=== PATIENT | female | born 1955 | race African-American/Black ===

== ENCOUNTER 2019-05-18 14:41 | Outpatient (CLI) | payer OTHER, SELFPAY ==
--- NOTE | 2019-05-18 15:03 | ECHO_ITS ---
Patient Info Name: Yumiko Mendez Age: 63 years : 1955 Gender: Female Ht: 64 in Wt: 238 lbs BSA: 2.26 m2 HR: 75 bpm BP: 180 / 90 mmHg Technical Quality: Good Exam Date: 05/18/2019 3:07 PM Exam Location: [facility] Patient Status: Outpatient Admit Date: 05/18/2019 Staff Ordering Physician: Rosendo Carpenter DO Attending Provider: Rosendo Carpenter DO Referring Physician: Jayden KNAPP; Exam Type: CA echo doppler color flow Study Info Indications R06.09 - Other forms of dyspnea Complete two-dimensional, color flow and Doppler transthoracic echocardiogram is performed. Summary 1. Left ventricular chamber dimension is normal. 2. Left ventricular systolic function is normal, estimated at 60-65%. 3. The left ventricular diastolic function is grade I diastolic dysfunction. 4. E/e' 13 is mildly elevated. 5. Left atrial chamber dimension is moderately enlarged. 6. The aortic valve is not well visualized. 7. Cannot determine number of aortic valve leaflets. 8. There is mild to moderate aortic valve stenosis based on peak velocity of 245 cm/s, mean gradient of 12 mmHg, and aortic valve area of 1.8 cm2. However, aortic stenosis could be underestimated, consider JEYSON. 9. There is severe aortic valve sclerosis. 10. The mitral valve has mildly calcified annulus. 11. There is trace mitral valve regurgitation. Left Ventricle E/e' 13 is mildly elevated. Left ventricular chamber dimension is normal. Left ventricular systolic function is normal, estimated at 60-65%. The left ventricular diastolic function is grade I diastolic dysfunction. Right Ventricle Right ventricular chamber dimension is normal. Right ventricular systolic function is normal. Left Atria Left atrial chamber dimension is moderately enlarged. Right Atria Right atrial chamber dimension is normal. Aortic Valve Cannot determine number of aortic valve leaflets. There is mild to moderate aortic valve stenosis based on peak velocity of 245 cm/s, mean gradient of 12 mmHg, and aortic valve area of 1.8 cm2. However, aortic stenosis could be underestimated, consider JEYSON. The aortic valve is not well visualized. There is severe aortic valve sclerosis. There is no aortic valve regurgitation. Pulmonic Valve There is no pulmonic regurgitation. Mitral Valve The mitral valve has mildly calcified annulus. There is no mitral valve stenosis. There is trace mitral valve regurgitation. Tricuspid Valve There is no tricuspid valve regurgitation. Pericardium/Pleural There is no pericardial effusion. Inferior Vena Cava Normal inferior vena cava with >50% collapse upon inspiration consistent with normal right atrial pressure, 5 mmHg. Aorta The aortic root size at the sinus of Valsalva is normal. Left Ventricular Outflow Tract Name Value Normal LVOT 2D LVOT Diameter 2.0 cm LVOT Doppler LVOT Peak Gradient 7 mmHg LVOT Mean Gradient 4 mmHg LVOT VTI 29 cm LVOT VTI/AV VTI Ratio 0.6 LVOT Stroke Volume 92 ml
== END 2019-05-18 14:42 | disposition home or self-care (01) ==
PROVIDERS: PCP Internal Medicine Infectious Disease; Visit Provider Internal Medicine Cardiovascular Disease
DX: R06.09 Other forms of dyspnea (principal); I34.0 Nonrheumatic mitral (valve) insufficiency; I35.1 Nonrheumatic aortic (valve) insufficiency
CPT/HCPCS: 93306

== ENCOUNTER 2019-10-14 10:44 | Outpatient (CLI) | payer OTHER, SELFPAY ==
--- NOTE | ~2019-10-14 | US_ITS ---
EXAMINATION: US soft tissue groin LT DATE: 10/14/2019 10:59 INDICATION: Left groin pain. TECHNIQUE: Multiple grayscale and Doppler ultrasound images of the left inguinal region were obtained . COMPARISON: Pelvis MRI 05/14/2018 FINDINGS: There is no abnormal mass or lymphadenopathy in the patient's area of concern in left ingui nal region. IMPRESSION: 1. No abnormal mass or lymphadenopathy in the patient's area of concern in left inguinal region. Reviewed, dictated and finalized at location A.
== END 2019-10-14 10:45 ==
PROVIDERS: Visit Provider Internal Medicine Infectious Disease
DX: R10.2 Pelvic and perineal pain (principal)
CPT/HCPCS: 76882

== ENCOUNTER 2020-06-22 09:39 | Outpatient (CLI) | payer OTHER, SELFPAY ==
--- NOTE | 2020-06-22 11:00 | NEURO_ITS ---
Impression: # Complains of numbness of hands, left more than right. # Severe left Carpal Tunnel Syndrome. # Mild to moderate right Carpal Tunnel Syndrome. # No ulnar neuropathy. # Needle/EMG exam abnormal. Nerve Conduction Studies Anti Sensory Summary Table Stim Site NR Peak (ms) P-T Amp (?V) Site1 Site2 Delta-P (ms) Dist (cm) Willie (m/s) Left Median Anti Sensory (2-3nd Digit) Wrist 5.3 13.5 Wrist 2-3nd Digit 5.3 14.0 26 Wrist 5.6 15.6 Wrist 2-3nd Digit 5.3 14.0 26 Right Median Anti Sensory (2-3nd Digit) Wrist 4.2 57.9 Wrist 2-3nd Digit 4.2 14.0 33 Wrist 7.7 32.8 Wrist 2-3nd Digit 4.2 14.0 33 Left Radial Anti Sensory (Base 1st Digit) Wrist 2.2 34.1 Wrist Base 1st Digit 2.2 0.0 Right Radial Anti Sensory (Base 1st Digit) Wrist 2.6 14.7 Wrist Base 1st Digit 2.6 0.0 Left Ulnar Anti Sensory (5th Digit) Wrist 3.3 58.3 Wrist 5th Digit 3.3 14.0 42 Right Ulnar Anti Sensory (5th Digit) Wrist 3.5 72.2 Wrist 5th Digit 3.5 14.0 40 Motor Summary Table Stim Site NR Onset (ms) O-P Amp (mV) Site1 Site2 Delta-0 (ms) Dist (cm) Willie (m/s) Left Median Motor (Abd Poll Brev) Wrist 9.5 1.3 Elbow Wrist 5.7 30.0 53 Elbow 15.2 1.1 Right Median Motor (Abd Poll Brev) Wrist 4.8 0.7 Elbow Wrist 6.6 31.0 47 Elbow 11.4 0.2 Left Ulnar Motor (Abd Dig Minimi) Wrist 3.4 5.1 A Elbow Wrist 5.7 29.0 51 A Elbow 9.1 1.8 Right Ulnar Motor (Abd Dig Minimi) Wrist 3.2 5.5 A Elbow Wrist 5.8 31.0 53 A Elbow 9.0 3.6 F Wave Studies NR F-Lat (ms) L-R F-Lat (ms) Left Median (Mrkrs) (Abd Poll Brev) 30.98 1.05 Right Median (Mrkrs) (Abd Poll Brev) 29.93 1.05 Left Ulnar (Mrkrs) (Abd Dig Min) 30.24 0.00 Right Ulnar (Mrkrs) (Abd Dig Min) 30.24 0.00 EMG Side Muscle Nerve Root Ins Act Fibs Amp Dur Recrt Comment Right 1stDorInt Ulnar C8-T1 Nml Nml Nml Nml Nml Right Ext Indicis Radial (Post Int) C7-8 Nml Nml Nml Nml Nml Right Ext Digitorum Radial (Post Int) C7-8 Nml Nml Nml Nml Nml Right BrachioRad Radial C5-6 Nml Nml Nml Nml Nml Right PronatorTeres Median C6-7 Nml Nml Nml Nml Nml Right Abd Poll Brev Median C8-T1 Nml Nml Nml Nml Nml Left 1stDorInt Ulnar C8-T1 Nml Nml Nml Nml Nml Left Ext Indicis Radial (Post Int) C7-8 Nml Nml Nml Nml Nml Left Ext Digitorum Radial (Post Int) C7-8 Nml Nml Nml Nml Nml Left BrachioRad Radial C5-6 Nml Nml Nml Nml Nml Left PronatorTeres Median C6-7 Nml Nml Nml Nml Nml Left Abd Poll Brev Median C8-T1 Nml Nml Decr >12ms Reduced MTDD
== END 2020-06-22 09:40 | disposition home or self-care (01) ==
PROVIDERS: PCP Internal Medicine Infectious Disease; Visit Provider Internal Medicine Infectious Disease
DX: G56.03 Carpal tunnel syndrome, bilateral upper limbs (principal); G62.9 Polyneuropathy, unspecified
CPT/HCPCS: 95886; 95911

== ENCOUNTER → 2020-12-02 04:12 | Outpatient (CLI) | payer OTHER, SELFPAY ==
[2020-12-02 18:23] LABS: SARS-CoV-2 RNA PCR Negative
== END ==
PROVIDERS: PCP Internal Medicine Infectious Disease; Visit Provider Obstetrics & Gynecology Gynecology
DX: Z01.812 Encounter for preprocedural laboratory examination (principal); Z20.822 Contact with and (suspected) exposure to COVID-19
CPT/HCPCS: C9803; U0003; U0005

== ENCOUNTER 2020-12-05 00:45 | Day surgery (SDC) | payer OTHER, SELFPAY ==
[2020-12-01 15:45] VITALS: BMI 43.4
--- NOTE | 2020-12-05 07:49 | WPDHPUPDATE1 ---
History and Physical Update Update Date/Time: 12/05/20 07:49 History and Physical has been reviewed, including an updated exam of the patient. There are NO changes in the patient's condition. Risks, benefits, and alternatives have been discussed and questions answered. Patient agrees to proceed with procedure.
--- NOTE | 2020-12-05 07:49 | PM.HPGS ---
History of Present Illness History of Present Illness Consent: Risks, benefits, and alternatives have been discussed and questions answered. Patient agrees to proceed with procedure. Chief complaint: thickened endometrial lining Narrative: Yumiko Mendez is a 64 year old female who went to the emergency room for fever and elevated blood pressure. She was diagnosed with sepsis positive E coli blood cultures. Pelvic CT at the time revealed thickened endometrium at 6mm. The patient denies vaginal bleeding. It was recommended to further evaluate with hysteroscopy D&C. Risks of infection, bleeding, and perforation were reviewed. Possible pathology was discussed. Review of Systems Constitutional: Constitutional: Reports night sweats (Anti flashes) Gastrointestinal: Gastrointestinal: Reports constipation and Reports other (Hemorrhoids) Genitourinary: Genitourinary: Reports urinary incontinence (Mixed) Musculoskeletal: Musculoskeletal: Reports arthralgias [facility] Past Medical History Medical History (Updated 12/05/20 @ 07:52 by Jazmine Armstrong MD) Chest pain Disorder of lipid metabolism Hypertension Osteoarthritis Surgical History Surgical History (Updated 04/30/19 @ 10:49 by Guadalupe Goldstein CMA) History of Family History Family History (Updated 04/30/19 @ 10:50 by Guadalupe Goldstein CMA) Father Heart disease Hypertension Mother Hypertension Breast cancer Social History Social History (Updated 04/30/19 @ 10:51 by Guadalupe Goldstein CMA) Smoking status: Never smoker Alcohol intake: never Living arrangements: with family Meds Home Medications and Allergies Home Medications Medication Instructions Recorded Confirmed Type acetaminophen 650 mg 1,300 mg PO Q8H PRN tablet 04/30/19 12/01/20 History tablet,extended release diclofenac sodium 75 mg 75 mg PO BID 04/30/19 12/01/20 History tablet,delayed release ergocalciferol (vitamin D2) 1,250 1,250 mcg PO 3XW 04/30/19 12/01/20 History mcg (50,000 unit) capsule losartan 100 mg tablet 100 mg PO DAILY 04/30/19 12/01/20 History amlodipine 10 mg tablet 10 mg PO DAILY #30 tablet 05/01/19 12/01/20 Rx cephalexin 500 mg PO BID 12/01/20 12/01/20 History elderberry fruit [Elderberry] 200 mg PO DAILY 12/01/20 12/01/20 History ephedrine HCl 25 mg PO DAILY 12/01/20 12/01/20 History multivit with min-folic acid 1 tablet PO DAILY 12/01/20 12/01/20 History [Adult Multivitamin Gummies] tramadol 200 mg PO Q8H PRN 12/01/20 12/01/20 History Allergies Allergy/AdvReac Type Severity Reaction Status Date / Time Sulfa (Sulfonamide Allergy Mild RASH Verified 12/01/20 15:31 Antibiotics) Exam Const: General: comfortable and no acute distress : External Female Exam: normal external appearance Speculum Exam - Vagina: normal appearance of the vagina Speculum Exam - Cervix: Other cervical findings present (Cervix scarred) Bimanual exam- vagina & uterus: normal bimanual exam Bimanual Exam- Adnexa, other: normal adnexae Assessment and Plan Assessment and plan (1) Thickened endometrium: Code(s): R93.89 - Abnormal findings on diagnostic imaging of other specified body structures Status: Acute Assessment and Plan: Plan to proceed with D&C hysteroscopy
--- NOTE | 2020-12-05 09:11 | WPDANESEPPF ---
Anes - Initial Pre Proc Eval Procedure: Operation Date: 12/05/20 11:15 Proposed Procedures p Hysteroscopy Dilation and Curettage - Jazmine Armstrong MD Date/Time: 12/05/20 09:11 Surgeon: Jazmine Armstrong MD Pre Op Diagnosis: thickened endometrial lining Patient Data Age: 64 Gender: F Height: 1.63 m Weight: 115 kg Allergies Allergy/AdvReac Type Severity Reaction Status Date / Time Sulfa (Sulfonamide Allergy Mild RASH Verified 12/01/20 15:31 Antibiotics) Home Medications Medication Instructions Recorded Confirmed Type acetaminophen 650 mg 1,300 mg PO Q8H PRN tablet 04/30/19 12/01/20 History tablet,extended release diclofenac sodium 75 mg 75 mg PO BID 04/30/19 12/01/20 History tablet,delayed release ergocalciferol (vitamin D2) 1,250 1,250 mcg PO 3XW 04/30/19 12/01/20 History mcg (50,000 unit) capsule losartan 100 mg tablet 100 mg PO DAILY 04/30/19 12/01/20 History amlodipine 10 mg tablet 10 mg PO DAILY #30 tablet 05/01/19 12/01/20 Rx cephalexin 500 mg PO BID 12/01/20 12/01/20 History elderberry fruit [Elderberry] 200 mg PO DAILY 12/01/20 12/01/20 History ephedrine HCl 25 mg PO DAILY 12/01/20 12/01/20 History multivit with min-folic acid 1 tablet PO DAILY 12/01/20 12/01/20 History [Adult Multivitamin Gummies] tramadol 200 mg PO Q8H PRN 12/01/20 12/01/20 History Patient hx anesthesia problems: none Family hx anesthesia problems: none PMFSH Past Medical History Medical History Chest pain Disorder of lipid metabolism Hypertension Osteoarthritis Surgical History Surgical History History of Family History Family History Father Heart disease Hypertension Mother Hypertension Breast cancer Social History Social History Smoking status: Never smoker Alcohol intake: never Living arrangements: with family Anita Steiner Final PreProcedure Day of Procedure 12/05/20 09:11 Patient weight: morbidly obese Heart: regular rate and rhythm Lungs: clear to auscultation Airway: Mallampati scale class II Neurological: alert and oriented Last oral intake: >/= 8 hours ASA classification: III Emergent: no Anesthetic plan: proceed Anesthesia type and monitoring: general GIVS and standard monitoring Informed Consent: The patient's anesthetic plan and its attendant risks and benefits were discussed with the patient/family/POA. Questions were solicited and answers provided to the satisfaction of the patient/family/POA.
[2020-12-05] MEDS: ACETAMINOPHEN 500 MG TABLET 1000 MG PO (09:19)
[2020-12-05] MEDS: LACTATED RINGERS 1,000 ML 30 ML IV CONT (09:20)
[2020-12-05 10:26] VITALS: BP 188/82; PULSE 84; RESP 14; O2SAT 95
--- NOTE | 2020-12-05 10:27 | W.PM.PROC2 ---
Procedure Note - Detailed Date of Procedure 12/05/20 Pre-op Diagnosis thickened endometrial lining Post-op Diagnosis same Procedure Performed D&C hysteroscopy with MyoSure resection Surgeon Jazmine Armstrong MD Anesthesia MAC and local Findings External os is completely stenotic; uterus sounds to 8cm; there is a large polyp and a small fibroid on the posterior wall; the remainder of the endometrium appears atrophic Description of Procedure The patient is taken to the operating room and placed under anesthesia in the dorsal lithotomy position. She is prepped and draped in the usual sterile fashion. [place] speculum was placed in the vagina and the cervix was grasped on the anterior lip with a tenaculum. The external os is without visible opening. The cervix is injected with 1% lidocaine in each quadrant. An 11 blade scalp was used to linda-cross what appears to be the possible external os. The os Finders were then used and the cervix able to be opened. The cervix was then serially dilated with Hegar. The uterus is sounded to 8cm. The diagnostic hysteroscope was placed with the stated findings. The MyoSure device is opened and placed. Under direct visualization the large polyp and small fibroid are excised using the MyoSure device. A medium curette is used to curette the endometrium until a good uterine cry was noted in all areas. Minimal materials obtained consistent with the atrophic appearance. All instruments are removed. Sponge, needle, and instrument counts are correct per the OR staff. Patient is awakened from anesthesia and taken to recovery in stable condition. Estimated Blood Loss 5 Drains No Packing No Pathology yes (Endometrial shavings and curettings) Complications No immediate complications Condition stable Disposition PACU
[2020-12-05 10:50] VITALS: BP 182/84; PULSE 82; RESP 20
[2020-12-05 11:20] VITALS: BP 189/86; PULSE 82; RESP 20
[2020-12-05 11:50] VITALS: BP 189/88; PULSE 80; RESP 20
[2020-12-05 12:10] VITALS: BP 187/85; PULSE 82; RESP 20
== END 2020-12-05 12:24 | disposition home or self-care (01) ==
PROVIDERS: PCP Internal Medicine Infectious Disease; Visit Provider Obstetrics & Gynecology Gynecology
PROC: 0U5B8ZZ Destruction of Endometrium, Via Natural or Artificial Opening Endoscopic (ICD-10-PCS; CPT 58563; principal; 2020-12-05 11:15)
DX: R93.89 Abnormal findings on diagnostic imaging of other specified body structures (principal); N88.2 Stricture and stenosis of cervix uteri; N84.0 Polyp of corpus uteri; D25.0 Submucous leiomyoma of uterus; I11.0 Hypertensive heart disease with heart failure; M19.90 Unspecified osteoarthritis, unspecified site; E66.01 Morbid (severe) obesity due to excess calories; Z68.41 Body mass index [BMI] 40.0-44.9, adult; I25.10 Atherosclerotic heart disease of native coronary artery without angina pectoris; R60.0 Localized edema
CPT/HCPCS: 58558; 88305; A9270; C9803; J2704; J3010; J7030; J7120; U0003; U0005

== ENCOUNTER → 2023-02-20 11:28 | Outpatient (CLI) | payer MEDICARE, SELFPAY ==
--- NOTE | ~2023-02-20 | DEXA_ITS ---
Bone Density Report Name: NASIM RITCHIE Age: 67 Sex: Female Ethnicity: Black Date of : 1955 Indication: postmenopausal; screening for osteoporosis; parental hip fracture; height loss; Referring Provider: THERESA LAUREANO Study: Bone densitometry was performed. Exam Date: February 20, 2023 Accession number: [id number] Bone Density: Region BMD T-score Z-score Classification AP Spine (L1-L4) 1.460 3.8 4.9 Normal Femoral Neck (Left) 1.113 2.4 2.5 Normal Total Hip (Left) 1.069 1.0 1.3 Normal Femoral Neck (Right) 0.942 0.8 1.3 Normal Total Hip (Right) 1.044 0.8 1.1 Normal Total Hip Mean 1.057 0.9 1.2 Normal World Health Organization criteria for BMD impression classify patients as: Normal (T-score at or above -1.0), Osteopenia (T-score between -1.0 and -2.5), or Osteoporosis (T-score at or below -2.5). 10-year Fracture Risk: FRAX not reported because: All T-scores for Spine Total, Hip Total, Femoral Neck at or above -1.0 Clinical Information Provided by Patient: Parent has had a hip fracture Has used the following medications: Vitamin D Patient maximum height was 65 Menopause Age: 50 No regular weight bearing exercise Drinks caffeinated beverages Onset of menses at age 13 Number of children 4 Impression: The patient has normal bone mass. The patient has risk factors, including: parental hip fracture. Discussion: BONE DENSITY IS ABOVE THE MINIMUM DESIRABLE LEVEL AT ALL SKELETAL SITES TESTED. This patient?s bone mineral density is above the minimum desirable level (T-score -1.0 or better) at all sites measured. The patient should follow a healthful lifestyle (good nutrition with adequate calcium and vitamin D, and appropriate weight-bearing exercise). Follow-Up: Consider repeating this study in 5 years or sooner if there is some new clinical indication. Reported by: [facility] on 02/20/2023 11:53:00 AM. Reviewed, dictated and finalized at location Kimberlee JETER
== END ==
PROVIDERS: PCP Obstetrics & Gynecology Gynecology; Visit Provider Obstetrics & Gynecology Gynecology
DX: Z78.0 Asymptomatic menopausal state (principal)
CPT/HCPCS: 77080

== ENCOUNTER 2023-05-29 09:55 | Outpatient (CLI) | payer MEDICARE, SELFPAY ==
--- NOTE | 2023-05-29 11:30 | NEURO_ITS ---
Impression: # Complains of decreasing strength in hands. # Severe left Carpal Tunnel Syndrome. # Moderate right Carpal Tunnel Syndrome. # Mildly abnormal needle/EMG exam in bilateral APB. Nerve Conduction Studies Anti Sensory Summary Table Stim Site NR Peak (ms) P-T Amp (?V) Site1 Site2 Delta-P (ms) Dist (cm) Willie (m/s) Left Median Anti Sensory (2-3nd Digit) Wrist 4.5 20.5 Wrist 2-3nd Digit 4.5 14.0 31 Wrist NR Wrist 2-3nd Digit 4.5 14.0 31 Right Median Anti Sensory (2-3nd Digit) Wrist 6.5 31.6 Wrist 2-3nd Digit 6.5 14.0 22 Wrist 6.6 27.7 Wrist 2-3nd Digit 6.5 14.0 22 Left Radial Anti Sensory (Base 1st Digit) Wrist 1.9 37.9 Wrist Base 1st Digit 1.9 0.0 Right Radial Anti Sensory (Base 1st Digit) Wrist 2.2 28.0 Wrist Base 1st Digit 2.2 0.0 Left Ulnar Anti Sensory (5th Digit) Wrist 3.6 38.0 Wrist 5th Digit 3.6 14.0 39 Right Ulnar Anti Sensory (5th Digit) Wrist 3.4 34.4 Wrist 5th Digit 3.4 14.0 41 Motor Summary Table Stim Site NR Onset (ms) O-P Amp (mV) Site1 Site2 Delta-0 (ms) Dist (cm) Willie (m/s) Left Median Motor (Abd Poll Brev) NO RESPONSE Wrist NR Elbow Wrist 26.0 Elbow NR Right Median Motor (Abd Poll Brev) Wrist 4.5 4.2 Elbow Wrist 5.5 30.0 55 Elbow 10.0 3.8 Left Ulnar Motor (Abd Dig Minimi) Wrist 3.2 4.1 A Elbow Wrist 6.0 33.0 55 A Elbow 9.2 3.4 Right Ulnar Motor (Abd Dig Minimi) Wrist 2.8 6.2 A Elbow Wrist 5.4 29.0 54 A Elbow 8.2 4.6 F Wave Studies NR F-Lat (ms) L-R F-Lat (ms) Left Median (Mrkrs) (Abd Poll Brev) 29.83 0.35 Right Median (Mrkrs) (Abd Poll Brev) 30.18 0.35 Left Ulnar (Mrkrs) (Abd Dig Min) 29.88 0.18 Right Ulnar (Mrkrs) (Abd Dig Min) 29.71 0.18 EMG Side Muscle Nerve Root Ins Act Fibs Amp Dur Recrt Comment Right 1stDorInt Ulnar C8-T1 Nml Nml Nml Nml Nml Right Ext Indicis Radial (Post Int) C7-8 Nml Nml Nml Nml Nml Right Ext Digitorum Radial (Post Int) C7-8 Nml Nml Nml Nml Nml Right BrachioRad Radial C5-6 Nml Nml Nml Nml Nml Right PronatorTeres Median C6-7 Nml Nml Nml Nml Nml Right Abd Poll Brev Median C8-T1 Nml Nml Nml >12ms Reduced Left 1stDorInt Ulnar C8-T1 Nml Nml Nml Nml Nml Left Ext Indicis Radial (Post Int) C7-8 Nml Nml Nml Nml Nml Left Ext Digitorum Radial (Post Int) C7-8 Nml Nml Nml Nml Nml Left BrachioRad Radial C5-6 Nml Nml Nml Nml Nml Left PronatorTeres Median C6-7 Nml Nml Nml Nml Nml Left Abd Poll Brev Median C8-T1 Nml Nml Nml >12ms Reduced Right ABD Dig Min Ulnar C8-T1 Nml Nml Nml Nml Nml Left ABD Dig Min Ulnar C8-T1 Nml Nml Nml Nml Nml Right FlexCarpiUln Ulnar C8,T1 Nml Nml Nml Nml Nml Right Abd Poll Long Radial (Post Int) C7-8 Nml Nml Nml Nml Nml Left FlexCarpiUln Ulnar C8,T1 Nml Nml Nml Nml Nml Left Abd Poll Long Radial (Post Int) C7-8 Nml Nml Nml Nml Nml MTDD
== END 2023-05-29 09:56 | disposition home or self-care (01) ==
LOC: ANHNEURO 09:59
PROVIDERS: PCP Internal Medicine Infectious Disease; Visit Provider Internal Medicine Infectious Disease
DX: G56.03 Carpal tunnel syndrome, bilateral upper limbs (principal)
CPT/HCPCS: 95886; 95911

== ENCOUNTER 2024-08-05 15:36 | Inpatient (IN) | payer MEDICARE, SELFPAY ==
--- NOTE | ~2024-08-05 | CT_ITS ---
CT brain wo con Ordering provider: Carlitos Kingsley MD History: 68 years Female with . rpt HCT . Comparison: August 05, 2024 Technique: CT of the head without contrast. FINDINGS: BRAIN PARENCHYMA AND CSF SPACES: Encephalomalacia in the right temporal occipital area. Noted with hy perdense areas which are unchanged from previous examination. These are most likely calcifications bu t hemorrhage is not excluded. Follow-up advised. the Hounsfield units in the hyperdense areas are ab out 59 HU. No midline shift, or mass effect.. The brain parenchyma and CSF spaces are otherwise norm al. Persistent cavum septum pellucidum is noted. VISUALIZED PARANASAL SINUSES: Left sphenoid sinus disease. Well aerated. MASTOIDS: Well aerated. BONES: The bones appear intact. SOFT TISSUES: Visualized nasopharynx is normal. Superficial soft tissues are normal. IMPRESSION: No significant change from previous examination. Encephalomalacia in the right temporal occipital are a is noted with hyperdense areas most likely calcifications in the cortex Follow-up advised. Jacinta in the ER was notified with the result of the patient at 9:55 PM on August 05, 2024.. Reviewed, dictated and finalized at location A. IMPRESSION: No significant change from previous examination. Encephalomalacia in the right temporal occipital area is noted with hyperdense areas most likely calcificatio ns in the cortex Follow-up advised. Jacinta in the ER was notified with the result of the patient at 9:55 PM on 2024..
--- NOTE | ~2024-08-05 | CT_ITS ---
History: Remote history of CVA (October 2023) now presents with weakness. PROCEDURE: CT head without contrast. COMPARISON: 05/20/2017 TECHNIQUE: Axial imaging of the head performed from the skull base to the vertex without IV contrast. Sagittal a nd coronal reformations obtained. DLP: 605 mGy-cm FINDINGS: Incidental notation is made of cavum septum pellucidum. Encephalomalacia and gliosis is identified within the right temporoparietal lobe, primarily within th e distribution of the posterior cerebral artery, consistent with patient's history. Calcifications and circuitous foci of increased attenuation are identified within the gliosis cavity. The remainder of the ventricles are otherwise normal in size, shape and position. There is no mass, mass effect or midline shift. There is no abnormal extra-axial fluid collection. Opacification of the left sphenoid sinus is identified. Remaining paranasal sinuses are otherwise sangita ar. The mastoid air cells are well aerated. No acute displaced fractures within the overlying cranium. Impression: Encephalomalacia and gliosis with hyper attenuating foci identified centrally within the gliosis cavi ty. Short-term follow-up is recommended (repeat study in 2 hours) if the patient is clinically able, and if clinical suspicion persists to exclude acute/subacute hemorrhage. Opacification of the left sphenoid sinus. These findings and recommendations were discussed with Dr. Kingsley at 7:30 PM on 08/05/2024. Reviewed, dictated and finalized at location A. Impression: Encephalomalacia and gliosis with hyper attenuating foci identified centrally w ithin the gliosis cavity. Short-term follow-up is recommended (repeat study in 2 hours) if the patient is clinically able, and if clinical suspicion persists to exclude acute/subacute hemorrhage. Opacification of the left sphenoid sinus. These findings and recommendations were discussed with Dr. Kingsley at 7:30 PM on 08/05/2024.
--- NOTE | ~2024-08-05 | CT_ITS ---
EXAMINATION: CT abdomen pelvis w con DATE: 08/10/2024 13:19 INDICATION: Failure to thrive. Intractable nausea, vomiting and diarrhea. TECHNIQUE: Computed tomography (CT) of the abdomen and pelvis was performed with 100 mL Omnipaque-350 intravenous contrast. Automated exposure control and iterative reconstruction technique were employe d. The dose-length product was 743.47 mGy-cm. COMPARISON: None FINDINGS: Small bilateral posterior layering pleural effusions with associated dependent atelectasis in bilater al lower lobes, left greater than right. No pulmonary edema. Heart size is normal. Arthroscopic coron maurizio artery calcific lesions. Median sternotomy wires and surgical clips likely related to prior coron maurizio artery bypass grafting. There is also been prior aortic valve repair. No pericardial effusion. Th ere is diffuse mild to moderate body wall edema and small amount of ascites scattered throughout the abdomen and pelvis. 1 cm cyst in the right hepatic lobe. Gallbladder, spleen, pancreas, bilateral adr enal glands and right kidney are normal. 1 cm left renal cyst. Normal appendix. There is edematous-ap pearing wall thickening of loops of distal ileum and of the cecum and ascending colon consistent with an enterocolitis which could be infectious or inflammatory in etiology. Normal mucosal enhancement i s seen at the affected bowel. There is calcified atherosclerosis of the aorta and many of the other a rteries without evident hemodynamically significant stenosis in the celiac axis, superior mesenteric artery or inferior mesenteric artery. The latter is normal. Couple dystrophic calcifications in the o therwise unremarkable uterus. Bilateral adnexa are unremarkable. No abscess or free intraperitoneal g as. No pathologically enlarged abdominal or pelvic lymphadenopathy. Mild lumbar levoscoliosis with mo derate to severe spondylosis greatest at the thoracolumbar junction. There are bridging osteophytes a t multiple levels consistent with diffuse idiopathic skeletal hyperostosis (DISH). Mild to moderate right and severe left hip osteoarthritis. IMPRESSION: 1. Bowel wall thickening involving portions of the ileum in the proximal colon consistent with entero colitis which could be infectious or inflammatory in etiology. 2. Small bilateral pleural effusions, mild to moderate diffuse body wall edema and small amount of as cites in the abdomen and pelvis. Reviewed, dictated and finalized at location A. IMPRESSION: 1. Bowel wall thickening involving portions of the ileum in the proximal colon consistent with enterocolitis which could be infectious or inflammatory in etio logy. 2. Small bilateral pleural effusions, mild to moderate diffuse body wall edema and small amount of ascites in the abdomen and pelvis.
--- NOTE | ~2024-08-05 | XR_ITS ---
XR chest 2V Ordering provider: Nicole Trinidad APRN History: 68 years Female with . weakness . Comparison: April 09, 2019 FINDINGS: MEDIASTINUM: The cardiac silhouette is not enlarged. Postoperative changes in the mediastinum. LUNGS: No infiltrates, effusions or pneumothorax. More lucent left hemithorax is seen compared to the right. Clinical correlation for left lobectomy advised. OTHER: No free air under the diaphragm. Degenerative the spine. IMPRESSION: No acute cardiopulmonary pathology. Reviewed, dictated and finalized at location A.
[2024-08-05 15:40] VITALS: BP 116/78; PULSE 108; RESP 16; TEMP 36.5; O2SAT 100
--- OUTSIDE RECORDS SUMMARY | 2024-08-05 16:22 | XMS_ITS | Data Portability ---
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 She had cortisone shots in her knees 3 months ago. Weight loss has was discussed with her at that time she still has not lost the weight. Her last height and weight 5 ft 3-135 lb BMI of 41.6. She had a venous duplex ultrasound of the right leg on 03/26/2022 which showed a Wiley cyst but no DVT cord the patient. She had a nonhealing wound in the posterior left calf related to venous stasis. Now that has healed fully there is a 1 cm pale pink scar centrally back of the distal calf junction of proximal 2/3 distal 1/3 looks well healed. She did have a recent bout of venous stasis cellulitis in the right that has subsided. She also has severe osteoarthritis in her left hip addition to having severe arthritis in the right knee moderately severe left. She states that her weight has been going up and down. She is eating junk food and candy at times drinks 1 soda a day and has not been able to find the will power to avoid these things and sufficiently regulate her daily caloric intake in order to lose weight. She has been advised to see a dietitian by Dr. Skinner but has not done so because of the cost. She is still working she uses a cane. She has no cellulitis in either lower leg today. She has venous stasis darkening of the skin lower 1/4 of both calves. She has firm [place] edema in the lower halves of both legs. The skin around both knees looks normal. The skin in the groin of her left hip shows quite a bit of moisture but no rash. She has a pronounced abdominal pannus. As I did not feel she was the best candidate for a direct anterior approach because the condition of her skin left hip I did refer her to Dr. Zuniga in in the past who does posterior approach but she was too obese at the time to safely do her surgery and he recommended weight loss. I suspect that he would use the same guidelines of BMI of less than 40. I have discussed her that a weight of 220 lb at 5 ft 3 in in height would put her BMI of 39 we can schedule her surgery if she reaches that weight. She weighs approximately 235 lb now so this is await that should be achievable for her. I have discussed strategies in counting calories and avoiding unnecessary calories to not provide nutritional benefit such as sodas candies neck foods junk foods. She states she knows how to lose weight she has done it before but has not tried in earnest this time. she points out that she has friends that have told her that they know people that have been heavier than her that if had joint replacements and I discussed with her that it would be possible to do her joint replacement now with the problem is that with her extreme obesity this results in being prone to infection. I pointed out that she has recently had a nonhealing ulcer finally he will back her left calf and she recently developed spontaneous cellulitis in her right lower leg and if this happened around her knee it could result in multiple surgeries be necessary and need for explantation of her components and put her at high risk for medical complications finding a staph infection for example in her knee and this could even result in . I explained her that just because some patients will come through this surgery that have extreme obesity and seem to have recovery without complication does not change the fact that her risk is in particular is markedly elevated compared with the patient that does not have extreme obesity and her risk factors are evident to her as she has had the spontaneous infections and nonhealing ulcers in her legs already in a this is a direct result of venous stasis insufficiency and the chronic lower extremity edema that is in large part related to her extreme obesity and with this explanation she seemed to understand. She would like cortisone shots in both knees today. Risk of side effects including risk of infection discussed. After ChloraPrep prep, 20 mg of Kenalog and 4 cc of 0.5% ropivacaine were injected into each knee without difficulty and she tolerated this well. I will see her back in 3 months to assess her progress. 30 minutes were spent in total care this patient with the majority of this time spent in [id number] counseling. Not available 07/26/2022 15:49:58 10/18/2022 10/18/2022 HPI: Patient returns. She came in today because of her left hip pain. Last time we saw her for this was about 2 years ago. She was referred to Dr. Zuniga for total hip arthroplasty posterior approach. She has a large pannus and was not felt to be safe to do the anterior approach on her. She did see him and he recommended she lose more weight because her BMI was over 40 that time. She is getting ready to retire and at this point she feels that she wants to proceed with total hip arthroplasty. She has been taking Voltaren as well as tramadol. She uses a cane on a full-time basis. I did weigh her today and she was 231 lb and with a height of 5 ft 4in her BMI is 39.7. She is walking with a cane and a mild limp. I discussed with the patient again that an anterior approach would not be recommended for her because of the pannus that she has from her abdomen. Recommended that she see Dr. Zuniga again to discuss total arthroplasty. Her BMI is under 40 so I think it is reasonable for surgery. She also asked about Dr. Devine, she had a friend have surgery done by him for total hip and certainly that is an option. He does do posterior approaches. At this point there is not much to offer her with regard to hip. She is going to make some phone call and set up appointments with these other doctors to discuss surgery. 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 Her left hip is the biggest problem for her. She cannot walk without a cane in the right hand. She has been told that she needs to lose weight in order to have hip replacement surgery but has not complied with this advice. I had a long discussion with her about how to lose weight by dieting specifically avoiding sodas and foods with high glycemic index such as pasta and rice and foods that are essentially a necessary but are very high calorie such as Serbian fries. She suggested that she might start by giving up drinking sodas which she does frequently and enjoys. That would be a good place to start. I have recommended that she discuss this with Dr. Skinner. There are medications that can reduce the appetite that her options. Would also recommend she consider seeing a dietitian if she can learn how to make healthy choices with respect to her choice of foods and portion control. The simplest placed for her to start would be to give up so it is and sugary snacks. She would like to have cortisone shots in both knees today. They do give her some relief. I have discussed risk of complications including risk of infection with her. After ChloraPrep prep, 20 mg of Kenalog and 4 cc of 0.5% ropivacaine were injected into each knee without difficulty and she tolerated this well. I will be happy to see her back in 3 months to assess her progress with cortisone shots again if she would like. 30 minutes were spent in care this patient more than half the time spent in [id number] care. Not available 01/27/2023 17:31:07 05/09/2023 05/09/2023 Patient returns. She has advanced osteoarthritis of her left hip and rather severe arthritis in both knees. Her left hip bothers her the most. She has been advised that she needs to lose weight before hip replacement surgery. She states she has lost 5 lb over the last 3 months. I would expect her BMI is getting close to being under 40. She has a severe abdominal pannus and I have discussed with her that she would need to see an orthopedic surgeon that does a posterior approach which I do not do. She has seen Dr. Zuniga in in the past was advised her that she needs to lose weight before hip replacement and that would be an excellent choice for her. She had cortisone shots in each knee 3 months ago and they did help her. I have discussed with her that she should be striving to lose 1-1/2 lb each and every week. After 3 months this would lead to an 18 lb weight loss. She is planning to start 1 of the weight loss injections soon. She has been having problems with increased blood pressure. She has been having edema in her legs and has venous stasis skin changes about both ankles and is being sent for ultrasounds of her legs to rule out DVT. She has been advised that diclofenac may be exacerbating her blood pressure problems and edema problems and Dr. Skinner has talked her about perhaps minimize use of diclofenac moving forward. She does take tramadol for pain. 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 Her prior x-rays demonstrate advanced medial compartment osteoarthritis the right knee and moderate medial joint space narrowing on the left moderately severe patellofemoral arthritis left. I have given her the handout explaining the correlation between caloric intake and weight loss or weight gain and she is going to need to reduce her calories that she consumes every day a little bit more. She would like cortisone shots in both knees today. She has no cellulitis in her legs skin over the knees looks normal she had a mild effusion both knees no warmth or redness. I discussed risk of side effects with her including risk of infection. after Betadine and alcohol prep, 20 mg of Kenalog and 4 cc 0.5% ropivacaine were injected into each knee without difficulty. She can have a cortisone shot as often as every 3 months if they are helpful and necessary. 20 minutes were spent total care this patient more than half the time spent in [id number] care. Not available 05/09/2023 14:04:07 Plan of Treatment Reminders Order Date Submit Date Provider Last Modified By Organization Details Last Modified Time Details Appointments None recorded. Lab None recorded. Referral None recorded. Procedures injection/a spiration joint/bursa (PROC) - in office procedure, administere d by provider 2023 024 [email or web address] In-Office Order, Internal Use Only DO Not Attach Compendium DO Not Attach Compendium, Do Not Delete/merge, [id number] 4 12:59:59 injection/a spiration joint/bursa (PROC) - in office procedure, administere d by provider 2022 023 [email or web address] In-Office Order, Internal Use Only DO Not Attach Compendium DO Not Attach Compendium, Do Not Delete/merge, [id number] 3 12:00:08 injection/a spiration joint/bursa (PROC) - in office procedure, administere d by provider 2022 023 [email or web address] In-Office Order, Internal Use Only DO Not Attach Compendium DO Not Attach Compendium, Do Not Delete/merge, [id number] 3 15:13:14 Surgeries None recorded. Imaging XR, knee 2022 023 [email or web address] [facility], [address] [place] [address], [address], 3 10:59:25 XR, hip + pelvis, unilateral 2022 023 [email or web address] [facility], [address] [place] [address], [place], [address], 3 12:28:33 Medication Orders Kenalog 10 mg/mL suspension for injection [address] [facility], [address] [place] [address], [address], 4 14:29:44 ropivacaine (PF) 5 mg/mL (0.5 %) injection solution [address] [facility], [address] [place], [address], 4 14:29:44 Kenalog 10 mg/mL suspension for injection 2022 023 [email or web address] [facility], [address] [place], [address], 4 12:04:34 ropivacaine (PF) 5 mg/mL (0.5 %) injection solution [address] [facility], [address] [place] [address], [address], 3 14:50:11 Kenalog 10 mg/mL suspension for injection 2022 023 [facility], [address] [facility], [place], [address], 4 12:04:34 ropivacaine (PF) 5 mg/mL (0.5 %) injection solution 2022 023 [facility], [address] [facility], [place], [address], 3 21:15:56 Patient TargetsNo targets recorded. Patient InstructionsNo instructions recorded. Reason for Referral None Reported. Results Created Date Observation Date Name Description Value Unit Range Abnormal Flag Note LastModifiedBy Organization Detail LastModifiedTime 10/19/19 23 XR, hip + pelvi s, unila teral No observ ation record ed. [email or web address] [facility] [address], [place], [address], 10/18/2022 12:18:37 01/18/20 23 XR, knee No observ ation record ed. [email or web address] [facility] [address] [place], [address], 01/17/2023 11:58:51 Result Notes None recorded. Problems Name Problem SNOMED Code Status Onset Date Resolution Date Notes Provider Name and Address Organization Details Recorded Time Pain in lower limb 07272655 Completed Not Available [facility] 3 10:45:40 Open wound of left lower leg 32250421630 327595 Active 2022 Not Available [facility] 3 10:45:40 Constipat ion 68111710 Active Not Available [facility] 3 10:45:40 Pain of left ankle joint 09500206398 580585 Active 2021 Not Available [facility] 3 10:45:40 Backache 193534327 Completed Not Available [facility] 3 10:45:40 Urinary incontine nce 159189022 Completed Not Available [facility] 3 10:45:40 Asthma 241465997 Active Not Available [facility] 3 10:45:40 Localized , primary osteoarth ritis of the pelvic region and thigh 296960223 Active Not Available [facility] 3 10:45:40 Gastroeso phageal reflux disease 731541135 Active Not Available [facility] 3 10:45:40 Osteoarth ritis of knee 808253838 Active Not Available [facility] 3 10:45:40 Dyspnea 170446239 Completed Not Available [facility] 3 10:45:40 Pain in left lower limb 793865232 Completed Not Available [facility] 3 10:45:40 Chest pain 55616216 Completed Not Available [facility] 3 10:45:40 Infected thumb 730439287 Completed Not Available [facility] 3 10:45:40 Blood in urine 65350562 Completed Not Available [facility] 3 10:45:40 Arthritis 4684124 Active Not Available [facility] 3 10:45:41 Osteoarth ritis 218502757 Active Not Available [facility] 3 10:45:41 Obesity 202364179 Active Not Available [facility] 3 10:45:41 Painless rectal bleeding 681448281 Active Not Available [facility] 3 10:45:41 Hyperlipi demia 35275005 Active Not Available [facility] 3 10:45:41 Essential hypertens ion 32396715 Active Not Available [facility] 3 10:45:41 Dyspnea on exertion 07061312 Active Not Available [facility] 3 10:45:41 Urinary tract infectiou s disease 62433331 Completed Not Available [facility] 3 10:45:41 Spinal stenosis 01077290 Active Not Available [facility] 3 10:45:41 Vitamin deficienc y 94046372 Active Not Available [facility] 3 10:45:41 Paresthes ia 70012484 Active Not Available [facility] 3 10:45:41 Periphera l venous insuffici ency 22224920 Active 2022 Jluis Templeton DPM [address], [place], [address] , [facility] 3 13:10:36 Bilateral osteoarth ritis of knees 91418119858 9107 Active 2022 Candace Green RMA null, [facility] 3 15:12:03 Pain of left hip joint 85807219811 9100 Active 2022 Candace Green, RMA null, [facility] 3 11:20:06 Pain of bilateral knee joints 71640666030 4104 Active 2022 Candace Green RMA null, [facility] 3 11:58:58 Osteoarth ritis of left hip joint 83685082478 9108 Active 2023 Candace Green, RMA null, [place] [facility] 4 12:07:12 Problem Notes None recorded. Procedures Surgical History Date Name Laterality Status Provider Name and Address Organization Details Recorded Time 06/07/19 Blank Procedure Note completed Jluis Templeton DPM [address], [address], [place], [address], [facility] 06/07/2022 13:09:50 04/08/19 11 Colonoscopy completed Not Available [facility] 06/07/19 10:42:14 rubber band ligation of hemorrhoid(s) completed Not Available [facility] 06/06/2022 10:42:14 section completed Not Available [facility] 06/06/2022 10:42:14 Anoscopy control bleeding completed Not Available [facility] 06/06/2022 10:42:14 Imaging Results Imaging Date Name Status LastModified by Organiz ation Details LastModified Time 10/18/2022 XR, hip + pelvis, unilateral completed [email or web address] [facility], [place], [address], 10/18/2022 12:18:37 01/17/2023 XR, knee completed [email or web address] [facility] [address], [place], [address], 01/17/2023 11:58:51 Procedure Notes None recorded. Medical Equipment None Reported. Allergies Allergen ID Allergen Name Allergen Category Reaction Reaction Severity Criticality Documentation Date Start Date Code Code System Note Provider Name and Address Organization Details Recorded Time 98175 Substance with sulfonami de structure and antibacte rial mechanism of action (substanc e) medicatio n Not available Not available Not available 06/06/2022 91563 8003 SNOMED Not Available [facility] 10:51:26 Medications Name Sig Start Date Stop Date Status Note LastModified by Organization Details LastModified Time nifedipin e ER 30 mg tablet,ex tended release 24 hr TAKE 1 TABLET BY MOUTH ONCE DAILY 04/27 completed Not Available Not Available Not Available celecoxib 200 mg capsule Take 1 capsule twice a day by oral route as needed. 07/05 completed Not Available Not Available Not Available cyclobenz aprine 10 mg tablet Take 1 tablet every 8 hours by oral route as needed for 10 days. active GENERIC FOR FLEXERIL Not Available Not Available Not Available amoxicill in 500 mg capsule Take 1 capsule 3 times a day by oral route. active Not Available Not Available No t Available furosemid e 40 mg tablet TAKE 1 TABLET BY MOUTH ONCE DAILY IN THE MORNING active Not Available Not Available No t Available clonidine HCl 0.1 mg tablet active Not Available Not Available No t Available atorvasta tin 10 mg tablet Take 1 tablet every day by oral route. active Not Available Not Available No t Available oxybutyni n chloride ER 10 mg tablet,ex tended release 24 hr Take 1 tablet every day by oral route. 05/10 completed Not Available Not Available Not Available ibuprofen 800 mg tablet TAKE 1 TABLET BY MOUTH EVERY 6 TO 8 HOURS NEEDED FOR 10 DAYS 05/09 completed Not Available Not Available Not Available ofloxacin 0.3 % eye drops 10/21 completed Not Available Not Available Not Available metoprolo l succinate ER 50 mg tablet,ex tended release 24 hr TAKE 1 TABLET BY MOUTH ONCE DAILY 08/10 completed Not Available Not Available Not Available tolterodi ne ER 4 mg capsule,e xtended release 24 hr TAKE 1 CAPSULE BY MOUTH ONCE DAILY 05/09 completed Not Available Not Available Not Available hydrocodo ne 5 mg-acetam inophen 325 mg tablet Take 1 tablet 3 times a day by oral route. active Not Available Not Available No t Available fluticaso ne propionat e 0.05 % topical cream 10/21 completed Not Available Not Available Not Available meloxicam 15 mg tablet TAKE 1 TABLET BY MOUTH ONCE DAILY 09/08 completed Not Available Not Available Not Available phenazopy ridine 200 mg tablet 08/10 completed Not Available Not Available Not Available metronida zole 0.75 % (37.5 mg/5 gram) vaginal gel active Not Available Not Available Not Available Medrol (Morteza) 4 mg tablets in a dose pack take as directed 01/01 completed Not Available Not Available Not Available bupivacai ne HCl 0.5 % (5 mg/mL) injection solution In office injectio n administ ered by the provider 11/09 completed Not Available Not Available Not Available metoprolo l succinate ER 100 mg tablet,ex tended release 24 hr Take 1 tablet every day by oral route. active Not Available Not Available No t Available Zithromax Z-Morteza 250 mg tablet take as directed on pack 01/01 completed Not Available Not Available Not Available meclizine 12.5 mg tablet Take 2 tablets 3 times a day by oral route as needed. 04/14 completed as needed Not Available Not Available Not Available metronida zole 500 mg tablet 05/10 completed Not Available Not Available Not Available nifedipin e ER 30 mg tablet,ex tended release TAKE 1 TABLET BY MOUTH ONCE DAILY DIRECTED FOR 90 DAYS 04/26 completed Not Available Not Available Not Available ciproflox acin 250 mg tablet TAKE 1 TABLET BY MOUTH TWICE DAILY DIRECTED FOR 3 DAYS 11/09 completed Not Available Not Available Not Available amlodipin e 5 mg tablet 10/21 completed Not Available Not Available Not Available ciproflox acin 500 mg tablet TAKE 1 TABLET BY MOUTH TWICE DAILY 09/08 completed Not Available Not Available Not Available peg-elect rolyte solution 420 gram oral solution USE DIRECTED 01/09 completed Not Available Not Available Not Available tramadol 50 mg tablet TAKE 2 TABLETS BY MOUTH EVERY 8 HOURS NEEDED active Not Available Not Available No t Available simvastat in 40 mg tablet Take 1 tablet every day by oral route. active Not Available Not Available No t Available nifedipin e ER 60 mg tablet,ex tended release 24 hr Take 1 tablet every day by oral route. 09/23 completed Not Available Not Available Not Available tamsulosi n 0.4 mg capsule TAKE 1 CAPSULE BY MOUTH ONCE DAILY 05/09 completed Not Available Not Available Not Available Kenalog 10 mg/mL suspensio n for injection in office procedur e, administ ered by provider 2023 active [facility]: [id number] 07-26 Not Available Not Available Not Available amlodipin e 10 mg tablet TAKE 1 TABLET BY MOUTH ONCE DAILY DIRECTED FOR 90 DAYS 10/21 completed Not Available Not Available Not Available benzonata te 100 mg capsule TAKE 1 CAPSULE BY MOUTH THREE TIMES DAILY NEEDED FOR 7 DAYS 05/09 completed Not Available Not Available Not Available Lasix 20 mg tablet Take 1 tablet every day by oral route. 04/14 completed Not Available Not Available Not Available cephalexi n 500 mg capsule TAKE 1 CAPSULE BY MOUTH EVERY 12 HOURS FOR 10 DAYS 04/26 completed Not Available Not Available Not Available nitrofura ntoin macrocrys camilo 100 mg capsule TAKE 1 CAPSULE BY MOUTH EVERY 6 HOURS DIRECTED FOR 5 DAYS 11/09 completed Not Available Not Available Not Available promethaz ine 25 mg tablet Take 1 tablet every 4-6 hours by oral route as needed. active Not Available Not Available No t Available metoprolo l tartrate 50 mg tablet TAKE 1 TABLET BY MOUTH ONCE DAILY IN THE MORNING active Not Available Not Available No t Available docusate sodium 100 mg capsule TAKE 1 CAPSULE BY MOUTH TWICE DAILY 04/26 completed Not Available Not Available Not Available gabapenti n 300 mg capsule TAKE 1 CAPSULE BY MOUTH ONCE DAILY AT BEDTIME FOR 30 DAYS 11/09 completed Not Available Not Available Not Available diclofena c sodium 75 mg tablet,de layed release TAKE 1 TABLET BY MOUTH TWICE DAILY NEEDED WITH FOOD FOR PAIN active Not Available Not Available No t Available hydralazi ne 50 mg tablet active Not Available Not Available Not Available hydrochlo rothiazid e 25 mg tablet TAKE 1 TABLET BY MOUTH ONCE DAILY 04/26 completed Not Available Not Available Not Available mupirocin 2 % topical ointment APPLY TOPICALL Y TWICE DAILY 04/26 completed Not Available Not Available Not Available ergocalci ferol (vitamin D2) 1,250 mcg (50,000 unit) capsule TAKE 1 CAPSULE BY MOUTH THREE TIMES A WEEK 04/26 completed Not Available Not Available Not Available oxybutyni n chloride 5 mg tablet TAKE 1 TABLET BY MOUTH ONCE DAILY 01/09 completed Not Available Not Available Not Available nifedipin e ER 60 mg tablet,ex tended release 04/27 completed Not Available Not Available Not Available ondansetr on 4 mg disintegr ating tablet DISSOLVE 1 TABLET IN MOUTH EVERY 6 HOURS NEEDED FOR NAUSEA 11/09 completed Not Available Not Available Not Available losartan 100 mg tablet TAKE 1 TABLET BY MOUTH ONCE DAILY AT BEDTIME active Not Available Not Available No t Available naproxen 500 mg tablet TAKE 1 TABLET BY MOUTH TWICE DAILY WITH MEALS 04/27 completed Not Available Not Available Not Available amoxicill in 875 mg-potass ium clavulana te 125 mg tablet TAKE 1 TABLET BY MOUTH EVERY 12 HOURS DIRECTED FOR 5 DAYS 04/26 completed Not Available Not Available Not Available ezetimibe 10 mg tablet TAKE 1 TABLET BY MOUTH ONCE DAILY active Not Available Not Available No t Available cyclobenz aprine 5 mg tablet 11/09 completed Not Available Not Available Not Available rosuvasta tin 5 mg tablet TAKE 1 TABLET BY MOUTH ONCE DAILY 05/09 completed Not Available Not Available Not Available rosuvasta tin 10 mg tablet 04/27 completed Not Available Not Available Not Available rosuvasta tin 20 mg tablet Take 1 tablet every day by oral route. 05/10 completed Not Available Not Available Not Available nitrofura ntoin monohydra te/macroc rystals 100 mg capsule TAKE 1 CAPSULE BY MOUTH TWICE DAILY 05/09 completed Not Available Not Available Not Available trospium 20 mg tablet TAKE 1 TABLET BY MOUTH TWICE DAILY 05/09 completed Not Available Not Available Not Available solifenac in 5 mg tablet TAKE 1 TABLET BY MOUTH ONCE DAILY 04/27 completed Not Available Not Available Not Available 8 Hour Pain Reliever 650 mg tablet,ex tended release TAKE 2 TABLETS BY MOUTH EVERY 8 HOURS DIRECTED FOR 10 DAYS active Not Available Not Available No t Available lidocaine (PF) 10 mg/mL (1 %) injection solution In office injectio n administ ered by the provider 08/10 completed [facility]: [id number] 6-17 Not Available Not Available Not Available lidocaine (PF) 5 mg/mL (0.5 %) injection solution In office injectio n administ ered by the provider 04/26 completed Not Available Not Available Not Available Golytely 236 gram-22.7 4 gram-6.74 gram-5.86 gram oral solution DIRECTED 01/09 completed Not Available Not Available Not Available ropivacai ne (PF) 5 mg/mL (0.5 %) injection solution in office procedur e, administ ered by provider 2023 active FORMER[facility] NAMED [facility] [id number] 4-01 Not Available Not Available Not Available Repatha SureClick 140 mg/mL subcutane ous pen injector INJECT 1 ML SUBCUTAN EOUSLY EVERY TWO WEEKS DIRECTED FOR 28 DAYS 05/09 completed Not Available Not Available Not Available Vitals Date Recorded Body height Body temperature Oxygen saturation Oxygen saturation in Arterial blood by Pulse oximetry Respiratory rate Heart rate Systolic blood pressure Diastolic blood pressure Provider Name and Address Organization Details Last Updated DateTime 3 160.02 cm 97.7 [degF] 99 % 99 % 18 /min 92 /min 178 mm[Hg] 84 mm[Hg] Belinda Up RN [facility] Smarty Ring [facility] 3 15:58:38 Date Recorded Body height Provider Name an d Address Organization Details Last Updated DateTime 07/26/2022 160.02 cm Candace Pritchard Manjeet [facility] [employer] [facility] 07/26/2022 15:11:38 Date Recorded Body height Provider Name an d Address Organization Details Last Updated DateTime 10/18/2022 160.02 cm Candace Pritchard Manjeet [facility] [employer] [facility] 10/18/2022 11:19:24 Date Recorded Body height Provider Name an d Address Organization Details Last Updated DateTime 01/17/2023 160.02 cm Candace Pritchard Manjeet [facility] [employer] [facility] 01/17/2023 11:58:03 Date Recorded Body mass index (BMI) Body weight Provider Name and Address Organization Details Last Updated DateTime 01/17/2023 40.6 kg/m2 592091.65 g Farrah TheresaAKIRA [facility] [employer] [facility] 01/17/2023 13:01:51 Date Recorded Body height Provider Name an d Address Organization Details Last Updated DateTime 05/09/2023 160.02 cm Candace Macho Manjeet [facility] [employer] [facility] 05/09/2023 12:04:14 Social History Question Answer Notes LastModified by Organizat ion Details LastModified Time Tobacco Smoking Status Never Smoker Not Available [facility] 06/06/2022 10:42:02 Do You Have An Advance Directive? No [id number] Information not available 06/06/2022 What Is Your Level Of Alcohol Consumption? None MIGRATION.[id number] Information not available 06/06/2022 What Is Your Level Of Caffeine Consumption? Heavy MIGRATION.[id number] Information not available 06/06/2022 In The 14 Days Before Symptom Onset, Have You Had Close Contact With A Laboratory-confirm ed COVID-19 While That Case Was Ill? No MIGRATION.[id number] Information not available 06/06/2022 In The 14 Days Before Symptom Onset, Have You Had Close Contact With A Person Who Is Under Investigation For COVID-19 While That Person Was Ill? No MIGRATION.[id number] Information not available 06/06/2022 What Type Of Diet Are You Following? 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 No MIGRATION.771911 5373 Information not available 06/06/2022 What Was The Date Of Your Most Recent Tobacco Screening? 09/08/2020 MIGRATION.[id number] Information not available 06/06/2022 What Is Your Relationship Status? MIGRATION.[id number] [id number] Information not available 06/06/2022 Do You Use Your Seat Belt Or Car Seat Routinely? Yes MIGRATION.156356 7337 Information not available 06/06/2022 Do You Have Smoke And Carbon Monoxide Detectors In Your Home? Yes MIGRATION.173259 0296 Information not available 06/06/2022 Do You Use Any Illicit Or Recreational Drugs? No MIGRATION.836893 9355 Information not available 06/06/2022 Do You Use Sunscreen Routinely? Yes MIGRATION.351431 5919 Information not available 06/06/2022 Has Tobacco Cessation Counseling Been Provided? No MIGRATION.731153 5120 Information not available 06/06/2022 Have You Recently Traveled Abroad? No MIGRATION.271545 4533 Information not available 06/06/2022 Do You Or Have You Ever Used Any Other Forms Of Tobacco Or Nicotine? No MIGRATION.105201 9310 Information not available 06/06/2022 Sex: Unknown Functional Status Question Answer Note LastModified by Organizat ion Details LastModified Time What is your exercise level? None [id number].[id number] Information not available 06/06/2022 Mental Status None recorded. Family History Relationship Description Onset Age of this Age Resolved Age Notes LastModified by Organization Details LastModified Time Mother Hypertensive disorder [id number] Not available 06/06/2022 10:42:18 Mother Malignant tumor of breast MIGRATION.[id number] Not available 06/06/2022 10:42:18 Father Hypertensive disorder MIGRATION.[id number] Not available 06/06/2022 10:42:18 Father Heart disease MIGRATION.[id number] Not available 06/06/2022 10:42:18 Medical History Condition Response BLINDNESS N KIDNEY STONES N CARPAL TUNNEL SYNDROME N MRSA N LUNG DISEASE/DISORDER N HISTORY OF DRUG ABUSE N RADIATION / CHEMOTHERAPY N COPD N SPORTS INJURY N ANKLE PAIN N BLOOD DISEASES N SCHIZOPHRENIA N SHINGLES N BOWEL PROBLEMS N SHOULDER PAIN N DEPRESSION (INCLUDING POST ) N STROKE/TIA N KNEE PAIN N ULCERS N BENIGN PROSTATIC HYPERPLASIA N OBESITY Y GERD/NAUSEA N ANEURYSM N URINARY/BLADDER/KIDNEY PROBLEMS N CORONARY ARTERY DISEASE (CAD) N ADDICTION CONCERNS N USE OF BLOOD THINNERS N SKIN PROBLEMS Y EMPHYSEMA N MUSCLE,JOINT OR BONE PROBLEMS N DVT N STOMACH ULCERS N BLOOD CLOTS N CONCUSSION OR SPINAL TRAUMA N NEUROPATHY N AIDS/HIV N FRACTURES N ELBOW PAIN N HYPERTENSION Y TOURETTE'S N ANXIETY DISORDER N Metal allergy N BLOOD TRANSFUSION N ANEMIA/BLOOD DISORDER N BIPOLAR DISORDER N BRONCHITIS N OSTEOARTHRITIS N TUBERCULOSIS N FOOT PROBLEM N HEART VALVE DISORDERS N ALLERGIES/HAYFEVER N SOFT TISSUE INJURY N INFECTIOUS DISEASE N HEART ARRHYTHMIA N INSOMNIA N RHEUMATOID ARTHRITIS N HIGH CHOLESTEROL / HYPERLIPIDEMIA Y EDEMA N CHRONIC PAIN SYNDROME N CAROTID BLOCKAGE N BACK / NECK PROBLEMS N HAVE YOU BEEN HOSPITALIZED OR SEEN IN [facility] ER IN THE PAST YEAR ? N BURSITIS N HERNIATED DISC N DIALYSIS N FIBROMYALGIA N OSTEOPOROSIS N ARTHRITIS Y NO SIGNIFICANT PAST MEDICAL HISTORY N PERIPHERAL NEUROPATHY N DIABETES, TYPE N HEARTBURN / REFLUX N HEPATITIS / LIVER DISEASE N GOUT N SLEEP DISORDER N ALZHEIMER'S DISEASE N HERPES N HEADACHES/MIGRAINES N SEIZURES/EPILEPSY N VASCULAR DISEASE N HIP PAIN N Blood Disorder N DIZZINESS N HEAD TRAUMA OR INJURY N HEART DISEASE/HEART PROBLEMS N MULTIPLE SCLEROSIS N CANCER: SPECIFY N CARDIAC ARRHYTHMIA N ANESTHESIA COMPLICATIONS N ATRIAL FIBRILLATION N AUTOIMMUNE DISEASE N Gynecological HistoryNo gynecological history recorded. Obstetrics History GPAL:G 0 P 0 0 0 0 Past Encounters Encounter ID Performer Location Encounter Start Date Encounter Closed Date Diagnosis/Indication Diagnosis SNOMED-CT Code Diagnosis ICD10 Code Diagnosis Note [id number] Ervin Parks MD [facility] [address] [address] 09/08/2020 00:00:00 09/08/2020 13:37:44 [id number] _ATHN_MIGR ATION_1 _ATHENA_M IGRATION_ DEFAULT_1 _1 , 11/09/2020 00:00:00 11/09/2020 18:06:16 [id number] Ervin Parks MD [facility]_[address] [place] [address] 01/09/2021 00:00:00 01/22/2021 17:03:05 [id number] MD GABBY [facility] [address] [address] 01/19/2021 00:00:00 01/19/2021 16:23:33 [id number] Ervin Parks MD [facility] [address] [address] 04/27/2021 00:00:00 04/27/2021 12:06:23 [id number] MD GABBY [facility] [address] [address] 08/10/2021 00:00:00 08/10/2021 15:37:45 [id number] MD GABBY [facility] [address] [address] 11/09/2021 00:00:00 11/09/2021 10:43:12 [id number] MD GABBY [facility] [address] [address] 04/26/2022 00:00:00 04/26/2022 15:45:54 [id number] Jluis Templeton DPM [facility] [address] [place] [address] 05/16/2022 00:00:00 05/17/2022 08:14:28 [id number] Jluis Templeton DPM [facility] [address] [place] [address] 05/23/2022 00:00:00 05/24/2022 13:35:49 [id number] Jluis Templeton DPM [facility] [address] [place] [address] 05/30/2022 00:00:00 05/30/2022 15:57:31 [id number] Jluis Templeton DPM [facility] [address] [place] [address] 06/06/2022 15:38:41 06/06/2022 16:27:05 Open wound of left lower leg [id number] S81.802D wound is healedReco mmend continuing chronic compressio n to prevent recurrence of woundFollo w-up as needed for this issue Peripheral venous insufficiency 26648201 I87.2 continue chronic compressio n therapy to prevent recurrence [id number] MD GABBY [facility] [address] [address] 07/26/2022 15:02:51 07/26/2022 16:07:12 Bilateral osteoarthritis of knees 9930441772 05173 M17.0 [id number] MD GABBY [facility] [address] [address] 10/18/2022 11:02:00 10/18/2022 12:28:33 Pain of left hip joint 3192631599 95083 M25.433 [id number] Evrin Parks MD [facility] [address] [address] 01/17/2023 11:19:33 01/28/2023 10:59:24 Pain of bilateral knee joints 6176235990 21517 M25.561 M25.595 [id number] Ervin Parks MD [facility] [address] [address] 05/09/2023 11:54:27 05/09/2023 14:23:00 Bilateral osteoarthritis of knees 2991776794 10995 M17.0 Osteoarthr itis of left hip joint 7287854944 24812 M16.12 Health Concerns Section Related Observation LastModified by Organization Detai ls LastModified Time None Recorded Concern Status LastModified by Organization Details LastModified Time None Recorded Advance Directives Directive N: Payers Encounter Date Sequence Insurance Name Policy Number Policy Andre Covered Member ID Andre Member ID Guarantor Name 06/06/2022 1 [facility] ([facility] Yumiko Mendez [id number] Yumiko Mendez 06/06/2022 2 [facility]) Yumiko Mendez [id number] Yumiko Mendez 07/26/2022 1 [facility] ([facility]) Yumiko Mendez [id number] Yumiko Mendez 07/26/2022 2 [facility] ([facility]) Yumiko Mendez [id number] Yumiko Mendez 10/18/2022 1 [facility] ([facility]) Yumiko Mendez [id number] Yumiko Mendez 01/17/2023 1 [facility] (MEDICARE REPLACEMENT/A DVANTAGE - POS) [id number] Yumiko Mendez [id number] Yumiko Mendez 05/09/2023 1 [facility] (MEDICARE REPLACEMENT/A DVANTAGE - POS) [id number] Yumiko Mendez [id number] Yumiko Mendez Notes Date Note Type Note Provider Name and Address Organization Details Recorded Time 06/06/2022 text/html . Patient is 66-year-old female who returns the office for venous wound of the left lower leg. Patient has continued wound care and compression and has completely healed her wound today. Patient denies any other pedal complaints. Jluis Templeton DPM [address], [place], [address], [employer] 06/07/2022 13:10:58 01/17/2023 text/html patient returns. She would like cortisone shots in her knees today. Her last cortisone shots in her knees for July 26 and she tolerated this well and she feels they were helpful. Patient takes tramadol on a regular basis and Tylenol Arthritis for her knee pain and she also has advanced osteoarthritis of her left hip. she also takes diclofenac 75 mg twice daily. X-rays the right knee obtained today demonstrate advanced medial compartment osteoarthritis in the right knee and moderately severe medial compartment osteoarthritis left knee as well as moderately severe patellofemoral degenerative changes bilaterally.There is very little change in her knee x-rays compared with x-rays of both knees from September 08, 2020. X-rays of left hip and AP pelvis from 10/18/2022 demonstrated [id number]-yu-dwtv type 1 osteoarthritis of the left hip with significant subchondral cystic changes in the acetabular roof. at her last visit she spoke with ammy Landry to advised her that because of her large abdominal pannus who would not be able to do a direct anterior approach. Risk of skin breakdown infection is too great. she was advised that she would need to see an orthopedic surgeon that specializes in the posterior approach. She saw both Dr. Zuniga and Dr. Antonio kinney and they both told her that she would have to lose weight before they would consider doing her surgery. Ervin Parks MD [address], [place], [address], [employer] 01/27/2023 17:31:20 OBGyn Episode No OBEpisode recorded.
--- OUTSIDE RECORDS SUMMARY | 2024-08-05 16:22 | XMS_ITS | Data Portability ---
[facility] Organization [facility] Address [address] [place] [address] Care Team Providers Care Power Ballast Machine Operator Name Role Phone SRIDEVI THERESA Ic Designer Custom [phone] HUBER ORJAS Orthopedic Surgeon SRI RICK Bridge Attacher Assessment Encounter Date Assessment Date Assessment LastModified by Organization Details LastModified Time 03/31/2024 03/31/2024 Clinically, she looks very healthy and although she appears to have lost weight, she is quite robust. Unfortunately, since she cannot stand, I cannot quantify her weight loss. In as much as it is in her best interest to eat a healthy diet, weight gain may not be in her best interest. She needs to get her labs done and continue a healthy diet with the consultation by the clinical asst, the answer is not just starting her on Megace. oajao Not available 03/31/2024 18:14:54 06/15/2024 06/15/2024 She will benefit from a meal replacement, it is impossible to get an accurate weight but clinically, she appears to have lost weight. oajao Not available 06/15/2024 18:31:33 Plan of Treatment Reminders Order Date Submit Date Provider Last Modified By Organization Details Last Modified Time Details Appointments ANY 15 2024 11:30A M Sophy Skinner MD Not available Not available Not available Lab CBC 2024 025 ERINN [facility], [address], [address], [address], 06/16/2024 07:15:07 CMP, serum or plasma 2024 025 ERINN [facility], [address], [address], [place], [address], 06/16/2024 07:15:06 lipid panel, serum 2024 025 ERINN Lara, [address], [address], [place], [address], 06/16/2024 07:15:04 AST/SGOT (asparta te aminotra nsferase ), serum or plasma 2023 024 ERINN Lara, [address], [address], [place], [address], 04/01/2024 07:12:31 ALT (alanine aminotra nsferase ), serum or plasma 2023 024 ERINN Lara, [address], [address], [place], [address], 04/01/2024 07:12:33 HbA1c (hemoglo bin A1c), blood 2023 024 ERINN Lara, [address], [address], [place], [address], 04/01/2024 07:12:32 TSH, ultra-se nsitive, serum 2023 024 ERINN Lara, [address], [address], [place], [address], 04/01/2024 07:12:34 hemoglob in + hematocr it, blood 2023 024 ERINN Lara, [address], [address], [place], [address], 07/13/2023 08:21:25 TSH, ultra-se nsitive, serum 2023 024 ERINN Lara, [address], [address], [place], [address], 07/13/2023 08:21:25 Referral neurolog ist referral - Please call the client to schedule 2023 [facility] Care Physician Referral Management, [address], [place], [address], 07/01/2024 12:33:57 nutritio nist/ titian referral - Please call the client to schedule 2023 [facility] Hot Stamp Operator Nutrition Dietitian, [address], [place], [address], 07/15/2024 04:18:38 pain manageme nt referral - Please call the client to schedule 2023 024 [facility], [address] [place] [address], [address], 07/01/2024 12:33:58 pain manageme nt referral - OA of the left hip [facility]23 [facility], [address], [place], [address], 07/08/2024 17:08:04 nutritio nist/ titian referral - Weight loss for hip replacem ent 2023 024 [facility] Hot Stamp Operator Nutrition Dietitian, [address], [place], [address], 05/25/2024 17:02:19 Procedures None recorded . Surgeries None recorded . Imaging MAMMO, screenin g, digital, bilatera l [address] [facility] (Mammography) , [address], [place], [address], 07/16/2024 17:52:27 US, duplex, arterial , lower extremit y 2023 [facility] (One Call Scheduling), [address] [place], [address], 06/21/2023 10:49:26 Medication Orders docusate sodium 100 mg capsule 2024 025 [facility], [address] [place] [address], [id number], 06/15/2024 16:22:21 magnesiu m citrate oral solution 2024 025 [facility] 1761, [address] [place] [address], [address], 06/15/2024 16:23:19 ondanset tara 4 mg disinteg rating tablet 2024 025 [facility]61, [address] [place] [address], [address], 06/15/2024 18:27:49 Boost Plus 0.06 gram-1.5 kcal/mL oral liquid 2023 024 [facility] [address] [place] [address], [address], 04/07/2024 18:59:41 Victoza 2-Morteza 0.6 mg/0.1 mL (18 mg/3 mL) subcutan eous pen injector 2023 024 [facility], [address] [place], [id number], 01/29/2024 15:35:55 ezetimib e 10 mg tablet 2023 024 [id number] 6 [facility], [address] [place] [address], [id number], 07/21/2023 11:19:25 Macrobid 100 mg capsule 2023 024 [facility], [address] [facility], [place], [address], 07/01/2023 15:10:06 Patient TargetsNo targets recorded. Patient Instructions Encounter Date Encounter Id Patient Instructions Last Modified By Organization Details Last Modified Time 06/03/2023 [id number] Arterial studies of the LE Macrobid MMG as previously ordered Follow up in 4 weeks with all your medications Splints oajao Not available 06/03/2023 12:07:36 07/01/2023 [id number] anemia: care instructions oajao Not available 07/01/2023 15:03:15 aortic valve stenosis: care instructions oajao Not available 07/01/2023 14:56:21 body mass index: care instructions oajao Not available 07/01/2023 15:15:48 learning about healthy weight oajao Not available 07/01/2023 15:15:48 MMG Training Administrator Pain management Cardiology follow up Follow up in 7-8 weeks Addendum Labs oajao Not available 07/01/2023 19:07:04 08/26/2023 [id number] chest pain: care instructions oajao Not available 08/26/2023 15:33:49 aortic valve stenosis: care instructions oajao Not available 08/26/2023 15:55:21 ER/911 with ches t pain Cardiology follow up Start Victoza (340-B) Restart Crestor Follow up in 6 weeks oajao Not available 08/26/2023 15:55:37 03/31/2024 [id number] prediabetes: car e instructions oajao Not available 03/31/2024 15:59:04 chronic pain: care instructions oajao Not available 03/31/2024 15:59:04 anorexia: care instructions oajao Not available 03/31/2024 15:59:04 learning about mood disorders oajao Not available 03/31/2024 15:59:04 abnormal weight loss: care instructions oajao Not available 03/31/2024 15:59:04 Labs (old and ne w orders) Boost Plus Neurology Hospital bed Wheelchair Training Administrator Pain management Follow up in 4 weeks with all your medications oajao Not available 03/31/2024 16:05:04 06/15/2024 [id number] Labs (Old and ne w orders) Neurology as previously referred Boost as previously ordered DSS Mg Citrate PRN Follow up in 4 months and PRN Addendum Sally livingston Not available 06/15/2024 18:28:09 Detailed visit [email or web address] Not available 0 06/15/2024 18:29:33 Reason for Referral Training Administrator/dietitian Refer ral for Body mass index 30+ - obesity Weight loss for hip replacement Referring Physician: Sophy Skinner Internal Medicine, Encounter Date: 07/01/2023 Pain Management Referral for Osteoarthritis of left hip joint OA of the left hip OA of the left hip Referring Physician: Sophy Skinner Internal Medicine, Encounter Date: 07/01/2023 Neurologist Referral for His tory of cerebrovascular accident 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 Please call the client to schedule Referring Physician: Adam Combs Medicine, Encounter Date: 03/31/2024 Training Administrator/dietitian Refer ral for History of cerebrovascular accident Please call the client to schedule Referring Physician: Adam Combs Medicine, Encounter Date: 03/31/2024 Pain Management Referral for Chronic pain Chronic pain (Hip and back) Please call the client to schedule Referring Physician: Adam Combs Medicine, Encounter Date: 03/31/2024 Results Created Date Observation Date Name Description Value Unit Range Abnormal Flag Note LastModifiedBy Organization Detail LastModifiedTime 06/03/19 24 06/11/2023 COMPL IANCE DRUG DAMARIS SIS, UR summary report (summary) FINAL ===== ===== ===== ===== ===== ===== ===== ===== ===== ===== ===== ===== ===== === TOXAS SURE COMP DRUG DAMARIS SIS,U R ===== ===== ===== ===== ===== ===== ===== ===== ===== ===== ===== ===== ===== === Speci men Alert Note: Urina ry creat inine is low; abili ty to detec t some drugs may be compr omise d. Inter pret resul ts with cauti on. ===== ===== ===== ===== ===== ===== ===== ===== ===== ===== ===== ===== ===== === Test Resul t Flag Units Drug Prese nt Trama dol 12942 ng/mg creat O-Francis methy ltram adol 26890 ng/mg creat N-Francis methy ltram adol 3086 ng/mg creat Sourc e of trama dol is a presc ripti on medic ation . O-francis methy ltram adol and N-francis methy ltram adol are expec hira metab olite s of trama dol. Aceta minop hen PRESE NT Metop rolol PRESE NT ===== ===== ===== ===== ===== ===== ===== ===== ===== ===== ===== ===== ===== === Test Resul t Flag Units Ref Range Creat inine 14 L mg/dL >=20 ===== ===== ===== ===== ===== ===== ===== ===== ===== ===== ===== ===== ===== === Decla red Medic ation s: Medic ation list was not provi ded. ===== ===== ===== ===== ===== ===== ===== ===== ===== ===== ===== ===== ===== === For clini kelsy consu ltati on, pleas e call [phone]. ===== ===== ===== ===== ===== ===== ===== ===== ===== ===== ===== ===== ===== === Not Available [facility] ([facility]) [address] [place], [address], 06/11/2023 15:10:54 06/03/19 24 06/11/2023 COMPL IANCE DRUG DAMARIS SIS, UR pdf . Not Available [facility] ([facility]) [address] [place], [address], 06/11/2023 15:10:54 07/12/19 24 07/13/2023 THYRO ID CASCA DE PROFI LE TSH 1.750 uIU/m L 0.450- 4.500 No appar ent thyro id disor arin. Addit ional testi ng not indic ated. In rare insta nces, Secon ayanna Hypot hyroi dism as well as Subcl inica l Hypot hyroi dism have been repor hira in some patie nts with david l TSH value s. Not Available [facility] ([facility]) [address] [place], [address], 07/13/2023 08:21:25 07/12/1907/13/2023 HGB+H CT hemoglobin 12.0 g/dL 11.1-1 5.9 Not Available [facility] ([facility]) [address] [place], [address], 07/13/2023 08:21:25 07/12/19 24 07/13/2023 HGB+H CT hematocrit 34.8 % 34.0-4 6.6 Not Available [facility] ([facility]) [address] [place], [address], 07/13/2023 08:21:25 03/31/20 24 04/01/2024 BASIC METAB OLIC PANEL (7) glucose 84 mg/dL 70-99 Not Available [facility] ([facility]) [address] [place], [address], 04/01/2024 06:13:45 03/31/20 24 04/01/2024 BASIC METAB OLIC PANEL (7) BUN 13 mg/dL 8-27 Not Available [facility] ([facility]) [address] [place], [address], 04/01/2024 06:13:45 03/31/20 24 04/01/2024 BASIC METAB OLIC PANEL (7) creatinine 0.66 mg/dL 0.57-1 .00 Not Available [facility] ([facility]) [address] [place], [address], 04/01/2024 06:13:45 03/31/20 24 04/01/2024 BASIC METAB OLIC PANEL (7) eGFR 95 mL/mi n/1.7 3 >59 Not Available [facility] ([facility]) [address] [place], [address], 04/01/2024 06:13:45 03/31/20 24 04/01/2024 BASIC METAB OLIC PANEL (7) BUN/creatini ne ratio 20 12- Not Available [facility] ([facility]) [address] [place], [address], 04/01/2024 06:13:45 03/31/20 24 04/01/2024 BASIC METAB OLIC PANEL (7) sodium 143 mmol/ L 134-14 4 Not Available [facility] ([facility]) [address] [place], [address], 04/01/2024 06:13:45 03/31/20 24 04/01/2024 BASIC METAB OLIC PANEL (7) potassium 3.4 mmol/ L 3.5-5. 2 below low normal Not Available [facility] ([facility]) [address] [facility] [place], [address], 04/01/2024 06:13:45 03/31/20 24 04/01/2024 BASIC METAB OLIC PANEL (7) chloride 103 mmol/ L 96-106 Not Available [facility] ([facility]) [address] [facility] [place], [address], 04/01/2024 06:13:45 03/31/20 24 04/01/2024 BASIC METAB OLIC PANEL (7) carbon dioxide, total 24 mmol/ L 20-29 Not Available [facility] ([facility]) [address] [facility], [place], [address], 04/01/2024 06:13:45 03/31/20 24 04/01/2024 CBC WITH DIFFE RENTI AL/PL ATELE T WBC 6.0 x10e3 /uL 3.4-10 .8 Not Available [facility] ([facility]) [address] [place], [address], 04/01/2024 06:13:47 03/31/20 24 04/01/2024 CBC WITH DIFFE RENTI AL/PL ATELE T RBC 4.21 x10e6 /uL 3.77-5 .28 Not Available [facility] ([facility]) [address] [place], [address], 04/01/2024 06:13:47 03/31/20 24 04/01/2024 CBC WITH DIFFE RENTI AL/PL ATELE T hemoglobin 12.0 g/dL 11.1-1 5.9 Not Available [facility] ([facility]) [address] [place], [address], 04/01/2024 06:13:47 03/31/20 24 04/01/2024 CBC WITH DIFFE RENTI AL/PL ATELE T hematocrit 36.6 % 34.0-4 6.6 Not Available [facility] ([facility]) [address] [facility], [place], [address], 04/01/2024 06:13:47 03/31/20 24 04/01/2024 CBC WITH DIFFE RENTI AL/PL ATELE T MCV 87 fL 79-97 Not Available [facility] ([facility]) [address] [facility], [place], [address], 04/01/2024 06:13:47 03/31/20 24 04/01/2024 CBC WITH DIFFE RENTI AL/PL ATELE T MCH 28.5 pg 26.6-3 3.0 Not Available [facility] ([facility]) [address] [facility], [place], [address], 04/01/2024 06:13:47 03/31/20 24 04/01/2024 CBC WITH DIFFE RENTI AL/PL ATELE T MCHC 32.8 g/dL 31.5-3 5.7 Not Available [facility] ([facility]) [address] [place], [address], 04/01/2024 06:13:47 03/31/20 24 04/01/2024 CBC WITH DIFFE RENTI AL/PL ATELE T RDW 16.0 % 11.7-1 5.4 above high normal Not Available [facility] ([facility]) [address] [place], [address], 04/01/2024 06:13:47 03/31/20 24 04/01/2024 CBC WITH DIFFE RENTI AL/PL ATELE T platelets 257 x10e3 /uL 150-45 0 Not Available [facility] ([facility]) [address] [place], [address], 04/01/2024 06:13:47 03/31/20 24 04/01/2024 CBC WITH DIFFE RENTI AL/PL ATELE T neutrophils 57 % notest ab. Not Available [facility] ([facility]) [address] [facility], [place], [address], 04/01/2024 06:13:47 03/31/20 24 04/01/2024 CBC WITH DIFFE RENTI AL/PL ATELE T lymphs 33 % notest ab. Not Available [facility] ([facility]) [address] [facility], [place], [address], 04/01/2024 06:13:47 03/31/20 24 04/01/2024 CBC WITH DIFFE RENTI AL/PL ATELE T monocytes 8 % notest ab. Not Available [facility] ([facility]) [address] [facility], [place], [address], 04/01/2024 06:13:47 03/31/20 24 04/01/2024 CBC WITH DIFFE RENTI AL/PL ATELE T eos 1 % notest ab. Not Available [facility] ([facility]) [address] [facility], [place], [address], 04/01/2024 06:13:47 03/31/20 24 04/01/2024 CBC WITH DIFFE RENTI AL/PL ATELE T basos 1 % notest ab. Not Available [facility] ([facility]) [address] [facility], [place], [address], 04/01/2024 06:13:47 03/31/20 24 04/01/2024 CBC WITH DIFFE RENTI AL/PL ATELE T neutrophils (absolute) 3.4 x10e3 /uL 1.4-7. 0 Not Available [facility] ([facility]) [address] [facility], [place], [address], 04/01/2024 06:13:47 03/31/20 24 04/01/2024 CBC WITH DIFFE RENTI AL/PL ATELE T lymphs (absolute) 2.0 x10e3 /uL 0.7-3. 1 Not Available [facility] ([facility]) [address] [facility], [place], [address], 04/01/2024 06:13:47 03/31/20 24 04/01/2024 CBC WITH DIFFE RENTI AL/PL ATELE T monocytes(ab solute) 0.5 x10e3 /uL 0.1-0. 9 Not Available [facility] ([facility]) [address] [facility], [place], [address], 04/01/2024 06:13:47 03/31/20 24 04/01/2024 CBC WITH DIFFE RENTI AL/PL ATELE T eos (absolute) 0.1 x10e3 /uL 0.0-0. 4 Not Available [facility] ([facility]) [address] [facility], [place], [address], 04/01/2024 06:13:47 03/31/20 24 04/01/2024 CBC WITH DIFFE RENTI AL/PL ATELE T baso (absolute) 0.0 x10e3 /uL 0.0-0. 2 Not Available [facility] ([facility]) [address] [place], [address], 04/01/2024 06:13:47 03/31/20 24 04/01/2024 CBC WITH DIFFE RENTI AL/PL ATELE T immature granulocytes 0 % notest ab. Not Available [facility] ([facility]) [address] [facility], [place], [address], 04/01/2024 06:13:47 03/31/20 24 04/01/2024 CBC WITH DIFFE RENTI AL/PL ATELE T immature grans (abs) 0.0 x10e3 /uL 0.0-0. 1 Not Available [facility] ([facility]) [address] [facility], [place], [address], 04/01/2024 06:13:47 03/31/20 24 04/01/2024 AST (SGOT ) AST (SGOT) 15 IU/L 0-40 Not Available [facility] ([facility]) [address] [place], [address], 04/01/2024 07:12:31 03/31/2004/01/2024 HEMOG LOBIN A1C hemoglobin A1C 5.2 % 4.8-5. 6 Predi abete s: 5.7 - 6.4 Diabe kris: >6.4 Glyce lyssa contr ol for adult s with diabe kris: <7.0 Not Available [facility] ([facility]) [address] [place], [address], 04/01/2024 07:12:32 03/31/2004/01/2024 ALT (SGPT ) ALT (SGPT) 7 IU/L 0-32 Not Available [facility] ([facility]) [address] [place], [address], 04/01/2024 07:12:33 03/31/2004/01/2024 TSH TSH 2.200 uIU/m L 0.450- 4.500 Not Available [facility] ([facility]) [address] [place], [address], 04/01/2024 07:12:34 06/16/1906/16/2024 LIPID PANEL cholesterol, total 114 mg/dL 100-19 9 Not Available [facility] ([facility]) [address] [place], [address], 06/16/2024 07:15:04 06/16/1906/16/2024 LIPID PANEL triglyceride s 100 mg/dL 0-149 Not Available [facility] ([facility]) [address] [place], [address], 06/16/2024 07:15:04 06/16/1906/16/2024 LIPID PANEL HDL cholesterol 40 mg/dL >39 Not Available [facility] ([facility]) [address] [place], [address], 06/16/2024 07:15:04 06/16/19 25 06/16/2024 LIPID PANEL VLDL cholesterol kelsy 19 mg/dL 5-40 Not Available [facility] ([facility]) [address] [place], [address], 06/16/2024 07:15:04 06/16/19 25 06/16/2024 LIPID PANEL LDL chol calc ([facility]) 55 mg/dL 0-99 Not Available [facility] ([facility]) [address] [place], [address], 06/16/2024 07:15:04 06/16/19 25 06/16/2024 COMP. METAB OLIC PANEL (14) glucose 95 mg/dL 70-99 Not Available [facility] ([facility]) [address] [place], [address], 06/16/2024 07:15:06 06/16/19 25 06/16/2024 COMP. METAB OLIC PANEL (14) BUN 15 mg/dL 8-27 Not Available [facility] ([facility]) [address] [place], [address], 06/16/2024 07:15:06 06/16/19 25 06/16/2024 COMP. METAB OLIC PANEL (14) creatinine 0.81 mg/dL 0.57-1 .00 Not Available [facility] ([facility]) [address] [place], [address], 06/16/2024 07:15:06 06/16/19 25 06/16/2024 COMP. METAB OLIC PANEL (14) eGFR 79 mL/mi n/1.7 3 >59 Not Available [facility] ([facility]) [address] [place], [address], 06/16/2024 07:15:06 06/16/19 25 06/16/2024 COMP. METAB OLIC PANEL (14) BUN/creatini ne ratio 19 12-28 Not Available [facility] ([facility]) [address] [facility] [place], [address], 06/16/2024 07:15:06 06/16/19 25 06/16/2024 COMP. METAB OLIC PANEL (14) sodium 142 mmol/ L 134-14 4 Not Available [facility] ([facility]) [address] [facility] [place], [address], 06/16/2024 07:15:06 06/16/19 25 06/16/2024 COMP. METAB OLIC PANEL (14) potassium 3.0 mmol/ L 3.5-5. 2 below low normal Not Available [facility] ([facility]) [address] [facility] [place], [address], 06/16/2024 07:15:06 06/16/19 25 06/16/2024 COMP. METAB OLIC PANEL (14) chloride 100 mmol/ L 96-106 Not Available [facility] ([facility]) [address] [facility] [place], [address], 06/16/2024 07:15:06 06/16/19 25 06/16/2024 COMP. METAB OLIC PANEL (14) carbon dioxide, total 28 mmol/ L 20-29 Not Available [facility] ([facility]) [address] [facility] [place], [address], 06/16/2024 07:15:06 06/16/19 25 06/16/2024 COMP. METAB OLIC PANEL (14) calcium 8.4 mg/dL 8.7-10 .3 below low normal Not Available [facility] ([facility]) [address] [facility] [place], [address], 06/16/2024 07:15:06 06/16/19 25 06/16/2024 COMP. METAB OLIC PANEL (14) protein, total 6.2 g/dL 6.0-8. 5 Not Available [facility] ([facility]) [address] [facility], [place], [address], 06/16/2024 07:15:06 06/16/19 25 06/16/2024 COMP. METAB OLIC PANEL (14) albumin 2.7 g/dL 3.9-4. 9 below low normal Not Available [facility] ([facility]) [address] [facility], [place], [address], 06/16/2024 07:15:06 06/16/19 25 06/16/2024 COMP. METAB OLIC PANEL (14) globulin, total 3.5 g/dL 1.5-4. 5 Not Available [facility] ([facility]) [address] [facility] [place], [address], 06/16/2024 07:15:06 06/16/19 25 06/16/2024 COMP. METAB OLIC PANEL (14) bilirubin, total 0.6 mg/dL 0.0-1. 2 Not Available [facility] ([facility]) [address] [facility], [place], [address], 06/16/2024 07:15:06 06/16/19 25 06/16/2024 COMP. METAB OLIC PANEL (14) alkaline phosphatase 106 IU/L 44-121 Not Available [facility] ([facility]) [address] [facility], [place], [address], 06/16/2024 07:15:06 06/16/19 25 06/16/2024 COMP. METAB OLIC PANEL (14) AST (SGOT) 16 IU/L 0-40 Not Available [facility] ([facility]) [address] [facility] [place], [address], 06/16/2024 07:15:06 06/16/19 25 06/16/2024 COMP. METAB OLIC PANEL (14) ALT (SGPT) 10 IU/L 0-32 Not Available [facility] ([facility]) [address] [facility], [place], [address], 06/16/2024 07:15:06 06/16/1906/16/2024 CBC, PLATE LET, NO DIFFE RENTI AL WBC 8.9 x10e3 /uL 3.4-10 .8 Not Available [facility] ([facility]) [address] [facility], [place], [address], 06/16/2024 07:15:07 06/16/1906/16/2024 CBC, PLATE LET, NO DIFFE RENTI AL RBC 3.86 x10e6 /uL 3.77-5 .28 Not Available [facility] ([facility]) [address] [facility], [place], [address], 06/16/2024 07:15:07 06/16/1906/16/2024 CBC, PLATE LET, NO DIFFE RENTI AL hemoglobin 11.6 g/dL 11.1-1 5.9 Not Available [facility] ([facility]) [address] [facility], [place], [address], 06/16/2024 07:15:07 06/16/1906/16/2024 CBC, PLATE LET, NO DIFFE RENTI AL hematocrit 34.3 % 34.0-4 6.6 Not Available [facility] ([facility]) [address] [facility], [place], [address], 06/16/2024 07:15:07 06/16/1906/16/2024 CBC, PLATE LET, NO DIFFE RENTI AL MCV 89 fL 79-97 Not Available [facility] ([facility]) [address] [place], [address], 06/16/2024 07:15:07 06/16/1906/16/2024 CBC, PLATE LET, NO DIFFE RENTI AL MCH 30.1 pg 26.6-3 3.0 Not Available [facility] ([facility]) [address] [place], [address], 06/16/2024 07:15:07 06/16/19 25 06/16/2024 CBC, PLATE LET, NO DIFFE RENTI AL MCHC 33.8 g/dL 31.5-3 5.7 Not Available [facility] ([facility]) [address] [facility], [place], [address], 06/16/2024 07:15:07 06/16/19 25 06/16/2024 CBC, PLATE LET, NO DIFFE RENTI AL RDW 15.5 % 11.7-1 5.4 above high normal Not Available [facility] ([facility]) [address] [facility], [place], [address], 06/16/2024 07:15:07 06/16/19 25 06/16/2024 CBC, PLATE LET, NO DIFFE RENTI AL platelets 328 x10e3 /uL 150-45 0 Not Available [facility] ([facility]) [address] [facility], [place], [address], 06/16/2024 07:15:07 06/16/19 25 06/25/2024 OPIAT ES,MS ,WB/S P RFX opiate confirmation Negati ve Not Available [facility] ([facility]) [address] [facility], [place], [address], 06/25/2024 19:09:34 06/16/19 25 06/25/2024 OPIAT ES,MS ,WB/S P RFX codeine Negati ve NG/mL Not Available [facility] ([facility]) [address] [facility] [address], [place], [address], 06/25/2024 19:09:34 06/16/19 25 06/25/2024 OPIAT ES,MS ,WB/S P RFX morphine Negati ve NG/mL Not Available [facility] ([facility]) [address] [place], [address], 06/25/2024 19:09:34 06/16/19 25 06/25/2024 OPIAT ES,MS ,WB/S P RFX 6-acetylmorp loyd Negati ve Not Available [facility] ([facility]) [address] [place], [address], 06/25/2024 19:09:34 06/16/19 25 06/25/2024 OPIAT ES,MS ,WB/S P RFX hydrocodone Negati ve NG/mL Not Available [facility] ([facility]) [address] [place], [address], 06/25/2024 19:09:34 06/16/19 25 06/25/2024 OPIAT ES,MS ,WB/S P RFX hydromorphon e Negati ve NG/mL Not Available [facility] ([facility]) [address] [place], [address], 06/25/2024 19:09:34 06/16/19 25 06/25/2024 OPIAT ES,MS ,WB/S P RFX dihydrocodei ne Negati ve NG/mL Confi rmati on thres hold: 1.0 ng/mL Not Available [facility] ([facility]) [address] [place], [address], 06/25/2024 19:09:34 06/16/19 25 06/25/2024 DRUG SCREE N 10 W/CON F, SERUM amphetamines , ia NEGATI VE NG/mL cutoff :50 Not Available [facility] ([facility]) [address] [place], [address], 06/25/2024 19:09:35 06/16/19 25 06/25/2024 DRUG SCREE N 10 W/CON F, SERUM barbiturates , ia NEGATI VE ug/mL cutoff :0.1 Not Available [facility] ([facility]) [address] [place], [address], 06/25/2024 19:09:35 06/16/19 25 06/25/2024 DRUG SCREE N 10 W/CON F, SERUM benzodiazepi griselda, ia NEGATI VE NG/mL cutoff :20 Not Available [facility] ([facility]) [address] [place], [address], 06/25/2024 19:09:35 06/16/19 25 06/25/2024 DRUG SCREE N 10 W/CON F, SERUM cocaine / metabolite, ia NEGATI VE NG/mL cutoff :25 Not Available [facility] ([facility]) [address] [place], [address], 06/25/2024 19:09:35 06/16/19 25 06/25/2024 DRUG SCREE N 10 W/CON F, SERUM phencyclidin e, ia NEGATI VE NG/mL cutoff :8 Not Available [facility] ([facility]) [address] [place], [address], 06/25/2024 19:09:35 06/16/19 25 06/25/2024 DRUG SCREE N 10 W/CON F, SERUM THC(marijuan a) metabolite, ia NEGATI VE NG/mL cutoff :5 Not Available [facility] ([facility]) [address] [place] [address], [address], 06/25/2024 19:09:35 06/16/19 25 06/25/2024 DRUG SCREE N 10 W/CON F, SERUM opiates, ia NEGATI VE NG/mL cutoff :5 Presu mptiv e immun oassa y resul t indic ated need for furth er testi ng; defin itive confi rmati on was negat shelly. Not Available [facility] ([facility]) [address] [place], [address], 06/25/2024 19:09:35 06/16/19 25 06/25/2024 DRUG SCREE N 10 W/CON F, SERUM oxycodones, ia NEGATI VE NG/mL cutoff :5 Not Available [facility] ([facility]) [address] [place], [address], 06/25/2024 19:09:35 06/16/19 25 06/25/2024 DRUG SCREE N 10 W/CON F, SERUM methadone, ia NEGATI VE NG/mL cutoff :25 Not Available [facility] ([facility]) [address] [place], [address], 06/25/2024 19:09:35 06/16/19 25 06/25/2024 DRUG SCREE N 10 W/CON F, SERUM propoxyphene , ia NEGATI VE NG/mL cutoff :50 This test was su perez and its perfo rmanc e christiana cteri stics deter mined by [facility]. It has not been clear ed or appro carol by the Food and Drug Admin istra tion. Not Available [facility] ([facility]) [address] [facility] [address], [place], [address], 06/25/2024 19:09:35 07/04/19 25 07/04/2024 POTAS SIUM potassium 4.5 mmol/ L 3.5-5. 2 Not Available [facility] ([facility]) [address] [facility] [address], [place], [address], 07/04/2024 08:23:21 07/04/19 25 07/04/2024 MAGNE SIUM magnesium 1.8 mg/dL 1.6-2. 3 Not Available [facility] ([facility]) [address] [place], [address], 07/04/2024 08:23:22 05/10/19 24 05/10/2023 US, bryon john s, lower extre mity No observ ation record ed. [facility] [address] [place], [address], 06/03/2023 11:42:48 05/29/19 24 05/29/2023 nerve condu ction study /EMG, upper extre mity (PROC ) No observ ation record ed. [facility] [address], [place], [address], 06/05/2023 10:54:30 06/21/19 24 06/20/2023 US, duple x, arter ial, lower extre mity No observ ation record ed. [facility] [address], [place], [address], 07/08/2023 14:33:33 06/25/19 24 06/25/2023 trans -thor acic echoc ardio gram (TTE) (PROC ) No observ ation record ed. [facility] [address], [place], [address], 07/01/2023 14:55:45 07/22/19 24 07/22/2023 myoca rdial perfu jimi study w/ eject ion fract ion (PROC ) No observ ation record ed. [facility] [address], [place], [address], 08/26/2023 15:44:03 07/22/19 24 07/22/2023 myoca rdial perfu jimi study w/ eject ion fract ion (PROC ) No observ ation record ed. [facility] [address], [place], [address], 08/26/2023 15:44:03 Result Notes None recorded. Problems Name Problem SNOMED Code Status Onset Date Resolution Date Notes Provider Name and Address Organization Details Recorded Time Benign essential hypertensi on 7272574 Active 2017 Not Available [facility] 4 14:04:50 Disorder of lipid metabolism 712502088 Active 2017 Not Available [facility] 4 14:04:50 Osteoarthr itis of left hip joint 5575602441751 08 Active 2017 Not Available [facility] 4 14:04:50 Osteoarthr itis of knee 448785275 Active 2017 Not Available [facility] 4 14:04:50 Colon cancer screening declined 6456919773139 9 Active 2018 Not Available [facility] 4 14:04:50 Lower gastrointe stinal hemorrhage 89180197 Active 2019 Not Available [facility] 4 14:04:51 Aortic valve stenosis 09439981 Active 2019 Not Available [facility] 4 14:04:51 Neuropathy 198130567 Active 2019 Not Available [facility] 4 14:04:50 Disorder of vitamin B12 251471172 Active 2020 Not Available [facility] 4 14:04:50 Influenza vaccinatio n declined 983176805 Active 2020 Not Available [facility] 4 14:04:50 Vaccine declined by patient 201643938990 Active 2020 Not Available [facility] 4 14:04:50 Pneumococc al vaccinatio n declined 326200862 Active 2020 Not Available [facility] 4 14:04:50 Heart murmur 37112029 Active 2021 Not Available [facility] 4 14:04:51 Acute cystitis 07687148 Active Not Available [facility] 4 14:04:51 Localized infection of skin AND/OR subcutaneo us tissue 179742619 Active Not Available [facility] 4 14:04:50 Bilateral carpal tunnel syndrome 7484883364234 9101 Active 2021 Not Available [facility] 4 14:04:50 Synovial cyst of right knee 2718405332275 04 Active 2022 Not Available [facility] 4 14:04:50 Essential hypertensi on 98492670 Active Not Available [facility] 4 14:04:51 Vitamin D deficiency 65056903 Active 2022 Not Available [facility] 4 14:04:50 At increased risk for cardiovasc ular event 445768015 Active 2022 Not Available [facility] 4 14:04:50 Hemiplegia and/or hemiparesi s following stroke 2773126357445 7 Active 2023 Sophy Skinner MD Attn: Accounting ,[address] [facility], [place], [address] , [facility] 4 13:54:16 History of cerebrovas cular accident 161864774 Active 2023 Sophy Skinner MD Attn: Accounting ,[address] [facility], [place], [address] , [place] - [facility] 4 15:50:33 History of coronary artery bypass grafting 152333537 Active 2023 Sophy Skinner MD Attn: Accounting ,[address] [facility], [place], [address] , [facility] 4 16:00:32 History of aortic valve replacemen t 2277178688852 Active 2023 Sophy Skinner MD Attn: Accounting ,[address] [facility], [place], [address] , [facility] 4 16:00:34 Notes:Some problems listed i n Document: #[id number] could not be added to this patient's chart. Please review this document and add these problems to the patient's chart manually as needed. Problem Notes None recorded. Procedures Surgical History Date Name Laterality Status Provider Name and Address Organization Details Recorded Time 2023 esophagogastroduodenoscopy completed Micheal Schwartz MD Attn: Lindsey vasquez,[address] [facility], [place], [address], [place] - [facility] 4 08:46:14 2023 colonoscopy completed Sophy Skinner MD Attn: Lindsey vasquez,[address] [facility], [place], [address], [place] - [facility] 4 08:46:23 2023 CABG completed Sophy Skinner MD Attn: Lindsey vasquez,[address] [place], [address], [place] [facility] 4 08:45:21 2023 replacement of aortic valve completed Cristi Skinner MD Attn: Lindsey vasquez,[address] [facility], [place], [address], [place] [facility] 4 08:45:42 2023 aortoplasty completed Sophy Skinner MD Attn: Lindsey christina,[address] [place], [address], [place] [facility] 4 08:45:59 2023 cardiac catheterization completed Sophy Skinner MD Attn: Lindsey christina,[address] [place], [address], [place] [facility] 4 14:18:49 2020 Colonoscopy completed Sophy Skinner MD Attn: Lindsey christina,[address] [place], [address], [place] [facility] 1 01:06:52 2020 Anoscopy control bleeding completed Guy Skinner MD Attn: Lindsey christina,[address] [place], [address], [place] [facility] 1 11:47:58 2020 rubber band ligation of hemorrhoid(s) completed Sophy Skinner MD Attn: Lindsey christina,[address] [place], [address], [place] [facility] 1 11:48:16 2008 colonoscopy completed Sophy Skinner MD Attn: Lindsey christina,[address] [place], [address], [place] [facility] 0 15:30:46 Caesarean Section completed Tyesha Cardenas [place] [facility] 8 14:46:42 Imaging Results Imaging Date Name Status LastModified by Organization Details LastModified Time 05/10/2023 US, duplex, venous, lower extremity completed [facility] [address] [place], [address], 06/03/2023 11:42:48 05/29/2023 nerve conduction study/EMG, upper extremity (PROC) completed [facility] [address], [place], [address], 06/05/2023 10:54:30 06/20/2023 US, duplex, arterial, lower extremity completed [facility] [address] [facility] [place], [address], 07/08/2023 14:33:33 06/25/2023 trans-thoracic echocardiogram (TTE) (PROC) completed [facility] [address], [place], [address], 07/01/2023 14:55:45 07/22/2023 myocardial perfusion study w/ ejection fraction (PROC) completed [facility] [address], [place], [address], 08/26/2023 15:44:03 07/22/2023 myocardial perfusion study w/ ejection fraction (PROC) completed [facility] [address], [place], [address], 08/26/2023 15:44:03 Procedure Notes None recorded. Medical Equipment None Reported. Allergies Allergen ID Allergen Name Allergen Category Reaction Reaction Severity Criticality Documentation Date Start Date Code Code System Note Provider Name and Address Organization Details Recorded Time 345546 Substance with sulfonami de structure and antibacte rial mechanism of action (substanc e) medicatio n Not available Not available Not available 11/06/20172023 89851 8003 SNOMED Not Available [facility]! 15:11:08 Medications Name Sig Start Date Stop Date Status Note LastModified by Organization Details LastModified Time losartan 50 mg tablet TWO TABLETS PO AT THE SAME TIME ONCE A DAY 05/19 completed Please dispense two of the 50 mg tablets Not Available Not Available Not Available furosemid e 40 mg tablet Take 1 tablet every day by oral route in the morning for 90 days. 01/28 completed BID Not Available Not Available Not Available Augmentin 875 mg-125 mg tablet Take 1 tablet every 12 hours by oral route as directed for 5 days. 03/22 completed Not Available Not Available Not Available promethaz ine-DM 6.25 mg-15 mg/5 mL oral syrup TAKE 5 ML BY MOUTH EVERY 4 HOURS DIRECTED FOR COLD SYMPTOMS FOR 4 DAYS active Not Available Not Available No t Available clonidine HCl 0.1 mg tablet TAKE 1 TABLET BY MOUTH TWICE DAILY 06/15 completed Not Available Not Available Not Available carvedilo l 6.25 mg tablet TAKE 1 TABLET BY MOUTH TWICE DAILY active Not Available Not Available No t Available albuterol sulfate 2.5 mg/3 mL (0.083 %) solution for nebulizat ion Inhale 3 mL 4 times a day by nebuliza tion route as needed for 30 days, for Shortnes s of breath/w heezing. 06/15 completed Not Available Not Available Not Available atorvasta tin 10 mg tablet TAKE 1 TABLET BY MOUTH ONCE DAILY AT BEDTIME active Not Available Not Available No t Available ibuprofen 800 mg tablet TAKE 1 TABLET BY MOUTH EVERY 6 TO 8 HOURS NEEDED FOR 10 DAYS 06/15 completed Not Available Not Available Not Available ofloxacin 0.3 % eye drops 10 drops in the left ear BID for 10 days 05/29 completed Not Available Not Available Not Available meloxicam 15 mg tablet Take 1 tablet every day by oral route. 09/30 completed Not Available Not Available Not Available isosorbid e mononitra te ER 30 mg tablet,ex tended release 24 hr TAKE 1 TABLET BY MOUTH ONCE DAILY 06/15 completed Not Available Not Available Not Available Tylenol Arthritis Pain 650 mg tablet,ex tended release Take 2 tablets every 8 hours by oral route as directed for 10 days. 01/28 completed Not Available Not Available Not Available hydralazi ne 25 mg tablet TAKE 1 TABLET BY MOUTH TWICE DAILY active Not Available Not Available No t Available nifedipin e ER 30 mg tablet,ex tended release Take 1 tablet every day by oral route as directed for 90 days. 05/22 completed Not Available Not Available Not Available amlodipin e 5 mg tablet Take 1 tablet every day by oral route for 30 days. 10/03 completed PM Not Available Not Available Not Available aspirin 81 mg tablet,de layed release Take 1 tablet every day by oral route as directed for 30 days, for Blood thinner. 06/15 completed Not Available Not Available Not Available tramadol 50 mg tablet TAKE 2 TABLETS BY MOUTH EVERY 8 HOURS NEEDED FOR SEVERE PAIN active Not Available Not Available No t Available acetamino phen 500 mg tablet Take 1 tablet every 6 hours by oral route as directed for 30 days, for Pain. 2023 active Not Available Not Available Not Avai lable Macrobid 100 mg capsule Take 1 capsule every 12 hours by oral route as directed for 5 days. 06/30 completed Not Available Not Available Not Available Tessalon Perles 100 mg capsule Take 1 capsule 3 times a day by oral route as needed for 7 days. 05/01 completed Not Available Not Available Not Available ofloxacin 0.3 % ear drops INSTILL 10 DROPS (1.5 MG) INTO the left EAR(S) BY OTIC ROUTE 2 TIMES PER DAY for 10 days. Okay to dispense eye drops) 03/17 completed Not Available Not Available Not Available Diflucan 100 mg tablet Take 0 mg by oral route. 02/23 completed Not Available Not Available Not Available amlodipin e 10 mg tablet Take 1 tablet every day by oral route as directed for 90 days. 03/17 completed Not Available Not Available Not Available doxycycli ne monohydra te 100 mg capsule Take 1 capsule twice a day by oral route around the clock for 7 days. 06/07 completed Not Available Not Available Not Available pantopraz ole 40 mg tablet,de layed release TAKE 1 TABLET BY MOUTH ONCE DAILY active Not Available Not Available No t Available mirtazapi ne 30 mg tablet Take 1 tablet every day by oral route as directed for 30 days, for Depressi on. 2024 active Not Available Not Available Not Avai lable nitrofura ntoin macrocrys camilo 100 mg capsule Take 1 capsule every 6 hours by oral route as directed for 5 days. 09/30 completed Not Available Not Available Not Available metoprolo l tartrate 50 mg tablet Take 1 tablet every day by oral route in the morning for 90 days. 01/28 completed Not Available Not Available Not Available docusate sodium 100 mg capsule Take 1 capsule every day by oral route as directed for 90 days. 2024 active Not Available Not Available Not Avai lable gabapenti n 300 mg capsule Take 1 capsule every day by oral route at bedtime for 30 days. 01/07 completed Not Available Not Available Not Available magnesium citrate oral solution Take 150 mL every day by oral route as directed for 2 days. 2024 active Not Available Not Available Not Avai lable diclofena c sodium 75 mg tablet,de layed release TAKE 1 TABLET BY MOUTH TWICE DAILY NEEDED WITH FOOD FOR PAIN 05/01 completed It seems like when I am taking that it makes my chest real tight Not Available Not Available Not Available hydroxyzi ne HCl 25 mg tablet TAKE 1 TABLET BY MOUTH THREE TIMES DAILY DIRECTED FOR ITCHING FOR 15 DAYS active Not Available Not Available No t Available hydralazi ne 50 mg tablet Take 1 tablet twice a day by oral route as directed for 90 days. 01/28 completed TID Not Available Not Available Not Available hydrochlo rothiazid e 25 mg tablet Take 1 tablet every day by oral route around the clock for 90 days. 05/22 completed Not Available Not Available Not Available furosemid e 20 mg tablet Take 0.5 tablets every day by oral route. 02/18 completed Not Available Not Available Not Available mirtazapi ne 15 mg tablet TAKE 1 TABLET BY MOUTH ONCE DAILY DIRECTED FOR DEPRESSI ON 07/29 completed Increase d to 30 mg on Not Available Not Available Not Available Vitamin D2 1,250 mcg (50,000 unit) capsule Take 1 capsule 3 times a week by oral route. 06/[address] Armstrong Not Available Not Available Not Available Cipro 250 mg tablet Take 1 tablet twice a day by oral route as directed for 3 days. 05/19 completed Not Available Not Available Not Available oxybutyni n chloride 5 mg tablet Take 1 tablet twice a day by oral route as directed for 90 days. 03/17 completed Headache , My blood pressure was running up Not Available Not Available Not Available nifedipin e ER 60 mg tablet,ex tended release Take 1 tablet every day by oral route around the clock for 90 days. 07/11 completed Not Available Not Available Not Available ondansetr on 4 mg disintegr ating tablet PLACE 2 TABLETS TWICE DAILY UNDER THE TOUNGUE NEEDED FOR 5 DAYS FOR NAUSEA active Not Available Not Available No t Available losartan 100 mg tablet Take 1 tablet every day by oral route at bedtime for 90 days. 01/28 completed Please dispense two of the 50 mg tablets 2 Not Available Not Available Not Available oxycodone 5 mg tablet 04/20 completed Not Available Not Available Not Available ezetimibe 10 mg tablet Take 1 tablet every day by oral route as directed for 90 days, for Choleste rol. 2024 active Not complian t 2 Not Available Not Available Not Available cyclobenz aprine 5 mg tablet Take 1 tablet 3 times a day by oral route as needed for 14 days. 02/23 completed Not Available Not Available Not Available rosuvasta tin 5 mg tablet TAKE 1 TABLET BY MOUTH ONCE DAILY 06/15 completed Not Available Not Available Not Available rosuvasta tin 10 mg tablet Take 1 tablet every other day by oral route as directed for 90 days. 03/17 completed Not Available Not Available Not Available mirtazapi ne 7.5 mg tablet Take 1 tablet every day by oral route. 07/02 completed Increase d to 15 mg Not Available Not Available Not Available magnesium 09/30 completed Not Available Not Available Not Available clonidine 0.1 mg TID 01/28 completed Not Available Not Available Not Available Tylenol 09/30 completed Not Available Not Available Not Available fiber 01/07 completed Not Available Not Available Not Available Banophen 50 mg capsule Take 1 capsule every 6 hours by oral route as needed for 7 days. 09/20 completed Not Available Not Available Not Available Victoza 2-Morteza 0.6 mg/0.1 mL (18 mg/3 mL) subcutane ous pen injector Inject 0.6 mg every day by subcutan eous route as directed for 30 days, for Weight loss. 01/28 completed Victoza is no longer on her drug formular y, it will be replaced with Ozempic. Not Available Not Available Not Available Eliquis 5 mg tablet TAKE 1 TABLET BY MOUTH TWICE DAILY active Not Available Not Available No t Available potassium chloride ER 20 mEq tablet,ex tended release TAKE 1 TABLET BY MOUTH ONCE DAILY DIRECTED FOR 30 DAYS active Not Available Not Available No t Available cyanocoba jennifer (vit B-12) 2,000 mcg tablet Take 1 tablet every day by oral route as directed for 90 days. 01/11 completed Not Available Not Available Not Available Repatha SureClick 140 mg/mL subcutane ous pen injector 05/01 completed Not Available Not Available Not Available Boost Plus 0.06 gram-1.5 kcal/mL oral liquid Take 237 mL 3 times a day by oral route as needed. active Not Available Not Available No t Available Ozempic 0.25 mg or 0.5 mg (2 mg/1.5 mL) subcutane ous pen injector Inject 0.25 mg every week by subcutan eous route as directed for 56 days, for Obesity. 08/25 completed Not Available Not Available Not Available tramadol 100 mg tablet 07/11 completed Not Available Not Available Not Available Wegovy 0.25 mg/0.5 mL subcutane ous pen injector Inject 0.25 mg every week by subcutan eous route as directed for 30 days. 05/01 completed Not Available Not Available Not Available Ozempic 0.25 mg or 0.5 mg (2 mg/3 mL) subcutane ous pen injector Inject by subcutan eous route for 56 days. 08/25 completed Not Available Not Available Not Available Vitals Date Recorded Body height Body mass index (BMI) Body weight Oxygen saturation Oxygen saturation in Arterial blood by Pulse oximetry Heart rate Body temperature Respiratory rate Systolic blood pressure Diastolic blood pressure Provider Name and Address Organization Details Last Updated DateTime 4 165.1 cm 37.5 kg/m2 837435. 72 g 98 % 98 % 78 /min 98 [degF] 16 /min 160 mm[Hg] 84 mm[Hg] Tyesha Cardenas MA [facility] 4 11:38:49 Date Recorded Body height Body mass index (BMI) Body weight Heart rate Oxygen saturation Oxygen saturation in Arterial blood by Pulse oximetry Systolic blood pressure Diastolic blood pressure Provider Name and Address Organization Details Last Updated DateTime 4 165.1 cm 38.5 kg/m2 030035. 27 g 76 /min 97 % 97 % 146 mm[Hg] 68 mm[Hg] Mely Borrego MA [facility] 4 14:49:01 Date Recorded Body height Oxygen saturation Oxygen saturation in Arterial blood by Pulse oximetry Heart rate Systolic blood pressure Diastolic blood pressure Provider Name and Address Organization Details Last Updated DateTime 4 165.1 cm 99 % 99 % 84 /min 140 mm[Hg] 70 mm[Hg] Tyesha Cardenas MA [facility] 4 15:30:56 Date Recorded Body height Respiratory rate Heart rate Oxygen saturation Oxygen saturation in Arterial blood by Pulse oximetry Systolic blood pressure Diastolic blood pressure Provider Name and Address Organization Details Last Updated DateTime 4 165.1 cm 18 /min 84 /min 98 % 98 % 140 mm[Hg] 76 mm[Hg] Tyesha Cardenas MA [facility] 4 14:30:22 Date Recorded Body height Heart rate Oxygen saturation Oxygen saturation in Arterial blood by Pulse oximetry Respiratory rate Systolic blood pressure Diastolic blood pressure Provider Name and Address Organization Details Last Updated DateTime 5 165.1 cm 86 /min 99 % 99 % 16 /min 116 mm[Hg] 64 mm[Hg] Tyesha Cardenas MA [facility] 5 15:43:14 Social History Question Answer Notes LastModified by Organizat ion Details LastModified Time Tobacco Smoking Status Never Smoker Tyesha Cardenas MA [facility], [place] - [facility] 11/06/2017 14:45:57 Do You Have An Advance Directive? No Information not available 11/06/2017 What Is Your Level Of Alcohol Consumption? None Information not available 03/31/2024 What Is Your Level Of Caffeine Consumption? Heavy Information not available 11/06/2017 How Much Tobacco Do You Chew? None Information not available 11/06/2017 Have You Been To An Area Known To Be High Risk For COVID-19? No Information not available 08/25/2019 What Type Of Diet Are You Following? REGULAR Information not available 11/06/2017 Do You Or Have You Ever Used E-cigarettes Or Vape? Never Used Electronic Cigarettes Information not available 08/25/2019 Are There Any Guns Present In Your Home? No Information not available 11/06/2017 Hard Of Hearing Or Deaf In One Or Both Ears? 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 06/15/2024 Information not available 06/15/2024 Performs Monthly Self-breast Exam? No Information no t available 11/06/2017 Do You Use Your Seat Belt Or Car Seat Routinely? No Information not available 07/21/2020 Seat Belts Used Routinely Yes Information not available 11/06/2017 Smoke Alarm In Home Yes Information not available 11/06/2017 Do You Have Smoke And Carbon Monoxide Detectors In Your Home? Yes Information not available 07/21/2020 Do You Or Have You Ever Used Smokeless Tobacco? Never Used Smokeless Tobacco Information not available 08/25/2019 How Much Tobacco Do You Smoke? No Information not available 11/06/2017 Do You Use Any Illicit Or Recreational Drugs? No Information not available 07/21/2020 Do You Use Sunscreen Routinely? No Information not available 11/06/2017 Has Tobacco Cessation Counseling Been Provided? No Information not available 07/21/2020 On What Date Was Tobacco Cessation Counseling Provided? 06/07/2022 [email or web address] Information not available 06/07/2022 How Many Years Have You Smoked Tobacco? 0 Information not available 11/06/2017 Sex: Unknown Functional Status None recorded. Mental Status None recorded. Family History Relationship Description Onset Age of this Age Resolved Age Notes LastModified by Organization Details LastModified Time Father Hypertensive disorder [email or web address] Not available 2017 14:48:34 Father Heart disease [email or web address] Not available 2017 14:48:44 Mother Hypertensive disorder [email or web address] Not available 2017 14:48:39 Mother Malignant tumor of breast hdoverma Not available 2017 14:48:50 Medical History Condition Response Coronary Artery Disease N Depression N COPD N Blood Clots N Anxiety Disorder N Acid Reflux (GERD) N Stroke N Skin Problems N Asthma N Liver Disease N Thyroid Problems N GI Problems N Anemia N Heart Attack ([place]) N Diabetes N Heart Failure N Other N Atrial Fibrillation N High Blood Pressure Y Muscle, Joint, or Bone Problems N Cancer N Headaches N Kidney or Bladder Problems N Allergies N Hepatitis N High Cholesterol Y Seizures/Epilepsy N Osteoporosis N Gynecological HistoryNo gynecological history recorded. Obstetrics History GPAL:G 0 P 0 0 0 0 Past Encounters Encounter ID Performer Location Encounter Start Date Encounter Closed Date Diagnosis/Indication Diagnosis SNOMED-CT Code Diagnosis ICD10 Code Diagnosis Note [id number] MD Sabra Combs (Adult Med) [address] [place] [address] 03371-754 0 11/06/2017 14:24:23 11/06/2017 15:48:21 General examination of patient 716384771 Z00.01 Administra tion of diphtheria, pertussis, and tetanus vaccine 331620395 Z23 Inguinal pain 988280389 R10.2 Swelling of lower leg 44 0092870 R22.41 R22.42 Edema of l ower extremity 000956677 R60.0 Meds? Body mass index 30+ - obesity 801234170 Z68.39 Benign ess ential hypertension 5277007 I10 Myalgia/my ositis - lower leg 228828117 M79.1 Disorder o f lipid metabolism 514708768 E78.9 Osteoarthr itis of knee 824522155 M17.0 [id number] MD Sabra Combs (Adult Med) [address] [place] [address] 23448-393 0 12/25/2017 15:35:43 12/26/2017 09:58:39 Screening for malignant neoplasm of breast 693551801 Z12.31 Inguinal pain 868431599 R10.2 [place] 08/21/2017 Benign ess ential hypertension 3987546 I10 Impaired f asting glycemia 031505345 R73.01 Disorder o f lipid metabolism 946805391 E78.9 [id number] MD Sabra Combs (Adult Med) [address] [place] [address] 44666-212 0 02/18/2018 15:23:25 02/21/2018 09:07:49 Osteoarthritis of knee 462721401 M17.0 [place] 12/26/2017R epeat UDS as the last was inconsiste nt with her Rx, she is emphatic that she takes it and tries to make it last a whole month. Benign ess ential hypertension 3285011 I10 Influenza vaccination declined 270226091 Z28.21 Urinary tr act infectious disease 88602965 N39.0 Inguinal pain 131437173 R10.2 [id number] MD Sabra Combs (Adult Med) [address] [place] [address] [phone] 0 04/24/2018 16:49:38 04/25/2018 08:37:59 Inguinal pain 698050380 R10.2 Previously referred to PT, she has no transporta tion.Her pain started in August of last year.She needs imaging and I have ordered an MRI Cervical lymphadenopathy 120349084 R59.0 Essential hypertension 59456207 I10 She was taking Losartan in the morning and Amlodipine in the evening, she should take both medication s at the same time Otalgia of left ear 1089 455581 960242 H92.02 Prediabetes 808819460 R7 3.03 [id number] MD Sabra Combs (Adult Med) [address] [place] [address] 02721-362 0 05/29/2018 15:45:44 05/30/2018 08:50:05 Osteoarthritis of left hip joint 6062439147 69495 M16.12 The MRI was discussed in detail Benign ess ential hypertension 3249078 I10 Spasm 34969382 R25.2 Pruritic rash 31312735 L 28.2 Impaired f asting glycemia 033809540 R73.01 Trochanter ic bursitis of left hip 0088138858 16165 M70.62 Noted on the MRI Osteoarthr itis of right hip joint 0404457371 61894 M16.11 [id number] MD Sabra Alarcon (Adult Med) [address] [place] [address] 86801-729 0 09/19/2018 14:12:58 09/19/2018 14:40:37 Essential hypertension 25572871 I10 158/90 BP on 09/19/2018 contuine taking medication as prescribed . Increased frequency of urination 211446352 R35.0 discussed UA results with patient. will send urine culture. antibiotic s. discussed good vaginal hygiene with mom and patient. discussed proper wiping technique. encourage to not hold urine and take time to empty bladder completely . decrease intake of juice and sugary beverages. [id number] MD Sabra Combs (Adult Med) [address] [place] [address] 24959-050 0 10/03/2018 14:29:12 10/03/2018 15:26:27 Benign essential hypertension 0684917 I10 Restart Amlodipine Continue Losartan Impaired f asting glycemia 960378104 R73.01 Skin lesion 64416463 L98 .9 Medial/dis camilo aspect of the RLL. Venous stasis?I will have her seen by the dermatolog ist Screening for malignant neoplasm of breast 362047587 Z12.31 Arthritis 3099043 M19.90 Tylenol Bladder mu scle dysfunction - overactive 900767784 N32.81 [id number] [facility] [address] [place] [address] 93410-465 0 03/17/2019 15:53:39 03/18/2019 09:14:33 Depression screening 132834872 Z13.31 Benign ess ential hypertension 2204495 I10 Restart Amlodipine Continue Losartan Long-term drug therapy 237820253 Z79.899 Disorder o f lipid metabolism 760618933 E78.9 Osteoarthr itis of left hip joint 6843466623 55270 M16.12 [place] 11/11/2018 UDS 01/17/2018 CDA 09/19/2018U DS needed, third request Osteoarthr itis of knee 136225368 M17.0 . Chest pain on exertion 65725907 R07.89 She apparently had a cardiac cath a few years ago, possibly by Dr Travis. Spasm 33130828 R25.2 Dizziness 565584112 R42 Heart murmur 06540168 R0 1.1 Colon canc er screening declined 2996180761 9109 Z53.20 Colonoscop y 2008 followed by a Aureliae has refused another colonoscop y and apparently had a Cologuard done by her gynecologi st recently Skin lesion 19116006 L98 .9 Medial/dis camilo aspect of the RLL. Venous stasis?She was seen by the dermatolog ist, I will get a copy of the consultati on. [id number] Sophy Skinner MD [facility] (Adult Med) [address] [place] [address] 72470-370 0 08/25/2019 09:37:55 08/26/2019 14:38:35 Screening for malignant neoplasm of breast 858322274 Z12.31 MMG report Lower gastrointestinal hemorrhage 08205255 K92.2 Colonoscop y 11/11/2008, she has been referred to GI and she apparently had a normal Cologuard through her gynecologi st Disorder o f lipid metabolism 641013873 E78.9 Start Rosuvastat in, side effects were discussed Osteoarthr itis of left hip joint 3962311724 40041 M16.12 [facility] UDS 04/07/2019 CDA 09/19/2018U DS acceptable I have explained to her that despite the out of pocket cost ~$200+ for the UDS, the UDS is required as part of her treatment with a controlled drug and monitoring for compliance , etc Cramp in lower limb 4499 81735 R25.2 Recent weight loss 45598 7000 R63.4 She feels that it is from her Keto diet, however the recent GI bleed is a cause for concern. Musculoskeletal pain 279 516532 M79.10 Discussed Long-term drug therapy 961702068 Z79.899 Vitamin D deficiency 347 99052 E55.9 [id number] MD Sabra Combs (Adult Med) [address] [place] [address] 15316-187 0 10/01/2019 12:39:59 10/01/2019 13:42:08 Cramp 15004545 R25.2 Hold Crestor Screening for malignant neoplasm of colon 254477216 Z12.11 Colonoscop y 2009Cologu anya 12/03/2017 Pain of le ft hip joint 2758738866 02348 M25.552 Inguinal pain 166138276 R10.2 She has been seen by the orthopedic surgeonHer MRI confirms OA L>RVenous studies were previously normalI will repeat an US Myalgia/my ositis - lower leg 810220257 M79.18 Pain of left thigh 14085 06985 29926 M79.740 [id number] MD Sabra Combs (Adult Med) [address] [place] [address] 66328-352 0 10/29/2019 12:23:43 10/30/2019 11:27:01 Urinary tract infectious disease 75125411 N39.0 Osteoarthr itis of left hip joint 7508222656 04253 M16.12 [place] 08/25/2019 UDS 04/07/2019 CDA 09/19/2018S he needs a new CDA [id number] MD Sabra Combs (Adult Med) [address] [place] [address] 94839-903 0 02/12/2020 08:52:57 02/15/2020 07:45:24 Painless rectal bleeding 877337384 K62.5 Osteoarthr itis of left hip joint 7326848813 86191 M16.12 [place] 08/25/2019 UDS 04/07/2019 CDA 10/30/2019 Otalgia of right ear 011 7620760 856330 H92.01 Aortic valve stenosis 60 762093 I35.0 [id number] MD Sabra Combs (Adult Med) [address] [place] [address] 62994-791 0 03/17/2020 15:38:13 03/18/2020 09:18:14 Neuropathy 987604426 G62.9 Screening for malignant neoplasm of breast 040054380 Z12.31 MMG report Influenza vaccination declined 939324811 Z28.21 Disorder o f lipid metabolism 586231276 E78.9 Start Rosuvastat in, side effects were discussed Long-term drug therapy 735905120 Z79.800 [id number] MD Sabra Combs (Adult Med) [address] [place] [address] 10353-886 0 07/21/2020 08:12:12 07/22/2020 09:38:49 Carpal tunnel syndrome 10853477 G56.03 L>R CTS Disorder o f lipid metabolism 052748152 E78.9 On Zetia, I do not believe that she was able to tolerate the statin. Edema of l ower extremity 202864561 R60.0 Meds? Immunization advised 310 770825 Z71.9 Disorder o f vitamin B12 190509229 E53.8 [id number] MD Sabra Combs (Adult Med) [address] [place] [address] 40056-584 0 09/30/2020 11:22:23 10/03/2020 06:18:02 Painless rectal bleeding 324868481 K62.5 Immunization advised 310 119641 Z71.9 Disorder o f lipid metabolism 694738395 E78.9 On Zetia, I do not believe that she was able to tolerate the statin. Medication monitoring 39 3793132 Z51.81 Vitamin D deficiency 347 47503 E55.9 [id number] MD Sabra Combs (Adult Med) [address] [place] [address] 81720-212 0 01/11/2021 15:39:38 01/17/2021 08:28:44 Vitamin D deficiency 91932051 E55.9 Osteoarthr itis of left hip joint 6238979238 90606 M16.12 [place] U[place] 06/24/2020 CDA 10/30/2019 Disorder o f lipid metabolism 745431662 E78.9 She should retry the statin. Benign ess ential hypertension 8438175 I10 Increase Nifedipine to 60 MGContinue Losartan Influenza vaccination declined 527544970 Z28.21 Vaccine de clined by patient 4898646356 02 Z28. Pneumococc al vaccination declined 026324267 Z28.21 Malodorous urine 5837625 01 R82.998 Apparently treated possibly with Pyridium at the urgent care clinic ~ 2 months ago, chrystal ring she remains symptomati c. [id number] MD Sabra Combs (Adult Med) [address] [place] [address] 90144-102 0 05/19/2021 15:30:54 05/22/2021 11:17:23 Osteoarthritis of left hip joint 2424047193 98348 M16.12 [place] reviewed UDS 06/24/2020 CDA 05/02/2021 ontinue Tramadol as prescribed , she will continue to alternate this with Tylenol Osteoarthr itis of knee 485903273 M17.0 . Benign ess ential hypertension 6943476 I10 Restart Nifedipine 30 MGContinue Losartan and Metoprolol Unwilling to continue HCTZ Vitamin D deficiency 347 32822 E55.9 Disorder o f lipid metabolism 508104334 E78.9 Medication monitoring 39 6185752 Z51.81 [id number] MD Sabra Combs (Adult Med) [address] [place] [address] 01920-001 0 07/11/2021 14:57:39 07/12/2021 07:54:31 Pruritic rash 50763171 L28.2 Allergy, doubt Scabies.Be nadrylStop topical bleach Abnormal urine 240625489 R82.90 Heart murmur 13040801 R0 1.1 TTE report Benign ess ential hypertension 8180774 I10 On Nifedipine 30 MG, Losartan and Metoprolol Unwilling to continue HCTZShe feels that her pain is the cause of her uncontroll ed HTN [id number] MD Sabra Combs (Adult Med) [address] [place] [address] 50858-467 0 09/20/2021 16:09:18 09/21/2021 09:47:30 Body mass index 40+ - severely obese 578451050 Z68.41 Benign ess ential hypertension 6224945 I10 On Nifedipine 30 MG, Losartan 100 mg and Metoprolol 25 mgUnwillin g to continue HCTZShe feels that her pain is the cause of her uncontroll ed HTN Vitamin D deficiency 347 40499 E55.9 Restart Vit D Disorder o f lipid metabolism 039783506 E78.9 Carpal tez yuniel syndrome of right wrist 4281274831 49781 G56.01 [id number] MD Sabra Combs (Adult Med) [address] [place] [address] 14405-983 0 02/23/2022 15:32:40 02/27/2022 09:43:47 Benign essential hypertension 0052490 I10 She should be on Nifedipine 30 MG, Losartan 100 mg, HCTZ and Metoprolol 25 mgHer blood pressure is uncontroll ed, I have prescribed all her meds. Bilateral carpal tunnel syndrome 5450314730 6568536 G56.03 Disorder o f lipid metabolism 734400807 E78.9 Skin lesion 57370269 L98 .9 Infected insect bite? Vitamin D deficiency 347 37746 E55.9 On Vit D Neuropathy 139219013 G62 .9 [id number] MD Sabra Combs (Adult Med) [address] [place] [address] 79746-799 0 03/22/2022 15:52:23 03/23/2022 10:11:00 Overweight 564704593 E66.3 Noncomplia nce with medication regimen 064663420 Z91.A4 Open wound of left lower leg 8173229753 7135037 S81.802D Pain in le ft lower limb 439475005 M79.605 Benign ess ential hypertension 0687519 I10 Uncontroll ed in the office, she should continue her Nifedipine 30 MG, Losartan 100 mg, HCTZ and Metoprolol 25 mg BIDHer blood pressure is uncontroll ed, she reports normal readings and I have explained to her that although HCTZ causes diuresis, nifedipine does not. Osteoarthr itis of left hip joint 5063044399 30321 M16.12 [place]P reviewed UDS 06/07/2021 CDA 05/02/2021 [id number] MD Sabra Combs (Adult Med) [address] [place] [address] 66028-921 0 06/07/2022 15:37:10 06/08/2022 14:25:01 Synovial cyst of right knee 5899093087 11577 M71.21 Discussed Benign ess ential hypertension 3532813 I10 Uncontroll ed, she is now on Furosemide 40 mg po daily, Hydralazin e BID, Losartan 100 mg po daily and Metoprolol XL once a day.Her HCTZ and Nifedipine were discontinu ed by her cardiologi st. Medication monitoring 39 5004394 Z51.81 Musculoskeletal pain 279 157985 M79.10 Discussed, Tramadol, Tylenol and Diclofenac PRN with food. Side effects of Diclofenac including but not limited to UGIB and CV events were discussed. [id number] MD Sabra Combs (Adult Med) [address] [place] [address] 66902-241 0 01/07/2023 15:47:33 01/08/2023 15:07:58 Benign essential hypertension 8662633 I10 Uncontroll ed due to non compliance , the note from her visit with her cardiologi st was discussed in detail.Res tart Furosemide OD (AM), Hydralazin e BID, Metoprolol OD (AM) and continue Losartan (PM)Detail ed discussion OV 06/07/2022Un controlled , she is now on Furosemide 40 mg po daily, Hydralazin e BID, Losartan 100 mg po daily and Metoprolol XL once a day.Her HCTZ and Nifedipine were discontinu ed by her cardiologi st. Disorder o f lipid metabolism 150994096 E78.9 Weight loss 22103383 R63 .4 Edema of l ower extremity 440884602 R60.0 Influenza vaccination declined 928144417 Z28.21 Impaired f asting glycemia 784577087 R73.01 Medication monitoring 39 4593843 Z51.81 Screening for malignant neoplasm of breast 039713971 Z12.31 Z12.39 Noncomplia nce with medication regimen 706180003 Z91.141 Vitamin D deficiency 347 21058 E55.9 [id number] MD Sabra Combs (Adult Med) [address] [place] [address] 93330-660 0 02/06/2023 15:32:29 02/12/2023 09:47:54 Benign essential hypertension 7765043 I10 Slight improvemen t from her last visit, however it remains uncontroll ed and her pain and thelack of the Furosemide may be playing a role.I have strongly encouraged her to take her Furosemide early in the day before her afternoon appointmen t as we need confirmati on of adequate blood pressure control. She can also record her ambulatory blood pressure readings. OV 01/07/2023 Uncontroll ed due to non compliance , the note from her visit with her cardiologi st was discussed in detail.Res tart Furosemide OD (AM), Hydralazin e BID, Metoprolol OD (AM) and continue Losartan (PM)Detail ed discussion OV 06/07/2022Un controlled , she is now on Furosemide 40 mg po daily, Hydralazin e BID, Losartan 100 mg po daily and Metoprolol XL once a day.Her HCTZ and Nifedipine were discontinu ed by her cardiologi st. Disorder o f lipid metabolism 015514058 E78.9 She cannot tolerate statins and her lipid panel is not at goal on Zetia, her 10year ASCVD risk is 20.6%. She is to continue Zetia and I will add Repatha Impaired f asting glycemia 336193758 R73.01 Discussed Body mass index 30+ - obesity 624437139 Z68.39 She has a BMI of 38, HTN, pre-DM, Osteoarthr itis and would benefit immensely from weight loss. She has no history of Thyroid cancer and the side effects of Semaglutid e including but not limited to nausea, constipati on and diarrhea were discussed. At [facility] ed risk for cardiovascular event 643786518 Z91.89 20.6% [id number] Sophy Skinner MD [facility] (Adult Med) [address] [place] [address] 05/01/2023 15:33:09 05/02/2023 14:14:39 Benign essential hypertension 1846316 I10 Not compliant with her complete regimen.Melita odom really needs to take all her medication s before her visit, so that we can assess her blood pressure control. OV 3Slight improvemen t from her last visit, however it remains uncontroll ed and her pain and thelack of the Furosemide may be playing a role.I have strongly encouraged her to take her Furosemide early in the day before her afternoon appointmen t as we need confirmati on of adequate blood pressure control. She can also record her ambulatory blood pressure readings. OV 01/07/2023 Uncontroll ed due to non compliance , the note from her visit with her cardiologi st was discussed in detail.Res tart Furosemide OD (AM), Hydralazin e BID, Metoprolol OD (AM) and continue Losartan (PM)Detail ed discussion OV 06/07/2022Un controlled , she is now on Furosemide 40 mg po daily, Hydralazin e BID, Losartan 100 mg po daily and Metoprolol XL once a day.Her HCTZ and Nifedipine were discontinu ed by her cardiologi st. Disorder o f lipid metabolism 523909214 E78.9 Repatha or an equivalent OV 3She cannot tolerate statins and her lipid panel is not at goal on Zetia, her 10year ASCVD risk is 20.6%. She is to continue Zetia and I will add Repatha Body mass index 30+ - obesity 960549537 Z68.39 Wegovy was too expensiveS tart Victoza, GI side effects were discussed. She has no personal history of Thyroid cancer. OV 3She has a BMI of 38, HTN, pre-DM, Osteoarthr itis and would benefit immensely from weight loss. She has no history of Thyroid cancer and the side effects of Semaglutid e including but not limited to nausea, constipati on and diarrhea were discussed. Carpal tez yuniel syndrome 34998413 G56.03 Her previous EMG/BCS confirmed L>R CTS Edema of l ower extremity 836561139 R60.0 Noncomplia nce with medication regimen 960638497 Z91.470 [id number] Sophy kSinner MD [facility] (Adult Med) [facility] [place] [address] 06/03/2023 11:25:55 06/04/2023 08:25:13 Benign essential hypertension 0541339 I10 Uncontroll ed, her cardiologi st added Clonidine, and the dose of her Hydralazin e was increased. She reports improvemen t in her blood pressure readings, but she does not have her medication s with her, and cannot accurately name them.She is to follow up with her cardiologi st on 06/04/2023 and she was encouraged to take take all her medication s to that visit. OV 05/01/2023N ot compliant with her complete regimen.Melita odom really needs to take all her medication s before her visit, so that we can assess her blood pressure control. OV 3Slight improvemen t from her last visit, however it remains uncontroll ed and her pain and thelack of the Furosemide may be playing a role.I have strongly encouraged her to take her Furosemide early in the day before her afternoon appointmen t as we need confirmati on of adequate blood pressure control. She can also record her ambulatory blood pressure readings. OV 01/07/2023 Uncontroll ed due to non compliance , the note from her visit with her cardiologi st was discussed in detail.Res tart Furosemide OD (AM), Hydralazin e BID, Metoprolol OD (AM) and continue Losartan (PM)Detail ed discussion OV 06/07/2022Un controlled , she is now on Furosemide 40 mg po daily, Hydralazin e BID, Losartan 100 mg po daily and Metoprolol XL once a day.Her HCTZ and Nifedipine were discontinu ed by her cardiologi st. Body mass index 30+ - obesity 311301172 Z68.39 She has refused to start Victoza OV 05/01/2023W egovy was too expensiveS tart Victoza, GI side effects were discussed. She has no personal history of Thyroid cancer. OV 3She has a BMI of 38, HTN, pre-DM, Osteoarthr itis and would benefit immensely from weight loss. She has no history of Thyroid cancer and the side effects of Semaglutid e including but not limited to nausea, constipati on and diarrhea were discussed. Carpal tez yuniel syndrome 17083967 G56.03 OV 05/01/2023H er previous EMG/BCS confirmed L>R CTS Noncomplia nce with medication regimen 151422745 Z91.141 Stasis arin matitis of lower limb due to chronic peripheral venous hypertension 359140534 I87.399 Discoloration of skin 32 70317 R23.8 Acute urin maurizio tract infection 643905148 N39.0 [id number] MD Sabra Combs (Adult Med) [address] [place] [address] 31021-290 0 07/01/2023 14:33:24 07/03/2023 18:49:35 Aortic valve stenosis 31338085 I35.0 Moderate on the TTE done on 06/25/2023 Disorder o f lipid metabolism 423922453 E78.9 Unable to afford RepathaCon tinue Zetia OV 4R epatha or an equivalent OV 3She cannot tolerate statins and her lipid panel is not at goal on Zetia, her 10year ASCVD risk is 20.6%. She is to continue Zetia and I will add Repatha Anemia 306767715 D64.9 Recheck Normal grief reaction 27 2463587 F43.20 Body mass index 30+ - obesity 118722891 Z68.39 She needs to be seen by a nutritioni st and a GLP-1 agonist would have been helpful, she will let me know.Her insurance denied Wegovy.Santana toza is available on the 340-B plan OV 06/03/2023S he has refused to start Victoza OV 05/01/2023W egovy was too expensiveS tart Victoza, GI side effects were discussed. She has no personal history of Thyroid cancer. OV 3She has a BMI of 38, HTN, pre-DM, Osteoarthr itis and would benefit immensely from weight loss. She has no history of Thyroid cancer and the side effects of Semaglutid e including but not limited to nausea, constipati on and diarrhea were discussed. Osteoarthr itis of left hip joint 5901788329 09096 M16.12 She will be referred to pain management Tramadol/T ylenolILPM P reviewed, last refill was on 05/07/2023 UDS 06/03/2023 CDA signed 06/14/2023 Thyroid fu nction tests abnormal 996361925 R94.6 B-type kenney riuretic peptide above reference range 3169820512 22952 R89.1 [id number] Sophy Skinner MD [facility] (Adult Med) [address] [place] [address] 08/26/2023 15:13:41 08/28/2023 13:00:05 Chest pain 12369236 R07.9 Cardiovasc ular stress test abnormal 906869171 R94.39 Body mass index 30+ - obesity 344535334 Z68.39 She needs to lose weight for her surgery.He r insurance denied Ozempic, Wegovy and Victoza.St art Victoza when it is available on the 340-B plan OV 06/03/2023S he has refused to start Victoza OV 05/01/2023W egovy was too expensiveS tart Victoza, GI side effects were discussed. She has no personal history of Thyroid cancer. OV 3She has a BMI of 38, HTN, pre-DM, Osteoarthr itis and would benefit immensely from weight loss. She has no history of Thyroid cancer and the side effects of Semaglutid e including but not limited to nausea, constipati on and diarrhea were discussed. Aortic valve stenosis 60 735996 I35.0 Moderate on the TTE done on 06/25/2023 [id number] MD Sabra Combs (Adult Med) [address] [place] [phone] 03/31/2024 14:11:14 04/03/2024 08:36:34 History of cerebrovascular accident [id number] Z86.73 Loss of appetite 2045910 6 R63.0 Medication monitoring 39 3941284 Z51.81 Weight loss 97981052 R63 .4 Impaired f asting glycemia 922020494 R73.01 Discussed Chronic pain 82308432 G8 9.29 Depressive disorder 3548 9007 F32.A Follow-up visit [id number] 9 Z09 Screening mammography 24 867310 Z12.31 History of coronary artery bypass grafting 691959198 Z95.1 History of aortic valve replacement 3086848697 100 Z95.4 [id number] MD Sabra Combs (Adult Med) [address] [place] [phone] 06/15/2024 14:59:26 06/16/2024 10:25:37 History of cerebrovascular accident 154376330 Z86.73 Loss of appetite 3298133 6 R63.0 Chronic pain 66974740 G8 9.29 Depressive disorder 3548 9007 F32.A On Mirtazapin eDeclined a referral to Follow-up visit 40317033 9 Z09 Nausea 158075298 R11.0 Medication monitoring 39 0706326 Z51.81 Chronic constipation 236 810966 K59.09 Colonoscop y 02/20/2021 NL TSH 03/31/2024 Medication review done by doctor [id number] Z76.89 Health Concerns Section Related Observation LastModified by Organization Detai ls LastModified Time None Recorded Concern Status LastModified by Organization Details LastModified Time None Recorded Advance Directives Directive N: Payers Encounter Date Sequence Insurance Name Policy Number Policy Andre Covered Member ID Andre Member ID Guarantor Name 06/03/2023 1 [facility] (MEDICARE REPLACEMENT/A DVANTAGE - HMO) [id number] Yumiko Mendez [id number] Yumiko Mendez 07/01/2023 1 [facility] (MEDICARE REPLACEMENT/A DVANTAGE - HMO) [id number] Yumiko Mendez [id number] Yumiko Mendez 08/26/2023 1 [facility] (MEDICARE REPLACEMENT/A DVANTAGE - HMO) [id number] Yumiko Mendez [id number] Yumiko Mendez 03/31/2024 1 [facility] (MEDICARE REPLACEMENT/A DVANTAGE - HMO) [id number] Yumiko Mendez [id number] Yumiko Mendez 06/15/2024 1 [facility] (MEDICARE REPLACEMENT/A DVANTAGE - HMO) [id number] Yumiko Mendez [id number] Yumiko Mendez Notes Date Note Type Note Provider Name and Address Organization Details Recorded Time 06/03/2023 text/html Hypertension F/UReported bypatient.Associated Symptoms:no dizziness; no lightheadedness; no chest pain; no shortness of breath; no palpitations; no edema; no calf pain with exertion Medications:checks blood pressure at home, range: (140/58) Ms Mendez returns, she is very concerned about the pigmentation on the medial and inferior part of her R. LE as well as the swelling. In the interim, she was seen by her employee welfare manager, Clonidine 0.1 mg po TID was added to her regimen and the Hydralazine was changed to 50 mg TID. Sophy Skinner MD Attn: [address] [place], [address], [facility] 06/03/2023 13:48:02 07/01/2023 text/html Anxiety/Depressi onRep orted bypatient.Quality:sym ptoms worse in the evening;symptoms worse during the day Duration:frequent; symptoms lasting over 2 weeks Onset/Timing:still present Associated Symptoms:denies homicidal ideations; no significant weight gain; no significant weight loss; no visual/auditory hallucinations; no delusions; no shortness of breath; mood good; no anxiety; no crying spells; no panic; no isolation; sleeping well; appetite good; energy good; no apathy; maintaining functionality I am miserable, I hurt. I am half eating and not losing weight like I should Do you think pain management would help me? My Goddaughter, just Ms. Mendez returns, she needs to lose weight before she will be considered an ideal candidate for L. THR. Unfortunately, despite cutting her food intake in half, she has gained and not lost any weight. She admits that her pain and grief are worsening her underlying depression, she however does not want therapy or medications. Sophy Skinner MD Attn: [address] [place], [address], [facility] 07/02/2023 08:29:17 08/26/2023 text/html She told me to stop it and I still hurt She told me the insurance had denied both of them : He said it was on back order When it happens it feels like... In the interim, she was seen by the employee welfare manager and her Crestor was held because of her musculoskeletal pain Victoza is usually available on the [employer]-B program, unfortunately they are out of stock. Victoza is not covered by her insurance as she does not have DM, the same applies to Ozempic and Wegovy. She reports chest pain on exertion relieved by belching, taking an antacid or hitting her chest. 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 MCA infarct. She had CABG x 4, AV replacement, Dacron patch aortoplasty, Pericardiotomy as well as a EGD/Colonoscopy. Since her discharge she has seen her CT surgeon and she plans to follow up with her employee welfare manager. She admits to feeling depressed about not being unable to do a lot of things on her own. She still has a lot of LUE and LLE weakness and an element of neglect and involuntary movements and spasms and would like to be referred to a neurologist. She also has a poor appetite and currently drinks a shake for a meal replacement and she was told by her CT surgeon to ask for a prescription for Megace. She is unable to ambulate on her own due to her left sided weakness from her stroke, she needs a wheelchair to accomplish her ADLs in her home. She also needs and a hospital bed with railings and height adjustment. With this, she can hold on to the railings as she is helped in and out of bed and the bed could also be lowered to help get to the commode. The bed would also prevent decubitus ulcers, facilitate position changes provide railings for safety. She is currently on Tramadol and Percocet for her hip and back pain from her employee welfare manager or CT surgeon and would like a referral to pain management. Sophy Skinner MD Attn: [address] [place], [address], [facility] 03/31/2024 18:15:24 06/15/2024 text/html Here with her daughter The heart doctor stopped that, she gave her some Eliquis I have been having crying spells Sometimes it's a long time ER on 04/19/2024 with, Weakness, Nausea, Dizziness, Blurred vision and a UTI. She was also seen by clinical asst, cardiology and pain management although she would need to stand for the injections. She is yet to be contacted by the neurologist and she never received the supplement prescribed.Her appetite is still very poor and her intake is minimal, she says that the food has no taste and she feels nauseous when she eats. She has also been dealing with constipation and admits to feeling depressed. She denies SI or HI and her employee welfare manager just started her on Mirtazapine. Sophy Skinner MD Attn: [address] [place], [address], [place] [facility] 06/15/2024 18:32:21 OBGyn Episode No OBEpisode recorded.
--- OUTSIDE RECORDS SUMMARY | 2024-08-05 16:23 | XMS_ITS | Continuity of Care Document ---
Author Organization [facility] Address [address] [place] [address] Phone Care Team Providers Care Hosiery Looper Name Role Phone Ady Brothers Unavailable Unavailable Procedures Procedure Date Office/outpatient Visit, Est Eye Exam & Treatment Eye Exam & Treatment Refraction Advance Directives Directive Yes / No Effective Date File Name No Information Encounters Encounter Description Practice Location Reason(s) For Visit Diagnoses Date Provider Providers Copied on Encounter Office/outpat ient Visit, Est [facility], [address] [place] [address] [address], [place], [place], [address], [place] tel:[phone] [facility] No Information 2-201 0 Krishnasamy Ady. [address] [facility] [address], [place], [place], [facility], [place]. tel:[phone] [facility], [address] [place] [address] [address], [place], [place], [address], [place] tel:[phone] [facility] No Information [address] Krishnasamy Ady. [address] [facility] [address], [place], [address], [place]. tel:[phone] [facility], [address] [place] [address] [address], [place], [place], [address], [place] tel:[phone] [facility] No Information [address] Umesh Willis. [address] [facility], [address], [place], [place], [address], [place]. tel:[phone] Family History Family Member Type Diagnosis Age At Onset No Information Payers Payer name Insurance type Covered green party ID Katerine oewns(s) [facility] [id number] Social History Type Description Quantity Date Captured Comments Sex Female Smoking Status No Information Chief Complaint And Reason For Visit No Information Reason For Referral Reason For Referral No Information History Of Present Illness Encounter Date Complaint History Of Prese nt Illness No Information Functional Status Date Functional Assessmen t No Information Instructions Date Instruction Additional Infor mation No Information Assessments Type Assessment Date No Information Patient Care Teams Name Effective Dates (start - stop) Status Members No Information
--- OUTSIDE RECORDS SUMMARY | 2024-08-05 16:23 | XMS_ITS | Clinical Summary ---
Author Organization [facility] Address [address] [place] [address] Phone Care Team Providers Care Drip Molder Name Role Phone Michele Burger MD Primary Care Provider [phone] Allergies Active Allergy Reactions Criticality Noted Date Comments Dlqvuym-Kxl-Ktk Reductase Inhibitors Muscle Pain Low 10/29/2008 Sulfa (Sulfonamide Antibiotics) Hives High 10/07 Medications irbesartan-hydro chlorothiazide (AVALIDE) 300-25 mg Oral Tab Take 1 Tab by mouth daily. Active Fesoterodine (TOVIAZ) 4 mg Oral Tb24 Take by mouth. Active amlodipine (NORVASC) 10 mg Oral Tab Take 1 Tab by mouth daily. 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 Gender Identity Not on file Sexual Orientation Not on file Last Filed Vital Signs Vital Sign Reading Time Taken Comments Blood Pressure 150/86 10/29/2008 10:14 AM CDT Pulse 80 10/29/2008 10:14 AM CDT Temperature - - Respiratory Rate - - Oxygen Saturation - - Inhaled Oxygen Concentration - - Weight 125.2 kg (276 lb) 10/29/2008 10:14 AM CDT Height 167.6 cm (5' 6 ) 10/29/2008 10:14 AM CDT Body Mass Index 44.55 10/29/2008 10:14 AM CDT Plan of Treatment Health Maintenance Due Date Last Done Comments DTAP/TDAP/TD VACCINES (1 - Tdap) 12/23/1974 BREAST CANCER SCREENING 1995 COLORECTAL SCREENING 12/23/2000 Colorectal Cancer Screening 12/23/2000 FIT-DNA Q 3 years 12/23/2000 FIT/FOBT Q 1 year 12/23/2000 Flex Sig/CT Colonography Q 5 years 12/23/2000 PNEUMOCOCCAL VACCINE 50+ YEARS (1 of 1 - PCV) 12/24/19 06 ZOSTER VACCINE (1 of 2) 12/23/2005 OSTEOPOROSIS SCREENING 12/23/2020 INFLUENZA VACCINE (#1) 2023 RSV VACCINE (60+ or ) (1 - 1-dose 75+ series) 12/23/2030 Insurance Care Teams Drip Molder Relationship Specialty Start Date End Date Michele Burger MD PCP - General 10/29/08
--- OUTSIDE RECORDS SUMMARY | 2024-08-05 16:23 | XMS_ITS | Encounter Summary ---
Author Organization [facility] Address [address] [place] [address] Care Team Providers Care Brickmason Name Role Phone Michele Burger MD Primary Care Provider [phone] Encounter Details Date Type Department Care Team (Late st Contact Info) Description 11/08/2006 Outpatient Historical [facility] [place] 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
--- OUTSIDE RECORDS SUMMARY | 2024-08-05 16:23 | XMS_ITS | Clinical Summary ---
Author Organization [facility] Address [address] [place] [address] Care Team Providers Care Vacuum Applicator Operator Name Role Phone Sophy Skinner MD Unavailable [phone] Richard Salazar MD Unavailable [phone] Veda TREJO MD, Carlos M. Unavailable [phone] Tyshawn Chino MD Unavailable [phone] Veena Cloud MD Unavailable [phone] John Mares MD Unavailable Vero Lao MD Unavailable [phone] Sophy Skinner MD Primary Care Provider Allergies Active Allergy Reactions Criticality Noted Date Comments Xxrvinn-Lwe-Oet Reductase Inhibitors Muscle pain Medium 10/29/2008 Sulfa Unknown 12/18/2023 Sulfa (Sulfonamide Antibiotics) Rash Medium Sulfadiazine Unknown 03/14/2016 Sulfanilamide Other (See comments) Reaction: Unknown, Medications ezetimibe (ZETIA) 10 mg tablet Take 1 tablet (10 mg total) by mouth daily 0 Active cyanocobalamin (Vitamin B-12) 500 mcg tabletIndicatio ns:Prevention of Vitamin B12 Deficiency Take 1 tablet (500 mcg total) by mouth daily Active albuterol 2.5 mg /3 mL (0.083 %) nebulizer solution Take 3 mL (2.5 mg total) by nebulization every 4 (four) hours as needed for wheezing or shortness of breath 75 mL 4 Active lidocaine (LIDODERM) 5 % Place 2 patches on the skin daily Remove & discard patch within 12 hours or as directed by . 60 patch 4 Active hydrOXYzine (ATARAX) 25 mg tablet Take 1 tablet (25 mg total) by mouth every 6 (six) hours as needed for anxiety 10 tablet 4 Active sodium chloride 0.9% injection Administer 5-20 mL into catheter as needed for line care (with each use) 4 Active sodium chloride 0.9% injection Administer 5-10 mL into catheter every 12 (twelve) hours 4 Active sodium chloride 0.9% injection Administer 0.5-20 mL into catheter as needed for line care 4 Active sodium chloride 0.9% injection Administer 0.5-20 mL into catheter every 8 (eight) hours 4 Active simethicone (MYLICON) 80 mg chewable tablet Take 1 tablet (80 mg total) by mouth 3 (three) times a day as needed for flatulence 10 tablet 4 Active senna-docusate (PERICOLACE) 8.6-50 mg Take 1 tablet by mouth 2 (two) times a day as needed for constipation 20 tablet 4 Active ramelteon (ROZEREM) 8 mg tabletIndicatio ns:Sleep-Onset Insomnia Take 1 tablet (8 mg total) by mouth nightly as needed for sleep 10 tablet 4 Active polyethylene glycol (MIRALAX) 17 gram/dose bulk powderIndicatio ns:constipation Take 17 g by mouth daily as needed (constipation) 238 [address] (PROTONIX) 40 mg EC tablet Take 1 tablet (40 mg total) by mouth daily 14 tablet 4 Active methocarbamoL (ROBAXIN) 500 mg tablet Take 0.5 tablets (250 mg total) by mouth every 12 (twelve) hours as needed for muscle spasms 10 tablet 4 Active traMADoL (ULTRAM) 50 mg tablet Take 0.5 tablets (25 mg total) by mouth 4 (four) times a day 60 tablet 3 4 Active liraglutide (Victoza 2-Morteza) 0.6 mg/0.1 mL (18 mg/3 mL) injection Inject 0.6 mg every day by subcutaneous route as directed for 30 days, for Weight loss. 4 Active lidocaine (LIDODERM) 5 %Indications:ap ply to left hip for pain for 12 hours, off for [address] 1 patch on the skin daily Remove & discard patch within 12 hours or as directed by MD. 15 patch 4 Active Active Problems Problem Noted Date Diagnosed Date Weakness 04/20/2024 History of UTI 01/07/2024 Assessment & Plan (01/15/2024 8:50 AM CDT): UA showed no UTI. Continue IV Ceftriaxone for sternal wound/incision/infection/. Assessment & Plan (01/07/2024 3:29 PM CDT): UA was obtained but no results found from the lab. Will do repeat UA with reflex culture. Pt reported had report of blood in urine or bleeding. None noted on exam. She is afebrile, denies flank pain, nausea or vomiting. Currently on IV Ceftriaxone, Flagyl, and Vancomycin. Discussed with patient daughter about the UA today and notified nurse real estate operations manager Johnny who has called and updated daughter. Patient notified as well that a new UA will be done. Precordial pain 01/07/2024 Assessment & Plan (02/24/2024 9:57 PM ZIGZAG STITCHER): Patient started on tramadol 4 times a day scheduled With Tylenol. Patient discontinue the ibuprofen and Patient has Percocet p.r.n. for pain as well Assessment & Plan (01/07/2024 4:44 PM CDT): Patient started on tramadol 4 times a day scheduled With Tylenol. Patient discontinue the ibuprofen and Patient has Percocet p.r.n. for pain as well Muscle weakness (generalized) 01/07/2024 Assessment & Plan (02/24/2024 9:58 PM ZIGZAG STITCHER): Patient to continue physical and occupational therapy for strengthening Assessment & Plan (01/07/2024 4:56 PM CDT): Patient to continue physical and occupational therapy for strengthening Osteoarthritis of left hip 12/20/2023 Assessment & Plan (01/15/2024 8:54 AM CDT): Stable. Continue Oxycodone. Left hip and knee x-rays showed no acute fractures. Assessment & Plan (12/26/2023 4:17 PM CDT): Moderate left leg pain. Continue Oxycodone. Assessment & Plan (12/20/2023 1:47 PM CDT): Moderate/severe pain. Continue Oxycodone. Sternal pain 12/18/2023 Assessment & Plan (12/18/2023 10:49 PM CDT): Status post aortic valve replacement with dehiscence patient received oxycodone 5 mg q.8 hours p.r.n. pain ACP (advance care planning) 12/18/2023 Assessment & Plan (12/18/2023 10:50 PM CDT): Patient is a full code Insomnia 12/03/2023 Pulmonary embolism 12/03/2023 Pressure injury of skin of sacral region 024 Wound dehiscence 12/02/2023 Assessment & Plan (02/24/2024 10:00 PM ZIGZAG STITCHER): S/p CABG with infection of sternal wound H/o dehiscence and wound infection. S/p I&D Continue continue IV vancomycin, IV ceftriaxone, and Flagyl Assessment & Plan (01/07/2024 4:38 PM CDT): S/p CABG with infection of sternal wound H/o dehiscence and wound infection. S/p I&D Continue continue IV vancomycin, IV ceftriaxone, and Flagyl Assessment & Plan (12/18/2023 10:44 PM CDT): S/p CABG with infection of sternal wound H/o dehiscence and wound infection. S/p I&D Continue continue IV vancomycin, IV ceftriaxone, and Flagyl Surgical wound infection 12/02/2023 Assessment & Plan (01/20/2024 10:05 AM CDT): Finished Vancomycin. PICC line to be removed. Monitor off antibiotics. She is afebrile. Continue Tramadol Assessment & Plan (01/15/2024 8:52 AM CDT): Stable. Continue Vancomycin. Vancomycin level today. Stop date 01/16/24. Assessment & Plan (01/07/2024 3:23 PM CDT): Sutures were removed. Continue incision care instructions. Continue Vancomycin, Flagyl, and Ceftriaxone. Assessment & Plan (01/02/2024 12:21 PM CDT): Vanc level done today. Results pending. Continue Vancomycin IV and IV Ceftriaxone. Assessment & Plan (12/26/2023 4:14 PM CDT): Vanc level low, reported to ID. Continue Vancomycin IV. Assessment & Plan (12/20/2023 1:52 PM CDT): S/p CABG with infection of sternal wound H/o dehiscence and wound infection. S/p I&D Continue continue IV vancomycin, IV ceftriaxone, and Flagyl Surgical dressing was removed at post op follow up. Continue recommendations. She had post op follow up for her CABG and sternal incision was evaluated, Pravena incisional vac removed and recommended for suture removal in 2 weeks (appt 12/30/23) Assessment & Plan (12/13/2023 1:46 PM CDT): S/p CABG with infection of sternal wound H/o dehiscence and wound infection. S/p I&D Continue continue IV vancomycin, IV ceftriaxone, and Flagyl Acute CVA (cerebrovascular accident) 11/22/2023 Atrial fibrillation 10/28/2023 Assessment & Plan (02/24/2024 9:57 PM ZIGZAG STITCHER): Patient to continue Eliquis and aspirin and Coreg Assessment & Plan (01/07/2024 4:45 PM CDT): Patient to continue Eliquis and aspirin and Coreg Assessment & Plan (01/07/2024 3:24 PM CDT): Denies palpitations. Continue Apixaban and Carvedilol. Assessment & Plan (01/02/2024 12:19 PM CDT): Stable. Continue Apixaban and Carvedilol Assessment & Plan (12/18/2023 10:46 PM CDT): Patient to continue Eliquis and aspirin and Coreg Assessment & Plan (12/13/2023 2:20 PM CDT): Stable. Continue Apixaban and Carvedilol Cerebrovascular accident (CV A) due to occlusion of right posterior cerebral artery 10/24/2023 Sternal wound dehiscence 10/22/2023 Aortic stenosis 10/21/2023 3-vessel CAD 10/18/2023 Assessment & Plan (12/13/2023 2:22 PM CDT): S/p CABG Continue Aspirin and Atorvastatin Primary osteoarthritis involving multiple joints 10/18/2023 Assessment & Plan (01/20/2024 10:06 AM CDT): Left knee pain. Continue Oxycodone. Primary hypertension 10/18/2023 Assessment & Plan (01/07/2024 4:43 PM CDT): Patient pressure was 130/70 patient is to continue hydralazine and Coreg basic metabolic panel and aspirin and CBC with diff Assessment & Plan (12/18/2023 10:48 PM CDT): Patient pressure was 140/80 patient is to continue hydralazine and Coreg basic metabolic panel and CBC with diff Dyslipidemia 10/18/2023 Peripheral neuropathy 10/18/2023 Coronary artery disease 10/18/2023 Assessment & Plan (01/20/2024 10:07 AM CDT): S/p CABG x 3 Denies chest pain. Continue Aspirin and Atorvastatin. Assessment & Plan (12/26/2023 4:25 PM CDT): S/p CABG x 3. Continue Aspirin and Atorvastatin Gastroesophageal reflux disease 10/18/2023 LLOYD (acute kidney injury) 10/18/2023 Acute HFrEF (heart failure with reduced ejection fraction) 10/18/2023 Anemia, blood loss 10/17/2023 Rectal bleeding 10/17/2023 Pharyngoesophageal dysphagia 10/17/2023 Peripheral venous insufficiency 06/06/2022 Surgical History Surgery Date Site/Laterality Comments SECTION 1989 section NG TUBE PLACEMENT 10/28/2023 N/A COLONOSCOPY 11/14/2023 UPPER GASTROINTESTINAL ENDOSCOPY 11/14/2023 Medical History Medical History Date Comments Adiposity Obesity Hypertension Hypertension Blood in stool Hypertension Arthritis Neuropathy Hyperlipidemia CHF (congestive heart failure) (HCC) CAD (coronary artery disease) LLOYD (acute kidney injury) Aortic stenosis Stroke (HCC) Atrial fibrillation (HCC) Anemia Rectal bleeding GERD (gastroesophageal reflux disease) Peripheral venous insufficiency Family History Medical History Relation Name Comments No Known Problems Father Cancer Mother Cancer -unknown ; Relation Name Status Comments Father Mother Social History Tobacco Use Types Packs/Day Years Used Date Smoking Tobacco: Never Tobacco Cessation:Counseling Given: Not Answered Alcohol Use Standard Drinks/Week Comments Not Currently 0 (1 standard drink = 0.6 oz pur e alcohol) [facility] Utilities Answer Date Recorded In the past 12 months has [employer], gas, oil, or water LIQUITY threatened to shut off services in your home? No 12/04/2023 Social Connection and Isolat ion Panel [NHANES] Answer Date Recorded In a typical week, how many times do you talk on the phone with family, friends, or neighbors? More than three times a week 12/04/2023 How often do you get togethe r with friends or relatives? More than three times a week 12/04/2023 How often do you attend chur ch or restoration services? Never 12/04/2023 Do you belong to any clubs o r organizations such as catholic groups, unions, fraternal or athletic groups, or school groups? No 12/04/2023 How often do you attend meet ings of the clubs or organizations you belong to? Never 12/04/2023 Are you , , di vorced, , never , or living with a partner? Living with partner 12/04/2023 AUDIT-C Answer Date Recorded Q1: How often do you have a drink containing alcohol? Never 11/22/2023 Q2: How many drinks containi ng alcohol do you have on a typical day when you are drinking? Patient does not drink Q3: How often do you have si x or more drinks on one occasion? Never 11/22/2023 Overall Financial Resource Strain (CARDIA) Answe r Date Recorded How hard is it for you to pa y for the very basics like food, housing, medical care, and heating? Not hard at all 12/04/2023 PHQ-2 Answer Date Recorded Patient Health Questionnaire-2 Score 3 12/02/2023 [facility] - Occupational Stress Questionnaire Answer Date Recorded Do you feel stress - tense, restless, nervous, or anxious, or unable to sleep at night because your mind is troubled all the time - these days? Only a little 11/22/2023 Hunger Vital Sign Answer Date Recorded Within the past 12 months, y ou worried that your food would run out before you got the money to buy more. Never true 12/04/19 24 Within the past 12 months, t he food you bought just didn't last and you didn't have money to get more. Never true 12/04/2023 PRAPARE - Transportation Answer Date Re corded In the past 12 months, has l ack of transportation kept you from medical appointments or from getting medications? No 11/07 In the past 12 months, has l ack of transportation kept you from meetings, work, or from getting things needed for daily living? No 12/04/2023 PHQ-9 Answer Date Recorded Patient Health Questionnaire-9 Score 8 12/02/2023 Housing Stability Vital Sign Answer Rm e Recorded In the last 12 months, was t here a time when you were not able to pay the mortgage or rent on time? No 12/04/2023 In the past 12 months, how m any times have you moved where you were living? 1 12/04/2023 At any time in the past 12 m [facility], were you homeless or living in a long term (including now)? No 12/04/2023 Personal Safety Answer Date Recorded Have you ever been in or are you currently in a harmful physical or emotional relationship or is someone making you feel afraid or unsafe? Denies 04/19/2024 Comments No Sex and Gender Information Value Date Recorded Sex Assigned at Not on file Legal Sex Female 11:27 PM ZIGZAG STITCHER Gender Identity Not on file Sexual Orientation Not on file Obstetrics History Last Filed Vital Signs Vital Sign Reading Time Taken Comments Blood Pressure 175/96 04/20/2024 2:30 AM ZIGZAG STITCHER Pulse 89 04/20/2024 2:30 AM ZIGZAG STITCHER Temperature 36.7 C (98 F) 04/19/2024 6:45 PM ZIGZAG STITCHER Respiratory Rate 18 04/20/2024 2:30 AM ZIGZAG STITCHER Oxygen Saturation 99% 04/20/2024 2:30 AM ZIGZAG STITCHER Inhaled Oxygen Concentration - - Weight 86.2 kg (190 lb) 04/19/2024 6:25 PM ZIGZAG STITCHER Height 162.6 cm (5' 4 ) 04/19/2024 6:25 PM ZIGZAG STITCHER Body Mass Index 32.61 04/19/2024 6:25 PM ZIGZAG STITCHER Plan of Treatment Health Maintenance Due Date Last Done Comments Breast Cancer Screening-Mammogram 1955 Osteoporosis Screening-Bone Density Scan 1955 DTaP/Tdap/Td Vaccine (1 - Tdap) 12/23/1966 Pneumococcal vaccine 65+ (1 of 2 - PCV) 12/23/1974 Zoster Vaccine (1 of 2) 12/23/2005 Well Visit 65+ 12/23/2020 Depression Screening 11/21/2024 11/22/2023, 11/22/19 24 Influenza Vaccine (Season Ended) 2024 Fall Risk Assessment 12/11/2024 12/12/2023 Colon Cancer Screening-Colonoscopy 11/13/20332023 Hepatitis B Screening Completed 11/03/2023 Hepatitis C Screening Completed 11/03/2023 Medical Devices Implanted Type Area Service Line Layer Device Identifier Shelf Expiration Date Model / Serial / Lot [employer] Plate Bone Low Profile 6 Hole H Shape Sternum Ti 115.102.06 - [id number] Implanted:Qty: 1 on 10/22/2023 by Vero Lao MD at [facility] Plate N/A: Sternum [employer] 115.102. 06 / / [employer] Plate Bone Low Profile 4 Hole Box Sternum Ti 115.103.04 - [id number] Implanted:Qty: 1 on 10/22/2023 by Vero Lao MD at [facility] Plate N/A: Sternum [employer] 115.103. 04 / / [employer] Plate Bone Low Profile 6 Hole O Concave Sternum Ti 115.604.06 - [id number] Implanted:Qty: 1 on 10/22/2023 by Vero Lao MD at [facility] Plate N/A: Sternum [employer] 115.604. 06 / / [employer] Inspiris Resilia Aortic Valve 21mm [id number] - [id number] - [id number] Implanted:Qty: 1 on 10/21/2023 by Vero Lao MD at [facility] Prosthetic Valve N/A: Aortic Valve [employer] 09/16/2026 [id number] / [id number] / Description:Non-clinical kris ting has demonstrated that this device is MR Conditional. A patient with this valve can be scanned safely, immediately after placement of this implant under the following conditions: - Static magnetic field of 3 amanda or less. - Spatial gradient field of less than 3000 gauss/cm. - Maximum MR system-reported bpame-fniw-egdweupz specific absorption rate (NOEMI) of 2.0 W/kg for 15 minutes of continuous scanning per sequence in the normal operating mode. [employer] Screw Bone Slf Drl Full Thread Locking 3.5x14mm Ti 100.035.14 - [id number] Implanted:Qty: 6 on 10/22/2023 by Vero Lao MD at [facility] Screw N/A: Sternum [employer] 100.035. 14 / / [employer] Screw Bone Slf Drl Full Thread Locking 3.5x16mm Ti 100.035.16 - [id number] Implanted:Qty: 10 on 10/22/2023 by Vero Lao MD at [facility] Screw N/A: Sternum [employer] 100.035. 16 / / [employer] Patch Straight Collagen Coated Double Velour Tapered Hemashield 2.5x7.5cm Knitted Polyester [id number] - [id number] - [id number] Implanted:Qty: 1 on 10/21/2023 by Vero Lao MD at [facility] N/A: Heart [employer] 02/05/2027 [id number] / [id number] / Procedures Procedure Name Priority Date/Time Associated Diagnosis Comments COLONOSCOPY 11/14/2023 1:40 PM CDT HEPATITIS PANEL, ACUTE Routine 11/03/2023 6:43 AM CDT from Last 3 Months or Most Recently Relevant to Health Maintenance Results * Colonoscopy (11/14/2023 1:40 PM CDT) Anatomical Region Laterality Modality Other Narrative Procedure Note Clif Hernandez MD - 11/14/2023 1:40 PM CDT [facility] Endoscopy [facility] Patient Name: Yumiko Mendez Procedure Date: 11/14/2023 1:40 PM Date of : 1955 Admit Type: Inpatient Age: 67 Gender: Female Note Status: Finalized Attending MD: Clif Hernandez M.D. Procedure Date: 11/14/2023 Procedure: Colonoscopy Indications: Hematochezia Providers: Clif Hernandez M.D., MAGALIE Mercer (Anesthesia Staff), Selena Karimi, RN, Yvon Garber, Labeler Referring MD: Kev Bennett M.D. Medicines: Monitored Anesthesia Care Complications: No immediate complications. Estimated Blood Loss: Estimated blood loss was minimal. Procedure: Pre-Anesthesia Assessment: - Prior to the procedure, a History and Physicalwas performed, and patient medications and allergieswere reviewed. The patient is competent. The risks and benefits of the procedure and the sedation optionsand risks were discussed with the patient. Allquestions were answered and informed consent was obtained. Patient identification and proposed procedure were verified by the physician, the nurse and the rocket assembly operator in the procedure room. Mental Status Examination: alert but confused. AirwayExamination: normal oropharyngeal airway and neck mobility. Respiratory Examination: clear to auscultation. CV Examination: normal. Prophylactic Antibiotics: The patient does not require prophylactic antibiotics. Prior Anticoagulants: The patient has taken no anticoagulant or antiplatelet agents. ASA Grade Assessment: III - A patient with severe systemic disease. After reviewing the risks and benefits,the patient was deemed in satisfactory condition to undergo the procedure. The anesthesia plan was touse monitored anesthesia care (MAC). Immediately priorto administration of medications, the patient was re-assessed for adequacy to receive sedatives. The heart rate, respiratory rate, oxygen saturations, blood pressure, adequacy of pulmonary ventilation,and response to care were monitored throughout the procedure. The physical status of the patient was re-assessed after the procedure. - The risks and benefits of the procedure and the sedation options and risks were discussed with the patient. All questions were answered and informed consent was obtained. After I obtained informed consent, the scope was passed under direct vision. Throughout theprocedure, the patient's blood pressure, pulse, and oxygen saturations were monitored continuously. The scopewas passed under direct vision. The Colonoscope was introduced through the anus and advanced to the the ascending colon. The colonoscopy was performedwithout difficulty. The patient tolerated the procedurewell. The quality of the bowel preparation was poor. The bowel preparation used was Plenvu via split dose instruction. Findings: Extensive amounts of semi-liquid stool was found in the entire colon, making visualization difficult. Discontinuous areas of nonbleeding ulcerated mucosa with no stigmataof recent bleeding were present at the hepatic flexure. Biopsies weretaken with a cold forceps for histology. The exam was otherwise without abnormality. Impression: - Preparation of the colon was poor. - Stool in the entire examined colon. - Mucosal ulceration. Biopsied. - The examination was otherwise normal. - The examination was suspicious for Hepaticflexure ischemic colitis. Biopsied. Recommendation: - Await pathology results. - Maintain adequate Bp at all times. - Repeat colonoscopy in 6 months to checkhealing. Procedure Code(s): --- Professional --- 86257, 52, Colonoscopy, flexible; with biopsy,single or multiple Diagnosis Code(s): --- Professional --- K63.3, Ulcer of intestine K92.1, Melena (includes Hematochezia) CPT copyright 2020 [employer]. All rights reserved. The codes documented in this report are preliminary and upon certified procedural coder reviewmay be revised to meet current compliance requirements. Electronically signed by Clif Hernandez M.D. Clif Hernandez M.D. 11/14/2023 2:48:12 PM Number of Addenda: 0 Note Initiated On: 11/14/2023 1:40 PM us Clif Hernandez MD ENDOSCOPY PROCEDURES Fi nal Result * Hepatitis panel, acute Blood (11/03/2023 6:43 AM CDT) Hep A IgM Nonreactive Nonreactive Comment: Interpretive Data: If Hep A IgM Ab is reported as Equivocal, a new sample should be drawn in two weeks for testing. Current interpretive data was last revised on 19. Hep B core IgM Nonreactive Nonreactive [facility] Comment: Interpretive Data If HepB Core IgM Ab is reported as Equivocal, a new sample should be drawn in two weeks for testing. Current interpretive data was last revised on 19. Hep C Ab Nonreactive Nonreactive [facility] Comment: Interpretive Data Nonreactive: Antibodies to HCV not detected. Does NOT exclude the possibility of recent exposure to HCV. Equivocal: Equivocal for HCV antibodies. Supplemental molecular testing will be automatically performed to determine infection status in accordance with current CDC screening recommendations. Reactive: Positive for HCV antibodies. This may represent current or past HCV infection. Supplemental molecular testing will be automatically performed to determine current infection status in accordance with current CDC screening recommendations. Interpretive data was last revised on 2019. HepBsAg Nonreactive Nonreactive [facility] Blood 11/03/2023 6:43 AM CDT 11/03/2023 7:02 AM CDT Veena Cloud MD LAB MICROBIOLOGY - GENERAL ORDERABLES Final Result [facility] [id number] [employer] [facility] [employer] [facility] Department [place] [address] from Last 3 Months or Most Recently Relevant to Health Maintenance Insurance [facility] MEDICARE ADVANTAGE Advance Directives For more information, please contact: [phone] Documents on File Type Date Recorded Patient Zigzag Stitcher Expl anation ADVANCE DIRECTIVE 12/06/2023 6:40 PM POWER OF AMPOULE INSPECTOR-MEDICAL ADVANCE DIRECTIVE 11/25/2023 POWER OF AMPOULE INSPECTOR-MEDICAL Advance Directives and Living Will 11/22/2023 4:52 PM Candida Mendez Power of Endo Tech 11/22/2023 2:03 PM * Full Code (Latest Code Status on File) Date Activated Date Inactivated Comments 12/02/2023 4:49 PM 12/12/2023 8:16 PM * Full Code Date Activated Date Inactivated Comments 11/22/2023 2:22 PM 12/02/2023 4:45 PM * Full Code Date Activated Date Inactivated Comments 10/18/2023 2:20 PM 11/22/2023 2:04 PM Healthcare Agents on File Name Relationship Healthcare Agent Relationship Communication Candida Mendez Daughter Health Care Agent Nata Mendez Daughter First Alternate Health Care Agent Care Teams Vacuum Applicator Operator Relationship Specialty [place] [address] [place], [place] [id number] PCP - General Internal Medicine 12/20/23 [place] [address] [place] [id number] Internal Medicine 12/18/23 [place] [address] [place] [address] Consulting Physician Internal Medicine 12/12/23 [place] [address] [facility] [address] [place] [address] Consulting Physician Neurology 12/12/23 [place] [address] [facility] [address] [place] [address] Consulting Physician Nephrology 12/12/23 [place] [address] [facility] [address] [place] [address] Gastroenterology 12/12/23 [place] [address] [address] Consulting Physician Cardiology 12/12/23 Vero Lao MD [address] [facility] [id number] [place] [address] Surgeon Cardiothoracic Surgery 12/12/23
--- OUTSIDE RECORDS SUMMARY | 2024-08-05 16:23 | XMS_ITS | CONTINUITY OF CARE DOCUMENT ---
Author Name david hernandez Address Unknown Organization [facility] Address [address] [facility] [address] [place] [address] Phone [phone] Care Team Providers Care Machine Maintenance Technician Name Role Phone Vishnu OCHOA, John Unavailable [phone] REMINGTON SIDDIQI MD Unavailable REMINGTON SIDDIQI MD Unavailable PROBLEMS Condition Status Date Provider Notes Anemia active John Mares MD Hyperlipidemia active Adia Gandhi RN Family History of Hypertension: completed - John Mares MD Family History of Hypertension: completed - John Mares MD Chest pain completed - John Mares MD Hypertension completed - John Mares MD HTN essential--echo ef nl, m od , 06/2023 active John Mares MD Chest pain atypical completed - John Mares MD Shortness of breath active Bibiana Travis MD Snoring completed - John Mares MD Leg pain active Bibiana Travis MD Abnormal cardiovascular stre ss test completed - John Mares MD Diastolic dysfunction active John Hamilton CAD cath 04/10/16 showed 80% small distal RCA, 70% Apical LAD, 30% D1 , stres 07/30 - inferoapical ischemia , Nl lv function active John Mares MD Obesity active John Mares MD ARTHRITIS active John Mares MD Leg edema, bilateral completed - John Mares MD ZACH--severe, 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 John Mares MD Chest pain completed - John Mares MD Elevated blood glucose completed 2 - John Mares MD Aortic stenosis, moderate av a 1.0 cm 2on echo 06/29 completed - John Mares MD CVA active Dane Escobar 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 active Dane Escobar ENCOUNTERS Date Type Provider Location Encounter Diag nosis - In-person encounter Office Visit John Mares MD [facility] Leg edema, bilateralChest painElevated blood glucoseAortic stenosis, moderate nicole 1.0 cm 2on echo 06/29CVA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 - In-person encounter Office Visit John Mares MD [facility] - In-person encounter Office Visit John Mares MD [facility] HTN essential--echo ef nl, mod , AD cath 04/10/16 showed 80% small distal RCA, 70% Apical LAD, 30% D1 , stres 07/30 - inferoapical ischemia , Nl lv function - In-person encounter Office Visit John Mares MD [facility] ZACH--severe, no cpap - In-person encounter Office Visit John Mares MD [facility] HTN essential--echo ef nl, mod , 06/2023SnoringOSA--severe, no cpap - In-person encounter Office Visit John Mares MD [facility] ZACH--severe, no cpap - In-person encounter Office Visit John Mares MD [facility] - In-person encounter Office Visit John Mares MD [facility] - In-person encounter Office Visit John Mares MD [facility] HTN essential--echo ef nl, mod , 06/2023 - In-person encounter Office Visit John Mares MD [facility] - In-person encounter Office Visit John Mares MD [facility] - In-person encounter Office Visit John Mares MD [facility] Family History of Hypertension:Family History of Hypertension:Hypertension - In-person encounter Office Visit John Mares MD [facility] Chest painChest pain atypicalAbnormal cardiovascular stress testDiastolic dysfunctionCAD cath 04/10/16 showed 80% small distal RCA, 70% Apical LAD, 30% D1 , stres 07/30 - inferoapical ischemia , Nl lv functionObesityARTHRITIS - In-person encounter Office Visit John Mares MD [facility] - In-person encounter Office Visit Bibiana Travis MD [facility] - In-person encounter Office Visit Bibiana Travis MD [facility] HTN essential--echo ef nl, mod , 06/2023Shortness of breathLeg pain VITAL SIGNS Date Observation Value Provider Body Mass Index (Ratio) 29.62 kg/m2 Lev Mares MD blood pressure, diastolic 78 mm[Hg] Ti zenia Rodríguez blood pressure, systolic 127 mm[Hg] Natalia Rodríguez pulse rate 74 /min Candida amezquita oxygen saturation, oximetry 93 % Candida Rodríguez blood pressure, cuff size regular Ti zenia Rodríguez weight E&M 178 [lb_av] Candida Sheth s height E&M 65 [in_i] Candida Mckennaer s pulse rate 97 /min Nydia Albaro blood pressure, diastolic 88 mm[Hg] Joseph george blood pressure, systolic 190 mm[Hg] Any a oxygen saturation, oximetry 98 % Nydia blood pressure, cuff size large An ariel height E&M 65 [in_i] Nydia blood pressure, cuff size regular Ja et blood pressure, diastolic 89 mm[Hg] Ja rret blood pressure, systolic 179 mm[Hg] Jar [facility] pulse rate 78 /min Jatin y oxygen saturation, oximetry 98 % Jatin respiratory rate E&M 16 /min Jatin height E&M 65 [in_i] Jatin da y Body Mass Index (Ratio) 39.43 kg/m2 Lev Mares MD weight E&M 237 [lb_av] Marily Mondragon blood pressure, cuff size regular [facility] blood pressure, diastolic 94 mm[Hg] [facility] blood pressure, systolic 178 mm[Hg] [facility] pulse rate 80 /min [facility] oxygen saturation, oximetry 99 % [facility] respiratory rate E&M 18 /min Marily boyce height E&M 65 [in_i] Marily Mondragon Body Mass Index (Ratio) 39.43 kg/m2 Lev Mares MD blood pressure, diastolic 95 mm[Hg] Ri jessica Escobar blood pressure, systolic 194 mm[Hg] Vaelrie tatyana Escobar weight E&M 237 [lb_av] Marily Redlake oxygen saturation, oximetry 98 % Marily [place] pulse rate 63 /min Marily [place] respiratory rate E&M 16 /min Marily Williamson austen height E&M 65 [in_i] Marily Redlake Body Mass Index (Ratio) 39.43 kg/m2 Lev Mares MD blood pressure, diastolic 96 mm[Hg] Joseph Irvin blood pressure, systolic 190 mm[Hg] Kimberli Irvin oxygen saturation, oximetry 98 % Nydia Irvin pulse rate 112 /min Nydia Irvin weight E&M 237 [lb_av] Nydia Irvin blood pressure, cuff size large Joseph ariel Irvin height E&M 65 [in_i] Nydia Irvin Body Mass Index (Ratio) 39.43 kg/m2 Lev Mares MD blood pressure, diastolic 84 mm[Hg] [facility] Guy blood pressure, systolic 176 mm[Hg] Lorena Guy oxygen saturation, oximetry 97 % Pavithra Guy pulse rate 99 /min Pavithra Guy respiratory rate E&M 16 /min Pavithra verduzco weight E&M 237 [lb_av] Pavithradeyanira Guy height E&M 65 [in_i] Pavithradeyanira Guy Body Mass Index (Ratio) 39.23 kg/m2 Lev Mares MD blood pressure, diastolic 87 mm[Hg] [facility] Guy blood pressure, systolic 180 mm[Hg] Lorena Guy respiratory rate E&M 16 /min Pavithradeyanira verduzco oxygen saturation, oximetry 100 % Pavithra Guy pulse rate 98 /min Pavithra Guy weight E&M 235.8 [lb_av] Pavithra Guy height E&M 65 [in_i] Pavithra Brooks Body Mass Index (Ratio) 38.94 kg/m2 Lev Mares MD blood pressure, cuff size large Jackie oden Alfred blood pressure, diastolic 86 mm[Hg] Jackie oden Alfred blood pressure, systolic 150 mm[Hg] Carlos mickey Alfred oxygen saturation, oximetry 98 % Samantha Alfred pulse rate 82 /min [facility] rate E&M 16 /min Amber odom Alfred weight E&M 234 [lb_av] Samantha Bhandari d height E&M 65 [in_i] Samantha Diannejoseph martha Body Mass Index (Ratio) 40.77 kg/m2 Lev Mares MD blood pressure, resting Yes [facility] becca Juarezford blood pressure, diastolic 84 mm[Hg] sarah Juarezford blood pressure, systolic 160 mm[Hg] [facility] JuarezCampbell oxygen saturation, oximetry 98 % Broderick Campbell respiratory rate E&M 18 /min Isela Juarezford pulse rate 87 /min Broderick peñad weight E&M 245 [lb_av] Brdoerick Juarez hanson height E&M 65 [in_i] Broderick Juarez hanson Body Mass Index (Ratio) 41.76 kg/m2 Lev Mares MD blood pressure, cuff size large Ke rri Carmen blood pressure, diastolic 90 mm[Hg] Ke rri Mjnemckay blood pressure, systolic 210 mm[Hg] Justine Morales oxygen saturation, oximetry 97 % Sandrita Carmen respiratory rate E&M 16 /min Sandrita ramírezelder pulse rate 91 /min Sandrita Mjnejuvenal lder weight E&M 251 [lb_av] Sandrita Grhelennenfe lder height E&M 65 [in_i] Sandrita Grhelennenfe lder Body Mass Index (Ratio) 41.60 kg/m2 Lev Mares MD pulse rate 98 /min Edwige Block blood pressure, diastolic 80 mm[Hg] Br ittany Block blood pressure, systolic 152 mm[Hg] Monica ttany Block oxygen saturation, oximetry 98 % Edwige Block weight E&M 250 [lb_av] Edwige Block respiratory rate E&M 16 /min Brittan Block height E&M 65 [in_i] Edwige Block Body Mass Index (Ratio) 40.77 kg/m2 Lev Mares MD blood pressure, diastolic 78 mm[Hg] Cy jacob Fernandez blood pressure, systolic 179 mm[Hg] Tia thilindsay Fernandez blood pressure, cuff size regular Cy nthia Fernandez pulse rate 76 /min Celia Campbel l respiratory rate E&M 16 /min Celia Fernandez oxygen saturation, oximetry 99 % Celia Fernandez weight E&M 245 [lb_av] Celia Campbel l height E&M 65 [in_i] Celia Campbel l Body Mass Index (Ratio) 40.43 kg/m2 Lev Mares MD blood pressure, cuff size large Ke rri Gruenenfdave blood pressure, diastolic 100 mm[Hg] Ke rri Milanuenenfeldamanda blood pressure, systolic 190 mm[Hg] Ker ri Carmen oxygen saturation, oximetry 98 % Sandrita Yatesrosalind respiratory rate E&M 16 /min Sandrita G chuckenenfelder pulse rate 90 /min Sandrita Pieternfe lder weight E&M 243 [lb_av] Sandrita Pieternfe lder height E&M 65 [in_i] Sandrita Rittere lder Body Mass Index (Ratio) 44.43 kg/m2 Chris Travis MD blood pressure, cuff size regular Ke rri Carmen blood pressure, diastolic 83 mm[Hg] Ke rri Carmen blood pressure, systolic 180 mm[Hg] Justine pascual Carmen oxygen saturation, oximetry 98 % Sandrita Yatesrosalind respiratory rate E&M 16 /min Sandrita Hong bharati pulse rate 89 /min Sandrita Junior lder weight E&M 267 [lb_av] Sandrita Junior er height E&M 65 [in_i] Sandrita Junior er Body Mass Index (Ratio) 44.93 kg/m2 Chris Travis MD blood pressure, resting Yes Jenni Aguero blood pressure, diastolic 115 mm[Hg] Isaías Aguero blood pressure, systolic 202 mm[Hg] Carlotta Aguero oxygen saturation, oximetry 98 % Tayler Aguero respiratory rate E&M 18 /min Zhen Aguero pulse rate 92 /min Tayler pimentel weight E&M 270 [lb_av] Tayler pimentel height E&M 65 [in_i] Tayler pimentel ALLERGIES Allergy Name Onset Date Reaction Criticality Status SULFA Low Criticality active RESULTS Date Observation Value Provider Reference Range Interpretation Location LDL cholesterol, serum 188 mg/dL Ramiro Dorsey prothrombin time (patient) 10.4 s [facility] 9.0-11.5 Normal international normalized ratio (INR) 1.0 [facility] Normal basophils as percent of blood leukocytes 0.6 % [facility] Normal eosinophils as percent of blood leukocytes 1.0 % [facility] Normal monocyte count, blood 4.5 % [facility] Normal lymphocyte count, blood 36.5 % [facility] Normal neutrophils as percent of blood leukocytes 57.4 % [facility] Normal basophils, absolute, manual 52 cells/mcL [facility] 0-200 Normal eosinophils, absolute, manual 87 cells/mcL [facility] 15-500 Normal monocytes, absolute, manual 392 cells/mcL [facility] 200-950 Normal lymphocytes, absolute 3176 CELLS/UL [facility] 850-3900 Normal Absolute Neutrophil count 4994 cells/mcL [facility] 4353-6010 Normal mean platelet volume 8.1 fL [facility] 7.5-11.5 Normal platelet count 275 THOUSAND/UL [facility] 140-400 Normal red blood cell distribution width 15.8 % [facility] 11.0-15.0 High mean corpuscular hemoglobin concentration, RBC 32.5 G/DL [facility] 32.0-36.0 Normal mean corpuscular hemoglobin, RBC 26.9 pg [facility] 27.0-33.0 Low mean corpuscular volume, RBC 83.0 fL [facility] 80.0-100.0 Normal hematocrit, blood 39.9 % [facility] 35.0-45.0 Normal hemoglobin electrophoresis, blood 13.0 [facility] 11.7-15.5 Normal erythrocyte (RBC) count 4.81 MILLION/UL [facility] 3.80-5.10 Normal leukocyte (white blood cells) count, blood 8.7 THOUSAND/UL [facility] 3.8-10.8 Normal calcium, serum 9.4 mg/dL [facility] 8.6-10.4 Normal carbon dioxide, venous blood 29 mmol/L [facility] 20-31 Normal chloride, serum 104 mmol/L [facility] 98-110 Normal potassium, serum 4.1 mmol/L [facility] 3.5-5.3 Normal sodium, serum 143 mmol/L [facility] 135-146 Normal urea nitrogen/creatin ine ratio, serum NOT APPLICABLE (calc) [facility] 6- Estimated Glomerular Filtration Rate (calc) 84 mL/min/{1.73_ m2} [facility] > OR = 60 Normal creatinine, serum 0.87 mg/dL [facility] 0.50-0.99 Normal urea nitrogen, blood 18 mg/dL [facility] 7-25 Normal blood glucose, random 113 mg/dL [facility] 65-99 High cholesterol, non-HDL, total 206 MG/DL (CALC) [facility] High cholesterol/HDL ratio, serum, percent 5.1 (calc) [facility] < OR = 5.0 High triglyceride, serum, fasting 91 mg/dL [facility] <150 Normal HDL cholesterol, serum 50 mg/dL [facility] > OR = 46 Normal cholesterol, serum 256 mg/dL [facility] 125-200 High HISTORY OF MEDICATION USE Medication Status Instructions Dates Provider Indications Com ments potassium chloride 10 mEq tablet extended release active Take 2 tablet by mouth once a day 06/17 Dane Escobar mirtazapine 7.5 mg tablet active Take 1 tablet by mouth every night 06/09 Dane Terryzasebastián aspirin 81 mg tablet,chewable completed - 06/09 Dane Escobar atorvastatin 10 mg tablet active Candida Rodríguez carvedilol 6.25 mg tablet active Candida Rodríguez ezetimibe 10 mg tablet active Candida Rodríguez pantoprazole 40 mg tablet,delayed release (DR/EC) active Candida Rodríguez potassium chloride 10 mEq capsule, extended release completed - 06/17 Dane Escobar isosorbide mononitrate 30 mg tablet extended release 24 hr completed Take 1 tablet by mouth once a day 07/28 - 06/09 Dane Escobar Victoza 2-Morteza 0.6 mg/0.1 mL (18 mg/3 mL) pen injector completed INJECT 0.6MG UNDER THE SKIN EVERY DAY DIRECTED - 06/09 Dane Escobar clonidine HCl 0.1 mg tablet completed Take 1 tablet by mouth three times a day 05/08 - 06/09 Dane Escobar Vitamin D3 125 mcg (5,000 unit) tablet active Edwige Mcdowell furosemide 40 mg tablet completed Take 1 tablet by mouth twice a day 04/11 - 06/09 Dane Escobar hydralazine 25 mg tablet active Take 1 tablet by mouth three times a day 04/11 Candida Rodríguez cyclobenzaprine 10 mg tablet completed Take 1 tablet by mouth every night as needed 04/11 - 06/09 Dane Escobar tramadol 50 mg tablet completed - 10/17 Dane Escobar metoprolol tartrate 50 mg tablet completed - 10/17 Dane Escobar metoprolol succinate 100 mg tablet extended release 24 hr completed Take 1 tablet by mouth once a day 10/17 - 06/09 Dane Escobar rosuvastatin 5 mg tablet completed Take 1 tablet by mouth once a day TAKE 1 TABLET BY MOUTH EVERY DAY - 06/09 Dane Escobar hydrochlorothiazide 25 mg tablet completed TAKE 1 TABLET DAILY 08/30 - 04/11 Dane Escobar gabapentin 300 mg capsule completed 1 capsule by mouth every night 08/30 - 06/09 Dane Escobar OXYBUTYNIN CHLORIDE 5 MG ORAL TABLET completed one tab daily 05/10 - 06/13 Ramiro Dorsey Zetia 10 mg tablet completed TAKE 1 TABLET BY MOUTH EVERY DAY 05/10 - 06/09 Dane Terryzai nifedipine 30 mg tablet extended release completed 1 tablet by mouth once a day 05/10 - 04/11 Dane Terryzasebastián Toprol XL 100 mg tablet extended release 24 hr completed 1 tablet by mouth once a day 05/01 - 10/17 Dane Haynesi Mobic 15 mg tablet completed 1 tablet once a day 05/01 - 10/17 Dane Terryzai Tylenol Arthritis Pain 650 mg tablet extended release active tablet by mouth as needed 05/01 Sandrita Morales ergocalciferol (vitamin D2) 1,250 mcg (50,000 unit) capsule completed Take 1 capsule by mouth three times a week - 05/22 Edwige Mcdowell #12, 28 days supply, Prescribed by THERESA LAUREANO, Filled 02/17/2020 HYDROCHLOROTHIAZIDE 25 MG ORAL TABLET completed ONE TAB DAILY 05/23 - 11/09 Sandrita Morales PROCARDIA XL 30 MG ORAL TABLET EXTENDED RELEASE 24 HOUR completed one per day 05/15 - 11/09 Sandrita Morales IBUPROFEN PM TABLET completed as needed - 11/09 Snadrita Morales tramadol 50 mg tablet active tablet by mouth as needed Tayler Aguero losartan 100 mg tablet completed Take 1 tablet by mouth once a day - 06/09 Dane Escobar SOCIAL HISTORY Date Observation Value Provider smoking status Never smoker Dane Escobar smoking status Never smoker Homar Omer smoking status Never smoker Dane Escobar smoking status Never smoker Marily Mondragon smoking status Never smoker Dane Escobar social history E&M S moking History: P naveed has never smoked. Edwige Mcdowell social history reviewed E&M revi ewed - no changes required Edwige Mcdowell smoking status Never smoker Nydia Albaro social history E&M S moking History: Guerrero lucio has never smoked. Dane Escobar smoking status Never smoker Pavithra Guy social history reviewed E&M revi ewed - no changes required John Mares MD social history E&M S moking History: Guerrero lucio has never smoked. Dane Escobar smoking status Never smoker Pavithra Guy social history reviewed E&M revi ewed - no changes required Dane Escobar smoking status Never smoker Samantha Dianne and social history reviewed E&M revi ewed - no changes required Dane Escobar social history E&M S moking History: Guerrero lucio has never smoked. John Mares MD social history reviewed E&M revi ewed - no changes required John Mares MD smoking status Never smoker Broderick amezcua number of grandchildren John Henderson social history E&M S moking History: Guerrero lucio has never smoked. Jluis Henderson social history reviewed E&M revi ewed - no changes required Jluis Henderson smoking status Never smoker Sandrita marlow social history E&M Smoking Histo ry: Guerrero lucio has never smoked. Ramiro Dorsey social history reviewed E&M revi ewed - no changes required Ramiro Dorsey smoking status Never smoker Edwige jennings social history reviewed E&M revi ewed - no changes required John Mares MD social history E&M S moking History: Guerrero lucio has never smoked. John Mares MD smoking status Never smoker Celia arellano social history E&M S moking History: Guerrero lucio has never smoked. John Mares MD social history reviewed E&M revi ewed - no changes required John Mares MD smoking status Never smoker Sandrita Ortiz kashmir social history reviewed E&M revi ewed - no changes required Bibiana Travis MD smoking status Never smoker Sandrita Yateshelenlauraeugene marlow social history reviewed E&M revi ewed - no changes required Bibiana Travis MD smoking status Never smoker Tayler Prabhakar FUNCTIONAL STATUS Date Observation Value Provider HRA, CV Assess/Plan, Angina (inactive) Management Plan continue current therapy Dane Ahmedzai HRA, CV Assess/Plan, Angina (inactive) Management Plan continue current therapy Dane Ahmedzai HRA, CV Assess/Plan, Angina (inactive) Management Plan continue current therapy Dane Ahmedzai HRA, CV Assess/Plan, Angina (inactive) Management Plan continue current therapy Edwige Mcdowell HRA, CV Assess/Plan, Angina (inactive) Management Plan continue current therapy Dane Ahmedzai HRA, CV Assess/Plan, Angina (inactive) Management Plan continue current therapy Dane Ahmedzai HRA, CV Assess/Plan, Angina (inactive) Management Plan continue current therapy John Mares MD HRA, CV Assess/Plan, Angina (inactive) Management Plan continue current therapy Jluis Henderson HRA, CV Assess/Plan, Angina (inactive) Management Plan continue current therapy Ramiro Dorsey FAMILY HISTORY Family Member Condition Father Family History of Co ronary Artery Disease: Father Family History of Hy pertension: Mother Family History of Hy pertension: INSURANCE PROVIDERS Payer name Policy type / Coverage type [place] red democrat ID [employer] MEDICARE ADVANTAGE [address] (HMO POS) Medicare [id number] ADVANCE DIRECTIVES Name Date DISCUSSED - NO DECISION MADE TREATMENT PLAN Date Name Performer [id number],S, Edwige villarreal [id number],W, Edwige Keith obsmeyer [id number],S, Edwige Keith obsmeyer [id number],S, Edwige Keith obsmeyer [id number],S, Dane Ahmedza i [id number],S, Dane Ahmedza i [id number],S, Dane Ahmedza i [id number],S, Dane Ahmedza i [id number],S, Dane Ahmedza i [id number],S, Dane Ahmedza i [id number],S, Dane Ahmedza i [id number],S, Dane Ahmedza i [id number],S, Dane Ahmedza i [id number],S, Dane Ahmedza i [id number],S, Dane Ahmedza i [id number],S, Dane Ahmedza i [id number],S, Dane Ahmedza i [id number],S, Dane Ahmedza i [id number],S, Dane Ahmedza i [id number],S, Dane Ahmedza i [id number],S, Dane Ahmedza i [id number],S, Dane Ahmedza i [id number],S, Dane Ahmedza i [id number],S, Dane Ahmedza i [id number],S, Dane Marajose g lowery [id number],S, Dane Haynes i [id number],SJohn MD [id number],SJohn MD [id number],S, John Mares MD [id number],S, John Mares MD Cardiology John Mares MD Cardiology: T he following medications were removed from the medication list: Isosorbide Mononitrate 30 Mg Tablet Extended Release 24 Hr (Isosorbide mononitrate) ..... Take 1 tablet by mouth once a day Metoprolol Succinate 100 Mg Tablet Extended Release 24 Hr (Metoprolol succinate) ..... Take 1 tablet by mouth once a day Aspirin 81 Mg Tablet,chewable (Aspirin) Her updated medication list for this problem includes: Carvedilol 6.25 Mg Tablet (Carvedilol) John Mares MD Cardiology:This visi t has been a part of the consistent, comprehensive, and ongoing management of the chronic medical condition(s) listed above for the patient. BP today: 127/78 P rior BP: 190/88 (09/10/2023) Labs Reviewed: C reat: 0.87 (03/31/2016) C hol: 256 (03/31/2016) HDL: 50 (03/31/2016) LDL: 188 (03/31/2016) T (03/31/2016) The following medications were removed from the medication list: Clonidine Hcl 0.1 Mg Tablet (Clonidine hcl) ..... Take 1 tablet by mouth three times a day Furosemide 40 Mg Tablet (Furosemide) ..... Take 1 tablet by mouth twice a day Losartan 100 Mg Tablet (Losartan) ..... Take 1 tablet by mouth once a day Metoprolol Succinate 100 Mg Tablet Extended Release 24 Hr (Metoprolol succinate) ..... Take 1 tablet by mouth once a day Aspirin 81 Mg Tablet,chewable (Aspirin) Her updated medication list for this problem includes: Hydralazine 25 Mg Tablet (Hydralazine) ..... Take 1 tablet by mouth three times a day Carvedilol 6.25 Mg Tablet (Carvedilol) John Mares MD Cardiology John Mares MD Cardiology:This visi t has been a part of the consistent, comprehensive, and ongoing management of the chronic medical condition(s) listed above for the patient. John Mares MD Cardiology John Mares MD Cardiology John Mares MD Cardiology: H er updated medication list for this problem includes: Furosemide 40 Mg Tablet (Furosemide) ..... Take 1 tablet by mouth twice a day Clonidine Hcl 0.1 Mg Tablet (Clonidine hcl) ..... Take 1 tablet by mouth three times a day Hydralazine 50 Mg Tablet (Hydralazine) ..... Take 1 tablet by mouth three times a day Losartan 100 Mg Tablet (Losartan) ..... Take 1 tablet by mouth once a day Metoprolol Succinate 100 Mg Tablet Extended Release 24 Hr (Metoprolol succinate) ..... Take 1 tablet by mouth once a day John Mares MD Cardiology John Mares MD Cardiology John Mares MD Cardiology:Galdino anderson T livia Mares MD Cardiology:LDL 100 P t unable to tolerate rosuvastatin W ill hold asnd see if msl pain better will consider PCSK9 s John Mares MD Cardiology:no plan f or cath presently I mdur 30 mg daily was added to her meds John Mares MD Cardiology Dane Escobar Cardiology Dane Escobar Cardiology Dane Escobar Cardiology: H er updated medication list for this problem includes: Metoprolol Succinate 100 Mg Tablet Extended Release 24 Hr (Metoprolol succinate) ..... Take 1 tablet by mouth once a day Dane Escobar Cardiology: B P today: 179/89 P rior BP: 178/94 (06/12/2023) Labs Reviewed: C reat: 0.87 (03/31/2016) C hol: 256 (03/31/2016) HDL: 50 (03/31/2016) LDL: 188 (03/31/2016) T (03/31/2016) Her updated medication list for this problem includes: Clonidine Hcl 0.1 Mg Tablet (Clonidine hcl) ..... Take 1 tablet by mouth three times a day Hydralazine 50 Mg Tablet (Hydralazine) ..... Take 1 tablet by mouth three times a day Furosemide 40 Mg Tablet (Furosemide) ..... Take 1 tablet by mouth twice a day Losartan 100 Mg Tablet (Losartan) ..... Take 1 tablet by mouth once a day Metoprolol Succinate 100 Mg Tablet Extended Release 24 Hr (Metoprolol succinate) ..... Take 1 tablet by mouth once a day Dane Escobar Cardiology: O rders: C BC (INCLUDES DIFF/PLT) (6399) F ERRITIN (457) I SYD AND TOTAL IRON BINDING CAPACITY (7573) C OMPREHENSIVE METABOLIC PANEL, W/EGFR (56654) P ROBNP, N TERMINAL (11608) H EMOGLOBIN A1c (496) L IPID PANEL (7600) T SH, free T4, total T3 (7444) V itamin D, 25-Hydroxy (128636) [facility]ane Escobar Cardiology: O rders: C BC (INCLUDES DIFF/PLT) (6399) F ERRITIN (457) I SYD AND TOTAL IRON BINDING CAPACITY (7573) C OMPREHENSIVE METABOLIC PANEL, W/EGFR (54440) P ROBNP, N TERMINAL (60860) H EMOGLOBIN A1c (496) L IPID PANEL (7600) T SH, free T4, total T3 (7444) V itamin D, 25-Hydroxy (541025) C omplete Echo (90045) S tress Regadenoson (CPT-46513) Dane Escobar Cardiology:will follow up on Aut opap Dane Escoabr Cardiology: O rders: C BC (INCLUDES DIFF/PLT) (6399) F ERRITIN (457) I YSD AND TOTAL IRON BINDING CAPACITY (7573) C OMPREHENSIVE METABOLIC PANEL, W/EGFR (20072) P ROBNP, N TERMINAL (15007) H EMOGLOBIN A1c (496) L IPID PANEL (7600) T SH, free T4, total T3 (7444) V itamin D, 25-Hydroxy (520233) C omplete Echo (33926) S tress Regadenoson (CPT-81329) [facility]: B P today: 178/94 P rior BP: 194/95 (05/08/2023) Labs Reviewed: C reat: 0.87 (03/31/2016) C hol: 256 (03/31/2016) HDL: 50 (03/31/2016) LDL: 188 (03/31/2016) T (03/31/2016) Her updated medication list for this problem includes: Clonidine Hcl 0.1 Mg Tablet (Clonidine hcl) ..... Take 1 tablet by mouth three times a day Hydralazine 50 Mg Tablet (Hydralazine) ..... Take 1 tablet by mouth three times a day Furosemide 40 Mg Tablet (Furosemide) ..... Take 1 tablet by mouth twice a day Losartan 100 Mg Tablet (Losartan) ..... Take 1 tablet by mouth once a day Metoprolol Succinate 100 Mg Tablet Extended Release 24 Hr (Metoprolol succinate) ..... Take 1 tablet by mouth once a day Orders: C BC (INCLUDES DIFF/PLT) (6399) F ERRITIN (457) I SYD AND TOTAL IRON BINDING CAPACITY (7573) C OMPREHENSIVE METABOLIC PANEL, W/EGFR (17371) P ROBNP, N TERMINAL (36598) H EMOGLOBIN A1c (496) L IPID PANEL (7600) T SH, free T4, total T3 (7444) V itamin D, 25-Hydroxy (982702) [facility] Dane [facility]zai Telehealth D[facility]ai Telehealth Dane Ahmedzai Cardiology Dane Ahmedzai Cardiology Dane Ahmedzai Cardiology Dane Ahmedzai Cardiology Dane Ahmedzai Cardiology: B P today: 194/95 P rior BP: 190/96 (05/22/2022) Labs Reviewed: C reat: 0.87 (03/31/2016) C hol: 256 (03/31/2016) HDL: 50 (03/31/2016) LDL: 188 (03/31/2016) T (03/31/2016) Dane Ahmedzai Cardiology Dane Ahmedzai Cardiology Edwige Persaudm eyer Cardiology Edwige Jacobsm eyer Cardiology Edwige Jacobsm eyer Cardiology Edwige Jacobsm [facility] Telehealth Dane Ahmedzai Telehealth Dane Ahmedzai Telehealth Dane Ahmedzai Telehealth Dane Ahmedzai Telehealth Dane Ahmedzai Cardiology Dane Ahmedzai Cardiology Dane Ahmedzai Cardiology Dane Ahmedzai Cardiology Dane Ahmedzai Cardiology Dane Ahmedzai Cardiology Dane Ahmedzai Cardiology Dane Ahmedzai Cardiology Dane Ahmedzai Cardiology Dane Ahmedzai Cardiology Dane Ahmedzai Cardiology Dane Ahmedzai Cardiology Dane Ahmedzai Cardiology Dane Ahmedzai Cardiology Dane Ahmedzai Cardiology Dane Escobar Cardiology Dane Escobar Cardiology Dane Escobar Cardiology John Mares MD Cardiology John Mares MD Cardiology John Mares MD Cardiology John Mares MD Cardiology Follow up Jluis Henderson Cardiology Follow up Jluis Henderson Cardiology Follow up Jluis Henderson Cardiology Follow up Jluis Beatriz Cardiology Follow up Jluis Beatriz Cardiology:Still hig h. Pt encouraged to monitor her BP at home. Advised low-salt diet John Mares MD Cardiology:Encourage d weight loss. Encouraged low-sugar diet. John Mares MD Cardiology:Atypical chest pain, may be due to elevated BP. Mild disease on cath in 2017. John Mares MD Cardiology follow up John cleaning MD Cardiology follow up John cleaning MD Cardiology follow up John cleaning MD Cardiology New Patient John guerra MD Cardiology New Patient John guerra MD Cardiology New Patient John guerra MD Cardiology New Patient John guerra MD Cardiology Hospital Follow up : H er updated medication list for this problem includes: Hydrochlorothiazide 25 Mg Tabs (Hydrochlorothiazide) ..... One tab daily Procardia Xl 30 Mg Tb24 (Nifedipine) ..... One per day Losartan Potassium 100 Mg Oral Tabs (Losartan potassium) ..... Take one tablet daily Orders: E CP Commercial (CPT-24135) L IPID PANEL (5445) C OMPREHENSIVE METABOLIC PANEL W/EGFR (68675) 9 7115 HIGH Complex (CPT-49129) Bibiana Travis MD Cardiology Hospital Follow up : H er updated medication list for this problem includes: Hydrochlorothiazide 25 Mg Tabs (Hydrochlorothiazide) ..... One tab daily Procardia Xl 30 Mg Tb24 (Nifedipine) ..... One per day Losartan Potassium 100 Mg Oral Tabs (Losartan potassium) ..... Take one tablet daily Bibiana Travis MD Cardiology Hospital Follow up rafael Travis MD Cardiology Hospital Follow up rafael Travis MD Cardiology Hospital Follow up :This patient?s angina is disabling and in my opinion is not readily amenable to surgical intervention by PTCA or cardiac bypass because the patient's coronary anatomy is not readily amenable to such procedures. Her updated medication list for this problem includes: Procardia Xl 30 Mg Tb24 (Nifedipine) ..... One per day Orders: E CP Commercial (CPT-68367) L IPID PANEL (7600) C OMPREHENSIVE METABOLIC PANEL W/EGFR (47400) 9 9215 HIGH Complex (CPT-05209) Bibiana Travis MD Cardiology: O rders: S NOMED-CT: [id number] Current Medications Documented (SCT-[id number]) E KG (CPT-05945) 9 9245 HIGH Complex (CPT-55497) C omplete Echo (CPT-05742) C arotid Duplex Bilateral (CPT-08844) C ardiac Cath - L/R - GC (*) Bibiana Travis MD Cardiology: O rders: 9 9245 HIGH Complex (CPT-01739) C omplete Echo (CPT-50130) C arotid Duplex Bilateral (CPT-56129) C ardiac Cath - L/R - GC (*) Bibiana Travis MD Cardiology:needs zach w/u Bibiana Travis MD Cardiology:The risks and benefits of the procedure, including but not limited the risk of heart attack, , stroke, bleeding, kidney failure, and loss of limb as well as the alternative of continued medical therapy, stress testing or bypass surgery were discussed with the patient and any present family members and the patient wishes to proceed with cardiac cath and stenting. The patient and family had opportunity to discuss this with us. Written material including informed consent was given out. Bibiana Travis MD Date Name PROTHROMBIN TIME WIT H INR HEMOGLOBIN A1c IRON AND TOTAL IRON BINDING CAPACITY FERRITIN CBC (INCLUDES DIFF/P LT) LIPID PANEL PROBNP, N TERMINAL COMPREHENSIVE METABO LIC PANEL, W/EGFR Stress Regadenoson Complete Echo Vitamin D, 25-Hydrox y TSH, free T4, total T3 LIPID PANEL HEMOGLOBIN A1c PROBNP, N TERMINAL COMPREHENSIVE METABO LIC PANEL, W/EGFR IRON AND TOTAL IRON BINDING CAPACITY FERRITIN CBC (INCLUDES DIFF/P LT) Sleep Study Titratio n Sleep Study Titratio n Complete Echo Sleep Study Home Stress Regadenoson Complete Echo Venous Doppler Bilat eral LE - Reflux COMPREHENSIVE METABO LIC PANEL W/EGFR LIPID PANEL ECP Commercial PROTHROMBIN TIME WIT H INR CBC (INCLUDES DIFF/P LT) LIPID PANEL BASIC METABOLIC PANE L W/EGFR Sleep Study - split night Cardiac Cath - L/R - GC Carotid Duplex Bilat eral Complete Echo HISTORY OF PROCEDURES Procedure Date Procedure Name Provider Procedure Notes S tatus Complex e/m visit add on John Mares MD completed EKG John Mares MD completed EKG John Mares MD completed EKG John Mares MD completed EKG Bibiana Travis MD completed SNOMED-CT: [id number] Current Medications Documented Bibiana Travis MD completed EKG Bibiana Travis MD completed SNOMED-CT: [id number] Current Medications Documented Bibiana Travis MD completed
--- OUTSIDE RECORDS SUMMARY | 2024-08-05 16:23 | XMS_ITS | Encounter Summary ---
Author Organization [facility] Address [address] [place] [address] Care Team Providers Care Synthetic Soil Blocks Pulper Name Role Phone Michele Burger MD Primary Care Provider [phone] Encounter Details Date Type Department Care Team (Late st Contact Info) Description 09/03/2006 Outpatient Historical [facility] [place] 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
--- OUTSIDE RECORDS SUMMARY | 2024-08-05 16:23 | XMS_ITS | Clinical Summary ---
Author Organization [facility] Address [address] [place] [address] Care Team Providers Care Hybrid Corn Breeder Name Role Phone Michele Burger MD Primary Care Provider [phone] Source Comments [facility],non-owned Affiliates and Associated Physician Practices is amultiple site organization consisting of ambulatory clinics and hospital sitesin [place], [place], [place] and [place]. This disclosure is being madepursuant to the Care Everywhere program and may not contain all information available regarding this patient. Last updated 17.[facility] Allergies Active Allergy Reactions Criticality Noted Date Comments Sulfa Drugs Rash Medium 05/14/2020 Encounters Date Type Department Care Team Description 07/07/2024 Travel from Last 3 Months Social History Tobacco Use Types Packs/Day Years Used Date Smoking Tobacco: Never Smokeless Tobacco: Never Alcohol Use Standard Drinks/Week Comments Never 0 (1 standard drink = 0.6 oz pur e alcohol) AUDIT-C Answer Date Recorded Q1: How often do you have a drink containing alc ohol? Never 05/14/2020 Average Number of Drinks Not on file 021 Frequency of Binge Drinking Not on file 09/2020 Comments Unknown Sex and Gender Information Value Date Recorded Sex Assigned at Not on file Legal Sex Female 7:44 PM PHYSICIAN COMPENSATION ANALYST Gender Identity Not on file Sexual Orientation Not on file Last Filed Vital Signs Vital Sign Reading Time Taken Comments Blood Pressure 131/73 05/04/2024 11:34 AM PHYSICIAN COMPENSATION ANALYST Pulse 78 05/04/2024 11:34 AM PHYSICIAN COMPENSATION ANALYST Temperature 37.2 C (98.9 F) 05/14/2020 8:59 PM PHYSICIAN COMPENSATION ANALYST Respiratory Rate 20 05/14/2020 8:59 PM PHYSICIAN COMPENSATION ANALYST Oxygen Saturation 98% 05/14/2020 8:59 PM PHYSICIAN COMPENSATION ANALYST Inhaled Oxygen Concentration - - Weight 111.1 kg (245 lb) 05/14/2020 2:21 PM PHYSICIAN COMPENSATION ANALYST Height 165.1 cm (5' 5 ) 05/04/2024 11:34 AM PHYSICIAN COMPENSATION ANALYST Body Mass Index 40.77 05/14/2020 2:21 PM PHYSICIAN COMPENSATION ANALYST Plan of Treatment Upcoming Encounters Date Type Department Care Team (Late st Contact Info) Description 08/10/2024 11:00 AM CDT Office Visit [facility] - Neurology [address] [place] [address] Shira Barnes PA-C [facility] [facility] [address] [place] [address] Health Maintenance Due Date Last Done Comments BONE DENSITY TESTING 1955 COLOGUARD (AGES 45-75) - COL ON CA SCREENING [address] COLONOGRAPHY - COLON CA SCREENING 1955 FIT - COLON CA SCREENING 1955 FLEX SIG - COLON CA SCREENING 1955 LIPID TESTING 1955 MAMMOGRAM 1955 HEPATITIS C SCREENING 12/19/1973 DTAP/TDAP/TD VACCINES (1 - Tdap) 12/23/1974 PNEUMOCOCCAL VACCINE 50+ (1 of 1 - PCV) 12/23/2005 ZOSTER VACCINE (1 of 2) 12/23/2005 Respiratory Syncytial Virus (RSV) Vaccine Pt: or over 60 yrs (1 - Risk 60-74 years 1-dose series) 2015 COVID-19 VACCINE (1 - 2023-2 5 season) 2023 DEPRESSION SCREENING 04/08/2024 MEDICARE AWV CALENDAR YEAR 2024 INFLUENZA VACCINE (Season Ended) 2024 COLONOSCOPY - COLON CA SCREENING 11/13/2033 11/14/19 24 Colorectal Cancer Screening 11/13/2033 HEPATITIS B VACCINE Aged Out No longe r eligible based on patient's age to complete this topic HIB VACCINE Aged Out No longer eligi ble based on patient's age to complete this topic HPV VACCINE Aged Out No longer eligi ble based on patient's age to complete this topic MENINGOCOCCAL (Group B) VACC INE SHARED DECISION-MAKING Aged Out No longer eligibl e based on patient's age to complete this topic MENINGOCOCCAL GROUPS A/C/Y/W VACCINE Aged Out No longer eligible b ased on patient's age to complete this topic Insurance [facility] UHC MANAGED MEDICARE ADV Care Teams Hybrid Corn Breeder Relationship Specialty Start Date End Date Michele Burger MD [address] [place] [address] PCP - General 01/28/08
--- OUTSIDE RECORDS SUMMARY | 2024-08-05 16:23 | XMS_ITS | Encounter Summary ---
Author Organization [facility] Address [address] [place] [address] Care Team Providers Care Heat Treater Helper Name Role Phone Michele Burger MD Primary Care Provider [phone] Encounter Details Date Type Department Care Team (Late st Contact Info) Description 09/06/2006 Outpatient Historical [facility] [place] 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
--- OUTSIDE RECORDS SUMMARY | 2024-08-05 16:23 | XMS_ITS | Encounter Summary ---
Author Organization [facility] Address [address] [place] [address] Care Team Providers Care Industrial Management Teacher Name Role Phone Michele Burger MD Primary Care Provider [phone] Encounter Details Date Type Department Care Team (Latest Contact Info) Description 09/06/2006 Outpatient Historical HIS CARD POLYSOMNOGRAPHY TECHNICIAN Jorge A Alba MD [address] [place] [address] Other Chest Pain (Primary Dx) Social History Tobacco Use Types Packs/Day Years Used Date Smoking Tobacco: Never Assessed Comments Unknown Sex and Gender Information Value Date Recorded Sex Assigned at Not on file Legal Sex Female 3:54 AM CARDIOLOGY FELLOW Gender Identity Not on file Sexual Orientation Not on file documented as of this encounter Plan of Treatment Not on file documented as of this encounter Procedures Procedure Name Priority Date/Time Associated Diagnosis Comments PT AND APTT Routine 09/06/2006 5:58 AM CDT CBC WITH DIFFERENTIAL Routine 09/06/2006 5:58 AM CDT CBC WITH DIFFERENTIAL Routine 09/06/2006 5:58 AM CDT HCG QUALITATIVE, URINE Routine 09/06/2006 5:58 AM CDT LIPID PANEL Routine 09/06/2006 5:58 AM CDT BASIC METABOLIC PANEL Routine 09/06/2006 5:58 AM CDT documented in this encounter Results * BETA HCG QUALITATIVE, URINE (09/06/2006 5:58 AM CDT) HCG QUAL URINE Negative Negative INTER FACE SYSTEM SPECIFIC GRAVITY UA 1.014 1.001 - 1.035 INTERFACE SYSTEM 09/06/2006 5:58 AM CDT Jorge A Alba MD URINE ORDERABLES Edited Performing Organization Address City/[facility]/ZIP Co de Phone Number INTERFACE SYSTEM Refer to clinic/hospital department * CBC WITH DIFFERENTIAL (09/06/2006 5:58 AM CDT) NEUTROPHILS 52 45 - 70 % INTERFAC E SYSTEM LYMPHOCYTES 40 16 - 45 % INTERFAC E SYSTEM MONOCYTES 7 3 - 13 % INTERFACE SYSTEM EOSINOPHILS 1 0 - 7 % INTERFAC E SYSTEM BASOPHILS 0 0 - 2 % INTERFACE SYSTEM NEUTROPHIL ABSOLUTE 4.53 1.90 - 7.00 K/uL INTERFACE SYSTEM LYMPHOCYTE ABSOLUTE 3.46 0.70 - 4.50 K/uL INTERFACE SYSTEM MONOCYTE ABSOLUTE 0.60 0.10 - 1.30 K/uL INTERFACE SYSTEM EOSINOPHIL ABSOLUTE 0.09 0.00 - 0.70 K/uL INTERFACE SYSTEM BASOPHILS ABSOLUTE 0.03 0.00 - 0.20 K/uL INTERFACE SYSTEM 09/06/2006 5:58 AM CDT Jorge A Alba MD HEMATOLOGY ORDERABLES Edited Performing Organization Address City/[facility] de Phone Number INTERFACE SYSTEM Refer to clinic/hospital department * (ABNORMAL) CBC WITH DIFFERENTIAL (09/06/2006 5:58 AM CDT) WBC 8.7 4.0 - 9.8 K/uL INTERFACE SYSTEM RBC 4.73 3.90 - 4.90 M/uL INTERFACE SYSTEM HEMOGLOBIN 12.7 11.8 - 14.8 g/dL INTERFACE SYSTEM HEMATOCRIT 38.4 35.5 - 44.0 % INTERFACE SYSTEM MCV 81.2(L) 82.0 - 99.0 fL INTERFACE SYSTEM MCH 26.8(L) 27.2 - 32.6 pg INTERFACE SYSTEM MCHC 33.1 31.5 - 35.5 % INTERFACE SYSTEM RDW 15.5(H) 11.5 - 14.5 % INTERFACE SYSTEM RDW-STDEV 45.6 37.1 - 48.7 fL INTERFACE SYSTEM PLATELETS 274 140 - 350 K/uL INTERFACE SYSTEM MPV 9.8 9.3 - 12.4 fL INTERFACE SYSTEM 09/06/2006 5:58 AM CDT Result [facility] Jorge A Alba MD HEMATOLOGY ORDERABLES Edited Performing Organization Address City/[facility] de Phone Number INTERFACE SYSTEM Refer to clinic/hospital department * (ABNORMAL) LIPID PANEL (09/06/2006 5:58 AM CDT) CHOLESTEROL 261(H) 100 - 199 mg/dL INTERFACE SYSTEM TRIGLYCERIDE 143 10 - 149 mg/dL INTERFACE SYSTEM HDL 56 40 - 59 mg/dL INTERFACE SYSTEM CHOL/HDL RATIO 4.7 2.0 - 5.0 INTER FACE SYSTEM LDL CALCULATED 176(H) <=99 mg/dL INTERFACE SYSTEM LIPID PANEL COMMENT See Below INTERFACE SYSTEM Comment: The adult ATP and pediatric NCEP classifications for lipids are available on the [facility] [place] Intranet at: [email or web address] Select: Lab Policies and Procedures Select: Reference Ranges - Lipids 09/06/2006 5:58 AM CDT Result [facility] Jorge A Alba MD CHEMISTRY ORDERABLES Edited Performing Organization Address [facility] de Phone Number INTERFACE SYSTEM Refer to clinic/hospital department * PT AND APTT (09/06/2006 5:58 AM CDT) PROTIME 13.4 12.7 - 15.1 Seconds INTERFACE SYSTEM INR 1.0 0.9 - 1.1 INTERFACE SYSTEM Comment: INR Therapeutic Range: Adult: 2.0 - 3.0 for pulmonary embolism or prophylaxis against venous thrombosis or systemic embolization. 2.0 - 3.0 for patients with tissue heart valves. 2.5 - 3.5 for patients with mechanical heart valves or post GA. Pediatric (12 years and under): 1.5 - 3.0 Although the target range in children is not well established , INR values of 1.5 - 3.0 are recommended for most patients. Higher values have been used in children with prosthetic cardiac valves and hereditary clotting disorders. (<3 days) therapeutic ranges have not been established. PTT 28.3 24.4 - 36.4 Seconds INTERFACE SYSTEM Comment: PTT Therapeutic Range: Heparin Level PTT (seconds) <0.10 units/mL <53 0.10 - 0.30 units/mL 53 - 67 0.30 - 0.70 units/mL* 67 - 95* 0.70 - 1.00 units/mL 95 - 116 *corresponds to therapeutic range for unfractionated heparin 09/06/2006 5:58 AM CDT Result [facility] Jorge A Alba MD HEMATOLOGY ORDERABLES Edited Performing Organization Address City/[facility] de Phone Number INTERFACE SYSTEM Refer to clinic/hospital department * (ABNORMAL) BASIC METABOLIC PANEL (09/06/2006 5:58 AM CDT) GLUCOSE 116(H) 65 - 99 mg/dL INTERFACE SYSTEM CREATININE 0.88 0.51 - 0.95 mg/dL INTERFACE SYSTEM CALCIUM 9.3 8.4 - 10.2 mg/dL INTERFACE SYSTEM BUN 14 6 - 20 mg/dL INTERFACE SYSTEM SODIUM 140 135 - 145 mmol/L INTERFACE SYSTEM POTASSIUM 3.4(L) 3.5 - 4.9 mmol/L INTERFACE SYSTEM CHLORIDE 99 96 - 108 mmol/L INTERFACE SYSTEM CO2 33(H) 22 - 30 mmol/L INTERFACE SYSTEM GFR, >60 >=60 mL/min/1. 7 sq meter INTERFACE SYSTEM GFR >60 >=60 mL/min/1. 7 sq meter INTERFACE SYSTEM Comment: Estimated GFR rate interpretative information for both Americans and non- Americans is available on the [facility] Intranet at: [email or web address] Select: Lab Policies and Procedures Select: Reference Ranges - GFR 09/06/2006 5:58 AM CDT Result [facility] Jorge A Alba MD CHEMISTRY ORDERABLES Edited Performing Organization Address [facility] Co de Phone Number INTERFACE SYSTEM Refer to clinic/hospital department documented in this encounter Visit Diagnoses Diagnosis Other chest pain- Primary documented in this encounter Care Teams Industrial Management Teacher Relationship Specialty Start Date End Date Michele Burger MD PCP - General 10/29/08 documented as of this encounter
--- OUTSIDE RECORDS SUMMARY | 2024-08-05 16:23 | XMS_ITS | Referral Summary ---
Author Organization [facility] Address [address] [place] [address] Care Team Providers Care Fast Food Shift Supervisor Name Role Phone Sophy Skinner MD Unavailable [phone] Richard Salazar MD Unavailable [phone] Veda TREJO MD, Carlos M. Unavailable [phone] Tyshawn Chino MD Unavailable [phone] Veena Cloud MD Unavailable John Mares MD Unavailable Vero Lao MD Unavailable [phone] Sophy Skinner MD Primary Care Provider Allergies Active Allergy Reactions Criticality Noted Date Comments Osnajyz-Rom-Vhq Reductase Inhibitors Muscle pain Medium 10/29/2008 Sulfa [...] about the UA today and notified nurse delicatessen department manager Johnny who has called and updated daughter. Patient notified as well that a new UA will be done. Precordial pain 01/07/2024 Assessment & Plan (02/24/2024 9:57 PM FOUNDER / CEO): Patient started on tramadol 4 times a [...] 01/07/2024 Assessment & Plan (02/24/2024 9:58 PM FOUNDER / CEO): Patient to continue physical and occupational therapy [...] 12/02/2023 Assessment & Plan (02/24/2024 10:00 PM FOUNDER / CEO): S/p CABG with infection of sternal wound [...] 10/28/2023 Assessment & Plan (02/24/2024 9:57 PM FOUNDER / CEO): Patient to continue Eliquis and aspirin and [...] Pharyngoesophageal dysphagia 10/17/2023 Peripheral venous insufficiency 06/06/2022 Social History Tobacco Use Types Packs/Day Years Used Date Smoking Tobacco: Never Tobacco Cessation:Counseling Given: Not Answered Alcohol Use Standard Drinks/Week Comments Not Currently 0 (1 standard drink = 0.6 oz pur e alcohol) [facility] Utilities Answer Date Recorded In the past 12 months has [place], gas, oil, or water [employer] threatened to shut off services in your [...] often do you attend chur ch or druze services? Never 12/04/2023 Do you belong to any clubs o r organizations such as adventist groups, unions, fraternal or athletic groups, or [...] Recorded Patient Health Questionnaire-2 Score 3 12/02/2023 [facility] - Occupational Stress Questionnaire Answer Date [...] any time in the past 12 m [facility], were you homeless or living in a half-way (including now)? No 12/04/2023 Personal Safety Answer Date Recorded Have you ever been in or are you currently in a harmful physical or emotional relationship or is someone making you feel afraid or unsafe? Denies 04/19/2024 Comments No Sex and Gender Information Value Date Recorded Sex Assigned at Not on file Legal Sex Female 11:27 PM FOUNDER / CEO Gender Identity Not on file Sexual Orientation Not on file Last Filed Vital Signs Vital Sign Reading Time Taken Comments Blood Pressure 175/96 04/20/2024 2:30 AM FOUNDER / CEO Pulse 89 04/20/2024 2:30 AM FOUNDER / CEO Temperature 36.7 C (98 F) 04/19/2024 6:45 PM FOUNDER / CEO Respiratory Rate 18 04/20/2024 2:30 AM FOUNDER / CEO Oxygen Saturation 99% 04/20/2024 2:30 AM FOUNDER / CEO Inhaled Oxygen Concentration - - Weight 86.2 kg (190 lb) 04/19/2024 6:25 PM FOUNDER / CEO Height 162.6 cm (5' 4 ) 04/19/2024 6:25 PM FOUNDER / CEO Body Mass Index 32.61 04/19/2024 6:25 PM FOUNDER / CEO Plan of Treatment Not on file Medical Devices Implanted Type Area Valuation Consultant Device Identifier Shelf Expiration Date Model / Serial / Lot [employer] Plate Bone Low Profile 6 Hole H Shape Sternum Ti 115.102.06 - [id number] Implanted:Qty: 1 on 10/22/2023 by Vero Lao MD at [facility] Plate N/A: Sternum [employer] 115.102. 06 / / [employer] Plate Bone Low Profile 4 Hole Box Sternum Ti 115.103.04 - [id number] Implanted:Qty: 1 on 10/22/2023 by Vero Lao MD at [facility] Plate N/A: Sternum [employer] 115.103. 04 / / [employer] Plate Bone Low Profile 6 Hole O Concave Sternum Ti 115.604.06 - [id number] Implanted:Qty: 1 on 10/22/2023 by Vero Lao MD at [facility] Plate N/A: Sternum [employer] 115.604. 06 / / [employer] Inspiris Resilia Aortic Valve 21mm [id number] - [id number] - [id number] Implanted:Qty: 1 on 10/21/2023 by Vero Lao MD at [facility] Prosthetic Valve N/A: Aortic Valve [employer] 09/16/2026 [id number] / [id number] / Description:Non-clinical kris ting has demonstrated that this device is MR Conditional. A patient with this valve can be scanned safely, immediately after placement of this implant under the following conditions: - Static magnetic field of 3 amanda or less. - Spatial gradient field of less than 3000 gauss/cm. - Maximum MR system-reported lrhua-rtht-udgookco specific absorption rate (NOEMI) of 2.0 W/kg for 15 minutes of continuous scanning per sequence in the normal operating mode. [employer] Screw Bone Slf Drl Full Thread Locking 3.5x14mm Ti 100.035.14 - [id number] Implanted:Qty: 6 on 10/22/2023 by Vero Lao MD at [facility] Screw N/A: Sternum [employer] 100.035. 14 / / [employer] Screw Bone Slf Drl Full Thread Locking 3.5x16mm Ti 100.035.16 - [id number] Implanted:Qty: 10 on 10/22/2023 by Vero Lao MD at [facility] Screw N/A: Sternum [employer] 100.035. 16 / / [employer] Patch Straight Collagen Coated Double Velour Tapered Hemashield 2.5x7.5cm Knitted Polyester [id number] - [id number] - [id number] Implanted:Qty: 1 on 10/21/2023 by Vero Lao MD at [facility] N/A: Heart [employer] 02/05/2027 [id number] / [id number] / Procedures Procedure Name Priority Date/Time Associated Diagnosis Comments COLONOSCOPY 11/14/2023 1:40 PM CDT HEPATITIS PANEL, ACUTE Routine 11/03/2023 6:43 AM CDT from Last 3 Months or Most Recently Relevant to Health Maintenance Results * Colonoscopy (11/14/2023 1:40 PM CDT) Anatomical Region Laterality Modality Other Narrative Procedure Note Olagbegi, Olayiwola C., MD - 11/14/2023 1:[address] [facility] Endoscopy Lab Patient Name: Yumiko Mendez Procedure Date: 11/14/2023 1:40 PM Date of : 1955 Admit Type: Inpatient Age: 67 Gender: Female Note Status: Finalized Attending MD: Clif Hernandez M.D. Procedure Date: 11/14/2023 Procedure: Colonoscopy Indications: Hematochezia Providers: Clif Hernandez M.D., MAGALIE Mercer (Anesthesia Staff), Selena Karimi RN, Yvon Garber, Document Management Technician Referring MD: Kev Bennett M.D. Medicines: Monitored [...] by the physician, the nurse and the tire bladder maker in the procedure room. Mental Status Examination: [...] to checkhealing. Procedure Code(s): --- Professional --- 89068, 52, Colonoscopy, flexible; with biopsy,single or multiple Diagnosis Code(s): --- Professional --- K63.3, Ulcer of intestine K92.1, Melena (includes Hematochezia) CPT copyright 2020 [employer]. All rights reserved. The codes documented in this report are preliminary and upon outpatient coder reviewmay be revised to meet current compliance requirements. Electronically signed by Clif Hernandez M.D. Clif Hernandez M.D. 11/14/2023 2:48:12 PM Number of Addenda: 0 Note Initiated On: 11/14/2023 1:40 PM Clif Hernandez MD ENDOSCOPY PROCEDURES Fi nal Result * Hepatitis panel, acute Blood (11/03/2023 6:43 AM CDT) Hep A IgM Nonreactive Nonreactive Comment: Interpretive Data: If Hep A IgM Ab is reported as Equivocal, a new sample should be drawn in two weeks for testing. Current interpretive data was last revised on 19. Hep B core IgM Nonreactive Nonreactive [facility] Comment: Interpretive Data If HepB Core IgM [...] LAB MICROBIOLOGY - GENERAL ORDERABLES Final Result [facility] [address] [facility] Department [place] [address] from Last 3 Months or Most Recently Relevant to Health Maintenance Insurance [facility] MEDIC[facility] ADVANTAGE [facility] Address: [address] [address] [place] [address] [facility] H[facility]/PPO Address: [address] [address] [place] [address] [facility] MEDICARE ADVANTAGE [facility] Address: [facility] [address] [place] [address] [facility] Address: [place] [address] [facility] Address: [address] [place] [address] [facility] H[facility]/PPO Address: [facility] [address] [place] [address] Advance Directives For more information, please contact: [phone] Documents on File Type Date Recorded Patient Storage Management Consultant Expl anation ADVANCE DIRECTIVE 12/06/2023 6:40 PM POWER OF SLIDE ATTENDANT-MEDICAL ADVANCE DIRECTIVE 11/25/2023 POWER OF SLIDE ATTENDANT-MEDICAL Advance Directives and Living Will 11/22/2023 4:52 PM Candida Mendez Power of Analytics Manager 11/22/2023 2:03 PM * Full Code (Latest [...] First Alternate Health Care Agent Care Teams Fast Food Shift Supervisor Relationship Specialty Start Date End Date Sophy Skinner MD [address] [address] PCP - General Internal Medicine 12/20/23 Sophy Skinner MD [address] [address] Internal Medicine 12/18/23 [place] [address] [place] [address] Consulting Physician Internal Medicine 12/12/23 [place] [address] [facility] [address] [place] [address] Consulting Physician Neurology 12/12/23 [place] [address] [facility] [address] [place] [address] Consulting Physician Nephrology 12/12/23 [place] [address] [facility] [address] [place] [address] Gastroenterology 12/12/23 [place] [address] [facility] [address] [place] [address] Consulting Physician Cardiology 12/12/23 Vero Lao MD [id number] [place] [address] Surgeon Cardiothoracic Surgery 12/12/23
--- NOTE | 2024-08-05 17:43 | ECG_ITS ---
Test Date: 2024-08-05 20:15:13 Measurements Intervals [place] Rate: 97 P: 109 NE: 191 QRS: 96 QRSD: 119 T: 76 QT: 410 QTc: 522 Interpretive Statements SINUS RHYTHM RIGHT BUNDLE BRANCH BLOCK INFERIOR INFARCT, AGE INDETERMINATE BASELINE ARTIFACT- I, III, AVR, AVL, V2 ABNORMAL ECG No previous ECG available for comparison Electronically Signed On 08-05-2024 21:50:17 CDT by Rosendo Carpenter D.O.
--- NOTE | 2024-08-05 17:44 | ED.GENADULT ---
HPI - General Adult General Chief complaint: Unspecified <Nicole Trinidad APRN - Last Filed: 08/05/24 17:50> Stated complaint: weakness, decreased appetite, nausea x months <Nicole Trinidad APRN - Last Filed: 08/05/24 17:50> Time Seen by Provider: 08/05/24 17:30 <Nicole Trinidad APRN - Last Filed: 08/05/24 17:50> Focused HPI: Patient is a 68-year-old female presents to the ER with decreased PO intake for the past 2 weeks ( or it's probably longer ). Her daughter reports she quadruple bypass in October 2023. Patient was living in a rehab/halfway facility until January and now lives with her daughter. Patient's daughter reports she has lost weight and cannot get her mother to eat. She reports some days her mom is so weak she cannot keep her head up. Patient denies any recent fevers, body aches, back pain, shortness of breath, or chest pain. GENERAL: Ill-appearing, in no acute distress. HEAD: Normocephalic, atraumatic. CHEST: Clear to auscultation. ?No respiratory distress. HEART: Regular rate and rhythm.? NEURO: ?Alert and oriented x3. Patient screened in triage and initial orders placed.? ?Additional care and disposition to be based upon?diagnostic testing and treatment. <Nicole Trinidad APRN - Last Filed: 08/05/24 17:50> History of Present Illness HPI narrative: Agree with the HPI above. Patient's family provides collateral formation and tell me that they have not been able to refill her Eliquis for the last week but she has been having nausea vomiting for several weeks and now having diarrhea for 3 days. Decreased appetite, not eating any for protein shakes, does not want to eat or drink anything. No new injuries or falls. Patient is bedbound. She has a history of a stroke after her coronary bypass in October of last year. <Carlitos Kingsley MD - Last Filed: 08/06/24 00:49> Related Data Home medications: Home Medications ?Medication ?Instructions ?Recorded ?Confirmed ?Last Taken ?Type acetaminophen 650 mg 1,300 mg PO Q8H PRN Pain 04/30/19 12/01/20 Unknown History tablet,extended release (Tylenol Arthritis Pain) diclofenac sodium 75 mg 75 mg PO BID 04/30/19 12/01/20 Unknown History tablet,delayed release ergocalciferol (vitamin D2) 1,250 1,250 mcg PO 3XW 04/30/19 12/01/20 Unknown History mcg (50,000 unit) capsule losartan 100 mg tablet 100 mg PO DAILY 04/30/19 12/01/20 Unknown History cephalexin 500 mg capsule 500 mg PO BID 12/01/20 12/01/20 Unknown History elderberry fruit 200 mg capsule 200 mg PO DAILY 12/01/20 12/01/20 Unknown History ephedrine HCl 25 mg tablet 25 mg PO DAILY 12/01/20 12/01/20 Unknown History multivitamin with minerals-folic 1 tablet PO DAILY 12/01/20 12/01/20 Unknown History acid 200 mcg chewable tablet (Adult Multivitamin Gummies) tramadol 100 mg tablet 200 mg PO Q8H PRN Pain 12/01/20 12/01/20 Unknown History <Nicole Trinidad APRN - Last Filed: 08/05/24 17:50> Allergies/adverse reactions: Allergies Allergy/AdvReac Type Severity Reaction Status Date / Time Sulfa (Sulfonamide Allergy Mild RASH Verified 08/05/24 15:38 Antibiotics) <Nicole Trinidad APRN - Last Filed: 08/05/24 17:50> Review of Systems Review of Systems: As reviewed above in HPI <Carlitos Kingsley MD - Last Filed: 08/06/24 00:49> [facility] Past Medical History Medical History: Medical History Osteoarthritis Disorder of lipid metabolism Hypertension Chest pain <Nicole Trinidad APRN - Last Filed: 08/05/24 17:50> Surgical History Surgical History: Surgical History History of <Nicole Trinidad APRN - Last Filed: 08/05/24 17:50> Family History Family History: Family History Father Heart disease Hypertension Mother Hypertension Breast cancer <Nicole Trinidad APRN - Last Filed: 08/05/24 17:50> Social History Social History: Social History Smoking status: Never smoker Alcohol intake: never Living arrangements: with family <Nicole Trinidad APRN - Last Filed: 08/05/24 17:50> Exam Narrative: GENERAL: Chronically ill-appearing, appears older than stated age. Answering all questions appropriately not any distress. HEAD: [Normocephalic, atraumatic.] EYES: [PERRLA and EOMI.] ENT: Nares clear, no rhinorrhea or epistaxis. Mucous membranes moist. NECK: Supple. CHEST: [Clear to auscultation. No respiratory distress.] HEART: [Regular rate and rhythm]. No murmur heard. [Normal peripheral pulses.] ABDOMEN: [Soft, nondistended], [nontender], [No rigidity or guarding] EXTREMITIES: Normal range of motion. [No edema.] SKIN: Warm, dry, no rash. NEURO: No new focal deficits appreciated. She has chronic left-sided upper and lower extremity weakness 4/5, right-sided 5/5 upper and lower strength. No sensory deficits or any facial asymmetry. Moving all extremities. Awake alert oriented answers all questions appropriately. PSYCH: [Normal mood and affect.] <Carlitos Kingsley MD - Last Filed: 08/06/24 00:49> Course Vital Signs Vital signs: Vital Signs Temperature 36.5 C 08/05/24 15:40 Pulse Rate 108 H 08/05/24 15:40 Respiratory Rate 16 08/05/24 15:40 Blood Pressure 116/78 08/05/24 15:40 Pulse Oximetry 100 08/05/24 15:40 Temperature 36.5 C 08/05/24 15:40 Pulse Rate 108 H 08/05/24 15:40 Respiratory Rate 16 08/05/24 15:40 Blood Pressure 116/78 08/05/24 15:40 Pulse Oximetry 100 08/05/24 15:40 <Nicole Trinidad APRN - Last Filed: 08/05/24 17:50> Vital Signs Temperature 36.5 C 08/05/24 15:40 Pulse Rate 108 H 08/05/24 15:40 Respiratory Rate 16 08/05/24 15:40 Blood Pressure 116/78 08/05/24 15:40 Pulse Oximetry 100 08/05/24 15:40 Temperature 36.5 C 08/05/24 15:40 Pulse Rate 108 H 08/05/24 15:40 Respiratory Rate 16 08/05/24 15:40 Blood Pressure 116/78 08/05/24 15:40 Pulse Oximetry 100 08/05/24 15:40 <Carlitos Kingsley MD - Last Filed: 08/06/24 00:49> Medical Decision Making MDM Narrative Medical decision making narrative: 68-year-old female with a past medical history including hypertension, hyperlipidemia, coronary disease status post CABG last year, history of stroke with residual left-sided deficits. Patient is post been Eliquis but has been out of it for about 1 week according the family. She states that she has been weak and family states she has been nauseous and vomiting for several weeks and now having diarrhea for 3 days. Denies any falls or injury. Patient is bed-bound and lives with her family members. Patient denies any abdominal pain, abdominal distension, fever, chills, chest pain, shortness a breath, urinary complaints. Family states that she is not eating or drinking anything including her protein shakes and consult later complains of nausea. Supposedly she has been to multiple facilities without any diagnosis with similar complaints. Her examination is otherwise reassuring but she looks chronically ill, older than stated age, dehydrated. She has no new focal neurological deficits. Slightly tachycardic pulse but afebrile. Normal blood pressure, respiratory rate and no hypoxia. Broad workup considering patient's vague symptomatology. Differential diagnosis includes electrolyte imbalances, pneumonia, urinary infection, coronary disease, new stroke, deconditioning, failure to thrive. CBC, CMP, troponin, TSH, PT, PTT, CPK, chest x-ray, urinalysis and CT scan of the head without contrast was obtained. Patient's labs do show hypokalemia 2.8 consistent with her dehydration GI losses from vomiting and diarrhea recently. Obtaining a magnesium level and she will be repleted with 40 mEq IV potassium and LR bolus. CT scan shows encephalomalacia and gliosis in the right temporoparietal lobe likely from her previous stroke. Spoke to the radiologist who recommended repeat CT in 2 hours to make sure that there is no hemorrhage concerns although this is likely related to the old stroke according to Radiology. Repeat scan was ordered. Repeat CT shows no interval changes and encephalomalacia with hyperdensities consistent with calcifications per radiology's interpretation. Repeat BMP shows improvement after potassium supplementation but her magnesium is low and she has a prolonged QTC. No Zofran or Reglan at this time. Magnesium infusion started. Spoke to the hospitalist currently being covered by [facility] the mid-level provider who accepted the patient to a telemetry monitored bed for further evaluation and electrolyte correction. Family members made aware and patient safely admitted at this time. <Carlitos Kingsley MD - Last Filed: 08/06/24 00:49> Medical Records Medical records reviewed: Yes I reviewed the external patient's medical records. <Carlitos Kingsley MD - Last Filed: 08/06/24 00:49> Vital Signs Vital Signs: Vital Signs Temperature 36.5 C 08/05/24 15:40 Pulse Rate 108 H 08/05/24 15:40 Respiratory Rate 16 08/05/24 15:40 Blood Pressure 116/78 08/05/24 15:40 Pulse Oximetry 100 08/05/24 15:40 Temperature 36.5 C 08/05/24 15:40 Pulse Rate 108 H 08/05/24 15:40 Respiratory Rate 16 08/05/24 15:40 Blood Pressure 116/78 08/05/24 15:40 Pulse Oximetry 100 08/05/24 15:40 <Nicole Trinidad APRN - Last Filed: 08/05/24 17:50> Vital Signs Temperature 36.5 C 08/05/24 15:40 Pulse Rate 108 H 08/05/24 15:40 Respiratory Rate 16 08/05/24 15:40 Blood Pressure 116/78 08/05/24 15:40 Pulse Oximetry 100 08/05/24 15:40 Temperature 36.5 C 08/05/24 15:40 Pulse Rate 108 H 08/05/24 15:40 Respiratory Rate 16 08/05/24 15:40 Blood Pressure 116/78 08/05/24 15:40 Pulse Oximetry 100 08/05/24 15:40 <Carlitos Kingsley MD - Last Filed: 08/06/24 00:49> Lab Data Lab results reviewed: Yes I reviewed the patient's lab results. <Carlitos Kingsley MD - Last Filed: 08/06/24 00:49> Result diagrams: 08/05/24 19:14 08/06/24 00:09 <Nicole Trinidad APRN - Last Filed: 08/05/24 17:50> Labs: Lab Results 08/05/24 08/05/24 08/05/24 Range/Units 19:14 21:49 23:25 WBC 7.9 (4.5-10.0) K/mm3 RBC 4.11 L (4.2-5.4) M/mm3 Hgb 12.9 (12.0-15.0) g/dL Hct 37.9 (37.0-47.0) % MCV 92.2 (80-100) fl MCH 31.4 (26-34) pg MCHC 34.0 (32-36) g/dl RDW 18.6 H (11.5-14.5) % Plt Count 125 L (150-375) k/mm3 MPV 10.4 (7.4-10.4) fl Immature Gran % (Auto) 0.3 (0-0.5) % Neut % (Auto) 70.1 (45.5-73.1) % Lymph % (Auto) 21.4 (18.3-44.2) % [place] % (Auto) 8.0 (2.6-8.5) % Eos % (Auto) 0.1 (0-4.4) % Baso % (Auto) 0.1 L (0.2-1.2) % Lymph # (Auto) 1.68 (0.9-3.2) K/mm3 [place] # (Auto) 0.6 (0.1-0.6) K/mm3 Eos # (Auto) 0.0 (0-0.3) K/mm3 Baso # (Auto) 0.0 (0.0-0.1) K/mm3 Abs Immat Gran (auto) 0.02 (0.00-0.031) K/mm3 Absolute Neuts (auto) 5.5 (1.3-6.7) K/mm3 Absolute Nucleated RBC 0.000 (0.0-0.012) K/mm3 Nucleated RBC % 0.0 (0.0-0.2) % % Immature Plt Fraction 2.9 (0.9-11.2) % PT 13.9 (11.1-14.7) Seconds INR 1.0 APTT 30.2 (22.3-36.8) Seconds Sodium 137 (137-145) mmol/L Potassium 2.8 L* (3.4-5.0) mmol/L Chloride 101 (98-107) mmol/L Carbon Dioxide 25 (22-30) mmol/L Anion Gap 11 (4-12) mmol/L BUN 21 H (7-17) mg/dL Creatinine 0.94 (0.7-1.0) mg/dL Estim Creat Clear Calc Not Reportable Estimated GFR 59 (59 - ) Glucose 146 H (65-110) mg/dL Calcium 8.4 (8.4-10.2) mg/dL Magnesium 1.4 L (1.6-2.3) mg/dL Total Bilirubin 1.5 H (0.2-1.3) mg/dL AST 21 (14-36) U/L ALT 15 (6-35) U/L Alkaline Phosphatase 102 (38-126) U/L Total Creatine Kinase 23 L (30-135) U/L Troponin I 0.030 (0.000-0.034) ng/mL Total Protein 6.0 L (6.3-8.2) g/dL Albumin 2.8 L (3.5-5.1) g/dL TSH 3.070 (0.465-4.680) uIU/mL Urine Color Dark yellow (Yellow) Urine Appearance Clear (Clear) Urine pH 6.0 (5.0-9.0) Ur Specific [place] 1.022 (1.001-1.035) Urine Protein 1+ H (Negative) mg/dL Urine Glucose (UA) Negative (Negative) mg/dL Urine Ketones 1+ H (Negative) mg/dL Ur Blood (Man) Negative (Negative) Urine Nitrate Negative (Negative) Urine Bilirubin 2+ H (Negative) Urine Urobilinogen 1.0 (<2.0) mg/dL Add Ur Microanalysis Reviewed Leukocyte Esterase Rfl Trace H (Negative) BENJAM[place]N/UL Urine RBC 0-2 (0-2) /hpf Urine WBC 0-5 (0-3) /hpf Ur Squamous Epith Cells None seen (Few) /hpf Urine Bacteria None seen /hpf Urine Casts 11-20 Hyaline Casts Present (None) /lpf Influenza A (RT-PCR) Negative (Negative) Influenza B (RT-PCR) Negative (Negative) RSV (RT-PCR) Negative (Negative) SARS-CoV-2 RNA (RT-PCR) Negative (Negative) 08/05/24 08/06/24 Range/Units 23:35 00:09 WBC (4.5-10.0) K/mm3 RBC (4.2-5.4) M/mm3 Hgb (12.0-15.0) g/dL Hct (37.0-47.0) % MCV (80-100) fl MCH (26-34) pg MCHC (32-36) g/dl RDW (11.5-14.5) % Plt Count (150-375) k/mm3 MPV (7.4-10.4) fl Immature Gran % (Auto) (0-0.5) % Neut % (Auto) (45.5-73.1) % Lymph % (Auto) (18.3-44.2) % [place] % (Auto) (2.6-8.5) % Eos % (Auto) (0-4.4) % Baso % (Auto) (0.2-1.2) % Lymph # (Auto) (0.9-3.2) K/mm3 [place] # (Auto) (0.1-0.6) K/mm3 Eos # (Auto) (0-0.3) K/mm3 Baso # (Auto) (0.0-0.1) K/mm3 Abs Immat Gran (auto) (0.00-0.031) K/mm3 Absolute Neuts (auto) (1.3-6.7) K/mm3 Absolute Nucleated RBC (0.0-0.012) K/mm3 Nucleated RBC % (0.0-0.2) % % Immature Plt Fraction (0.9-11.2) % PT (11.1-14.7) Seconds INR APTT (22.3-36.8) Seconds Sodium 135 L (137-145) mmol/L Potassium 3.3 L (3.4-5.0) mmol/L Chloride 104 (98-107) mmol/L Carbon Dioxide 24 (22-30) mmol/L Anion Gap 7 (4-12) mmol/L BUN 20 H (7-17) mg/dL Creatinine 0.71 (0.7-1.0) mg/dL Estim Creat Clear Calc Not Reportable Estimated GFR > 60 (59 - ) Glucose 85 (65-110) mg/dL Calcium 7.7 L (8.4-10.2) mg/dL Magnesium (1.6-2.3) mg/dL Total Bilirubin (0.2-1.3) mg/dL AST (14-36) U/L ALT (6-35) U/L Alkaline Phosphatase (38-126) U/L Total Creatine Kinase (30-135) U/L Troponin I 0.033 (0.000-0.034) ng/mL Total Protein (6.3-8.2) g/dL Albumin (3.5-5.1) g/dL TSH (0.465-4.680) uIU/mL Urine Color (Yellow) Urine Appearance (Clear) Urine pH (5.0-9.0) Ur Specific [place] (1.001-1.035) Urine Protein (Negative) mg/dL Urine Glucose (UA) (Negative) mg/dL Urine Ketones (Negative) mg/dL Ur Blood (Man) (Negative) Urine Nitrate (Negative) Urine Bilirubin (Negative) Urine Urobilinogen (<2.0) mg/dL Add Ur Microanalysis Leukocyte Esterase Rfl (Negative) BENJAM[place]N/UL Urine RBC (0-2) /hpf Urine WBC (0-3) /hpf Ur Squamous Epith Cells (Few) /hpf Urine Bacteria /hpf Urine Casts Hyaline Casts (None) /lpf Influenza A (RT-PCR) (Negative) Influenza B (RT-PCR) (Negative) RSV (RT-PCR) (Negative) SARS-CoV-2 RNA (RT-PCR) (Negative) <Nicole Trinidad, DOG [employer]EDIENCE INSTRUCTOR - Last Filed: 08/05/24 17:50> Lab Results 04/30/25 04/30/25 04/30/25 Range/Units 19:14 21:49 23:25 WBC 7.9 (4.5-10.0) K/mm3 RBC 4.11 L (4.2-5.4) M/mm3 Hgb 12.9 (12.0-15.0) g/dL Hct 37.9 (37.0-47.0) % MCV 92.2 (80-100) fl MCH 31.4 (26-34) pg MCHC 34.0 (32-36) g/dl RDW 18.6 H (11.5-14.5) % Plt Count 125 L (150-375) k/mm3 MPV 10.4 (7.4-10.4) fl Immature Gran % (Auto) 0.3 (0-0.5) % Neut % (Auto) 70.1 (45.5-73.1) % Lymph % (Auto) 21.4 (18.3-44.2) % [place] % (Auto) 8.0 (2.6-8.5) % Eos % (Auto) 0.1 (0-4.4) % Baso % (Auto) 0.1 L (0.2-1.2) % Lymph # (Auto) 1.68 (0.9-3.2) K/mm3 [place] # (Auto) 0.6 (0.1-0.6) K/mm3 Eos # (Auto) 0.0 (0-0.3) K/mm3 Baso # (Auto) 0.0 (0.0-0.1) K/mm3 Abs Immat Gran (auto) 0.02 (0.00-0.031) K/mm3 Absolute Neuts (auto) 5.5 (1.3-6.7) K/mm3 Absolute Nucleated RBC 0.000 (0.0-0.012) K/mm3 Nucleated RBC % 0.0 (0.0-0.2) % % Immature Plt Fraction 2.9 (0.9-11.2) % PT 13.9 (11.1-14.7) Seconds INR 1.0 APTT 30.2 (22.3-36.8) Seconds Sodium 137 (137-145) mmol/L Potassium 2.8 L* (3.4-5.0) mmol/L Chloride 101 (98-107) mmol/L Carbon Dioxide 25 (22-30) mmol/L Anion Gap 11 (4-12) mmol/L BUN 21 H (7-17) mg/dL Creatinine 0.94 (0.7-1.0) mg/dL Estim Creat Clear Calc Not Reportable Estimated GFR 59 (59 - ) Glucose 146 H (65-110) mg/dL Calcium 8.4 (8.4-10.2) mg/dL Magnesium 1.4 L (1.6-2.3) mg/dL Total Bilirubin 1.5 H (0.2-1.3) mg/dL AST 21 (14-36) U/L ALT 15 (6-35) U/L Alkaline Phosphatase 102 (38-126) U/L Total Creatine Kinase 23 L (30-135) U/L Troponin I 0.030 (0.000-0.034) ng/mL Total Protein 6.0 L (6.3-8.2) g/dL Albumin 2.8 L (3.5-5.1) g/dL TSH 3.070 (0.465-4.680) uIU/mL Urine Color Dark yellow (Yellow) Urine Appearance Clear (Clear) Urine pH 6.0 (5.0-9.0) Ur Specific [place] 1.022 (1.001-1.035) Urine Protein 1+ H (Negative) mg/dL Urine Glucose (UA) Negative (Negative) mg/dL Urine Ketones 1+ H (Negative) mg/dL Ur Blood (Man) Negative (Negative) Urine Nitrate Negative (Negative) Urine Bilirubin 2+ H (Negative) Urine Urobilinogen 1.0 (<2.0) mg/dL Add Ur Microanalysis Reviewed Leukocyte Esterase Rfl Trace H (Negative) BENJAMÍN/UL Urine RBC 0-2 (0-2) /hpf Urine WBC 0-5 (0-3) /hpf Ur Squamous Epith Cells None seen (Few) /hpf Urine Bacteria None seen /hpf Urine Casts 11-20 Hyaline Casts Present (None) /lpf Influenza A (RT-PCR) Negative (Negative) Influenza B (RT-PCR) Negative (Negative) RSV (RT-PCR) Negative (Negative) SARS-CoV-2 RNA (RT-PCR) Negative (Negative) 08/05/24 08/06/24 Range/Units 23:35 00:09 WBC (4.5-10.0) K/mm3 RBC (4.2-5.4) M/mm3 Hgb (12.0-15.0) g/dL Hct (37.0-47.0) % MCV (80-100) fl MCH (26-34) pg MCHC (32-36) g/dl RDW (11.5-14.5) % Plt Count (150-375) k/mm3 MPV (7.4-10.4) fl Immature Gran % (Auto) (0-0.5) % Neut % (Auto) (45.5-73.1) % Lymph % (Auto) (18.3-44.2) % [place] % (Auto) (2.6-8.5) % Eos % (Auto) (0-4.4) % Baso % (Auto) (0.2-1.2) % Lymph # (Auto) (0.9-3.2) K/mm3 [place] # (Auto) (0.1-0.6) K/mm3 Eos # (Auto) (0-0.3) K/mm3 Baso # (Auto) (0.0-0.1) K/mm3 Abs Immat Gran (auto) (0.00-0.031) K/mm3 Absolute Neuts (auto) (1.3-6.7) K/mm3 Absolute Nucleated RBC (0.0-0.012) K/mm3 Nucleated RBC % (0.0-0.2) % % Immature Plt Fraction (0.9-11.2) % PT (11.1-14.7) Seconds INR APTT (22.3-36.8) Seconds Sodium 135 L (137-145) mmol/L Potassium 3.3 L (3.4-5.0) mmol/L Chloride 104 (98-107) mmol/L Carbon Dioxide 24 (22-30) mmol/L Anion Gap 7 (4-12) mmol/L BUN 20 H (7-17) mg/dL Creatinine 0.71 (0.7-1.0) mg/dL Estim Creat Clear Calc Not Reportable Estimated GFR > 60 (59 - ) Glucose 85 (65-110) mg/dL Calcium 7.7 L (8.4-10.2) mg/dL Magnesium (1.6-2.3) mg/dL Total Bilirubin (0.2-1.3) mg/dL AST (14-36) U/L ALT (6-35) U/L Alkaline Phosphatase (38-126) U/L Total Creatine Kinase (30-135) U/L Troponin I 0.033 (0.000-0.034) ng/mL Total Protein (6.3-8.2) g/dL Albumin (3.5-5.1) g/dL TSH (0.465-4.680) uIU/mL Urine Color (Yellow) Urine Appearance (Clear) Urine pH (5.0-9.0) Ur Specific [place] (1.001-1.035) Urine Protein (Negative) mg/dL Urine Glucose (UA) (Negative) mg/dL Urine Ketones (Negative) mg/dL Ur Blood (Man) (Negative) Urine Nitrate (Negative) Urine Bilirubin (Negative) Urine Urobilinogen (<2.0) mg/dL Add Ur Microanalysis Leukocyte Esterase Rfl (Negative) BENJAMÍN/UL Urine RBC (0-2) /hpf Urine WBC (0-3) /hpf Ur Squamous Epith Cells (Few) /hpf Urine Bacteria /hpf Urine Casts Hyaline Casts (None) /lpf Influenza A (RT-PCR) (Negative) Influenza B (RT-PCR) (Negative) RSV (RT-PCR) (Negative) SARS-CoV-2 RNA (RT-PCR) (Negative) <Carlitos Kingsley MD - Last Filed: 08/06/24 00:49> Imaging Data Attestation: I personally reviewed and interpreted this imaging study as follows: <Carlitos Kingsley MD - Last Filed: 08/06/24 00:49> My impression: Impressions Chest X-Ray 08/05/24 18:29 IMPRESSION: No acute cardiopulmonary pathology. Head CT 08/05/24 19:42 Impression: Encephalomalacia and gliosis with hyper attenuating foci identified centrally within the gliosis cavity. Short-term follow-up is recommended (repeat study in 2 hours) if the patient is clinically able, and if clinical suspicion persists to exclude acute/subacute hemorrhage. Opacification of the left sphenoid sinus. These findings and recommendations were discussed with Dr. Kingsley at 7:30 PM on 08/05/2024. Head CT 08/05/24 21:41 IMPRESSION: No significant change from previous examination. Encephalomalacia in the right temporal occipital area is noted with hyperdense areas most likely calcifications in the cortex Follow-up advised. Jacinta in the ER was notified with the result of the patient at 9:55 PM on August 05, 2024.. ADDENDUM: 08/05/24 2920 Please note that cortical laminar necrosis should be considered. <Carlitos Kingsley MD - Last Filed: 08/06/24 00:49> ECG Data EKG #1: Attestation: I personally reviewed and interpreted this ECG as follows: <Carlitos Kingsley MD - Last Filed: 08/06/24 00:49> ECG completion date: 08/05/24 <Carlitos Kingsley MD - Last Filed: 08/06/24 00:49> ECG completion time: 20:15 <Carlitos Kingsley MD - Last Filed: 08/06/24 00:49> Prior ECG tracings: not available for review <Carlitos Kingsley MD - Last Filed: 08/06/24 00:49> Interpretation: Sinus rhythm with right bundle branch block, no ST segment elevations, depressions. QTC 522, QRS 119, OK interval 191. Rate of 97 beats per minute <Carlitos Kingsley MD - Last Filed: 08/06/24 00:49> Critical Care Time Critical Care Time Critical Care Time: Yes <Carlitos Kingsley MD - Last Filed: 08/06/24 00:49> Total Critical Care Time: 45 <Carlitos Kingsley MD - Last Filed: 08/06/24 00:49> Discharge Plan Discharge Clinical Impression: Acute hypokalemia, Generalized weakness, History of stroke, Nauseous, Diarrhea <Nicole Trinidad APRN - Last Filed: 08/05/24 17:50> Patient Disposition: Still a Patient <Nicole Trinidad APRN - Last Filed: 08/05/24 17:50> Condition: Stable <Nicole Trinidad APRN - Last Filed: 08/05/24 17:50> Patient Language: Malay <Nicole Trinidad APRN - Last Filed: 08/05/24 17:50> Prescriptions: No Action diclofenac sodium 75 mg tablet,delayed release (DR/EC) 75 mg PO BID losartan 100 mg tablet 100 mg PO DAILY acetaminophen [Tylenol Arthritis Pain] 650 mg tablet extended release 1,300 mg PO Q8H PRN (Reason: Pain) ergocalciferol (vitamin D2) 1,250 mcg (50,000 unit) capsule 1,250 mcg PO 3XW amlodipine 10 mg tablet 10 mg PO DAILY Qty: 30 5RF ephedrine HCl 25 mg Tablet 25 mg PO DAILY Elderberry 200 mg Capsule 200 mg PO DAILY Adult Multivitamin Gummies 200 mcg Tablet,Chewable 1 tablet PO DAILY tramadol 100 mg Tablet 200 mg PO Q8H PRN (Reason: Pain) cephalexin 500 mg capsule 500 mg PO BID <Nicole Trinidad APRN - Last Filed: 08/05/24 17:50> Follow-up/Referrals: Brody,Coco Beckett [Primary Care Provider] - <Nicole Trinidad APRN - Last Filed: 08/05/24 17:50> Time of Disposition: 00:49 <Nicole Trinidad APRN - Last Filed: 08/05/24 17:50> 00:49 <Carlitos Kingsley MD - Last Filed: 08/06/24 00:49>
[2024-08-05 19:00] VITALS: BP 132/91; PULSE 105; RESP 14; O2SAT 100
--- OUTSIDE RECORDS SUMMARY | 2024-08-05 19:07 | XMS_ITS | Encounter Summary ---
Author Organization [facility] Address [address] [place] [address] Care Team Providers Care Supervisor Sulfuric Acid Plant Name Role Phone Michele Burger MD Primary Care Provider [phone] Encounter Details Date Type Department Care Team (Latest Contact Info) Description 09/06/2006 Outpatient Historical HIS CARD TOBACCO BUYER Jorge A Alba MD [address] [place] [address] Other Chest Pain (Primary Dx) Social History Tobacco Use Types Packs/Day Years Used Date Smoking Tobacco: Never Assessed Comments Unknown Sex and Gender Information Value Date Recorded Sex Assigned at Not on file Legal Sex Female 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 Gender Identity Not on file Sexual Orientation [...] MD URINE ORDERABLES Edited Performing Organization Address City/[facility]/ZIP Co de Phone Number INTERFACE SYSTEM Refer [...] MD HEMATOLOGY ORDERABLES Edited Performing Organization Address City/[facility] de Phone Number INTERFACE SYSTEM Refer to [...] INTERFACE SYSTEM 09/06/2006 5:58 AM CDT Result [facility] Jorge A Alba MD HEMATOLOGY ORDERABLES Edited Performing Organization Address City/[facility] de Phone Number INTERFACE SYSTEM Refer to [...] classifications for lipids are available on the [facility] Intranet at: [email or web address] Select: Lab Policies and Procedures Select: Reference Ranges - Lipids 09/06/2006 5:58 AM CDT Result [facility] Jorge A Alba MD CHEMISTRY ORDERABLES Edited Performing Organization Address [facility] de Phone Number INTERFACE SYSTEM Refer to [...] patients with mechanical heart valves or post [place]. Pediatric (12 years and under): 1.5 - [...] unfractionated heparin 09/06/2006 5:58 AM CDT Result [facility] Jorge A Alba MD HEMATOLOGY ORDERABLES Edited Performing Organization Address City/[facility] de Phone Number INTERFACE SYSTEM Refer to [...] and non- Americans is available on the [facility] Intranet at: [email or web address] Select: Lab Policies and Procedures Select: Reference Ranges - GFR 09/06/2006 5:58 AM CDT Result [facility] Jorge A Alba MD CHEMISTRY ORDERABLES Edited Performing Organization Address [facility] Co de Phone Number INTERFACE SYSTEM Refer to clinic/hospital department documented in this encounter Visit Diagnoses Diagnosis Other chest pain- Primary documented in this encounter Care Teams Supervisor Sulfuric Acid Plant Relationship Specialty Start Date End Date Michele Burger MD PCP - General 10/29/08 documented as of this encounter
--- OUTSIDE RECORDS SUMMARY | 2024-08-05 19:07 | XMS_ITS | Encounter Summary ---
Author Organization [employer] [facility] Address [address] [place] [address] Care Team Providers Care Engine Designer Name Role Phone Michele Burger MD Primary Care Provider Encounter Details Date Type Department Care Team (Late st Contact Info) Description 09/03/2006 Outpatient Historical [facility] [place] 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
--- OUTSIDE RECORDS SUMMARY | 2024-08-05 19:07 | XMS_ITS | Encounter Summary ---
Author Organization [facility] Address [address] [place] [address] Care Team Providers Care Spinner Tender Name Role Phone Michele Burger MD Primary Care Provider [phone] Encounter Details Date Type Department Care Team (Late st Contact Info) Description 09/06/2006 Outpatient Historical [facility] [place] 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
--- OUTSIDE RECORDS SUMMARY | 2024-08-05 19:07 | XMS_ITS | Clinical Summary ---
Author Organization [facility] Address [address] [place] [address] Care Team Providers Care Respiratory Care Instructor Name Role Phone Sophy Skinner MD Unavailable [phone] Richard Salazar MD Unavailable [phone] Veda TREJO MD, Carlos M. Unavailable Tyshawn Chino MD Unavailable [phone] Veena Cloud MD Unavailable [phone] John Mares MD Unavailable Vero Lao MD Unavailable [phone] Sophy Skinner MD Primary Care Provider Allergies Active Allergy Reactions Criticality Noted Date Comments Glavbob-Vec-Whc Reductase Inhibitors Muscle pain Medium 10/29/2008 Sulfa [...] about the UA today and notified nurse assistant produce manager Johnny who has called and updated daughter. Patient notified as well that a new UA will be done. Precordial pain 01/07/2024 Assessment & Plan (02/24/2024 9:57 PM FELT MACHINE MECHANIC): Patient started on tramadol 4 times a [...] 01/07/2024 Assessment & Plan (02/24/2024 9:58 PM FELT MACHINE MECHANIC): Patient to continue physical and occupational therapy [...] 12/02/2023 Assessment & Plan (02/24/2024 10:00 PM FELT MACHINE MECHANIC): S/p CABG with infection of sternal wound [...] 10/28/2023 Assessment & Plan (02/24/2024 9:57 PM FELT MACHINE MECHANIC): Patient to continue Eliquis and aspirin and [...] drink = 0.6 oz pur e alcohol) [facility] Utilities Answer Date Recorded In the past 12 months has [employer], gas, oil, or water [employer] threatened to shut off services in your [...] often do you attend chur ch or latter-day services? Never 12/04/2023 Do you belong to any clubs o r organizations such as gnosticist groups, unions, fraternal or athletic groups, or [...] Recorded Patient Health Questionnaire-2 Score 3 12/02/2023 [facility] - Occupational Stress Questionnaire Answer Date Recorded [...] any time in the past 12 m [facility], were you homeless or living in a halfway (including now)? No 12/04/2023 Personal Safety Answer Date Recorded Have you ever been in or are you currently in a harmful physical or emotional relationship or is someone making you feel afraid or unsafe? Denies 04/19/2024 Comments No Sex and Gender Information Value Date Recorded Sex Assigned at Not on file Legal Sex Female 11:27 PM FELT MACHINE MECHANIC Gender Identity Not on file Sexual Orientation Not on file Obstetrics History Last Filed Vital Signs Vital Sign Reading Time Taken Comments Blood Pressure 175/96 04/20/2024 2:30 AM FELT MACHINE MECHANIC Pulse 89 04/20/2024 2:30 AM FELT MACHINE MECHANIC Temperature 36.7 C (98 F) 04/19/2024 6:45 PM FELT MACHINE MECHANIC Respiratory Rate 18 04/20/2024 2:30 AM FELT MACHINE MECHANIC Oxygen Saturation 99% 04/20/2024 2:30 AM FELT MACHINE MECHANIC Inhaled Oxygen Concentration - - Weight 86.2 kg (190 lb) 04/19/2024 6:25 PM FELT MACHINE MECHANIC Height 162.6 cm (5' 4 ) 04/19/2024 6:25 PM FELT MACHINE MECHANIC Body Mass Index 32.61 04/19/2024 6:25 PM FELT MACHINE MECHANIC Plan of Treatment Health Maintenance Due Date [...] Completed 11/03/2023 Medical Devices Implanted Type Area Assorter Laundry Device Identifier Shelf Expiration Date Model / Serial / Lot [employer] Plate Bone Low Profile 6 Hole H Shape Sternum Ti 115.102.06 - [id number] Implanted:Qty: 1 on 10/22/2023 by Vero Lao MD at [facility] Plate N/A: Sternum [employer] 115.102. 06 / / [employer] Plate Bone Low Profile 4 Hole Box Sternum Ti 115.103.04 - [id number] Implanted:Qty: 1 on 10/22/2023 by Vero Lao MD at [facility] Plate N/A: Sternum [employer] 115.103. 04 / / [employer] Plate Bone Low Profile 6 Hole O Concave Sternum Ti 115.604.06 - [id number] Implanted:Qty: 1 on 10/22/2023 by Vero Lao MD at [facility] Plate N/A: Sternum [employer] 115.604. 06 / / [employer] Inspiris Resilia Aortic Valve 21mm [id number] - [id number] - [id number] Implanted:Qty: 1 on 10/21/2023 by Vero Lao MD at [facility] Prosthetic Valve N/A: Aortic Valve [employer] 09/16/2026 [id number] / [id number] / Description:Non-clinical kris ting has demonstrated that this device is MR Conditional. A patient with this valve can be scanned safely, immediately after placement of this implant under the following conditions: - Static magnetic field of 3 amanda or less. - Spatial gradient field of less than 3000 gauss/cm. - Maximum MR system-reported htiou-wadi-trcvrcdh specific absorption rate (NOEMI) of 2.0 W/kg for 15 minutes of continuous scanning per sequence in the normal operating mode. [employer] Screw Bone Slf Drl Full Thread Locking 3.5x14mm Ti 100.035.14 - [id number] Implanted:Qty: 6 on 10/22/2023 by Vero Lao MD at [facility] Screw N/A: Sternum [employer] 100.035. 14 / / [employer] Screw Bone Slf Drl Full Thread Locking 3.5x16mm Ti 100.035.16 - [id number] Implanted:Qty: 10 on 10/22/2023 by Vero Lao MD at [facility] Screw N/A: Sternum [employer] 100.035. 16 / / [employer] Patch Straight Collagen Coated Double Velour Tapered Hemashield 2.5x7.5cm Knitted Polyester [id number] - [id number] - [id number] Implanted:Qty: 1 on 10/21/2023 by Vero Lao MD at [facility] N/A: Heart [employer] 02/05/2027 [id number] / [id number] / Procedures Procedure Name Priority Date/Time Associated Diagnosis Comments COLONOSCOPY 11/14/2023 1:40 PM CDT HEPATITIS PANEL, ACUTE Routine 11/03/2023 6:43 AM CDT from Last 3 Months or Most Recently Relevant to Health Maintenance Results * Colonoscopy (11/14/2023 1:40 PM CDT) Anatomical Region Laterality Modality Other Narrative Procedure Note Clif Hernandez MD - 11/14/2023 1:40 PM CDT [facility] End[facility] Patient Name: Yumiko Mendez Procedure Date: 11/14/2023 1:40 PM Date of : 1955 Admit Type: Inpatient Age: 67 Gender: Female Note Status: Finalized Attending MD: Clif Hernandez M.D. Procedure Date: 11/14/2023 Procedure: Colonoscopy Indications: Hematochezia Providers: Clif Hernandez M.D., MAGALIE Mercer (Anesthesia Staff), Selena Karimi, RN, Yvon Garber, Solid Propellant Processor Referring MD: Kev Bennett M.D. Medicines: Monitored [...] by the physician, the nurse and the psychotherapist counselor in the procedure room. Mental Status Examination: [...] to checkhealing. Procedure Code(s): --- Professional --- 73103, 52, Colonoscopy, flexible; with biopsy,single or multiple Diagnosis Code(s): --- Professional --- K63.3, Ulcer of intestine K92.1, Melena (includes Hematochezia) CPT copyright 2020 [employer]. All rights reserved. The codes documented in this report are preliminary and upon intake coordinator reviewmay be revised to meet current compliance [...] on 19. Hep C Ab Nonreactive Nonreactive [facility] Comment: Interpretive Data Nonreactive: Antibodies to HCV [...] last revised on 2019. HepBsAg Nonreactive Nonreactive [facility] Blood 11/03/2023 6:43 AM CDT 11/03/2023 7:02 AM CDT Veena Cloud MD LAB MICROBIOLOGY - GENERAL ORDERABLES Final Result [facility] [address] [facility] Department [place] [address] from Last 3 Months or Most Recently Relevant to Health Maintenance Insurance [facility] ADVANTAGE [facility] Address: [address] [address] [place] [address] [facility] Address: [address] [address] [place] [address] [facility] Address: [address] [address] [place] [address] [facility] Address: [address] [address] [place] [address] [facility] Address: [address] [address] [place] [address] [facility] H[facility]/PPO Address: [address] [address] [place] [address] Advance Directives For more information, please contact: [phone] Documents on File Type Date Recorded Patient Fusion Analyst Expl anation ADVANCE DIRECTIVE 12/06/2023 6:40 PM [employer] ADVANCE DIRECTIVE 11/25/2023 [employer] Advance Directives and Living Will 11/22/2023 4:52 PM Candida Mendez Power of Toy Stuffer 11/22/2023 2:03 PM * Full Code (Latest [...] First Alternate Health Care Agent Care Teams Respiratory Care Instructor Relationship Specialty [place] [address] [place] [address] PCP - General Internal Medicine 12/20/23 [place] [address] [place] [address] Internal Medicine 12/18/23 [place] [address] [place] [address] Consulting Physician Internal Medicine 12/12/23 [place] [address] [facility] [address] [place] [address] Consulting Physician Neurology 12/12/23 [place] [address] [address] [facility] [address] [place] [address] Consulting Physician Nephrology 12/12/23 [place] [address] [address] [facility] [address] [place] [address] Gastroenterology 12/12/23 [place] [address] [address] Consulting Physician Cardiology 12/12/23 Vero Lao MD [address] [facility] [id number] [place] [address] Surgeon Cardiothoracic Surgery 12/12/23
--- OUTSIDE RECORDS SUMMARY | 2024-08-05 19:07 | XMS_ITS | Continuity of Care Document ---
Author Organization [facility] Address [address] [place] [address] Phone Care Team Providers Care Plant Operations Vice President Name Role Phone Ady Brothers Unavailable Unavailable Procedures Procedure Date Office/outpatient Visit, Est Eye Exam & Treatment Eye Exam & Treatment Refraction Advance Directives Directive Yes / No Effective Date File Name No Information Encounters Encounter Description Practice Location Reason(s) For Visit Diagnoses Date Provider Providers Copied on Encounter Office/outpat ient Visit, Est [facility], [address] [place] [address] [address], [place], [place], [id number], [place] tel:[phone] [facility] No Information 2-201 0 Krishnasamy Ady. [address] [facility] [address], [place], [place], [facility], [place]. tel:[phone] [facility], [address] [place] [address] [address], [place], [place], [id number], [place] tel:[phone] [facility] No Information 8200 9 Krishnasamy Ady. [address] [facility] [address], [place], [address], [place]. tel:[phone] [facility], [address] [place] [address] [address], [place], [place], [id number], [place] tel:[phone] [facility] No Information [address] Umesh Willis. [address] [facility], [address], [place], [place], [id number], [place]. tel:[phone] Family History Family Member Type Diagnosis Age At Onset No Information Payers Payer name Insurance type Covered democrat ID Katerine owens(s) [facility] [id number] Social History Type Description Quantity Date Captured [...]
--- OUTSIDE RECORDS SUMMARY | 2024-08-05 19:08 | XMS_ITS | Encounter Summary ---
Author Organization [facility] Address [address] [place] [address] Care Team Providers Care Guest Specialist Name Role Phone Michele Burger MD Primary Care Provider [phone] Encounter Details Date Type Department Care Team (Late st Contact Info) Description 11/08/2006 Outpatient Historical [facility] [place] 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
--- OUTSIDE RECORDS SUMMARY | 2024-08-05 19:08 | XMS_ITS | Referral Summary ---
Author Organization [facility] Address [address] [place] [address] Care Team Providers Care Sleeping Car Conductor Name Role Phone Sophy Skinner MD Unavailable [phone] Richard Salazar MD Unavailable [phone] Veda TREJO MD, Carlos M. Unavailable [phone] Tyshawn Chino MD Unavailable [phone] Veena Cloud MD Unavailable John Mares MD Unavailable Vero Lao MD Unavailable [phone] Sophy Skinner MD Primary Care Provider Allergies Active Allergy Reactions Criticality Noted Date Comments Nntguha-Ouv-Pur Reductase Inhibitors Muscle pain Medium 10/29/2008 Sulfa [...] about the UA today and notified nurse manager civil Johnny who has called and updated daughter. Patient notified as well that a new UA will be done. Precordial pain 01/07/2024 Assessment & Plan (02/24/2024 9:57 PM REFRIGERATION SPECIALIST): Patient started on tramadol 4 times a [...] 01/07/2024 Assessment & Plan (02/24/2024 9:58 PM REFRIGERATION SPECIALIST): Patient to continue physical and occupational therapy [...] 12/02/2023 Assessment & Plan (02/24/2024 10:00 PM REFRIGERATION SPECIALIST): S/p CABG with infection of sternal wound [...] 10/28/2023 Assessment & Plan (02/24/2024 9:57 PM REFRIGERATION SPECIALIST): Patient to continue Eliquis and aspirin and [...] drink = 0.6 oz pur e alcohol) [facility] Utilities Answer Date Recorded In the past 12 months has [employer], gas, oil, or water [employer] threatened to shut off services in your [...] often do you attend chur ch or amish services? Never 12/04/2023 Do you belong to any clubs o r organizations such as sikhism groups, unions, fraternal or athletic groups, or [...] Recorded Patient Health Questionnaire-2 Score 3 12/02/2023 [facility] - Occupational Stress Questionnaire Answer Date [...] any time in the past 12 m [facility], were you homeless or living in a intermediate (including now)? No 12/04/2023 Personal Safety Answer Date Recorded Have you ever been in or are you currently in a harmful physical or emotional relationship or is someone making you feel afraid or unsafe? Denies 04/19/2024 Comments No Sex and Gender Information Value Date Recorded Sex Assigned at Not on file Legal Sex Female 11:27 PM REFRIGERATION SPECIALIST Gender Identity Not on file Sexual Orientation Not on file Last Filed Vital Signs Vital Sign Reading Time Taken Comments Blood Pressure 175/96 04/20/2024 2:30 AM REFRIGERATION SPECIALIST Pulse 89 04/20/2024 2:30 AM REFRIGERATION SPECIALIST Temperature 36.7 C (98 F) 04/19/2024 6:45 PM REFRIGERATION SPECIALIST Respiratory Rate 18 04/20/2024 2:30 AM REFRIGERATION SPECIALIST Oxygen Saturation 99% 04/20/2024 2:30 AM REFRIGERATION SPECIALIST Inhaled Oxygen Concentration - - Weight 86.2 kg (190 lb) 04/19/2024 6:25 PM REFRIGERATION SPECIALIST Height 162.6 cm (5' 4 ) 04/19/2024 6:25 PM REFRIGERATION SPECIALIST Body Mass Index 32.61 04/19/2024 6:25 PM REFRIGERATION SPECIALIST Plan of Treatment Not on file Medical Devices Implanted Type Area Rn Provider Relations Device Identifier Shelf Expiration Date Model / Serial / Lot [employer] Plate Bone Low Profile 6 Hole H Shape Sternum Ti 115.102.06 - [id number] Implanted:Qty: 1 on 10/22/2023 by Vero Lao MD at [facility] Plate N/A: Sternum [employer] 115.102. 06 / / [employer] Plate Bone Low Profile 4 Hole Box Sternum Ti 115.103.04 - [id number] Implanted:Qty: 1 on 10/22/2023 by Vero Lao MD at [facility] Plate N/A: Sternum [employer] 115.103. 04 / / [employer] Plate Bone Low Profile 6 Hole O Concave Sternum Ti 115.604.06 - [id number] Implanted:Qty: 1 on 10/22/2023 by Vero Lao MD at [facility] Plate N/A: Sternum [employer] 115.604. 06 / / [employer] Inspiris Resilia Aortic Valve 21mm [id number] - [id number] - [id number] Implanted:Qty: 1 on 10/21/2023 by Vero Lao MD at [facility] Prosthetic Valve N/A: Aortic Valve [employer] 09/16/2026 [id number] / [id number] / Description:Non-clinical kris ting has demonstrated that this device is MR Conditional. A patient with this valve can be scanned safely, immediately after placement of this implant under the following conditions: - Static magnetic field of 3 amanda or less. - Spatial gradient field of less than 3000 gauss/cm. - Maximum MR system-reported hzrln-ejxa-gipwlynj specific absorption rate (NOEMI) of 2.0 W/kg for 15 minutes of continuous scanning per sequence in the normal operating mode. [employer] Screw Bone Slf Drl Full Thread Locking 3.5x14mm Ti 100.035.14 - [id number] Implanted:Qty: 6 on 10/22/2023 by Vero Lao MD at [facility] Screw N/A: Sternum [employer] 100.035. 14 / / [employer] Screw Bone Slf Drl Full Thread Locking 3.5x16mm Ti 100.035.16 - [id number] Implanted:Qty: 10 on 10/22/2023 by Vero Lao MD at [facility] Screw N/A: Sternum [employer] 100.035. 16 / / [employer] Patch Straight Collagen Coated Double Velour Tapered Hemashield 2.5x7.5cm Knitted Polyester [id number] - [id number] - [id number] Implanted:Qty: 1 on 10/21/2023 by Vero Lao MD at [facility] N/A: Heart [employer] 02/05/2027 [id number] / [id number] / Procedures Procedure Name Priority Date/Time Associated Diagnosis Comments COLONOSCOPY 11/14/2023 1:40 PM CDT HEPATITIS PANEL, ACUTE Routine 11/03/2023 6:43 AM CDT from Last 3 Months or Most Recently Relevant to Health Maintenance Results * Colonoscopy (11/14/2023 1:40 PM CDT) Anatomical Region Laterality Modality Other Narrative Procedure Note Olagbegi, Olayiwola C., MD - 11/14/2023 1:40 PM CDT [facility] Endoscopy Lab Patient Name: Yumiko Mendez Procedure Date: 11/14/2023 1:40 PM Date of : 1955 Admit Type: Inpatient Age: 67 Gender: Female Note Status: Finalized Attending MD: Clif Hernandez M.D. Procedure Date: 11/14/2023 Procedure: Colonoscopy Indications: Hematochezia Providers: Clif Hernandez M.D., MAGALIE Mercer (Anesthesia Staff), Selena Karimi RN, Yvon Garber, Podiatric Aide Referring MD: Kev Bennett M.D. Medicines: Monitored [...] by the physician, the nurse and the golf club head former in the procedure room. Mental Status Examination: [...] to checkhealing. Procedure Code(s): --- Professional --- 32332, 52, Colonoscopy, flexible; with biopsy,single or multiple Diagnosis Code(s): --- Professional --- K63.3, Ulcer of intestine K92.1, Melena (includes Hematochezia) CPT copyright 2020 [employer]. All rights reserved. The codes documented in this report are preliminary and upon inspector handbag frames reviewmay be revised to meet current compliance [...] 19. Hep B core IgM Nonreactive Nonreactive [facility] Comment: Interpretive Data If HepB Core IgM Ab is reported as Equivocal, a new sample should be drawn in two weeks for testing. Current interpretive data was last revised on 19. Hep C Ab Nonreactive Nonreactive [facility] Comment: Interpretive Data Nonreactive: Antibodies to HCV [...] last revised on 2019. HepBsAg Nonreactive Nonreactive [facility] Blood 11/03/2023 6:43 AM CDT 11/03/2023 7:02 AM CDT Veena Cloud MD LAB MICROBIOLOGY - GENERAL ORDERABLES Final Result [facility] [address] [facility] Department [place] [address] from Last 3 Months or Most Recently Relevant to Health Maintenance Insurance [facility] MEDICARE ADVANTAGE [facility] MEDICARE ADVANTAGE [place] [address] [place] [address] Advance Directives For more information, please contact: [phone] Documents on File Type Date Recorded Patient Button Riveter Expl anation ADVANCE DIRECTIVE 12/06/2023 6:40 PM POWER OF LEAD NETWORK ENGINEER-MEDICAL ADVANCE DIRECTIVE 11/25/2023 POWER OF LEAD NETWORK ENGINEER-MEDICAL Advance Directives and Living Will 11/22/2023 4:52 PM Candida Mendez Power of Coremaker Bench 11/22/2023 2:03 PM * Full Code (Latest [...] First Alternate Health Care Agent Care Teams Sleeping Car Conductor Relationship Specialty Start Date End Date Sophy Skinner MD [address] [address] PCP - General Internal Medicine 12/20/23 Sophy Skinner MD [address] [address] Internal Medicine 12/18/23 [place] [address] [place] [address] Consulting Physician Internal Medicine 12/12/23 [place] [address] [facility] [address] [place] [address] Consulting Physician Neurology 12/12/23 [place] [address] [facility] [address] [place] [address] Consulting Physician Nephrology 12/12/23 [place] [address] [facility] [address] [place] [address] Gastroenterology 12/12/23 [place] [address] [facility] [address] [place] [address] Consulting Physician Cardiology 12/12/23 Vero Lao MD [id number] [place] [address] Surgeon Cardiothoracic Surgery 12/12/23
--- OUTSIDE RECORDS SUMMARY | 2024-08-05 19:08 | XMS_ITS | Clinical Summary ---
Author Organization [facility] Address [address] [place] [address] Care Team Providers Care Quality Assurance Tester Name Role Phone Michele Burger MD Primary Care Provider [phone] Source Comments [facility],non-owned Affiliates and Associated Physician Practices is amultiple site organization consisting of ambulatory clinics and hospital sitesin [place], [place], [place] and [place]. This disclosure is being madepursuant to the Care Everywhere program and may not contain all information available regarding this patient. Last updated 17.[facility] Allergies Active Allergy Reactions Criticality Noted Date [...] on file Legal Sex Female 7:44 PM CURRICULUM COUNSELOR Gender Identity Not on file Sexual Orientation Not on file Last Filed Vital Signs Vital Sign Reading Time Taken Comments Blood Pressure 131/73 05/04/2024 11:34 AM CURRICULUM COUNSELOR Pulse 78 05/04/2024 11:34 AM CURRICULUM COUNSELOR Temperature 37.2 C (98.9 F) 05/14/2020 8:59 PM CURRICULUM COUNSELOR Respiratory Rate 20 05/14/2020 8:59 PM CURRICULUM COUNSELOR Oxygen Saturation 98% 05/14/2020 8:59 PM CURRICULUM COUNSELOR Inhaled Oxygen Concentration - - Weight 111.1 kg (245 lb) 05/14/2020 2:21 PM CURRICULUM COUNSELOR Height 165.1 cm (5' 5 ) 05/04/2024 11:34 AM CURRICULUM COUNSELOR Body Mass Index 40.77 05/14/2020 2:21 PM CURRICULUM COUNSELOR Plan of Treatment Upcoming Encounters Date Type Department Care Team (Late st Contact Info) Description 08/10/2024 11:00 AM CDT Office Visit [facility] - Neurology [address] [place] [address] Shira Barnes PA-C [facility] [facility] [address] [place] [address] Health Maintenance Due Date Last [...] patient's age to complete this topic Insurance [facility] UHC MANAGED MEDICARE ADV Care Teams Quality Assurance Tester Relationship Specialty Start Date End Date Michele Burger MD [address] [facility] [address] [place] [address] PCP - General 01/28/08
--- OUTSIDE RECORDS SUMMARY | 2024-08-05 19:08 | XMS_ITS | Clinical Summary ---
Author Organization [facility] Address [address] [place] [address] Phone Care Team Providers Care Vacuum Cleaner Operator Name Role Phone Michele Burger MD Primary Care Provider [phone] Allergies Active Allergy Reactions Criticality Noted Date Comments Dhqbgpv-Bpo-Tcj Reductase Inhibitors Muscle Pain Low 10/29/2008 Sulfa [...] on file Legal Sex Female 3:54 AM REMEDIATION PROJECT ENGINEER Gender Identity Not on file Sexual Orientation [...] 1-dose 75+ series) 12/23/2030 Insurance Care Teams Vacuum Cleaner Operator Relationship Specialty Start Date End Date Michele Burger MD PCP - General 10/29/08
--- OUTSIDE RECORDS SUMMARY | 2024-08-05 19:08 | XMS_ITS | CONTINUITY OF CARE DOCUMENT ---
Author Name david hernandez Address Unknown Organization [facility] Address [address] [place] [address] Phone [phone] Care Team Providers Care Sales Performance Manager Name Role Phone Vishnu OCHOA, John Unavailable REMINGTON SIDDIQI MD Unavailable REMINGTON SIDDIQI MD [...] In-person encounter Office Visit John Mares MD [facility] Leg edema, bilateralChest painElevated blood glucoseAortic stenosis, moderate nicole 1.0 cm 2on echo 06/29CVA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 - In-person encounter Office Visit John Mares MD [place] - In-person encounter Office Visit John Mares MD [place] HTN essential--echo ef nl, mod , AD cath 04/10/16 showed 80% small distal RCA, 70% Apical LAD, 30% D1 , stres 07/30 - inferoapical ischemia , Nl lv function - In-person encounter Office Visit John Mares MD [place] ZACH--severe, no cpap - In-person encounter Office Visit John Mares MD [place] HTN essential--echo ef nl, mod , 06/2023SnoringOSA--severe, no cpap - In-person encounter Office Visit John Mares MD [place] ZACH--severe, no cpap - In-person encounter Office Visit John Mares MD [facility] - In-person encounter Office Visit John Mares MD [facility] - In-person encounter Office Visit John Mares MD [facility] HTN essential--echo ef nl, mod , 06/2023 - In-person encounter Office Visit John Mares MD [place] - In-person encounter Office Visit John Mares MD [place] - In-person encounter Office Visit John Mares MD [facility] Family History of Hypertension:Family History of Hypertension:Hypertension - In-person encounter Office Visit John Mares MD [place] Chest painChest pain atypicalAbnormal cardiovascular stress testDiastolic dysfunctionCAD cath 04/10/16 showed 80% small distal RCA, 70% Apical LAD, 30% D1 , stres 07/30 - inferoapical ischemia , Nl lv functionObesityARTHRITIS - In-person encounter Office Visit John Mares MD [place] - In-person encounter Office Visit Bibiana Travis MD [facility] - In-person encounter Office Visit Bibiana Travis MD [facility] HTN essential--echo ef nl, mod , 06/2023Shortness of breathLeg pain VITAL SIGNS Date Observation Value Provider Body Mass Index (Ratio) 29.62 kg/m2 Lev Mares MD blood pressure, diastolic 78 mm[Hg] Ti zenia Rodríguez blood pressure, systolic 127 mm[Hg] Natalia Rodrígeuz pulse rate 74 /min Candida amezquita oxygen [...] rret blood pressure, systolic 179 mm[Hg] Jar [facility] pulse rate 78 /min Jatin y oxygen saturation, oximetry 98 % Jatin respiratory rate E&M 16 /min Jatin height E&M 65 [in_i] Jatin da y Body Mass Index (Ratio) 39.43 kg/m2 Lev Mares MD weight E&M 237 [lb_av] Marily Mondragon blood pressure, cuff size regular [facility] blood pressure, diastolic 94 mm[Hg] [facility] blood pressure, systolic 178 mm[Hg] [facility] pulse rate 80 /min [facility] oxygen saturation, oximetry 99 % [facility] respiratory rate E&M 18 /min Marily boyce height E&M 65 [in_i] Marily Mondragon Body Mass Index (Ratio) 39.43 kg/m2 Lev Mares MD blood pressure, diastolic 95 mm[Hg] Ri jessica Escobar blood pressure, systolic 194 mm[Hg] Valerie tatyana Escobar weight E&M 237 [lb_av] Marily [place] oxygen saturation, oximetry 98 % Marily [place] pulse rate 63 /min Marily [place] respiratory rate E&M 16 /min Marily Williamson austen height E&M 65 [in_i] Marily [place] Body Mass Index (Ratio) 39.43 kg/m2 Lev [...] blood pressure, cuff size large Jackie oden [place] blood pressure, diastolic 86 mm[Hg] Jackie oden [place] blood pressure, systolic 150 mm[Hg] Carlos mickey [place] oxygen saturation, oximetry 98 % Samantha [place] pulse rate 82 /min Samantha [facility] respiratory rate E&M 16 /min Amber odom [place] weight E&M 234 [lb_av] Samantha Bhandari d height E&M 65 [in_i] Samantha Diannejoseph martha Body Mass Index (Ratio) 40.77 kg/m2 Lev Mares MD blood pressure, resting Yes [facility] becca [place] blood pressure, diastolic 84 mm[Hg] sarah [place] blood pressure, systolic 160 mm[Hg] [facility] oxygen saturation, oximetry 98 % Broderick Campbell respiratory rate E&M 18 /min Isela [place] pulse rate 87 /min Broderick peñad weight E&M 245 [lb_av] Broderick Juarez hanson height E&M 65 [in_i] Broderick [...] Normal Absolute Neutrophil count 4994 cells/mcL [employer] [id number] Normal mean platelet volume 8.1 fL [employer] [...] PM TABLET completed as needed - 11/09 Sandrita Morales tramadol 50 mg tablet active tablet [...] Payer name Policy type / Coverage type Webb red libertarian ID AARP MEDICARE ADVANTAGE [address] (HMO POS) Medicare [id number] ADVANCE DIRECTIVES Name Date DISCUSSED - NO DECISION MADE TREATMENT PLAN Date Name Performer [id number],S, Edwige villarreal [id number],W, Edwige Keith obsmeyer [id number],S, Edwige Keith obsmeyer [id number],S, Edwige Keith obsmeyer [id number],S, Dane Ahmedza i [id number],S, Dane Ahmedza i [id number],S, Dane Ahmedza i [id number],S, Dane Ahmedza i [id number],S, Dane Ahmedza i [id number],S, Dane Ahmedza i [id number],S, Dane Ahmedza i [id number],S, Dane Ahmedza i [id number],S, Dane Ahmedza i [id number],S, Dane Ahmedza i [id number],S, Dane Ahmedza i [id number],S, Dane Ahmedza i [id number],S, Dane Ahmedza i [id number],S, Dane Ahmedza i [id number],S, Dane Ahmedza i [id number],S, Dane Ahmedza i [id number],S, Dane Ahmedza i [id number],S, Dane Ahmedza i [id number],S, Dane Ahmedza i [id number],S, Dane Ahmedza i [id number],S, Dane Marajose g lowery [id number],S, Dane Haynes i [id number],SJohn MD [id number],SJohn MD [id number],S, John Mares MD [id number],S, John Mares MD Cardiology John Mares MD [...] CAPACITY (7573) C OMPREHENSIVE METABOLIC PANEL, W/EGFR (19036) P ROBNP, N TERMINAL (04229) H EMOGLOBIN A1c (496) L IPID PANEL (7600) T SH, free T4, total T3 (7444) V itamin D, 25-Hydroxy (505724) Dane Escobar Cardiology: O rders: C BC (INCLUDES DIFF/PLT) (6399) F ERRITIN (457) I SYD AND TOTAL IRON BINDING CAPACITY (7573) C OMPREHENSIVE METABOLIC PANEL, W/EGFR (48864) P ROBNP, N TERMINAL (98810) H EMOGLOBIN A1c (496) L IPID PANEL (7600) T SH, free T4, total T3 (7444) V itamin D, 25-Hydroxy (331467) C omplete Echo (02048) S tress Regadenoson (CPT-08543) Dane Escobar Cardiology:will follow up on Aut opap Dane Escobar Cardiology: O rders: C BC (INCLUDES DIFF/PLT) (6399) F ERRITIN (457) I SYD AND TOTAL IRON BINDING CAPACITY (7573) C OMPREHENSIVE METABOLIC PANEL, W/EGFR (19300) P ROBNP, N TERMINAL (36597) H EMOGLOBIN A1c (496) L IPID PANEL (7600) T SH, free T4, total T3 (7444) V itamin D, 25-Hydroxy (103634) C omplete Echo (60311) S tress Regadenoson (CPT-97781) [facility] B P today: 178/94 P rior [...] CAPACITY (7573) C OMPREHENSIVE METABOLIC PANEL, W/EGFR (30931) P ROBNP, N TERMINAL (69630) H EMOGLOBIN A1c (496) L IPID PANEL (7600) T SH, free T4, total T3 (7444) V itamin D, 25-Hydroxy (003399) [facility] Dane Ahmedzai Telehealth Dane Ahmedzai Telehealth [...] one tablet daily Orders: E CP Commercial (CPT-91985) L IPID PANEL (7404) C OMPREHENSIVE METABOLIC PANEL W/EGFR (23904) 9 8515 HIGH Complex (CPT-75153) Bibiana rTavis MD Cardiology Hospital Follow up : H [...] One per day Orders: E CP Commercial (CPT-19300) L IPID PANEL (7600) C OMPREHENSIVE METABOLIC PANEL W/EGFR (83860) 9 9215 HIGH Complex (CPT-90024) Bibiana Travis MD Cardiology: O rders: S NOMED-CT: [id number] Current Medications Documented (SCT-[id number]) E KG (CPT-85179) 9 9245 HIGH Complex (CPT-72619) C omplete Echo (CPT-65652) C arotid Duplex Bilateral (CPT-71049) C ardiac Cath - L/R - GC (*) Bibiana Travis MD Cardiology: O rders: 9 9245 HIGH Complex (CPT-37399) C omplete Echo (CPT-84034) C arotid Duplex Bilateral (CPT-46851) C ardiac Cath - L/R - GC [...] completed EKG Bibiana Travis MD completed SNOMED-CT: [id number] 656712 Current Medications Documented Bibiana Travis MD completed EKG Bibiana Travis MD completed SNOMED-CT: 139784360 867106 Current Medications Documented Bibiana Travis MD completed
[2024-08-05 19:33] LABS: Basophils Percent Auto 0.1 % (0.2-1.2); Eosinophils Percent Auto 0.1 % (0-4.4); Hematocrit 37.9 % (37.0-47.0); Hemoglobin 12.9 g/dL (12.0-15.0); Immature Granulocyte Absolute 0.02 K/mm3 (0.00-0.031); Immature Granulocyte Percent A 0.3 % (0-0.5); Immature Platelet Fraction Pct 2.9 % (0.9-11.2); Lymphocytes Absolute Auto 1.68 K/mm3 (0.9-3.2); Lymphocytes Percent Auto 21.4 % (18.3-44.2); Mean Corpuscular Hemoglobin 31.4 pg (26-34); Mean Corpuscular Volume 92.2 fl (80-100); Mean Platelet Volume 10.4 fl (7.4-10.4); Monocytes Absolute Auto 0.6 K/mm3 (0.1-0.6); Neutrophils Absolute Auto 5.5 K/mm3 (1.3-6.7); Neutrophils Percent Auto 70.1 % (45.5-73.1); Platelet Count Result 125 k/mm3 (150-375); Prothrombin Time 13.9 Seconds (11.1-14.7); Red Blood Count 4.11 M/mm3 (4.2-5.4); Red Cell Distribution Width 18.6 % (11.5-14.5); White Blood Count 7.9 K/mm3 (4.5-10.0)
[2024-08-05 19:34] LABS: Partial Thromboplastin Time 30.2 Seconds (22.3-36.8)
[2024-08-05 19:43] LABS: Alanine Aminotransferase 15 U/L (6-35); Albumin Level 2.8 g/dL (3.5-5.1); Alkaline Phosphatase 102 U/L (38-126); Anion Gap 11 mmol/L (4-12); Aspartate Amino Transferase 21 U/L (14-36); Bilirubin,Total 1.5 mg/dL (0.2-1.3); Blood Urea Nitrogen 21 mg/dL (7-17); Calcium 8.4 mg/dL (8.4-10.2); Carbon Dioxide 25 mmol/L (22-30); Chloride 101 mmol/L (98-107); Creatine Kinase 23 U/L (30-135); Estimated Glomerular Filt Rate 59; Glucose 146 mg/dL (65-110); Potassium 2.8 mmol/L (3.4-5.0); Sodium 137 mmol/L (137-145)
[2024-08-05 19:56] LABS: Influenza A QL RT-PCR Negative (Negative); Influenza B QL RT-PCR Negative (Negative); RSV RNA, RT-PCR Negative (Negative); SARS-CoV-2 RNA PCR Negative (Negative)
[2024-08-05 20:00] VITALS: BP 158/101; PULSE 101; RESP 16; O2SAT 99
[2024-08-05] MEDS: LACTATED RINGERS 1,000 ML 999 ML IV CONT ×2 (20:12)
--- NOTE | 2024-08-05 20:20 | ECG_ITS ---
Test Date: 2024-08-05 20:25:00 Measurements Intervals [place] Rate: 96 P: 62 NH: 156 QRS: 9 QRSD: 153 T: 46 QT: 383 QTc: 486 Interpretive Statements SINUS RHYTHM RIGHT BUNDLE BRANCH BLOCK INFERIOR INFARCT, AGE INDETERMINATE BASELINE ARTIFACT- I, II, AVR, AVL, AVF, V2 ABNORMAL ECG Compared to ECG 08/05/2024 20:15:13 NO SIGNIFICANT CHANGE Electronically Signed On 08-05-2024 21:52:52 CDT by Rosendo Carpenter D.O.
[2024-08-05] MEDS: POTASSIUM CHLORIDE INJ 40 MEQ in SODIUM CHLORIDE 0.9% IV 500 ML 130 MEQ IVPB (20:42)
[2024-08-05 22:20] LABS: Add Urine Microscopic? YES; Appearance Urine Clear (Clear); Bacteria Urine None Seen /hpf; Bilirubin Urine 2+ (Negative); Blood Urine Negative (Negative); Color Urine Dark Yellow (Yellow); Glucose Urine UA Negative (Negative); Hyaline Casts Urine Present /lpf; Ketones Urine 1+ mg/dL (Negative); Leukocyte Esterase Ur Trace LEU/UL (Negative); Need Manual Microscopic Reviewed; Nitrate Urine Negative (Negative); Protein Urine 1+ mg/dL (Negative); RBC Urine 0-2 /hpf (0-2); Specific Grav Ur 1.022 (1.001-1.035); Squamous Epithelial Cell Urine None Seen /hpf (Few); WBC Urine 0-5 /hpf (0-3)
[2024-08-05 22:30] VITALS: BP 133/88; PULSE 94; RESP 15; O2SAT 98
--- NOTE | 2024-08-05 23:22 | PC.NURSE ---
This RN and multiple techs have tried to obtain labs. This RN spoke with phlebotomy to come draw pts troponin level
[2024-08-05 23:58] LABS: Magnesium 1.4 mg/dL (1.6-2.3)
[2024-08-06] VITALS (12 sets, daily range): BP systolic 116–158; BP diastolic 62–99; PULSE 81–97; RESP 15–19; TEMP 36.3–36.9; O2SAT 97–100; BMI 22.3
[2024-08-06 00:05] LABS: Troponin I 0.033 ng/mL (0.000-0.034)
[2024-08-06 00:37] LABS: Anion Gap 7 mmol/L (4-12); Blood Urea Nitrogen 20 mg/dL (7-17); Calcium 7.7 mg/dL (8.4-10.2); Carbon Dioxide 24 mmol/L (22-30); Chloride 104 mmol/L (98-107); Estimated Glomerular Filt Rate > 60; Glucose 85 mg/dL (65-110); Potassium 3.3 mmol/L (3.4-5.0); Sodium 135 mmol/L (137-145)
[2024-08-06] MEDS: MAGNESIUM SULF 2 GM/WATER 50ML 2 GM/50 ML BAG IVPB (01:53)
[2024-08-06] MEDS: POTASSIUM CHLORIDE 20 MEQ ER TABLET PO (05:25)
[2024-08-06 06:38] LABS: Anion Gap 5 mmol/L (4-12); Blood Urea Nitrogen 19 mg/dL (7-17); Calcium 7.8 mg/dL (8.4-10.2); Carbon Dioxide 25 mmol/L (22-30); Chloride 105 mmol/L (98-107); Estimated Glomerular Filt Rate > 60; Glucose 88 mg/dL (65-110); Magnesium 2.3 mg/dL (1.6-2.3); Potassium 3.6 mmol/L (3.4-5.0); Sodium 135 mmol/L (137-145)
--- NOTE | 2024-08-06 09:00 | PC.NURSE ---
Spoke with Candida Mendez, Daughter, regarding current home medication list.
[2024-08-06] MEDS: CALCIUM/VITAMIN D 500 MG/5 MCG (200 I.U.) TABLET PO (11:39)
[2024-08-06] MEDS: hydrALAZINE HCL 25 MG TABLET PO ×2 (11:39→21:54)
[2024-08-06] MEDS: carvediloL 6.25 MG TABLET PO ×2 (11:39→21:54)
[2024-08-06] MEDS: CYANOCOBALAMIN 500 MCG TABLET PO (11:39)
[2024-08-06] MEDS: FOLIC ACID 0.4 MG TABLET PO (11:39)
--- NOTE | 2024-08-06 12:55 | PM.IMHP ---
H&P: HPI History of Present Illness Date/Time: 08/06/24 6836 Chief Complaint: Weakness, N/V/D Narrative: Pt admitted via the ED early this AM for generalized weakness and N/V/D x2-3 weeks. 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 Pt denies any falls, she reports being bedbound at her daughters house where she lives currently. Pt has had x3 small BMs this AM, nursing reporting them as liquid stools. Takes K supplement at home. Pt denies abd pain or urinary sx. Per ED MD note, pt has been out of her Eliquis x1 week. ED course: Imaging: Head CT - CT scan shows encephalomalacia and gliosis in the right temporoparietal lobe likely from her previous stroke. ED MD spoke to the radiologist who recommended repeat CT in 2 hours to make sure that there is no hemorrhage concerns although this is likely related to the old stroke according to Radiology. Repeat CT shows no interval changes and encephalomalacia with hyperdensities consistent with calcifications per radiology's interpretation. CXR - IMPRESSION: No acute cardiopulmonary pathology Labs: K - 2.8, repleted with K 40meqIV, repeat K 3.6 Ma.4, repleted to 2.3 UA: Neg UTI (straight cath) Tx: LR bolus 1000mg x2 K 40meqIV Mag 2g IV Review of Systems Review of Systems: All systems reviewed & are unremarkable except as noted in HPI and below Gastrointestinal: Gastrointestinal: Reports diarrhea, Reports nausea and Reports vomiting PMFSH Past Medical History Medical History Osteoarthritis Disorder of lipid metabolism Hypertension Chest pain Surgical History Surgical History History of Family History Family History Father Heart disease Hypertension Mother Hypertension Breast cancer Social History Social History Smoking status: Never smoker Alcohol intake: never Substance use: never Do You Feel Safe in your Home?: Yes Lack of Transportation: No Lack of Food: Never True Current Housing: I Have Housing Concerned About Future Housing: No Difficulty Paying Gas/Electric Bills: No Difficulty Paying for Meds: No Currently Unemployed: No Education: High School Diploma/GED Difficulty w/ Childcare or Family Care: No Living arrangements: with family Spiritual care concerns: No Meds Home Medications and Allergies Home Medications ?Medication ?Instructions ?Recorded ?Confirmed ?Type acetaminophen 650 mg 650 mg PO Q8H PRN Pain 04/30/19 08/06/24 History tablet,extended release (Tylenol Arthritis Pain) multivitamin with minerals-folic 1 tablet PO DAILY 12/01/20 08/06/24 History acid 200 mcg chewable tablet (Adult Multivitamin Gummies) apixaban 5 mg tablet (Eliquis) 5 mg PO BID 08/06/24 08/06/24 History atorvastatin 10 mg tablet 10 mg PO QPM 08/06/24 08/06/24 History calcium phosphate,dibasic 77 1 tablet PO DAILY 08/06/24 08/06/24 History mg-vitamin D3 400 unit tablet carvedilol 6.25 mg tablet 6.25 mg PO Q12H 08/06/24 08/06/24 History cranberry 500 mg capsule 500 mg PO DAILY 08/06/24 08/06/24 History diphenhydramine 25 1 tablet PO HS PRN sleep 08/06/24 08/06/24 History mg-acetaminophen 500 mg tablet (Tylenol PM Extra Strength) ezetimibe 10 mg tablet 10 mg PO DAILY 08/06/24 08/06/24 History hydralazine 25 mg tablet 25 mg PO Q12H 08/06/24 08/06/24 History mirtazapine 30 mg tablet 30 mg PO DAILY 08/06/24 08/06/24 History oxycodone 5 mg tablet 5 mg PO Q8H PRN pain 08/06/24 08/06/24 History pantoprazole 40 mg tablet,delayed 40 mg PO DAILY 08/06/24 08/06/24 History release potassium chloride 10 mEq 20 meq PO BID 08/06/24 08/06/24 History tablet,extended release tramadol 50 mg tablet 50 mg PO Q8H PRN pain 08/06/24 08/06/24 History vitamin B12 500 mcg-folic acid 400 1 tablet PO DAILY 08/06/24 08/06/24 History mcg tablet Allergies Allergy/AdvReac Type Severity Reaction Status Date / Time Sulfa (Sulfonamide Allergy Mild RASH Verified 08/06/24 04:01 Antibiotics) Vital Signs Vital Signs - 24 hr 08/05/24 15:40 08/05/24 19:00 08/05/24 20:00 Temperature 97.7 F Pulse Rate 108 H 105 H 101 H Respiratory Rate 16 14 16 Blood Pressure 116/78 132/91 H 158/101 H Pulse Oximetry 100 100 99 Oxygen Delivery 08/05/24 22:30 08/06/24 00:04 08/06/24 01:34 Temperature Pulse Rate 94 97 85 Respiratory Rate 15 19 15 Blood Pressure 133/88 141/65 H 158/86 H Pulse Oximetry 98 97 99 Oxygen Delivery 08/06/24 01:35 08/06/24 01:35 08/06/24 02:07 Temperature 98.3 F Pulse Rate 85 85 Respiratory Rate 16 15 Blood Pressure 158/86 H Pulse Oximetry 99 99 Oxygen Delivery 08/06/24 02:51 08/06/24 06:00 08/06/24 08:00 Temperature 97.4 F L Pulse Rate 86 Respiratory Rate 18 Blood Pressure 119/84 Pulse Oximetry 100 Oxygen Delivery Room Air Room Air 08/06/24 08:00 08/06/24 11:39 08/06/24 12:00 Temperature Pulse Rate 83 83 92 Respiratory Rate Blood Pressure Pulse Oximetry Oxygen Delivery Exam Const: Other: ill appearing HENMT: Face/Nose/Sinus: Normal nares present Mouth: Yes dry mucous membranes Eyes: General: appearance normal, both eyes and all related structures Sclera: sclerae normal Pupils: Equal, round and reactive pupils present EOM: EOMs intact bilaterally Neck: Neck: supple and no JVD Carotids: no bruits Resp: Effort & Inspection: normal respiratory effort Auscultation: clear to auscultation bilaterally Cardio: Rate: regular rate and tachycardic GI: GI Palp: Yes Soft to palpation and No Tenderness to palpation present (GI) Auscultation: abnormal bowel sounds (hyper) : General: Yes bladder normal to palpation Skin: General skin exam: normal color and no rashes or lesions noted Wounds: no wounds Other: Coccyx free of pressure wounds, depends in place Skin turgor fair Neuro: Speech: normal speech Sensory Exam: normal sensation Other: A&O x4. LUE & LLE motor deficits due to prior CVA, limited strength, 07/11 Extrem: General: normal to inspection Psych: Mental Status: mental status grossly normal Affect: normal affect H&P: Results Labs Labs: Short CBC 08/05/24 Range/Units 19:14 WBC 7.9 (4.5-10.0) K/mm3 Hgb 12.9 (12.0-15.0) g/dL Hct 37.9 (37.0-47.0) % Plt Count 125 L (150-375) k/mm3 BMP 08/05/24 08/06/24 08/06/24 19:14 00:09 06:07 Sodium 137 135 L 135 L Potassium 2.8 L* 3.3 L 3.6 Chloride 101 104 105 Carbon Dioxide 25 24 25 BUN 21 H 20 H 19 H Creatinine 0.94 0.71 0.71 Glucose 146 H 85 88 Calcium 8.4 7.7 L 7.8 L Cardiac Enzymes 08/05/24 08/05/24 Range/Units 19:14 23:35 Total Creatine Kinase 23 L (30-135) U/L Troponin I 0.030 0.033 (0.000-0.034) ng/mL Liver Function 08/05/24 Range/Units 19:14 Total Bilirubin 1.5 H (0.2-1.3) mg/dL AST 21 (14-36) U/L ALT 15 (6-35) U/L Alkaline Phosphatase 102 (38-126) U/L Albumin 2.8 L (3.5-5.1) g/dL Urine 08/05/24 Range/Units 21:49 Urine Color Dark yellow (Yellow) Urine Appearance Clear (Clear) Urine pH 6.0 (5.0-9.0) Ur Specific [place] 1.022 (1.001-1.035) Urine Protein 1+ H (Negative) mg/dL Urine Glucose (UA) Negative (Negative) mg/dL Assessment and Plan Assessment and plan (1) Acute hypokalemia: Code(s): E87.6 - Hypokalemia Status: Acute Assessment and Plan: -K initially 2.8 in the ED, repleted with 40mel K IV, repleted value of 3.3 then 3.6, will continue to trend these labs 5/2 AM -Restarted home 10meq K oral dose (2) Generalized weakness: Code(s): R53.1 - Weakness Status: Acute Assessment and Plan: -Probably due to electrolyte imbalance, when interviewed today, pt reports that she feels a lot better after repletion and sleep -Continue to trend daily labs -LR 100ml/hr -Ensure supplement ordered today (3) Nauseous: Code(s): R11.0 - Nausea Status: Acute Assessment and Plan: -Prolonged QTC in ED. No Zofran or Reglan at this time. -->Will continue telemetry (4) Diarrhea: Code(s): R19.7 - Diarrhea, unspecified Status: Acute Assessment and Plan: 2-3 weeks per pt, x3 episodes this this AM -Stool sample & c dif ordered today (5) Dehydration: Code(s): E86.0 - Dehydration Status: Acute Assessment and Plan: Decreased PO intake for 2-3 weeks, potentially longer. Pt reporting decreased appetite since CABG/CVA in October 2023 -LR 100ml/hr -Ensure supple ordered (6) History of stroke: Code(s): Z86.73 - Personal history of transient ischemic attack (TIA), and cerebral infarction without residual deficits Status: Acute Assessment and Plan: S/p CABG October 2023. Was in rehab until January 2024, now lives with daughter. LLE & LUE deficit weakness, 4/5. -Per family, pt has been out of Eliquis x1 week - restarting this mediation today, continue telemetry (7) Hypomagnesemia: Code(s): E83.42 - Hypomagnesemia Status: Acute Assessment and Plan: 1.4 in the ED, repleted with 2g, repeat level 2.3 -Trend mag with AM labs Plan -Pending stool cultures and c dif -Per care coordination, per daughter, pt has not been able to afford Eliquis. Care coordination to verify this and will make appropriate change to Coumadin if needing. Pt to f/u with PCP. -Review labs in AM to assess electrolytes Quality VTE Prophylaxis VTE prophylaxis: pharmacologic ordered Hospitalist MIPS Advance Care Plan I have confirmed that the patient's Advanced Care Plan is present, code status is documented, or surrogate decision maker is listed in patient medical record.: Yes Medication Reconciliation I have utilized all available resources to obtain, update and review the patients current medications (includes all prescriptions, OTC, herbals, cannabis, and nutritional supplements).: Yes The patient is not eligible for med reconciliation; the patient is in a emergent medical situation where delaying treatment would jeopardize the patients health.: No
--- NOTE | 2024-08-06 12:57 | PC.NURSE ---
Spoke with [facility] from [facility], [place], [place], and reviewed home medication list.
[2024-08-06] MEDS: LACTATED RINGERS 1,000 ML 100 ML IV CONT (14:06)
[2024-08-06] MEDS: POTASSIUM CHLORIDE 10 MEQ ER TABLET PO (16:37)
[2024-08-06] MEDS: APIXABAN 5 MG TABLET PO (16:37)
[2024-08-06] MEDS: ATORVASTATIN 10 MG TABLET PO (16:38)
[2024-08-07] VITALS (12 sets, daily range): BP systolic 98–132; BP diastolic 48–79; PULSE 81–97; RESP 16–20; TEMP 36.1–36.9; O2SAT 97–100
[2024-08-07] MEDS: LACTATED RINGERS 1,000 ML 100 ML IV CONT ×2 (00:06→14:28)
[2024-08-07 06:41] LABS: Toxigenic C. Diff NEGATIVE (NEGATIVE)
[2024-08-07 06:46] LABS: Basophils Percent Auto 0.2 % (0.2-1.2); Eosinophils Percent Auto 0.4 % (0-4.4); Hematocrit 28.6 % (37.0-47.0); Hemoglobin 10.1 g/dL (12.0-15.0); Immature Granulocyte Absolute 0.02 K/mm3 (0.00-0.031); Immature Granulocyte Percent A 0.4 % (0-0.5); Immature Platelet Fraction Pct 2.5 % (0.9-11.2); Lymphocytes Absolute Auto 1.94 K/mm3 (0.9-3.2); Lymphocytes Percent Auto 35.1 % (18.3-44.2); Mean Corpuscular HGB Conc 35.3 g/dl (32-36); Mean Corpuscular Hemoglobin 31.7 pg (26-34); Mean Corpuscular Volume 89.7 fl (80-100); Mean Platelet Volume 9.1 fl (7.4-10.4); Monocytes Absolute Auto 0.7 K/mm3 (0.1-0.6); Monocytes Percent Auto 12.7 % (2.6-8.5); Neutrophils Absolute Auto 2.8 K/mm3 (1.3-6.7); Neutrophils Percent Auto 51.2 % (45.5-73.1); Platelet Count Result 101 k/mm3 (150-375); Red Blood Count 3.19 M/mm3 (4.2-5.4); Red Cell Distribution Width 17.8 % (11.5-14.5); White Blood Count 5.5 K/mm3 (4.5-10.0)
[2024-08-07 06:56] LABS: Alanine Aminotransferase 11 U/L (6-35); Alkaline Phosphatase 82 U/L (38-126); Anion Gap 2 mmol/L (4-12); Aspartate Amino Transferase 18 U/L (14-36); Bilirubin,Total 0.9 mg/dL (0.2-1.3); Blood Urea Nitrogen 17 mg/dL (7-17); Calcium 8.1 mg/dL (8.4-10.2); Carbon Dioxide 28 mmol/L (22-30); Chloride 105 mmol/L (98-107); Estimated CRCL calculation 62 ml/min; Estimated Glomerular Filt Rate > 60; Glucose 74 mg/dL (65-110); Magnesium 1.9 mg/dL (1.6-2.3); Potassium 3.2 mmol/L (3.4-5.0); Sodium 135 mmol/L (137-145)
--- NOTE | 2024-08-07 07:42 | P.PNIM_ITS ---
Progress Note: A&P Assessment and Plan (1) Acute hypokalemia: Code(s): E87.6 - Hypokalemia Status: Acute Assessment and Plan: -K initially 2.8 in the ED, repleted with 40meq K IV, repleted value of 3.3 then 3.6, will continue to trend these labs in AM -08/07 AM labs K: 3.2, ordering IV 60meq K today for sustainability, Magnesium WDL -Restarted home 10meq K oral dose upon admission (2) Generalized weakness: Code(s): R53.1 - Weakness Status: Acute Assessment and Plan: -Probably due to electrolyte imbalance, when interviewed today, pt reports mildly weak again, may be due to low K again, IV K given, see above -Continue to trend daily labs -LR 100ml/hr -Ensure supplement ordered today -Per care coordination, pt reports that she is wanting to go to rehab after this admission (3) Nauseous: Code(s): R11.0 - Nausea Status: Acute Assessment and Plan: -Prolonged QTC in ED and floor. No Zofran or Reglan at this time. Tigan ordered today for PRN. -->Will continue telemetry & daily labs (4) Diarrhea: Code(s): R19.7 - Diarrhea, unspecified Status: Acute Assessment and Plan: Several episodes overnight per pt -Stool culture & c dif ordered -->C dif negative -Pending stool culture results before imodium (5) Dehydration: Code(s): E86.0 - Dehydration Status: Acute Assessment and Plan: Decreased PO intake for 2-3 weeks, potentially longer. Pt reporting decreased appetite since CABG/CVA in October 2023 -LR 100ml/hr -Ensure supple ordered -Trial of Megace 40mg QID started 08/07 (6) History of stroke: Code(s): Z86.73 - Personal history of transient ischemic attack (TIA), and cerebral infarction without residual deficits Status: Acute Assessment and Plan: S/p CABG October 2023. Was in rehab until January 2024, now lives with daughter. LLE & LUE deficit weakness, 07/11. -Per family, pt has been out of Eliquis x1 week - restarted upon admission, continue telemetry -Per care coordination, pt reports that she is wanting to go to rehab after this admission (7) Hypomagnesemia: Code(s): E83.42 - Hypomagnesemia Status: Acute Assessment and Plan: 1.4 in the ED, repleted with 2g, repeat level 2.3, 1.9 today -Trend mag with AM labs, 08/07 WDL Plan -Pending stool cultures -Per care coordination, per daughter, pt has not been able to afford Eliquis. Care coordination states that pt wanting to go to rehab after this admission so reasonable to continue Eliquis through this admission and at rehab. -->Pt needing to work with PT for insurance auth -Review labs in AM to assess electrolytes Subjective Date/time seen: 08/07/24 1200 Interval history: Pt lying resting in bed getting ready to eat lunch when I visited her today. Pt states that she is feeling mildly weak again but has not really felt nauseous or vomited. Pt reports a number of loose stools overnight. Potassium decreased to 3.2 via AM labs today, currently receiving 60meq IV. Pt denies sick contacts recently. Pulse back to normal rate around 85bpm. Updated pt on the plan to trial megace QID to help with appetite. Pt also verified that she in fact has not been able to afford her Eliquis. Review of Systems Review of Systems: All systems reviewed & are unremarkable except as noted in HPI and below Gastrointestinal: Gastrointestinal: Reports diarrhea and Reports nausea Exam Const: General: comfortable and no acute distress HENMT: Face/Nose/Sinus: Normal nares present Mouth: Yes moist mucous membranes Eyes: General: appearance normal, both eyes and all related structures Sclera: sclerae normal Neck: Neck: supple and no JVD Carotids: no bruits Resp: Effort & Inspection: normal respiratory effort Auscultation: clear to auscultation bilaterally, no crackles, no rales, no rhonchi and no wheezes Cardio: Rate: regular rate Rhythm: regular rhythm GI: Auscultation: normal bowel sounds Skin: Other: Coccyx free of pressure wounds, depends in place Skin turgor better today Neuro: Other: A&O x4. LUE & LLE motor deficits due to prior CVA, limited strength, 4/5 Extrem: General: normal to inspection Psych: Mental Status: mental status grossly normal Affect: normal affect Objective Data Vital Signs Vital Signs: Vital Signs - 24 hr 08/06/24 08:00 08/06/24 08:00 08/06/24 11:39 Temperature Pulse Rate 83 83 Respiratory Rate Blood Pressure Pulse Oximetry Oxygen Delivery Room Air 08/06/24 12:00 08/06/24 15:11 08/06/24 16:00 Temperature 97.4 F L Pulse Rate 92 93 86 Respiratory Rate 18 Blood Pressure 141/99 H Pulse Oximetry 100 Oxygen Delivery 08/06/24 17:22 08/06/24 20:00 08/06/24 20:00 Temperature 97.8 F 98.4 F Pulse Rate 81 90 89 Respiratory Rate 18 16 Blood Pressure 119/70 116/62 Pulse Oximetry 100 100 Oxygen Delivery 08/07/24 00:00 08/07/24 00:00 08/07/24 04:00 Temperature 98.4 F Pulse Rate 81 82 92 Respiratory Rate 18 Blood Pressure 115/56 L Pulse Oximetry 99 Oxygen Delivery 08/07/24 04:00 Temperature 98.2 F Pulse Rate 85 Respiratory Rate 16 Blood Pressure 132/75 Pulse Oximetry 100 Oxygen Delivery Intake/Output Intake/Output: Intake & Output 08/04/24 08/05/24 08/06/24 08/07/24 23:59 23:59 23:59 23:59 Intake Total 2840 1075 Output Total 50 Balance -50 2840 1075 Meds/Results Medications: Active Medications Generic Name Dose Route Start Last Admin Trade Name Freq PRN Reason Stop Dose Admin Acetaminophen 650 mg 08/06/24 10:16 Acetaminophen 325 Mg Tablet PO Q4H PRN Mild Pain (1-3) or Fever Apixaban 5 mg 08/06/24 17:00 08/06/24 16:37 Apixaban 5 Mg Tablet PO 5 mg BID RAJINDER Administration Atorvastatin Calcium 10 mg 08/06/24 18:00 08/06/24 16:38 Atorvastatin 10 Mg Tablet PO 10 mg QPM ARJINDER Administration Calcium Carbonate 500 mg 08/06/24 10:40 08/06/24 11:39 Calcium/Vitamin D 500 Mg/5 Mcg (200 I.U.) Tablet PO 09/06/24 10:39 500 mg DAILY RAJINDER Administration Carvedilol 6.25 mg 08/06/24 10:15 08/06/24 21:54 Carvedilol 6.25 Mg Tablet PO 6.25 mg Q12HR RAJINDER Administration Cyanocobalamin 500 mcg 08/06/24 10:45 08/06/24 11:39 Cyanocobalamin 500 Mcg Tablet PO 09/06/24 10:44 500 mcg DAILY RAJINDER Administration Ezetimibe 10 mg 08/07/24 09:00 Ezetimibe 10 Mg Tablet PO DAILY RAJINDER Folic Acid 0.4 mg 08/06/24 10:45 08/06/24 11:39 Folic Acid 0.4 Mg Tablet PO 0.4 mg DAILY RAJINDER Administration Hydralazine HCl 25 mg 08/06/24 10:15 08/06/24 21:54 Hydralazine Hcl 25 Mg Tablet PO 25 mg Q12HR RAJINDER Administration Lactated Ringer's 1,000 mls @ 100 mls/hr 08/06/24 13:25 08/07/24 00:06 Lr - Lactated Ringers Iv IV CONT 100 mls/hr .Q10H RAJINDER Administration Mirtazapine 30 mg 08/07/24 09:00 Mirtazapine 30 Mg Tablet PO DAILY RAJINDER Multivitamins/Minerals 1 tablet 08/07/24 09:00 Multivits W-Fe,Min Chewable Tablet PO DAILY [facility] Non-Formulary Medication 1 each 08/06/24 10:39 Nonformulary Nutritional Supplement XX 08/07/24 10:38 PRN PRN PROTOCOL Ondansetron HCl 4 mg 08/06/24 10:16 Ondansetron Inj 4 Mg/2 Ml Vial IV PUSH Q6H PRN Nausea And Vomiting Pantoprazole Sodium 40 mg 08/07/24 09:00 Pantoprazole 40 Mg Tablet PO DAILY [facility] Potassium Chloride 10 meq 08/06/24 17:00 08/06/24 16:37 Potassium Chloride 10 Meq Er Tablet PO 10 meq BID RAJINDER Administration Tramadol HCl 100 mg 08/06/24 10:45 Tramadol Hcl (*Crx) 50 Mg Tablet PO Q8H PRN Pain Rated 4-6 Radiology Results: ITS Impressions Chest X-Ray 08/05/24 18:29 IMPRESSION: No acute cardiopulmonary pathology. Head CT 08/05/24 21:41 IMPRESSION: No significant change from previous examination. Encephalomalacia in the right temporal occipital area is noted with hyperdense areas most likely calcifications in the cortex Follow-up advised. Workman in the ER was notified with the result of the patient at 9:55 PM on August 05, 2024.. ADDENDUM: 08/05/24 2220 Please note that cortical laminar necrosis should be considered. Labs Labs: Laboratory Results - last 24 hr 08/07/24 08/07/24 05:29 06:28 WBC 5.5 RBC 3.19 L Hgb 10.1 L Hct 28.6 L MCV 89.7 MCH 31.7 MCHC 35.3 RDW 17.8 H Plt Count 101 L MPV 9.1 Immature Gran % (Auto) 0.4 Neut % (Auto) 51.2 Lymph % (Auto) 35.1 [place] % (Auto) 12.7 H Eos % (Auto) 0.4 Baso % (Auto) 0.2 Lymph # (Auto) 1.94 [place] # (Auto) 0.7 H Eos # (Auto) 0.0 Baso # (Auto) 0.0 Abs Immat Gran (auto) 0.02 Absolute Neuts (auto) 2.8 Absolute Nucleated RBC 0.000 Nucleated RBC % 0.0 % Immature Plt Fraction 2.5 Sodium 135 L Potassium 3.2 L Chloride 105 Carbon Dioxide 28 Anion Gap 2 L BUN 17 Creatinine 0.67 L Estim Creat Clear Calc 62 Estimated GFR > 60 Glucose 74 Calcium 8.1 L Magnesium 1.9 Total Bilirubin 0.9 AST 18 ALT 11 Alkaline Phosphatase 82 Total Protein 5.0 L Albumin 2.0 L C. difficile (PCR) Negative Quality VTE Prophylaxis VTE prophylaxis: pharmacologic ordered
--- NOTE | 2024-08-07 08:40 | PCPTNOTE ---
Attempted PT evaluation, pt refused without opening her eyes. Pt educated and encourage to participate in OOB activity, but continued to refused. Nurse made aware.
[2024-08-07] MEDS: APIXABAN 5 MG TABLET PO ×2 (09:34→18:19)
[2024-08-07] MEDS: POTASSIUM CHLORIDE INJ 40 MEQ in SODIUM CHLORIDE 0.9% IV 500 ML 127.55 MEQ IVPB (09:34)
[2024-08-07] MEDS: FOLIC ACID 0.4 MG TABLET PO (09:35)
[2024-08-07] MEDS: CALCIUM/VITAMIN D 500 MG/5 MCG (200 I.U.) TABLET PO (09:35)
[2024-08-07] MEDS: MIRTAZAPINE 30 MG TABLET PO (09:35)
[2024-08-07] MEDS: hydrALAZINE HCL 25 MG TABLET PO ×2 (09:35→21:57)
[2024-08-07] MEDS: POTASSIUM CHLORIDE 10 MEQ ER TABLET PO ×2 (09:35→18:19)
[2024-08-07] MEDS: CYANOCOBALAMIN 500 MCG TABLET PO (09:35)
[2024-08-07] MEDS: MULTIVITS W-FE,MIN CHEWABLE TABLET 1 TABLET PO (09:35)
[2024-08-07] MEDS: PANTOPRAZOLE 40 MG TABLET PO (09:35)
[2024-08-07] MEDS: EZETIMIBE 10 MG TABLET PO (09:36)
[2024-08-07] MEDS: carvediloL 6.25 MG TABLET PO ×2 (09:36→21:57)
[2024-08-07] MEDS: MEGESTROL ACETATE (*CHEMO) 40 MG TABLET PO ×3 (12:19→21:57)
[2024-08-07] MEDS: KCL 20 MEQ/SW 100 ML 100 ML 50 MEQ IVPB (14:28)
[2024-08-07] MEDS: ACETAMINOPHEN 325 MG TABLET 650 MG PO (16:31)
[2024-08-07] MEDS: ATORVASTATIN 10 MG TABLET PO (18:19)
[2024-08-08] VITALS (9 sets, daily range): BP systolic 107–140; BP diastolic 57–85; PULSE 72–88; RESP 14–20; TEMP 36.1–36.6; O2SAT 100
[2024-08-08] MEDS: traMADol HCL (*CRX) 50 MG TABLET 100 MG PO (02:25)
[2024-08-08] MEDS: LACTATED RINGERS 1,000 ML 100 ML IV CONT ×2 (03:02→11:13)
[2024-08-08 06:50] LABS: Basophils Percent Auto 0.2 % (0.2-1.2); Eosinophils Absolute Auto 0.1 K/mm3 (0-0.3); Eosinophils Percent Auto 1.5 % (0-4.4); Hematocrit 27.7 % (37.0-47.0); Hemoglobin 9.4 g/dL (12.0-15.0); Immature Granulocyte Absolute 0.01 K/mm3 (0.00-0.031); Immature Granulocyte Percent A 0.2 % (0-0.5); Immature Platelet Fraction Pct 3.1 % (0.9-11.2); Lymphocytes Absolute Auto 2.03 K/mm3 (0.9-3.2); Lymphocytes Percent Auto 38.8 % (18.3-44.2); Mean Corpuscular HGB Conc 33.9 g/dl (32-36); Mean Corpuscular Hemoglobin 31.6 pg (26-34); Mean Corpuscular Volume 93.3 fl (80-100); Mean Platelet Volume 11.2 fl (7.4-10.4); Monocytes Absolute Auto 0.6 K/mm3 (0.1-0.6); Monocytes Percent Auto 10.5 % (2.6-8.5); Neutrophils Absolute Auto 2.6 K/mm3 (1.3-6.7); Neutrophils Percent Auto 48.8 % (45.5-73.1); Nucleated Red Blood Cells Perc 0.6 % (0.0-0.2); Platelet Count Result 104 k/mm3 (150-375); Red Blood Count 2.97 M/mm3 (4.2-5.4); Red Cell Distribution Width 18.4 % (11.5-14.5); White Blood Count 5.2 K/mm3 (4.5-10.0)
[2024-08-08 07:01] LABS: Alanine Aminotransferase 10 U/L (6-35); Albumin Level 1.7 g/dL (3.5-5.1); Alkaline Phosphatase 66 U/L (38-126); Anion Gap 3 mmol/L (4-12); Aspartate Amino Transferase 16 U/L (14-36); Bilirubin,Total 0.5 mg/dL (0.2-1.3); Blood Urea Nitrogen 12 mg/dL (7-17); Calcium 7.7 mg/dL (8.4-10.2); Carbon Dioxide 24 mmol/L (22-30); Chloride 106 mmol/L (98-107); Estimated CRCL calculation 94 ml/min; Estimated Glomerular Filt Rate > 60; Glucose 78 mg/dL (65-110); Magnesium 1.5 mg/dL (1.6-2.3); Potassium 3.4 mmol/L (3.4-5.0); Sodium 133 mmol/L (137-145)
[2024-08-08] MEDS: CYANOCOBALAMIN 500 MCG TABLET PO (08:32)
[2024-08-08] MEDS: APIXABAN 5 MG TABLET PO ×2 (08:32→16:43)
[2024-08-08] MEDS: carvediloL 6.25 MG TABLET PO ×2 (08:32→21:01)
[2024-08-08] MEDS: MIRTAZAPINE 30 MG TABLET PO (08:33)
[2024-08-08] MEDS: FOLIC ACID 0.4 MG TABLET PO (08:33)
[2024-08-08] MEDS: hydrALAZINE HCL 25 MG TABLET PO ×2 (08:33→21:01)
[2024-08-08] MEDS: EZETIMIBE 10 MG TABLET PO (08:33)
[2024-08-08] MEDS: MEGESTROL ACETATE (*CHEMO) 40 MG TABLET PO ×4 (08:33→21:01)
[2024-08-08] MEDS: PANTOPRAZOLE 40 MG TABLET PO (08:33)
[2024-08-08] MEDS: POTASSIUM CHLORIDE 10 MEQ ER TABLET PO (08:33)
[2024-08-08] MEDS: CALCIUM/VITAMIN D 500 MG/5 MCG (200 I.U.) TABLET PO (08:33)
[2024-08-08] MEDS: MULTIVITS W-FE,MIN CHEWABLE TABLET 1 TABLET PO (08:34)
--- NOTE | 2024-08-08 08:43 | PM.IMPN ---
Progress Note: A&P Assessment and Plan (1) Acute hypokalemia: Code(s): E87.6 - Hypokalemia Status: Acute Assessment and Plan: -K initially 2.8 in the ED, repleted with 40meq K IV, repleted value of 3.3 then 3.6, will continue to trend these labs in AM -08/07 AM labs K: 3.2, ordering IV 60meq K today for sustainability, Magnesium WDL -08/08 AM labs K: 3.4 -Restarted home 10meq BID K oral dose upon admission, increased dose today to 20meq BID for maintenance, first dose of this at 1700 today. -Continue to trend labs in AM (2) Generalized weakness: Code(s): R53.1 - Weakness Status: Acute Assessment and Plan: -Probably due to electrolyte imbalance, when interviewed today, pt reports mildly weak again, may be due to low K again, IV K given, see above -Continue to trend daily labs -LR 100ml/hr -Ensure supplement ordered -Per care coordination, pt reports that she is wanting to go to rehab after this admission (3) Nauseous: Code(s): R11.0 - Nausea Status: Acute Assessment and Plan: -Prolonged QTC in ED and floor. No Zofran or Reglan at this time. Tigan ordered PRN. -->Will continue telemetry & daily labs - QTc today 482 (4) Diarrhea: Code(s): R19.7 - Diarrhea, unspecified Status: Acute Assessment and Plan: Several episodes overnight per pt -Stool culture & c dif ordered -->C dif negative -Pending stool culture results before Imodium (5) Dehydration: Code(s): E86.0 - Dehydration Status: Acute Assessment and Plan: Decreased PO intake for 2-3 weeks, potentially longer. Pt reporting decreased appetite since CABG/CVA in October 2023 -LR 100ml/hr -Ensure supple ordered -Trial of Megace 40mg QID started 08/07 -->Pt reports that she is unable to tell yet if this medication is making a difference but is agreeable to keep trying (6) History of stroke: Code(s): Z86.73 - Personal history of transient ischemic attack (TIA), and cerebral infarction without residual deficits Status: Acute Assessment and Plan: S/p CABG October 2023. Was in rehab until January 2024, now lives with daughter. LLE & LUE deficit weakness, 07/11. -Per family, pt has been out of Eliquis x1 week - restarted upon admission, continue telemetry -Per care coordination, pt reports that she is wanting to go to rehab after this admission (7) Hypomagnesemia: Code(s): E83.42 - Hypomagnesemia Status: Acute Assessment and Plan: 1.4 in the ED, repleted with 2g, repeat level 2.3. 5/2: 1.9. Today: 1.5 today -2g magnesium ordered today for repletion -Continue to trend mag with AM labs Plan -Pending stool cultures -Per care coordination, per daughter, pt has not been able to afford Eliquis. Care coordination states that pt wanting to go to rehab after this admission so reasonable to continue Eliquis through this admission and at rehab. -->Pt needing to work with PT for insurance auth -Review labs in AM to assess electrolytes Subjective Date/time seen: 08/08/24 1045 Interval history: Pt sleeping in bed comfortably, awoken by this sign writer letterer or painter. Pt reports that her nausea has improved but she still had a number of BMs over night. Pt denies abd pain. Reports that she is tired today due to being up last night. Pt unsure if the megace has started to work yet, but agrees to continue on it to see if it makes a difference. Updated pt on the pending stool culture. Inquired pt about plan for placement after D/C and she said yes I think that is what we are wanting to do , awaiting to speak to the daughter. Also updated her on the plan for magnesium IV per low lab this AM. Review of Systems Review of Systems: All systems reviewed & are unremarkable except as noted in HPI and below Gastrointestinal: Gastrointestinal: Reports diarrhea Exam Const: General: comfortable and no acute distress HENMT: Face/Nose/Sinus: Normal nares present Mouth: Yes dry mucous membranes Eyes: General: appearance normal, both eyes and all related structures Sclera: sclerae normal Neck: Neck: supple and no JVD Carotids: no bruits Resp: Effort & Inspection: normal respiratory effort Auscultation: clear to auscultation bilaterally Cardio: Rate: regular rate Rhythm: regular rhythm Other: TELE 72bpm, QTc 482 GI: Auscultation: normal bowel sounds Skin: General skin exam: normal color and no rashes or lesions noted Wounds: no wounds Neuro: Speech: normal speech Other: LUE and LLE decreased weakness deficit due to hx of CVA, 4/5 strength Extrem: General: normal to inspection Psych: Mental Status: mental status grossly normal Affect: normal affect Objective Data Vital Signs Vital Signs: Vital Signs - 24 hr 08/07/24 09:36 08/07/24 11:51 08/07/24 12:00 Temperature 97.2 F L Pulse Rate 89 94 95 Respiratory Rate 17 Blood Pressure 121/73 Pulse Oximetry 100 Oxygen Delivery 08/07/24 12:29 08/07/24 16:00 08/07/24 17:02 Temperature 96.9 F L Pulse Rate 90 88 Respiratory Rate 16 Blood Pressure 112/65 Pulse Oximetry 100 Oxygen Delivery Room Air 08/07/24 20:00 08/07/24 20:00 08/07/24 20:00 Temperature 97.8 F Pulse Rate 82 97 Respiratory Rate 20 Blood Pressure 98/52 L Pulse Oximetry 100 Oxygen Delivery Room Air 08/07/24 21:57 08/07/24 23:30 08/08/24 00:00 Temperature 98.0 F Pulse Rate 81 91 83 Respiratory Rate 16 Blood Pressure 125/79 Pulse Oximetry 97 Oxygen Delivery 08/08/24 04:00 08/08/24 04:00 08/08/24 08:00 Temperature 97.2 F L 97.7 F Pulse Rate 87 80 73 Respiratory Rate 16 16 Blood Pressure 119/71 107/57 L Pulse Oximetry 100 100 Oxygen Delivery 08/08/24 08:32 Temperature Pulse Rate 72 Respiratory Rate Blood Pressure Pulse Oximetry Oxygen Delivery Intake/Output Intake/Output: Intake & Output 08/05/24 08/06/24 08/07/24 08/08/24 23:59 23:59 23:59 23:59 Intake Total 2840 2415 1100 Output Total 50 Balance -50 2840 2415 1100 Meds/Results Medications: Active Medications Generic Name Dose Route Start Last Admin Trade Name Freq PRN Reason Stop Dose Admin Acetaminophen 650 mg 08/06/24 10:16 08/07/24 16:31 Acetaminophen 325 Mg Tablet PO 650 mg Q4H PRN Administration Mild Pain (1-3) or Fever Apixaban 5 mg 08/06/24 17:00 08/08/24 08:32 Apixaban 5 Mg Tablet PO 5 mg BID RAJINDER Administration Atorvastatin Calcium 10 mg 08/06/24 18:00 08/07/24 18:19 Atorvastatin 10 Mg Tablet PO 10 mg QPM RAJINDER Administration Calcium Carbonate 500 mg 08/06/24 10:40 08/08/24 08:33 Calcium/Vitamin D 500 Mg/5 Mcg (200 I.U.) Tablet PO 09/06/24 10:39 500 mg DAILY RAJINDER Administration Carvedilol 6.25 mg 08/06/24 10:15 08/08/24 08:32 Carvedilol 6.25 Mg Tablet PO 6.25 mg Q12HR RAJINDER Administration Cyanocobalamin 500 mcg 08/06/24 10:45 08/08/24 08:32 Cyanocobalamin 500 Mcg Tablet PO 09/06/24 10:44 500 mcg DAILY RAJINDER Administration Ezetimibe 10 mg 08/07/24 09:00 08/08/24 08:33 Ezetimibe 10 Mg Tablet PO 10 mg DAILY RAJINDER Administration Folic Acid 0.4 mg 08/06/24 10:45 08/08/24 08:33 Folic Acid 0.4 Mg Tablet PO 0.4 mg DAILY RAJINDER Administration Hydralazine HCl 25 mg 08/06/24 10:15 08/08/24 08:33 Hydralazine Hcl 25 Mg Tablet PO 25 mg Q12HR RAJINDER Administration Lactated Ringer's 1,000 mls @ 100 mls/hr 08/06/24 13:25 08/08/24 03:02 Lr - Lactated Ringers Iv IV CONT 100 mls/hr .Q10H RAJINDER Administration Megestrol Acetate 40 mg 08/07/24 13:00 08/08/24 08:33 Megestrol Acetate (*Chemo) 40 Mg Tablet PO 40 mg QID RAJINDER Administration Mirtazapine 30 mg 08/07/24 09:00 08/08/24 08:33 Mirtazapine 30 Mg Tablet PO 30 mg DAILY RAJINDER Administration Multivitamins/Minerals 1 tablet 08/07/24 09:00 08/08/24 08:34 Multivits W-Fe,Min Chewable Tablet PO 1 tablet DAILY RAJINDER Administration Ondansetron HCl 4 mg 08/06/24 10:16 Ondansetron Inj 4 Mg/2 Ml Vial IV PUSH Q6H PRN Nausea And Vomiting Pantoprazole Sodium 40 mg 08/07/24 09:00 08/08/24 08:33 Pantoprazole 40 Mg Tablet PO 40 mg DAILY RAJINDER Administration Potassium Chloride 10 meq 08/06/24 17:00 08/08/24 08:33 Potassium Chloride 10 Meq Er Tablet PO 10 meq BID RAJINDER Administration Tramadol HCl 100 mg 08/06/24 10:45 08/08/24 02:25 Tramadol Hcl (*Crx) 50 Mg Tablet PO 100 mg Q8H PRN Administration Pain Rated 4-6 Trimethobenzamide HCl 200 mg 08/07/24 12:49 Trimethobenzamide Hcl 200 Mg/2 Ml Vial IM Q6H PRN Nausea And Vomiting Radiology Results: ITS Impressions Chest X-Ray 08/05/24 18:29 IMPRESSION: No acute cardiopulmonary pathology. Head CT 08/05/24 21:41 IMPRESSION: No significant change from previous examination. Encephalomalacia in the right temporal occipital area is noted with hyperdense areas most likely calcifications in the cortex Follow-up advised. Jacinta in the ER was notified with the result of the patient at 9:55 PM on August 05, 2024.. ADDENDUM: 08/05/240 Please note that cortical laminar necrosis should be considered. Labs Labs: Laboratory Results - last 24 hr 08/08/24 05:59 WBC 5.2 RBC 2.97 L Hgb 9.4 L Hct 27.7 L MCV 93.3 MCH 31.6 MCHC 33.9 RDW 18.4 H Plt Count 104 L MPV 11.2 H Immature Gran % (Auto) 0.2 Neut % (Auto) 48.8 Lymph % (Auto) 38.8 [place] % (Auto) 10.5 H Eos % (Auto) 1.5 Baso % (Auto) 0.2 Lymph # (Auto) 2.03 [place] # (Auto) 0.6 Eos # (Auto) 0.1 Baso # (Auto) 0.0 Abs Immat Gran (auto) 0.01 Absolute Neuts (auto) 2.6 Absolute Nucleated RBC 0.030 H Nucleated RBC % 0.6 H % Immature Plt Fraction 3.1 Sodium 133 L Potassium 3.4 Chloride 106 Carbon Dioxide 24 Anion Gap 3 L BUN 12 D Creatinine 0.42 L Estim Creat Clear Calc 94 Estimated GFR > 60 Glucose 78 Calcium 7.7 L Magnesium 1.5 L Total Bilirubin 0.5 AST 16 ALT 10 Alkaline Phosphatase 66 Total Protein 4.0 L Albumin 1.7 L Quality VTE Prophylaxis VTE prophylaxis: pharmacologic ordered
[2024-08-08] MEDS: MAGNESIUM SULF 2 GM/WATER 50ML 2 GM/50 ML BAG IVPB (11:14)
[2024-08-08] MEDS: POTASSIUM CHLORIDE 20 MEQ ER TABLET PO (16:43)
[2024-08-08] MEDS: ATORVASTATIN 10 MG TABLET PO (16:46)
[2024-08-09] VITALS (9 sets, daily range): BP systolic 107–131; BP diastolic 59–71; PULSE 69–96; RESP 13–20; TEMP 36–36.6; O2SAT 99–100
[2024-08-09] MEDS: LACTATED RINGERS 1,000 ML 100 ML IV CONT ×3 (02:35→20:58)
[2024-08-09 06:34] LABS: Basophils Percent Auto 0.2 % (0.2-1.2); Eosinophils Absolute Auto 0.1 K/mm3 (0-0.3); Eosinophils Percent Auto 0.8 % (0-4.4); Hematocrit 30.4 % (37.0-47.0); Immature Granulocyte Absolute 0.01 K/mm3 (0.00-0.031); Immature Granulocyte Percent A 0.2 % (0-0.5); Immature Platelet Fraction Pct 1.6 % (0.9-11.2); Lymphocytes Absolute Auto 2.14 K/mm3 (0.9-3.2); Lymphocytes Percent Auto 35.4 % (18.3-44.2); Mean Corpuscular HGB Conc 32.9 g/dl (32-36); Mean Corpuscular Hemoglobin 31.3 pg (26-34); Mean Corpuscular Volume 95.3 fl (80-100); Mean Platelet Volume 9.6 fl (7.4-10.4); Monocytes Absolute Auto 0.6 K/mm3 (0.1-0.6); Monocytes Percent Auto 10.4 % (2.6-8.5); Neutrophils Absolute Auto 3.2 K/mm3 (1.3-6.7); Platelet Count Result 112 k/mm3 (150-375); Red Blood Count 3.19 M/mm3 (4.2-5.4)
[2024-08-09 06:43] LABS: Alanine Aminotransferase 12 U/L (6-35); Albumin Level 1.8 g/dL (3.5-5.1); Alkaline Phosphatase 74 U/L (38-126); Anion Gap 2 mmol/L (4-12); Aspartate Amino Transferase 20 U/L (14-36); Bilirubin,Total 0.6 mg/dL (0.2-1.3); Blood Urea Nitrogen 9 mg/dL (7-17); Calcium 7.7 mg/dL (8.4-10.2); Carbon Dioxide 25 mmol/L (22-30); Chloride 106 mmol/L (98-107); Estimated CRCL calculation 96 ml/min; Estimated Glomerular Filt Rate > 60; Glucose 80 mg/dL (65-110); Magnesium 1.8 mg/dL (1.6-2.3); Potassium 4.3 mmol/L (3.4-5.0); Sodium 133 mmol/L (137-145)
--- NOTE | 2024-08-09 07:06 | PM.IMPN ---
Progress Note: A&P Assessment and Plan (1) Acute hypokalemia: Code(s): E87.6 - Hypokalemia Status: Acute Assessment and Plan: -K initially 2.8 in the ED, repleted with 40meq K IV, repleted value of 3.3 then 3.6, will continue to trend these labs in AM -08/07 AM labs K: 3.2, ordering IV 60meq K today for sustainability, Magnesium WDL -08/08 AM labs K: 3.4 -08/09 AM labs K: 4.3 -Restarted home 10meq BID K oral dose upon admission, increased dose 08/08 to 20meq BID for maintenance due to waxing and waning of K levels -Continue to trend labs in AM (2) Generalized weakness: Code(s): R53.1 - Weakness Status: Acute Assessment and Plan: -Probably due to electrolyte imbalance, when interviewed today, pt reports mildly weakness still, may be due to low K again, IV K given, see above -Continue to trend daily labs -LR 100ml/hr -Ensure supplement ordered -Per care coordination, pt reports that she is wanting to go to rehab after this admission (3) Nauseous: Code(s): R11.0 - Nausea Status: Acute Assessment and Plan: -Prolonged QTC in ED and floor. No Zofran or Reglan at this time. Tigan ordered PRN. -->Will continue telemetry & daily labs - QTc today 502, reviewed med list and Remeron only prolonging QT med. Will continue to trend, pt asymptomatic. (4) Diarrhea: Code(s): R19.7 - Diarrhea, unspecified Status: Acute Assessment and Plan: Several episodes overnight per pt -Stool culture & c dif ordered -->C dif negative -Pending stool culture results before Imodium, reiterated with pt today (5) Dehydration: Code(s): E86.0 - Dehydration Status: Acute Assessment and Plan: Decreased PO intake for 2-3 weeks, potentially longer. Pt reporting decreased appetite since CABG/CVA in October 2023 -LR 100ml/hr -Ensure supple ordered - encouraged intake of this -Trial of Megace 40mg QID started 08/07 -->Pt reports that she is unable to tell yet if this medication is making a difference but is agreeable to keep trying (6) History of stroke: Code(s): Z86.73 - Personal history of transient ischemic attack (TIA), and cerebral infarction without residual deficits Status: Acute Assessment and Plan: S/p CABG October 2023. Was in rehab until January 2024, now lives with daughter. LLE & LUE deficit weakness, 4/5 trength. -Per family, pt has been out of Eliquis x1 week - restarted upon admission, continue telemetry -Per care coordination, pt reports that she is wanting to go to rehab/SNF after this admission (7) Hypomagnesemia: Code(s): E83.42 - Hypomagnesemia Status: Acute Assessment and Plan: 1.4 in the ED, repleted with 2g, repeat level 2.3. 5/2: 1.9. 5/3: 1.5, 08/09: 1.8 -2g magnesium ordered 08/08 for repletion -Continue to trend mag with AM labs Plan -Pending stool cultures -Per care coordination, per daughter, pt has not been able to afford Eliquis. Care coordination states that pt wanting to go to rehab after this admission so reasonable to continue Eliquis through this admission and at rehab. -->Pt needing to work with PT for insurance auth -Continue to review labs in AM to assess electrolytes Subjective Date/time seen: 08/09/24 1145 Interval history: Pt resting comfortably in bed. Pt reports continued episodes of diarrhea overnight, updated her again that we are awaiting the stool culture to result until we can give her medication to help this, pt understandable. Pt denies CP/SOB or any other sx. Pt still reporting poor appetite but not as nauseous when food is around. Also updated pt on the plan to meet with card coordination tomorrow to iron out plans for post discharge. Review of Systems Review of Systems: All systems reviewed & are unremarkable except as noted in HPI and below Constitutional: Comments: decreased appetite Gastrointestinal: Gastrointestinal: Reports diarrhea, Reports nausea and Reports vomiting Exam Const: General: comfortable and no acute distress HENMT: Face/Nose/Sinus: Normal nares present Mouth: Yes moist mucous membranes Eyes: General: appearance normal, both eyes and all related structures Sclera: sclerae normal Neck: Neck: supple and no JVD Carotids: no bruits Resp: Effort & Inspection: normal respiratory effort Auscultation: clear to auscultation bilaterally Cardio: Rate: regular rate Rhythm: regular rhythm GI: Inspection: non-distended Auscultation: abnormal bowel sounds (hypo) Skin: General skin exam: normal color and no rashes or lesions noted Wounds: no wounds Neuro: Speech: normal speech Motor exam (neuro): Normal motor muscle tone present throughout and strength normal (decreased in LUE and LLE, 4/5, hx of CVA in 2023, residual) Extrem: General: normal to inspection Psych: Mental Status: mental status grossly normal Affect: normal affect Objective Data Vital Signs Vital Signs: Vital Signs - 24 hr 08/08/24 08:00 08/08/24 08:00 08/08/24 08:32 Temperature 97.7 F Pulse Rate 73 84 72 Respiratory Rate 16 Blood Pressure 107/57 L Pulse Oximetry 100 Oxygen Delivery Fraction of Inspired Oxygen 08/08/24 08:35 08/08/24 12:00 08/08/24 12:00 Temperature 97.8 F Pulse Rate 83 84 Respiratory Rate 14 Blood Pressure 128/70 Pulse Oximetry 100 Oxygen Delivery Room Air Fraction of Inspired Oxygen 08/08/24 16:00 08/08/24 16:00 08/08/24 20:00 Temperature 97.3 F L 96.9 F L Pulse Rate 86 81 87 Respiratory Rate 16 14 Blood Pressure 140/85 122/77 Pulse Oximetry 100 100 Oxygen Delivery Fraction of Inspired Oxygen 08/08/24 20:00 08/08/24 20:00 08/08/24 21:01 Temperature Pulse Rate 83 88 Respiratory Rate Blood Pressure Pulse Oximetry Oxygen Delivery Room Air Fraction of Inspired Oxygen 21 08/08/24 23:20 08/09/24 00:00 08/09/24 00:00 Temperature 97.0 F L Pulse Rate 85 88 80 Respiratory Rate 20 13 Blood Pressure 131/63 Pulse Oximetry 100 99 Oxygen Delivery Room Air Fraction of Inspired Oxygen 08/09/24 04:00 08/09/24 04:00 Temperature 97.8 F Pulse Rate 88 84 Respiratory Rate 14 Blood Pressure 125/69 Pulse Oximetry 100 Oxygen Delivery Fraction of Inspired Oxygen Intake/Output Intake/Output: Intake & Output 08/06/24 08/07/24 08/08/24 08/09/24 23:59 23:59 23:59 23:59 Intake Total 2840 2415 3688.3 100 Balance 2840 2415 3688.3 100 Meds/Results Medications: Active Medications Generic Name Dose Route Start Last Admin Trade Name Freq PRN Reason Stop Dose Admin Acetaminophen 650 mg 08/06/24 10:16 08/07/24 16:31 Acetaminophen 325 Mg Tablet PO 650 mg Q4H PRN Administration Mild Pain (1-3) or Fever Apixaban 5 mg 08/06/24 17:00 08/08/24 16:43 Apixaban 5 Mg Tablet PO 5 mg BID RAJINDER Administration Atorvastatin Calcium 10 mg 08/06/24 18:00 08/08/24 16:46 Atorvastatin 10 Mg Tablet PO 10 mg QPM RAJINDER Administration Calcium Carbonate 500 mg 08/06/24 10:40 08/08/24 08:33 Calcium/Vitamin D 500 Mg/5 Mcg (200 I.U.) Tablet PO 09/06/24 10:39 500 mg DAILY RAJINDER Administration Carvedilol 6.25 mg 08/06/24 10:15 08/08/24 21:01 Carvedilol 6.25 Mg Tablet PO 6.25 mg Q12HR RAJINDER Administration Cyanocobalamin 500 mcg 08/06/24 10:45 08/08/24 08:32 Cyanocobalamin 500 Mcg Tablet PO 09/06/24 10:44 500 mcg DAILY RAJINDER Administration Ezetimibe 10 mg 08/07/24 09:00 08/08/24 08:33 Ezetimibe 10 Mg Tablet PO 10 mg DAILY RAJINDER Administration Folic Acid 0.4 mg 08/06/24 10:45 08/08/24 08:33 Folic Acid 0.4 Mg Tablet PO 0.4 mg DAILY RAJINDER Administration Hydralazine HCl 25 mg 08/06/24 10:15 08/08/24 21:01 Hydralazine Hcl 25 Mg Tablet PO 25 mg Q12HR RAJINDER Administration Lactated Ringer's 1,000 mls @ 100 mls/hr 08/06/24 13:25 08/09/24 02:35 Lr - Lactated Ringers Iv IV CONT 100 mls/hr .Q10H RAJINDER Administration Megestrol Acetate 40 mg 08/07/24 13:00 08/08/24 21:01 Megestrol Acetate (*Chemo) 40 Mg Tablet PO 40 mg QID RAJINDER Administration Mirtazapine 30 mg 08/07/24 09:00 08/08/24 08:33 Mirtazapine 30 Mg Tablet PO 30 mg DAILY RAJINDER Administration Multivitamins/Minerals 1 tablet 08/07/24 09:00 08/08/24 08:34 Multivits W-Fe,Min Chewable Tablet PO 1 tablet DAILY RAJINDER Administration Ondansetron HCl 4 mg 08/06/24 10:16 Ondansetron Inj 4 Mg/2 Ml Vial IV PUSH Q6H PRN Nausea And Vomiting Pantoprazole Sodium 40 mg 08/07/24 09:00 08/08/24 08:33 Pantoprazole 40 Mg Tablet PO 40 mg DAILY RAJINDER Administration Potassium Chloride 20 meq 08/08/24 17:00 08/08/24 16:43 Potassium Chloride 20 Meq Er Tablet PO 20 meq BID RAJINDER Administration Tramadol HCl 100 mg 08/06/24 10:45 08/08/24 02:25 Tramadol Hcl (*Crx) 50 Mg Tablet PO 100 mg Q8H PRN Administration Pain Rated 4-6 Trimethobenzamide HCl 200 mg 08/07/24 12:49 Trimethobenzamide Hcl 200 Mg/2 Ml Vial IM Q6H PRN Nausea And Vomiting Radiology Results: ITS Impressions Chest X-Ray 08/05/24 18:29 IMPRESSION: No acute cardiopulmonary pathology. Head CT 08/05/24 21:41 IMPRESSION: No significant change from previous examination. Encephalomalacia in the right temporal occipital area is noted with hyperdense areas most likely calcifications in the cortex Follow-up advised. Jacinta in the ER was notified with the result of the patient at 9:55 PM on August 05, 2024.. ADDENDUM: 08/05/241 Please note that cortical laminar necrosis should be considered. Labs Labs: Laboratory Results - last 24 hr 08/08/24 08/09/24 05:59 06:24 WBC 5.2 6.0 RBC 2.97 L 3.19 L Hgb 9.4 L 10.0 L Hct 27.7 L 30.4 L MCV 93.3 95.3 MCH 31.6 31.3 MCHC 33.9 32.9 RDW 18.4 H 18.0 H Plt Count 104 L 112 L MPV 11.2 H 9.6 Immature Gran % (Auto) 0.2 0.2 Neut % (Auto) 48.8 53.0 Lymph % (Auto) 38.8 35.4 [place] % (Auto) 10.5 H 10.4 H Eos % (Auto) 1.5 0.8 Baso % (Auto) 0.2 0.2 Lymph # (Auto) 2.03 2.14 [place] # (Auto) 0.6 0.6 Eos # (Auto) 0.1 0.1 Baso # (Auto) 0.0 0.0 Abs Immat Gran (auto) 0.01 0.01 Absolute Neuts (auto) 2.6 3.2 Absolute Nucleated RBC 0.030 H 0.000 Nucleated RBC % 0.6 H 0.0 % Immature Plt Fraction 3.1 1.6 Sodium 133 L Potassium 4.3 Chloride 106 Carbon Dioxide 25 Anion Gap 2 L BUN 9 Creatinine 0.41 L Estim Creat Clear Calc 96 Estimated GFR > 60 Glucose 80 Calcium 7.7 L Magnesium 1.8 Total Bilirubin 0.6 AST 20 ALT 12 Alkaline Phosphatase 74 Total Protein 4.0 L Albumin 1.8 L Quality VTE Prophylaxis VTE prophylaxis: pharmacologic ordered
[2024-08-09] MEDS: POTASSIUM CHLORIDE 20 MEQ ER TABLET PO ×2 (09:07→17:06)
[2024-08-09] MEDS: APIXABAN 5 MG TABLET PO ×2 (09:07→17:06)
[2024-08-09] MEDS: MEGESTROL ACETATE (*CHEMO) 40 MG TABLET PO ×4 (09:08→20:57)
[2024-08-09] MEDS: PANTOPRAZOLE 40 MG TABLET PO (09:08)
[2024-08-09] MEDS: EZETIMIBE 10 MG TABLET PO (09:08)
[2024-08-09] MEDS: CALCIUM/VITAMIN D 500 MG/5 MCG (200 I.U.) TABLET PO (09:09)
[2024-08-09] MEDS: MIRTAZAPINE 30 MG TABLET PO (09:09)
[2024-08-09] MEDS: FOLIC ACID 0.4 MG TABLET PO (09:09)
[2024-08-09] MEDS: MULTIVITS W-FE,MIN CHEWABLE TABLET 1 TABLET PO (09:09)
[2024-08-09] MEDS: carvediloL 6.25 MG TABLET PO ×2 (09:09→20:57)
[2024-08-09] MEDS: CYANOCOBALAMIN 500 MCG TABLET PO (09:09)
[2024-08-09] MEDS: hydrALAZINE HCL 25 MG TABLET PO ×2 (09:09→20:57)
[2024-08-09] MEDS: traMADol HCL (*CRX) 50 MG TABLET 100 MG PO (13:13)
[2024-08-09] MEDS: ATORVASTATIN 10 MG TABLET PO (17:06)
[2024-08-10] VITALS (8 sets, daily range): BP systolic 104–115; BP diastolic 56–75; PULSE 73–108; RESP 16–18; TEMP 35.7–36.6; O2SAT 100
[2024-08-10] MEDS: LACTATED RINGERS 1,000 ML 100 ML IV CONT (05:21)
[2024-08-10 06:14] LABS: Basophils Percent Auto 0.2 % (0.2-1.2); Eosinophils Absolute Auto 0.1 K/mm3 (0-0.3); Eosinophils Percent Auto 1.8 % (0-4.4); Hematocrit 25.9 % (37.0-47.0); Hemoglobin 8.9 g/dL (12.0-15.0); Immature Granulocyte Absolute 0.02 K/mm3 (0.00-0.031); Immature Granulocyte Percent A 0.4 % (0-0.5); Lymphocytes Percent Auto 36.7 % (18.3-44.2); Mean Corpuscular HGB Conc 34.4 g/dl (32-36); Mean Corpuscular Hemoglobin 32.1 pg (26-34); Mean Corpuscular Volume 93.5 fl (80-100); Monocytes Absolute Auto 0.6 K/mm3 (0.1-0.6); Monocytes Percent Auto 10.8 % (2.6-8.5); Neutrophils Absolute Auto 2.7 K/mm3 (1.3-6.7); Neutrophils Percent Auto 50.1 % (45.5-73.1); Platelet Count Result 112 k/mm3 (150-375); Red Blood Count 2.77 M/mm3 (4.2-5.4); Red Cell Distribution Width 17.6 % (11.5-14.5); White Blood Count 5.5 K/mm3 (4.5-10.0)
[2024-08-10 06:40] LABS: Alanine Aminotransferase 12 U/L (6-35); Albumin Level 1.6 g/dL (3.5-5.1); Alkaline Phosphatase 83 U/L (38-126); Anion Gap -2 mmol/L (4-12); Aspartate Amino Transferase 19 U/L (14-36); Bilirubin,Total 0.4 mg/dL (0.2-1.3); Blood Urea Nitrogen 7 mg/dL (7-17); Calcium 7.6 mg/dL (8.4-10.2); Carbon Dioxide 28 mmol/L (22-30); Chloride 105 mmol/L (98-107); Estimated CRCL calculation 92 ml/min; Estimated Glomerular Filt Rate > 60; Glucose 84 mg/dL (65-110); Magnesium 1.5 mg/dL (1.6-2.3); Potassium 4.1 mmol/L (3.4-5.0); Sodium 131 mmol/L (137-145)
--- NOTE | 2024-08-10 08:11 | PM.IMPN ---
Progress Note: A&P Assessment and Plan (1) Acute hypokalemia: Code(s): E87.6 - Hypokalemia Status: Acute Assessment and Plan: -K initially 2.8 in the ED, repleted with 40meq K IV, repleted value of 3.3 then 3.6, will continue to trend these labs in AM -5/2 AM labs K: 3.2, ordering IV 60meq K today for sustainability, Magnesium WDL -08/08 AM labs K: 3.4 -5 AM labs K: 4.3 -5 AM labs K: 4.1 -Restarted home 10meq BID K oral dose upon admission, increased dose 08/08 to 20meq BID for maintenance due to waxing and waning of K levels -Continue to trend labs in AM (2) Generalized weakness: Code(s): R53.1 - Weakness Status: Acute Assessment and Plan: -Probably due to electrolyte imbalance, when interviewed today, pt reports mildly weakness still, may be due to low K again, IV K given, see above -Continue to trend daily labs -LR 100ml/hr -Ensure supplement ordered -Per care coordination, pt reports that she is wanting to go to rehab after this admission -->Per care coordination today, pending contact with daughter to decide which facility to reach out to (3) Nauseous: Code(s): R11.0 - Nausea Status: Acute Assessment and Plan: -Prolonged QTC in ED and floor. No Zofran or Reglan at this time. Tigan ordered PRN. -->Will continue telemetry & daily labs - QTc today 485, reviewed med list and Remeron only prolonging QT med. Will continue to trend, pt asymptomatic. (4) Diarrhea: Code(s): R19.7 - Diarrhea, unspecified Status: Acute Assessment and Plan: Several episodes overnight per pt and nursing documentation -Stool culture & c dif ordered, all WDL -Imodium ordered 08/10 since stool cultures negative -Ordered abd/pelvis CT to r/o more sinister dx due to intractable diarrhea: IMPRESSION: 1. Bowel wall thickening involving portions of the ileum in the proximal colon consistent with enterocolitis which could be infectious or inflammatory in etiology. 2. Small bilateral pleural effusions, mild to moderate diffuse body wall edema and small amount of ascites in the abdomen and pelvis. -->Updated pt on the above results. -->Start Flagyl 500mg TID PO and Levaquin 750mg daily PO -->To continue on discharge -->Recommend cscope at D/C via PCP -->Assess pt status tomorrow s/p loperamide administration starting today (5) Dehydration: Code(s): E86.0 - Dehydration Status: Acute Assessment and Plan: Decreased PO intake for 2-3 weeks, potentially longer. Pt reporting decreased appetite since CABG/CVA in October 2023 -LR 100ml/hr -Ensure supple ordered - encouraged intake of this -Trial of Megace 40mg QID started 08/07 -->Pt reports today that she had more of an appetite this AM (6) History of stroke: Code(s): Z86.73 - Personal history of transient ischemic attack (TIA), and cerebral infarction without residual deficits Status: Acute Assessment and Plan: S/p CABG October 2023. Was in rehab until January 2024, now lives with daughter. LLE & LUE deficit weakness, 07/11 trength. -Per family, pt has been out of Eliquis x1 week - restarted upon admission, continue telemetry -Per care coordination, pt reports that she is wanting to go to rehab/SNF after this admission (7) Hypomagnesemia: Code(s): E83.42 - Hypomagnesemia Status: Acute Assessment and Plan: 1.4 in the ED, repleted with 2g, repeat level 2.3. /2: 1.9. 08/08: 1.5, 08/09: 1.8, 08/10: 1.5 -2g magnesium ordered 08/10 for repletion -Continue to trend mag with AM labs (8) Pressure injury: Code(s): L89.90 - Pressure ulcer of unspecified site, unspecified stage Status: Acute Assessment and Plan: Observed on 08/09, probable stage 1, blanchable with some minor excoriation -Wound consult ordered, per nursing, friction injury, rec tx with antifungal open to air. Per wound RN: Patient Has an open fraction area on the sacrum. surrounding tissue has yeast maceration. All areas tala. Patient has orders for antifungal barrier cream to treat and intact. Patient has a continence associated dermatitis. -RN to address dressing/cream daily if not more with diarrhea (9) Hyponatremia: Code(s): E87.1 - Hypo-osmolality and hyponatremia Status: Acute Assessment and Plan: Continues to down trend probable due to frequent diarrhea. -Switched LR to NS today, encouraged small amount of oral salt intake, remains on tele. -Continue to trend AM labs (10) Pleural effusion: Code(s): J90 - Pleural effusion, not elsewhere classified Status: Acute Assessment and Plan: Small bilateral found upon abd/pelvis CT, asymptomatic. -Continue to monitor with daily assessment, VS, and labs Plan -Pending stool culture & abd/pelvis CT -Per care coordination, per daughter, pt has not been able to afford Eliquis. Care coordination states that pt wanting to go to rehab after this admission so reasonable to continue Eliquis through this admission and at rehab. -->Pt needing to work with PT for insurance auth - SNF auth started today -Upper gluteal cleft friction injury maintenance -Continue to review labs in AM to assess electrolytes Subjective Date/time seen: 08/10/24 1135 Interval history: Pt resting comfortably in bed. Pt reports continued episodes of diarrhea overnight, updated her again that we are awaiting the last stool culture to result until we can give her medication to help this, pt understandable. Pt denies CP/SOB or any other sx. Pt still reporting a better appetite today eating most of her breakfast but still tired. Also updated pt on the plan to meet with care coordination today for placement after D/C. Review of Systems Review of Systems: All systems reviewed & are unremarkable except as noted in HPI and below Constitutional: Comments: +Fatigue Gastrointestinal: Gastrointestinal: Reports diarrhea, Reports nausea and Reports vomiting Exam Const: General: comfortable and no acute distress HENMT: Face/Nose/Sinus: Normal nares present Mouth: Yes moist mucous membranes Eyes: General: appearance normal, both eyes and all related structures Sclera: sclerae normal Neck: Neck: supple and no JVD Carotids: no bruits Resp: Effort & Inspection: normal respiratory effort Auscultation: clear to auscultation bilaterally Cardio: Rate: regular rate Rhythm: regular rhythm Other: QT 485 GI: Inspection: non-distended Auscultation: normal bowel sounds Skin: General skin exam: normal color Wounds: wounds noted Other: Upper gluteal cleft: Blanchable area of granulation excoriation to the top of the gluteal cleft with mild surrounding erythema, approx 2x1cm friction injury. TTP. Cream surrounding. Neuro: Speech: normal speech Motor exam (neuro): Abnormal motor strength present Other: decreased in LUE and LLE, 4/5, hx of CVA in 2023, residual Extrem: General: normal to inspection Psych: Mental Status: mental status grossly normal Affect: normal affect Objective Data Vital Signs Vital Signs: Vital Signs - 24 hr 08/09/24 09:09 08/09/24 12:00 08/09/24 12:00 Temperature 98 F Pulse Rate 69 96 88 Respiratory Rate 20 Blood Pressure 118/59 L Pulse Oximetry 100 Oxygen Delivery Fraction of Inspired Oxygen 08/09/24 16:00 08/09/24 20:00 08/09/24 20:00 Temperature 96.8 F L Pulse Rate 80 85 Respiratory Rate 16 Blood Pressure 107/62 Pulse Oximetry 100 Oxygen Delivery Room Air Fraction of Inspired Oxygen 21 08/09/24 20:00 08/09/24 20:57 08/09/24 23:57 Temperature 97.3 F L Pulse Rate 87 81 95 Respiratory Rate 16 Blood Pressure 125/65 Pulse Oximetry 99 Oxygen Delivery Fraction of Inspired Oxygen 08/10/24 00:00 08/10/24 04:00 08/10/24 04:00 Temperature 96.5 F L Pulse Rate 93 91 78 Respiratory Rate 16 Blood Pressure 110/75 Pulse Oximetry 100 Oxygen Delivery Fraction of Inspired Oxygen Intake/Output Intake/Output: Intake & Output 08/07/24 08/08/24 08/09/24 08/10/24 23:59 23:59 23:59 23:59 Intake Total 2415 3688.3 2781.7 838.3 Balance 2415 3688.3 2781.7 838.3 Meds/Results Medications: Active Medications Generic Name Dose Route Start Last Admin Trade Name Freq PRN Reason Stop Dose Admin Acetaminophen 650 mg 08/06/24 10:16 08/07/24 16:31 Acetaminophen 325 Mg Tablet PO 650 mg Q4H PRN Administration Mild Pain (1-3) or Fever Apixaban 5 mg 08/06/24 17:00 08/09/24 17:06 Apixaban 5 Mg Tablet PO 5 mg BID RAJINDER Administration Atorvastatin Calcium 10 mg 08/06/24 18:00 08/09/24 17:06 Atorvastatin 10 Mg Tablet PO 10 mg QPM RAJINDER Administration Calcium Carbonate 500 mg 08/06/24 10:40 08/09/24 09:09 Calcium/Vitamin D 500 Mg/5 Mcg (200 I.U.) Tablet PO 09/06/24 10:39 500 mg DAILY RAJINDER Administration Carvedilol 6.25 mg 08/06/24 10:15 08/09/24 20:57 Carvedilol 6.25 Mg Tablet PO 6.25 mg Q12HR RAJINDER Administration Cyanocobalamin 500 mcg 08/06/24 10:45 08/09/24 09:09 Cyanocobalamin 500 Mcg Tablet PO 09/06/24 10:44 500 mcg DAILY RAJINDER Administration Ezetimibe 10 mg 08/07/24 09:00 08/09/24 09:08 Ezetimibe 10 Mg Tablet PO 10 mg DAILY RAJINDER Administration Folic Acid 0.4 mg 08/06/24 10:45 08/09/24 09:09 Folic Acid 0.4 Mg Tablet PO 0.4 mg DAILY RAJINDER Administration Hydralazine HCl 25 mg 08/06/24 10:15 08/09/24 20:57 Hydralazine Hcl 25 Mg Tablet PO 25 mg Q12HR RAJINDER Administration Lactated Ringer's 1,000 mls @ 100 mls/hr 08/06/24 13:25 08/10/24 05:21 Lr - Lactated Ringers Iv IV CONT 100 mls/hr .Q10H RAJINDER Administration Magnesium Sulfate 2 gm in 50 mls @ 25 mls/hr 08/10/24 07:30 Magnesium Sulf 2 Gm/Water 50ml IVPB 08/10/24 09:29 ONCE ONE Megestrol Acetate 40 mg 08/07/24 13:00 08/09/24 20:57 Megestrol Acetate (*Chemo) 40 Mg Tablet PO 40 mg QID RAJINDER Administration Mirtazapine 30 mg 08/07/24 09:00 08/09/24 09:09 Mirtazapine 30 Mg Tablet PO 30 mg DAILY RAJINDER Administration Multivitamins/Minerals 1 tablet 08/07/24 09:00 08/09/24 09:09 Multivits W-Fe,Min Chewable Tablet PO 1 tablet DAILY RAJINDER Administration Ondansetron HCl 4 mg 08/06/24 10:16 Ondansetron Inj 4 Mg/2 Ml Vial IV PUSH Q6H PRN Nausea And Vomiting Pantoprazole Sodium 40 mg 08/07/24 09:00 08/09/24 09:08 Pantoprazole 40 Mg Tablet PO 40 mg DAILY RAJINDER Administration Potassium Chloride 20 meq 08/08/24 17:00 08/09/24 17:06 Potassium Chloride 20 Meq Er Tablet PO 20 meq BID RAJINDER Administration Tramadol HCl 100 mg 08/06/24 10:45 08/09/24 13:13 Tramadol Hcl (*Crx) 50 Mg Tablet PO 100 mg Q8H PRN Administration Pain Rated 4-6 Trimethobenzamide HCl 200 mg 08/07/24 12:49 Trimethobenzamide Hcl 200 Mg/2 Ml Vial IM Q6H PRN Nausea And Vomiting Radiology Results: ITS Impressions Chest X-Ray 08/05/24 18:29 IMPRESSION: No acute cardiopulmonary pathology. Head CT 08/05/24 21:41 IMPRESSION: No significant change from previous examination. Encephalomalacia in the right temporal occipital area is noted with hyperdense areas most likely calcifications in the cortex Follow-up advised. Jacinta in the ER was notified with the result of the patient at 9:55 PM on August 05, 2024.. ADDENDUM: 08/05/240 Please note that cortical laminar necrosis should be considered. Labs Labs: Laboratory Results - last 24 hr 08/10/24 05:50 WBC 5.5 RBC 2.77 L Hgb 8.9 L Hct 25.9 L MCV 93.5 MCH 32.1 MCHC 34.4 RDW 17.6 H Plt Count 112 L MPV 10.0 Immature Gran % (Auto) 0.4 Neut % (Auto) 50.1 Lymph % (Auto) 36.7 [place] % (Auto) 10.8 H Eos % (Auto) 1.8 Baso % (Auto) 0.2 Lymph # (Auto) 2.00 [place] # (Auto) 0.6 Eos # (Auto) 0.1 Baso # (Auto) 0.0 Abs Immat Gran (auto) 0.02 Absolute Neuts (auto) 2.7 Absolute Nucleated RBC 0.000 Nucleated RBC % 0.0 Sodium 131 L Potassium 4.1 Chloride 105 Carbon Dioxide 28 Anion Gap -2 L BUN 7 Creatinine 0.43 L Estim Creat Clear Calc 92 Estimated GFR > 60 Glucose 84 Calcium 7.6 L Magnesium 1.5 L Total Bilirubin 0.4 AST 19 ALT 12 Alkaline Phosphatase 83 Total Protein 4.0 L Albumin 1.6 L Quality VTE Prophylaxis VTE prophylaxis: pharmacologic ordered
[2024-08-10] MEDS: MAGNESIUM SULF 2 GM/WATER 50ML 2 GM/50 ML BAG IVPB (08:40)
[2024-08-10] MEDS: FOLIC ACID 0.4 MG TABLET PO (08:45)
[2024-08-10] MEDS: CYANOCOBALAMIN 500 MCG TABLET PO (08:45)
[2024-08-10] MEDS: MIRTAZAPINE 30 MG TABLET PO (08:45)
[2024-08-10] MEDS: carvediloL 6.25 MG TABLET PO ×2 (08:46→20:17)
[2024-08-10] MEDS: PANTOPRAZOLE 40 MG TABLET PO (08:46)
[2024-08-10] MEDS: CALCIUM/VITAMIN D 500 MG/5 MCG (200 I.U.) TABLET PO (08:46)
[2024-08-10] MEDS: POTASSIUM CHLORIDE 20 MEQ ER TABLET PO ×2 (08:46→17:04)
[2024-08-10] MEDS: MEGESTROL ACETATE (*CHEMO) 40 MG TABLET PO ×4 (08:46→20:16)
[2024-08-10] MEDS: APIXABAN 5 MG TABLET PO ×2 (08:47→17:05)
[2024-08-10] MEDS: EZETIMIBE 10 MG TABLET PO (08:47)
[2024-08-10] MEDS: hydrALAZINE HCL 25 MG TABLET PO ×2 (08:48→20:16)
[2024-08-10] MEDS: MULTIVITS W-FE,MIN CHEWABLE TABLET 1 TABLET PO (08:48)
[2024-08-10] MEDS: SODIUM CHLORIDE 0.9% IV 1,000 ML 100 ML IV CONT ×2 (10:28→20:20)
--- NOTE | 2024-08-10 11:18 | PCNFU ---
Nutrition Follow-Up Complete: Inadequate oral intake related to nausea, vomiting and diarrhea as evidenced by report of poor intake and weight loss Goal:Improve PO intake at least 50% meals Pt progressing towards goal Pt current nutrition is Heart healthy, Ensure Enlive BID. Nutrition recommendation: continue with current plan of care Last recorded weight is 60.8 kg. Bowel Motility: +BM / Labs Reviewed: Hgb:8.9, HCT:25.9. Alb:1.6, NA:131, Cr:0.43 Meds Noted: B12, megace, KCL Skin: WNL Additional Notes: Pt continues on a heart healthy diet, Ensure Enlive BID in place, Intake 0-50% at this time. Noted pt on megace. Encourage po intake of meals and supplements Monitoring intakes, weights, labs, supplement tolerance, output, plan of care Follow up in 5 days
[2024-08-10] MEDS: LOPERAMIDE HCL 2 MG CAPSULE 4 MG PO (13:01)
[2024-08-10] MEDS: metroNIDAZOLE 500 MG TABLET PO ×2 (17:04→20:25)
[2024-08-10] MEDS: ATORVASTATIN 10 MG TABLET PO (17:05)
[2024-08-10] MEDS: levoFLOXacin 500 MG TABLET PO (17:36)
[2024-08-11] VITALS (10 sets, daily range): BP systolic 100–123; BP diastolic 50–70; PULSE 70–105; RESP 18–20; TEMP 36.2–37; O2SAT 100
[2024-08-11] MEDS: metroNIDAZOLE 500 MG TABLET PO ×3 (05:57→22:02)
[2024-08-11 06:23] LABS: Basophils Percent Auto 0.4 % (0.2-1.2); Eosinophils Absolute Auto 0.1 K/mm3 (0-0.3); Eosinophils Percent Auto 1.7 % (0-4.4); Hematocrit 27.8 % (37.0-47.0); Hemoglobin 9.3 g/dL (12.0-15.0); Immature Granulocyte Absolute 0.02 K/mm3 (0.00-0.031); Immature Granulocyte Percent A 0.4 % (0-0.5); Immature Platelet Fraction Pct 2.2 % (0.9-11.2); Lymphocytes Absolute Auto 2.05 K/mm3 (0.9-3.2); Lymphocytes Percent Auto 39.3 % (18.3-44.2); Mean Corpuscular HGB Conc 33.5 g/dl (32-36); Mean Corpuscular Hemoglobin 31.6 pg (26-34); Mean Corpuscular Volume 94.6 fl (80-100); Mean Platelet Volume 9.9 fl (7.4-10.4); Monocytes Absolute Auto 0.6 K/mm3 (0.1-0.6); Monocytes Percent Auto 10.9 % (2.6-8.5); Neutrophils Absolute Auto 2.5 K/mm3 (1.3-6.7); Neutrophils Percent Auto 47.3 % (45.5-73.1); Platelet Count Result 109 k/mm3 (150-375); Red Blood Count 2.94 M/mm3 (4.2-5.4); Red Cell Distribution Width 17.7 % (11.5-14.5); White Blood Count 5.2 K/mm3 (4.5-10.0)
[2024-08-11 06:38] LABS: Alanine Aminotransferase 12 U/L (6-35); Albumin Level 1.6 g/dL (3.5-5.1); Alkaline Phosphatase 83 U/L (38-126); Anion Gap 2 mmol/L (4-12); Aspartate Amino Transferase 19 U/L (14-36); Bilirubin,Total 0.3 mg/dL (0.2-1.3); Blood Urea Nitrogen 6 mg/dL (7-17); Calcium 7.4 mg/dL (8.4-10.2); Carbon Dioxide 23 mmol/L (22-30); Chloride 107 mmol/L (98-107); Estimated CRCL calculation 96 ml/min; Estimated Glomerular Filt Rate > 60; Glucose 83 mg/dL (65-110); Magnesium 1.9 mg/dL (1.6-2.3); Potassium 4.1 mmol/L (3.4-5.0); Sodium 132 mmol/L (137-145)
--- NOTE | 2024-08-11 07:07 | PM.IMPN ---
Progress Note: A&P Assessment and Plan (1) Acute hypokalemia: Code(s): E87.6 - Hypokalemia Status: Acute Assessment and Plan: -K initially 2.8 in the ED, repleted with 40meq K IV, repleted value of 3.3 then 3.6, will continue to trend these labs in AM -5/2 AM labs K: 3.2, ordering IV 60meq K today for sustainability, Magnesium WDL -08/08 AM labs K: 3.4 -5/ AM labs K: 4.3 -5 AM labs K: 4.1 -5/6 AM labs K: 4.1 -Restarted home 10meq BID K oral dose upon admission, increased dose 08/08 to 20meq BID for maintenance due to waxing and waning of K levels, consider increase to this dose come D/C. -Continue to trend labs in AM (2) Generalized weakness: Code(s): R53.1 - Weakness Status: Acute Assessment and Plan: -Probably due to electrolyte imbalance, when interviewed today, pt reports mildly weakness still -Continue to trend daily labs -LR 100ml/hr -Ensure supplement ordered -Per care coordination, pt reports that she is wanting to go to rehab after this admission -->Per care coordination today, pending contact with daughter to decide which facility to reach out to, also updated them on plan for overnight for electrolytes with probable D/C tomorrow AM. (3) Nauseous: Code(s): R11.0 - Nausea Status: Acute Assessment and Plan: Nausea better per pt, mainly comes intermittently with food present -Prolonged QTC in ED and floor. No Zofran or Reglan at this time. Tigan ordered PRN. -->Will continue telemetry & daily labs, reviewed med list and Remeron only prolonging QT med. Will continue to trend, pt asymptomatic. (4) Diarrhea: Code(s): R19.7 - Diarrhea, unspecified Status: Acute Assessment and Plan: No episodes overnight per nursing -Stool culture & c dif ordered, all WDL -Imodium ordered 08/10 since stool cultures negative, appears to be helping -Ordered abd/pelvis CT to r/o more sinister dx due to intractable diarrhea: IMPRESSION: 1. Bowel wall thickening involving portions of the ileum in the proximal colon consistent with enterocolitis which could be infectious or inflammatory in etiology. 2. Small bilateral pleural effusions, mild to moderate diffuse body wall edema and small amount of ascites in the abdomen and pelvis. -->Updated pt on the above results. -->Start Flagyl 500mg TID PO and Levaquin 750mg daily PO -->To continue on discharge -->Recommend cscope at D/C via PCP -->Assess pt status tomorrow s/p loperamide administration starting yesterday (5) Dehydration: Code(s): E86.0 - Dehydration Status: Acute Assessment and Plan: Decreased PO intake for 2-3 weeks, potentially longer. Pt reporting decreased appetite since CABG/CVA in October 2023 -NS 100ml/hr -Ensure supple ordered - encouraged intake of this -Trial of Megace 40mg QID started 08/07 -->Pt reports today that she had more of an appetite this AM (6) History of stroke: Code(s): Z86.73 - Personal history of transient ischemic attack (TIA), and cerebral infarction without residual deficits Status: Acute Assessment and Plan: S/p CABG October 2023. Was in rehab until January 2024, now lives with daughter. LLE & LUE deficit weakness, 07/11 trength. -Per family, pt has been out of Eliquis x1 week - restarted upon admission, continue telemetry -Per care coordination, pt reports that she is wanting to go to rehab/SNF after this admission (7) Hypomagnesemia: Code(s): E83.42 - Hypomagnesemia Status: Acute Assessment and Plan: 1.4 in the ED, repleted with 2g, repeat level 2.3. 08/07: 1.9. 08/08: 1.5, 08/09: 1.8, 08/10: 1.5, 08/11:1.9 -2g magnesium ordered 08/10 for repletion -Continue to trend mag with AM labs (8) Pressure injury: Code(s): L89.90 - Pressure ulcer of unspecified site, unspecified stage Status: Acute Assessment and Plan: Observed new on 08/09, probable stage 1, blanchable with some minor excoriation. Looking better today, healing. -Wound consult ordered, per nursing, friction injury, rec tx with antifungal open to air. Per wound RN: Patient Has an open fraction area on the sacrum. surrounding tissue has yeast maceration. All areas tala. Patient has orders for antifungal barrier cream to treat and intact. Patient has a continence associated dermatitis. -RN to address dressing/cream daily if not more with diarrhea (9) Hyponatremia: Code(s): E87.1 - Hypo-osmolality and hyponatremia Status: Acute Assessment and Plan: Continues to down trend probable due to frequent diarrhea. -Switched LR to NS /, encouraged small amount of oral salt intake, remains on tele. -Na starting to uptrend per AM labs, plan to watch x1 more day -Continue to trend AM labs (10) Pleural effusion: Code(s): J90 - Pleural effusion, not elsewhere classified Status: Acute Assessment and Plan: Small bilateral found upon abd/pelvis CT, asymptomatic. -Continue to monitor with daily assessment, VS, and labs Plan -Pending electrolyte balance, daily AM labs -Per care coordination, per daughter, pt has not been able to afford Eliquis. Care coordination states that pt wanting to go to rehab after this admission so reasonable to continue Eliquis through this admission and at rehab. -->SNF auth pending D/C (electolyte balance) -Upper gluteal cleft friction injury maintenance Subjective Date/time seen: 08/11/24 0815 Interval history: Pt continues to be admitted for diarrhea, poor PO intake, and electrolyte control. S/p negative stool cultures resulting yesterday, pt started on loperamide with great relief per nursing. However, recent abd/pelvis CT yesterday yielding colitis. Levaquin and Flagyl ordered and will be continued at D/C. Pt reports continued issues with appetite, but does state she thinks it may be getting slightly better; pt currently on Megace QID and will be D/C on. Pt also with healing friction wound to upper gluteal cleft in which wound was consulted and recommended fungal cream application and open to air. Pt with new c/o of hemorrhoid pain today, cream ordered. Pending probable D/C tomorrow after x1 more day of electrolyte monitoring, care coordination aware. Review of Systems Review of Systems: All systems reviewed & are unremarkable except as noted in HPI and below Constitutional: Comments: Low appetite, fatigue Gastrointestinal: Comments: hemorrhoid pain Exam Const: General: comfortable and no acute distress HENMT: Face/Nose/Sinus: Normal nares present Mouth: Yes moist mucous membranes Eyes: General: appearance normal, both eyes and all related structures Sclera: sclerae normal Neck: Neck: supple and no JVD Carotids: no bruits Resp: Effort & Inspection: normal respiratory effort Auscultation: clear to auscultation bilaterally Cardio: Rate: regular rate Rhythm: regular rhythm GI: Inspection: non-distended Auscultation: normal bowel sounds Other: Upper gluteal cleft: Blanchable area of granulation excoriation to the top of the gluteal cleft with mild surrounding erythema, approx 2x1cm friction injury. TTP. Cream applied. External hemorrhoids x2, approx to the 6 and 9 o'clock locations, no bleeding Skin: General skin exam: normal color and no rashes or lesions noted Wounds: wounds noted Other: see GI Neuro: Other: decreased in LUE and LLE, 07/11, hx of CVA in 2023, residual Extrem: General: normal to inspection Psych: Mental Status: mental status grossly normal Affect: normal affect Objective Data Vital Signs Vital Signs: Vital Signs - 24 hr 08/10/24 08:00 08/10/24 08:00 08/10/24 08:46 Temperature 96.6 F L Pulse Rate 73 80 78 Respiratory Rate 18 Blood Pressure 111/59 L Pulse Oximetry 100 08/10/24 12:00 08/10/24 12:00 08/10/24 16:00 Temperature 96.3 F L Pulse Rate 77 100 108 H Respiratory Rate 18 Blood Pressure 114/62 Pulse Oximetry 100 08/10/24 16:00 08/10/24 20:00 08/10/24 20:00 Temperature 96.6 F L 97.8 F Pulse Rate 90 92 108 H Respiratory Rate 18 18 Blood Pressure 115/60 104/56 L Pulse Oximetry 100 100 08/10/24 23:18 08/11/24 03:39 08/11/24 05:09 Temperature 98.2 F Pulse Rate 80 70 93 Respiratory Rate 20 Blood Pressure 111/63 Pulse Oximetry 100 Intake/Output Intake/Output: Intake & Output 08/08/24 08/09/24 08/10/24 08/11/24 23:59 23:59 23:59 23:59 Intake Total 3688.3 2781.7 2205.0 100 Balance 3688.3 2781.7 2205.0 100 Meds/Results Medications: Active Medications Generic Name Dose Route Start Last Admin Trade Name Freq PRN Reason Stop Dose Admin Acetaminophen 650 mg 08/06/24 10:16 08/07/24 16:31 Acetaminophen 325 Mg Tablet PO 650 mg Q4H PRN Administration Mild Pain (1-3) or Fever Apixaban 5 mg 08/06/24 17:00 08/10/24 17:05 Apixaban 5 Mg Tablet PO 5 mg BID RAJINDER Administration Atorvastatin Calcium 10 mg 08/06/24 18:00 08/10/24 17:05 Atorvastatin 10 Mg Tablet PO 10 mg QPM RAJINDER Administration Calcium Carbonate 500 mg 08/06/24 10:40 08/10/24 08:46 Calcium/Vitamin D 500 Mg/5 Mcg (200 I.U.) Tablet PO 09/06/24 10:39 500 mg DAILY RAJINDER Administration Carvedilol 6.25 mg 08/06/24 10:15 08/10/24 20:17 Carvedilol 6.25 Mg Tablet PO 6.25 mg Q12HR RAJINDER Administration Cyanocobalamin 500 mcg 08/06/24 10:45 08/10/24 08:45 Cyanocobalamin 500 Mcg Tablet PO 09/06/24 10:44 500 mcg DAILY RAJINDER Administration Ezetimibe 10 mg 08/07/24 09:00 08/10/24 08:47 Ezetimibe 10 Mg Tablet PO 10 mg DAILY RAJINDER Administration Folic Acid 0.4 mg 08/06/24 10:45 08/10/24 08:45 Folic Acid 0.4 Mg Tablet PO 0.4 mg DAILY RAJINDER Administration Hydralazine HCl 25 mg 08/06/24 10:15 08/10/24 20:16 Hydralazine Hcl 25 Mg Tablet PO 25 mg Q12HR RAJINDER Administration Sodium Chloride 1,000 mls @ 100 mls/hr 08/10/24 08:50 08/10/24 20:20 Normal Saline Iv IV CONT 100 mls/hr .Q10H RAJINDER Administration Levofloxacin 500 mg 08/10/24 16:15 08/10/24 17:36 Levofloxacin 500 Mg Tablet PO 08/15/24 16:14 500 mg DAILY RAJINDER Administration Loperamide HCl 2 mg 08/10/24 12:54 Loperamide Hcl 2 Mg Capsule PO PRN PRN Diarrhea Megestrol Acetate 40 mg 08/07/24 13:00 08/10/24 20:16 Megestrol Acetate (*Chemo) 40 Mg Tablet PO 40 mg QID RAJINDER Administration Metronidazole 500 mg 08/10/24 16:15 08/11/24 05:57 Metronidazole 500 Mg Tablet PO 08/15/24 16:14 500 mg Q8HR RAJINDER Administration Mirtazapine 30 mg 08/07/24 09:00 08/10/24 08:45 Mirtazapine 30 Mg Tablet PO 30 mg DAILY RAJINDER Administration Multivitamins/Minerals 1 tablet 08/07/24 09:00 08/10/24 08:48 Multivits W-Fe,Min Chewable Tablet PO 1 tablet DAILY RAJINDER Administration Ondansetron HCl 4 mg 08/06/24 10:16 Ondansetron Inj 4 Mg/2 Ml Vial IV PUSH Q6H PRN Nausea And Vomiting Pantoprazole Sodium 40 mg 08/07/24 09:00 08/10/24 08:46 Pantoprazole 40 Mg Tablet PO 40 mg DAILY RAJINDER Administration Potassium Chloride 20 meq 08/08/24 17:00 08/10/24 17:04 Potassium Chloride 20 Meq Er Tablet PO 20 meq BID RAJINDER Administration Tramadol HCl 100 mg 08/06/24 10:45 08/09/24 13:13 Tramadol Hcl (*Crx) 50 Mg Tablet PO 100 mg Q8H PRN Administration Pain Rated 4-6 Trimethobenzamide HCl 200 mg 08/07/24 12:49 Trimethobenzamide Hcl 200 Mg/2 Ml Vial IM Q6H PRN Nausea And Vomiting Radiology Results: ITS Impressions Chest X-Ray 08/05/24 18:29 IMPRESSION: No acute cardiopulmonary pathology. Head CT 08/05/24 21:41 IMPRESSION: No significant change from previous examination. Encephalomalacia in the right temporal occipital area is noted with hyperdense areas most likely calcifications in the cortex Follow-up advised. Jacinta in the ER was notified with the result of the patient at 9:55 PM on August 05, 2024.. ADDENDUM: 08/05/24 5152 Please note that cortical laminar necrosis should be considered. Abdomen/Pelvis CT 08/10/24 15:39 IMPRESSION: 1. Bowel wall thickening involving portions of the ileum in the proximal colon consistent with enterocolitis which could be infectious or inflammatory in etiology. 2. Small bilateral pleural effusions, mild to moderate diffuse body wall edema and small amount of ascites in the abdomen and pelvis. Labs Labs: Laboratory Results - last 24 hr 08/11/24 05:55 WBC 5.2 RBC 2.94 L Hgb 9.3 L Hct 27.8 L MCV 94.6 MCH 31.6 MCHC 33.5 RDW 17.7 H Plt Count 109 L MPV 9.9 Immature Gran % (Auto) 0.4 Neut % (Auto) 47.3 Lymph % (Auto) 39.3 [place] % (Auto) 10.9 H Eos % (Auto) 1.7 Baso % (Auto) 0.4 Lymph # (Auto) 2.05 [place] # (Auto) 0.6 Eos # (Auto) 0.1 Baso # (Auto) 0.0 Abs Immat Gran (auto) 0.02 Absolute Neuts (auto) 2.5 Absolute Nucleated RBC 0.000 Nucleated RBC % 0.0 % Immature Plt Fraction 2.2 Sodium 132 L Potassium 4.1 Chloride 107 Carbon Dioxide 23 Anion Gap 2 L BUN 6 L Creatinine 0.41 L Estim Creat Clear Calc 96 Estimated GFR > 60 Glucose 83 Calcium 7.4 L Magnesium 1.9 Total Bilirubin 0.3 AST 19 ALT 12 Alkaline Phosphatase 83 Total Protein 4.0 L Albumin 1.6 L Quality VTE Prophylaxis VTE prophylaxis: pharmacologic ordered
[2024-08-11] MEDS: SODIUM CHLORIDE 0.9% IV 1,000 ML 100 ML IV CONT ×2 (08:58→22:01)
[2024-08-11] MEDS: MULTIVITS W-FE,MIN CHEWABLE TABLET 1 TABLET PO (08:59)
[2024-08-11] MEDS: levoFLOXacin 500 MG TABLET PO (08:59)
[2024-08-11] MEDS: MEGESTROL ACETATE (*CHEMO) 40 MG TABLET PO ×4 (09:00→22:02)
[2024-08-11] MEDS: carvediloL 6.25 MG TABLET PO ×2 (09:00→22:02)
[2024-08-11] MEDS: CALCIUM/VITAMIN D 500 MG/5 MCG (200 I.U.) TABLET PO (09:00)
[2024-08-11] MEDS: FOLIC ACID 0.4 MG TABLET PO (09:00)
[2024-08-11] MEDS: hydrALAZINE HCL 25 MG TABLET PO ×2 (09:00→22:02)
[2024-08-11] MEDS: CYANOCOBALAMIN 500 MCG TABLET PO (09:00)
[2024-08-11] MEDS: PANTOPRAZOLE 40 MG TABLET PO (09:00)
[2024-08-11] MEDS: MIRTAZAPINE 30 MG TABLET PO (09:00)
[2024-08-11] MEDS: EZETIMIBE 10 MG TABLET PO (09:00)
[2024-08-11] MEDS: APIXABAN 5 MG TABLET PO ×2 (09:01→16:36)
[2024-08-11] MEDS: POTASSIUM CHLORIDE 20 MEQ ER TABLET PO ×2 (09:01→16:37)
[2024-08-11] MEDS: PHENYLEPH/SHARK OIL/MO/PETROL CREAM 26 GM 1 APPLIC RECTAL (12:39)
[2024-08-11] MEDS: traMADol HCL (*CRX) 50 MG TABLET 100 MG PO (12:50)
[2024-08-11] MEDS: ATORVASTATIN 10 MG TABLET PO (16:59)
[2024-08-12] VITALS (11 sets, daily range): BP systolic 125–142; BP diastolic 70–77; PULSE 73–114; RESP 16–20; TEMP 36.5–37.2; O2SAT 100
[2024-08-12] MEDS: metroNIDAZOLE 500 MG TABLET PO ×3 (05:22→20:12)
--- NOTE | 2024-08-12 06:57 | PC.NURSE ---
Patient awake in bed at this time and has slept intermittently in short periods throughout the shift. Patient denied pain and repositioned for positional discomfort. Q2H turn refused at time and patient educated on importance of pressure relief. No respiratory distress noted. All meds given as ordered throughout the shift and tolerated w/o difficulty. No change in mental status and no behaviors noted that warrant attention.
[2024-08-12 07:13] LABS: Basophils Percent Auto 0.5 % (0.2-1.2); Eosinophils Absolute Auto 0.1 K/mm3 (0-0.3); Eosinophils Percent Auto 1.6 % (0-4.4); Hematocrit 28.6 % (37.0-47.0); Hemoglobin 9.7 g/dL (12.0-15.0); Immature Granulocyte Absolute 0.02 K/mm3 (0.00-0.031); Immature Granulocyte Percent A 0.3 % (0-0.5); Lymphocytes Absolute Auto 2.86 K/mm3 (0.9-3.2); Lymphocytes Percent Auto 45.8 % (18.3-44.2); Mean Corpuscular HGB Conc 33.9 g/dl (32-36); Mean Corpuscular Hemoglobin 31.3 pg (26-34); Mean Corpuscular Volume 92.3 fl (80-100); Mean Platelet Volume 9.3 fl (7.4-10.4); Monocytes Absolute Auto 0.7 K/mm3 (0.1-0.6); Monocytes Percent Auto 10.9 % (2.6-8.5); Neutrophils Absolute Auto 2.6 K/mm3 (1.3-6.7); Neutrophils Percent Auto 40.9 % (45.5-73.1); Platelet Count Result 107 k/mm3 (150-375); Red Cell Distribution Width 17.3 % (11.5-14.5); White Blood Count 6.2 K/mm3 (4.5-10.0)
[2024-08-12 07:27] LABS: Alanine Aminotransferase 13 U/L (6-35); Albumin Level 1.7 g/dL (3.5-5.1); Alkaline Phosphatase 76 U/L (38-126); Anion Gap 3 mmol/L (4-12); Aspartate Amino Transferase 21 U/L (14-36); Bilirubin,Total 0.4 mg/dL (0.2-1.3); Blood Urea Nitrogen 5 mg/dL (7-17); Calcium 7.5 mg/dL (8.4-10.2); Carbon Dioxide 22 mmol/L (22-30); Chloride 107 mmol/L (98-107); Estimated CRCL calculation 90 ml/min; Estimated Glomerular Filt Rate > 60; Glucose 66 mg/dL (65-110); Magnesium 1.7 mg/dL (1.6-2.3); Potassium 3.9 mmol/L (3.4-5.0); Sodium 132 mmol/L (137-145)
[2024-08-12] MEDS: MULTIVITS W-FE,MIN CHEWABLE TABLET 1 TABLET PO (08:52)
[2024-08-12] MEDS: MEGESTROL ACETATE (*CHEMO) 40 MG TABLET PO ×4 (08:52→20:12)
[2024-08-12] MEDS: SODIUM CHLORIDE 0.9% IV 1,000 ML 100 ML IV CONT (08:52)
[2024-08-12] MEDS: APIXABAN 5 MG TABLET PO ×2 (08:52→17:34)
[2024-08-12] MEDS: EZETIMIBE 10 MG TABLET PO (08:52)
[2024-08-12] MEDS: POTASSIUM CHLORIDE 20 MEQ ER TABLET PO ×2 (08:52→17:34)
[2024-08-12] MEDS: carvediloL 6.25 MG TABLET PO ×2 (08:52→20:12)
[2024-08-12] MEDS: levoFLOXacin 500 MG TABLET PO (08:52)
[2024-08-12] MEDS: FOLIC ACID 0.4 MG TABLET PO (08:53)
[2024-08-12] MEDS: PHENYLEPH/SHARK OIL/MO/PETROL CREAM 26 GM 1 APPLIC RECTAL (08:53)
[2024-08-12] MEDS: hydrALAZINE HCL 25 MG TABLET PO ×2 (08:53→20:12)
[2024-08-12] MEDS: CALCIUM/VITAMIN D 500 MG/5 MCG (200 I.U.) TABLET PO (08:53)
[2024-08-12] MEDS: MIRTAZAPINE 30 MG TABLET PO (08:53)
[2024-08-12] MEDS: PANTOPRAZOLE 40 MG TABLET PO (08:53)
[2024-08-12] MEDS: CYANOCOBALAMIN 500 MCG TABLET PO (08:53)
[2024-08-12] MEDS: traMADol HCL (*CRX) 50 MG TABLET 100 MG PO ×2 (09:03→20:12)
--- NOTE | 2024-08-12 11:12 | PM.DS ---
DS: Admitting Diagnosis Discharge Date 08/12/2024 Admitting Diagnosis Acute hypokalemia Generalized weakness Nauseous DS: Discharge Diagnosis Discharge Diagnosis (1) Acute hypokalemia: Code(s): E87.6 - Hypokalemia Status: Acute (2) Generalized weakness: Code(s): R53.1 - Weakness Status: Acute (3) Nauseous: Code(s): R11.0 - Nausea Status: Acute (4) Diarrhea: Code(s): R19.7 - Diarrhea, unspecified Status: Acute (5) Dehydration: Code(s): E86.0 - Dehydration Status: Acute (6) History of stroke: Code(s): Z86.73 - Personal history of transient ischemic attack (TIA), and cerebral infarction without residual deficits Status: Acute (7) Hypomagnesemia: Code(s): E83.42 - Hypomagnesemia Status: Acute (8) Pressure injury: Code(s): L89.90 - Pressure ulcer of unspecified site, unspecified stage Status: Acute (9) Hyponatremia: Code(s): E87.1 - Hypo-osmolality and hyponatremia Status: Acute (10) Pleural effusion: Code(s): J90 - Pleural effusion, not elsewhere classified Status: Acute DS: Summary Hospital Course Reason for hospitalization: Weakness, N/V/D Hospital Course: Pt admitted via the ED early this AM for generalized weakness and N/V/D x2-3 weeks. 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 Pt denies any falls, she reports being bedbound at her daughters house where she lives currently. Pt has had x3 small BMs this AM, nursing reporting them as liquid stools. Takes K supplement at home. Pt denies abd pain or urinary sx. Per ED MD note, pt has been out of her Eliquis x1 week. Time Spent with Patient Time attestation: Total time spent providing and/or coordinating discharge services: Exam Const: General: comfortable and no acute distress Other: ill appearing HENMT: Face/Nose/Sinus: Normal nares present Mouth: Yes moist mucous membranes and Yes dry mucous membranes Eyes: General: appearance normal, both eyes and all related structures Sclera: sclerae normal Pupils: Equal, round and reactive pupils present EOM: EOMs intact bilaterally Neck: Neck: supple and no JVD Carotids: no bruits Resp: Effort & Inspection: normal respiratory effort Auscultation: clear to auscultation bilaterally, no crackles, no rales, no rhonchi and no wheezes Cardio: Rate: regular rate and tachycardic Rhythm: regular rhythm Other: QT 485 GI: Inspection: non-distended Auscultation: normal bowel sounds and abnormal bowel sounds (hypo) Other: Upper gluteal cleft: Blanchable area of granulation excoriation to the top of the gluteal cleft with mild surrounding erythema, approx 2x1cm friction injury. TTP. Cream applied. External hemorrhoids x2, approx to the 6 and 9 o'clock locations, no bleeding : General: Yes bladder normal to palpation Bimanual exam- vagina & uterus: bladder normal to palpation Skin: General skin exam: normal color, no rashes or lesions noted and wounds noted Wounds: no wounds and wounds noted Other: see GI Neuro: Cranial nerves: Yes Equal, round and reactive pupils present Speech: normal speech Motor exam (neuro): Normal motor muscle tone present throughout and Abnormal motor strength present Sensory Exam: normal sensation Other: decreased in LUE and LLE, 4/5, hx of CVA in 2023, residual Extrem: General: normal to inspection Psych: Mental Status: mental status grossly normal Affect: normal affect DS: Data Data Completed and Pending Labs on day of discharge: Labs from last 24 hours 08/12/24 06:57 WBC 6.2 RBC 3.10 L Hgb 9.7 L Hct 28.6 L MCV 92.3 MCH 31.3 MCHC 33.9 RDW 17.3 H Plt Count 107 L MPV 9.3 Immature Gran % (Auto) 0.3 Neut % (Auto) 40.9 L Lymph % (Auto) 45.8 H [place] % (Auto) 10.9 H Eos % (Auto) 1.6 Baso % (Auto) 0.5 Lymph # (Auto) 2.86 [place] # (Auto) 0.7 H Eos # (Auto) 0.1 Baso # (Auto) 0.0 Abs Immat Gran (auto) 0.02 Absolute Neuts (auto) 2.6 Absolute Nucleated RBC 0.000 Nucleated RBC % 0.0 Sodium 132 L Potassium 3.9 Chloride 107 Carbon Dioxide 22 Anion Gap 3 L BUN 5 L Creatinine 0.44 L Estim Creat Clear Calc 90 Estimated GFR > 60 Glucose 66 Calcium 7.5 L Magnesium 1.7 Total Bilirubin 0.4 AST 21 ALT 13 Alkaline Phosphatase 76 Total Protein 4.0 L Albumin 1.7 L Discharge Plan Discharge Attending physician on discharge: Jose Arauz Discharging Clinician: Jose Arauz Anticipated Discharge Date/Time: 08/12/24 11:06 Activity: as tolerated Diet: as tolerated Discharge Instructions: Discharge disposition: Stable Take medications as prescribed. You will be prescribed Flagyl and Levaquin. You will try to take Flagyl for 10 days and Levaquin for 7 days. You will also be given a prescription for Megace. Monitor blood pressures Take caution while standing, rising, or moving Change positions slowly taking a break between each position change If you standing feel dizzy sit back down and take a break Encouraged to continue with yearly vaccinations Return to the emergency department if he developed sudden shortness of breath, chest pain, nausea, vomiting, upset stomach or intractable diarrhea Return to the emergency department if you develop fever greater than 101.5 Follow-up with the primary care physician within 1-2 weeks Thank you for [facility] for your healthcare needs Patient Instructions: Apixaban (By mouth) Patient Language: Macedonian Follow-up/Referrals: Brody,Coco Beckett [Primary Care Provider] - Discharge Medications: New levofloxacin 500 mg tablet 500 mg PO DAILY 7 Days Qty: 7 0RF megestrol 40 mg tablet 40 mg PO BID Qty: 8 0RF metronidazole [Flagyl] 375 mg capsule 375 mg PO Q12H 10 Days Qty: 20 0RF Continued acetaminophen [Tylenol Arthritis Pain] 650 mg tablet extended release 650 mg PO Q8H PRN (Reason: Pain) Patient Comments: 1 tablet po prn pain multivit with min-folic acid [Adult Multivitamin Gummies] 200 mcg Tablet,Chewable 1 tablet PO DAILY atorvastatin 10 mg tablet 10 mg PO QPM carvedilol 6.25 mg tablet 6.25 mg PO Q12H ezetimibe 10 mg tablet 10 mg PO DAILY hydralazine 25 mg tablet 25 mg PO Q12H mirtazapine 30 mg tablet 30 mg PO DAILY pantoprazole 40 mg tablet,delayed release (DR/EC) 40 mg PO DAILY potassium chloride 10 mEq tablet extended release 20 meq PO BID Eliquis 5 mg tablet 5 mg PO BID Patient Comments: Received samples from MD per daughter oxycodone 5 mg tablet 5 mg PO Q8H PRN (Reason: pain) Patient Comments: for 5 days per pharmacy diphenhydramine-acetaminophen [Tylenol PM Extra Strength] 25-500 mg tablet 1 tablet PO HS PRN (Reason: sleep) cranberry 500 mg capsule 500 mg PO DAILY Rx Instructions: administer with a meal calcium phos,dibas-vitamin D3 77-400 mg-unit tablet 1 tablet PO DAILY vitamin [id number] acid 500-400 mcg tablet 1 tablet PO DAILY Rx Instructions: administer with a meal tramadol 50 mg tablet 50 mg PO Q8H PRN (Reason: pain) Patient Comments: 1-2 tabs po prn severe pain Date of admission: 08/05/24 23:43 Primary Care Provider: Brody,Sophy Admitting Provider: Bharath Lindsey Attending physician on admission: Jose Arauz Condition: Stable Quality VTE Prophylaxis VTE prophylaxis: pharmacologic ordered
--- NOTE | 2024-08-12 14:28 | P.PNIM_ITS ---
Progress Note: A&P Assessment and Plan (1) Acute hypokalemia: Code(s): E87.6 - Hypokalemia Status: Acute Assessment and Plan: -K initially 2.8 in the ED, repleted with 40meq K IV, repleted value of 3.3 then 3.6, will continue to trend these labs in AM -08/12: K 3.9 -Restarted home 10meq BID K oral dose upon admission, increased dose 08/08 to 20meq BID for maintenance due to waxing and waning of K levels, consider increase to this dose come D/C. -Continue to trend labs in AM (2) Generalized weakness: Code(s): R53.1 - Weakness Status: Acute Assessment and Plan: -Probably due to electrolyte imbalance, when interviewed today, pt reports mildly weakness still -Continue to trend daily labs -NS 100ml/hr -Ensure supplement ordered -Per care coordination, pt reports that she is wanting to go to rehab after this admission -->Per care coordination today, pending contact with daughter to decide which facility to reach out to, also updated them on plan for overnight for electrolytes with probable D/C tomorrow AM. (3) Nauseous: Code(s): R11.0 - Nausea Status: Acute Assessment and Plan: Nausea better per pt, mainly comes intermittently with food present -Prolonged QTC in ED and floor. No Zofran or Reglan at this time. Tigan ordered PRN. -->Will continue telemetry & daily labs, reviewed med list and Remeron only prolonging QT med. Will continue to trend, pt asymptomatic. Improved today (4) Diarrhea: Code(s): R19.7 - Diarrhea, unspecified Status: Acute Assessment and Plan: No episodes overnight per nursing -Stool culture & c dif ordered, all WDL -Imodium ordered 08/10 since stool cultures negative, appears to be helping -Ordered abd/pelvis CT to r/o more sinister dx due to intractable diarrhea: IMPRESSION: 1. Bowel wall thickening involving portions of the ileum in the proximal colon consistent with enterocolitis which could be infectious or inflammatory in etiology. 2. Small bilateral pleural effusions, mild to moderate diffuse body wall edema and small amount of ascites in the abdomen and pelvis. -->Updated pt on the above results. -->Start Flagyl 500mg TID PO and Levaquin 750mg daily PO -->To continue on discharge -->Recommend cscope at D/C via PCP -->Assess pt status tomorrow s/p loperamide administration starting yesterday No episodes today, abdominal discomfort also improved (5) Dehydration: Code(s): E86.0 - Dehydration Status: Acute Assessment and Plan: Decreased PO intake for 2-3 weeks, potentially longer. Pt reporting decreased appetite since CABG/CVA in October 2023 -NS 100ml/hr -Ensure supple ordered - encouraged intake of this -Trial of Megace 40mg QID started 08/07 -->Pt reports today that she had more of an appetite this AM Does not appear to be overtly dehydrated upon exam Continue to encourage oral intake for hydration as well (6) History of stroke: Code(s): Z86.73 - Personal history of transient ischemic attack (TIA), and cerebral infarction without residual deficits Status: Acute Assessment and Plan: S/p CABG October 2023. Was in rehab until January 2024, now lives with daughter. LLE & LUE deficit weakness, 07/11 trength. -Per family, pt has been out of Eliquis x1 week - restarted upon admission, continue telemetry -Per care coordination, pt reports that she is wanting to go to rehab/SNF after this admission (7) Hypomagnesemia: Code(s): E83.42 - Hypomagnesemia Status: Acute Assessment and Plan: 1.4 in the ED, repleted with 2g, repeat level 2.3. /2: 1.9. 08/08: 1.5, 08/09: 1.8, 08/10: 1.5, 08/11:1.9 -2g magnesium ordered 08/10 for repletion -Continue to trend mag with AM labs Improved (8) Pressure injury: Code(s): L89.90 - Pressure ulcer of unspecified site, unspecified stage Status: Acute Assessment and Plan: Observed new on 08/09, probable stage 1, blanchable with some minor excoriation. Looking better today, healing. -Wound consult ordered, per nursing, friction injury, rec tx with antifungal open to air. Per wound RN: Patient Has an open fraction area on the sacrum. surrounding tissue has yeast maceration. All areas tala. Patient has orders for antifungal barrier cream to treat and intact. Patient has a continence associated dermatitis. -RN to address dressing/cream daily if not more with diarrhea Continue wound care and regularly scheduled turns (9) Hyponatremia: Code(s): E87.1 - Hypo-osmolality and hyponatremia Status: Acute Assessment and Plan: Continues to down trend probable due to frequent diarrhea. -Switched LR to NS 5/6, encouraged small amount of oral salt intake, remains on tele. -Na starting to uptrend per AM labs, plan to watch x1 more day -Continue to trend AM labs (10) Pleural effusion: Code(s): J90 - Pleural effusion, not elsewhere classified Status: Acute Assessment and Plan: Small bilateral found upon abd/pelvis CT, asymptomatic. -Continue to monitor with daily assessment, VS, and labs Plan -Pending electrolyte balance, daily AM labs -Per care coordination, per daughter, pt has not been able to afford Eliquis. Care coordination states that pt wanting to go to rehab after this admission so reasonable to continue Eliquis through this admission and at rehab. -->SNF auth pending D/C (electolyte balance) -Upper gluteal cleft friction injury maintenance - Likely discharge tomorrow pending electrolyte improvmenet and SNF placement authorization Time Spent With Patient Time: Subjective Date/time seen: 08/12/24 14:28 Interval history: Pt is a 68 year old female who presented for diarrhea, poor PO intake, and electrolyte control. S/p negative stool cultures, pt started on loperamide with great relief per nursing. However, recent abd/pelvis CT yesterday yielding colitis. Levaquin and Flagyl ordered and will be continued at D/C. 08/12/2024 Pt improving today. Sodium still decreased at 132, other electrolytes are wnl. Albumin still decreased at 1.7 today, slightly up from 1.6 yesterday. Will plan to supplement with Albuminex 25% today but this is likely secondary to decreased PO intake. Pt endorses improvement in diarrhea as she has had no episodes today. But given continued poor oral intake and decreased albumin of 1.7, will want to continue patient in hospital with hopeful discharge tomorrow. Review of Systems Review of Systems: All systems reviewed & are unremarkable except as noted in HPI and below Gastrointestinal: Gastrointestinal: Reports diarrhea, Reports nausea and Reports vomiting Exam Const: Other: ill appearing Cardio: Other: QT 485 GI: Other: Upper gluteal cleft: Blanchable area of granulation excoriation to the top of the gluteal cleft with mild surrounding erythema, approx 2x1cm friction injury. TTP. Cream applied. External hemorrhoids x2, approx to the 6 and 9 o'clock locations, no bleeding Skin: Other: see GI Neuro: Other: decreased in LUE and LLE, 07/11, hx of CVA in 2023, residual Objective Data Vital Signs Vital Signs: Vital Signs - 24 hr 08/11/24 16:00 08/11/24 20:00 08/11/24 20:00 Temperature Pulse Rate 102 H 97 Respiratory Rate Blood Pressure Pulse Oximetry 100 Oxygen Delivery Room Air Fraction of Inspired Oxygen 21 08/11/24 21:00 08/11/24 22:02 08/12/24 00:00 Temperature 97.2 F L Pulse Rate 94 94 94 Respiratory Rate 20 Blood Pressure 123/70 Pulse Oximetry 100 Oxygen Delivery Fraction of Inspired Oxygen 08/12/24 04:00 08/12/24 04:35 08/12/24 08:00 Temperature 97.7 F Pulse Rate 88 98 Respiratory Rate 20 Blood Pressure 142/70 H Pulse Oximetry 100 Oxygen Delivery Room Air Fraction of Inspired Oxygen 08/12/24 08:00 08/12/24 08:52 08/12/24 12:00 Temperature Pulse Rate 97 73 91 Respiratory Rate Blood Pressure Pulse Oximetry Oxygen Delivery Fraction of Inspired Oxygen 08/12/24 13:27 Temperature 99 F Pulse Rate 114 H Respiratory Rate 18 Blood Pressure 126/77 Pulse Oximetry 100 Oxygen Delivery Fraction of Inspired Oxygen Intake/Output Intake/Output: Intake & Output 08/09/24 08/10/24 08/11/24 08/12/24 23:59 23:59 23:59 23:59 Intake Total 2781.7 2205.0 3250 1390 Output Total 800 600 Balance 2781.7 2205.0 2450 790 Meds/Results Medications: Active Medications Generic Name Dose Route Start Last Admin Trade Name Freq PRN Reason Stop Dose Admin Acetaminophen 650 mg 08/06/24 10:16 08/07/24 16:31 Acetaminophen 325 Mg Tablet PO 650 mg Q4H PRN Administration Mild Pain (1-3) or Fever Apixaban 5 mg 08/06/24 17:00 08/12/24 08:52 Apixaban 5 Mg Tablet PO 5 mg BID RAJINDER Administration Atorvastatin Calcium 10 mg 08/06/24 18:00 08/11/24 16:59 Atorvastatin 10 Mg Tablet PO 10 mg QPM RAJINDER Administration Calcium Carbonate 500 mg 08/06/24 10:40 08/12/24 08:53 Calcium/Vitamin D 500 Mg/5 Mcg (200 I.U.) Tablet PO 09/06/24 10:39 500 mg DAILY RAJINDER Administration Carvedilol 6.25 mg 08/06/24 10:15 08/12/24 08:52 Carvedilol 6.25 Mg Tablet PO 6.25 mg Q12HR RAJINDER Administration Cyanocobalamin 500 mcg 08/06/24 10:45 08/12/24 08:53 Cyanocobalamin 500 Mcg Tablet PO 09/06/24 10:44 500 mcg DAILY RAJINDER Administration Ezetimibe 10 mg 08/07/24 09:00 08/12/24 08:52 Ezetimibe 10 Mg Tablet PO 10 mg DAILY RAJINDER Administration Folic Acid 0.4 mg 08/06/24 10:45 08/12/24 08:53 Folic Acid 0.4 Mg Tablet PO 0.4 mg DAILY RAJINDER Administration Hydralazine HCl 25 mg 08/06/24 10:15 08/12/24 08:53 Hydralazine Hcl 25 Mg Tablet PO 25 mg Q12HR RAJINDER Administration Sodium Chloride 1,000 mls @ 100 mls/hr 08/10/24 08:50 08/12/24 08:52 Normal Saline Iv IV CONT 100 mls/hr .Q10H RAJINDER Administration Levofloxacin 500 mg 08/10/24 16:15 08/12/24 08:52 Levofloxacin 500 Mg Tablet PO 08/15/24 16:14 500 mg DAILY RAJINDER Administration Loperamide HCl 2 mg 08/10/24 12:54 Loperamide Hcl 2 Mg Capsule PO PRN PRN Diarrhea Megestrol Acetate 40 mg 08/07/24 13:00 08/12/24 13:01 Megestrol Acetate (*Chemo) 40 Mg Tablet PO 40 mg QID RAJINDER Administration Metronidazole 500 mg 08/10/24 16:15 08/12/24 13:01 Metronidazole 500 Mg Tablet PO 08/15/24 16:14 500 mg Q8HR RAJINDER Administration Mirtazapine 30 mg 08/07/24 09:00 08/12/24 08:53 Mirtazapine 30 Mg Tablet PO 30 mg DAILY RAJINDER Administration Multivitamins/Minerals 1 tablet 08/07/24 09:00 08/12/24 08:52 Multivits W-Fe,Min Chewable Tablet PO 1 tablet DAILY RAJINDER Administration Ondansetron HCl 4 mg 08/06/24 10:16 Ondansetron Inj 4 Mg/2 Ml Vial IV PUSH Q6H PRN Nausea And Vomiting Pantoprazole Sodium 40 mg 08/07/24 09:00 08/12/24 08:53 Pantoprazole 40 Mg Tablet PO 40 mg DAILY RAJINDER Administration Phenyleph/Shark Oil/Min Oil/Petrol 1 applic 08/11/24 10:55 08/12/24 08:53 Phenyleph/Shark Oil/Mo/Petrol Cream 26 Gm RECTAL 1 applic DAILY RAJINDER Administration Potassium Chloride 20 meq 08/08/24 17:00 08/12/24 08:52 Potassium Chloride 20 Meq Er Tablet PO 20 meq BID RAJINDER Administration Tramadol HCl 100 mg 08/06/24 10:45 08/12/24 09:03 Tramadol Hcl (*Crx) 50 Mg Tablet PO 100 mg Q8H PRN Administration Pain Rated 4-6 Trimethobenzamide HCl 200 mg 08/07/24 12:49 Trimethobenzamide Hcl 200 Mg/2 Ml Vial IM Q6H PRN Nausea And Vomiting Radiology Results: ITS Impressions Chest X-Ray 08/05/24 18:29 IMPRESSION: No acute cardiopulmonary pathology. Head CT 08/05/24 21:41 IMPRESSION: No significant change from previous examination. Encephalomalacia in the right temporal occipital area is noted with hyperdense areas most likely calcifications in the cortex Follow-up advised. Jacinta in the ER was notified with the result of the patient at 9:55 PM on August 05, 2024.. ADDENDUM: 08/05/24 2220 Please note that cortical laminar necrosis should be considered. Abdomen/Pelvis CT 08/10/24 15:39 IMPRESSION: 1. Bowel wall thickening involving portions of the ileum in the proximal colon consistent with enterocolitis which could be infectious or inflammatory in e tiology. 2. Small bilateral pleural effusions, mild to moderate diffuse body wall edema and small amount of ascites in the abdomen and pelvis. Labs Labs: Laboratory Results - last 24 hr 08/12/24 06:57 WBC 6.2 RBC 3.10 L Hgb 9.7 L Hct 28.6 L MCV 92.3 MCH 31.3 MCHC 33.9 RDW 17.3 H Plt Count 107 L MPV 9.3 Immature Gran % (Auto) 0.3 Neut % (Auto) 40.9 L Lymph % (Auto) 45.8 H [place] % (Auto) 10.9 H Eos % (Auto) 1.6 Baso % (Auto) 0.5 Lymph # (Auto) 2.86 [place] # (Auto) 0.7 H Eos # (Auto) 0.1 Baso # (Auto) 0.0 Abs Immat Gran (auto) 0.02 Absolute Neuts (auto) 2.6 Absolute Nucleated RBC 0.000 Nucleated RBC % 0.0 Sodium 132 L Potassium 3.9 Chloride 107 Carbon Dioxide 22 Anion Gap 3 L BUN 5 L Creatinine 0.44 L Estim Creat Clear Calc 90 Estimated GFR > 60 Glucose 66 Calcium 7.5 L Magnesium 1.7 Total Bilirubin 0.4 AST 21 ALT 13 Alkaline Phosphatase 76 Total Protein 4.0 L Albumin 1.7 L Quality VTE Prophylaxis VTE prophylaxis: pharmacologic ordered
[2024-08-12] MEDS: ALBUMIN HUMAN 25% 25 GM/100 ML 200 ML IVPB (14:38)
[2024-08-12] MEDS: ATORVASTATIN 10 MG TABLET PO (17:34)
[2024-08-13] VITALS: PULSE 95
[2024-08-13 04:00] VITALS: PULSE 87
[2024-08-13 05:00] VITALS: BP 136/71; PULSE 99; RESP 18; TEMP 35.7; O2SAT 100
[2024-08-13] MEDS: metroNIDAZOLE 500 MG TABLET PO (05:24)
[2024-08-13 06:17] LABS: Basophils Percent Auto 0.4 % (0.2-1.2); Eosinophils Absolute Auto 0.1 K/mm3 (0-0.3); Eosinophils Percent Auto 1.7 % (0-4.4); Hematocrit 24.8 % (37.0-47.0); Hemoglobin 8.1 g/dL (12.0-15.0); Immature Granulocyte Absolute 0.01 K/mm3 (0.00-0.031); Immature Granulocyte Percent A 0.2 % (0-0.5); Immature Platelet Fraction Pct 1.8 % (0.9-11.2); Lymphocytes Absolute Auto 2.08 K/mm3 (0.9-3.2); Lymphocytes Percent Auto 43.2 % (18.3-44.2); Mean Corpuscular HGB Conc 32.7 g/dl (32-36); Mean Corpuscular Hemoglobin 31.2 pg (26-34); Mean Corpuscular Volume 95.4 fl (80-100); Mean Platelet Volume 9.8 fl (7.4-10.4); Monocytes Absolute Auto 0.5 K/mm3 (0.1-0.6); Monocytes Percent Auto 10.4 % (2.6-8.5); Neutrophils Absolute Auto 2.1 K/mm3 (1.3-6.7); Neutrophils Percent Auto 44.1 % (45.5-73.1); Platelet Count Result 113 k/mm3 (150-375); Red Cell Distribution Width 17.5 % (11.5-14.5); White Blood Count 4.8 K/mm3 (4.5-10.0)
[2024-08-13 06:23] LABS: Alanine Aminotransferase 10 U/L (6-35); Albumin Level 2.3 g/dL (3.5-5.1); Alkaline Phosphatase 63 U/L (38-126); Anion Gap 2 mmol/L (4-12); Aspartate Amino Transferase 18 U/L (14-36); Bilirubin,Total 0.4 mg/dL (0.2-1.3); Blood Urea Nitrogen 3 mg/dL (7-17); Calcium 7.8 mg/dL (8.4-10.2); Carbon Dioxide 26 mmol/L (22-30); Chloride 109 mmol/L (98-107); Estimated CRCL calculation 78 ml/min; Estimated Glomerular Filt Rate > 60; Glucose 74 mg/dL (65-110); Magnesium 1.6 mg/dL (1.6-2.3); Potassium 4.4 mmol/L (3.4-5.0); Sodium 137 mmol/L (137-145)
[2024-08-13 08:00] VITALS: PULSE 90
[2024-08-13] MEDS: MIRTAZAPINE 30 MG TABLET PO (08:06)
[2024-08-13] MEDS: levoFLOXacin 500 MG TABLET PO (08:06)
[2024-08-13] MEDS: CALCIUM/VITAMIN D 500 MG/5 MCG (200 I.U.) TABLET PO (08:06)
[2024-08-13] MEDS: carvediloL 6.25 MG TABLET PO (08:06)
[2024-08-13] MEDS: MULTIVITS W-FE,MIN CHEWABLE TABLET 1 TABLET PO (08:06)
[2024-08-13] MEDS: FOLIC ACID 0.4 MG TABLET PO (08:06)
[2024-08-13] MEDS: hydrALAZINE HCL 25 MG TABLET PO (08:06)
[2024-08-13] MEDS: PANTOPRAZOLE 40 MG TABLET PO (08:06)
[2024-08-13] MEDS: APIXABAN 5 MG TABLET PO (08:06)
[2024-08-13] MEDS: MEGESTROL ACETATE (*CHEMO) 40 MG TABLET PO (08:06)
[2024-08-13] MEDS: POTASSIUM CHLORIDE 20 MEQ ER TABLET PO (08:06)
[2024-08-13] MEDS: traMADol HCL (*CRX) 50 MG TABLET 100 MG PO (08:06)
[2024-08-13] MEDS: CYANOCOBALAMIN 500 MCG TABLET PO (08:06)
[2024-08-13] MEDS: EZETIMIBE 10 MG TABLET PO (08:07)
--- NOTE | 2024-08-13 09:47 | PM.DS ---
DS: Admitting Diagnosis Discharge Date 08/13/2024 Admitting Diagnosis Acute hypokalemia Generalized weakness Diarrhea DS: Discharge Diagnosis Discharge Diagnosis (1) Acute hypokalemia: Code(s): E87.6 - Hypokalemia Status: Acute (2) Generalized weakness: Code(s): R53.1 - Weakness Status: Acute (3) Nauseous: Code(s): R11.0 - Nausea Status: Acute (4) Diarrhea: Code(s): R19.7 - Diarrhea, unspecified Status: Acute (5) Dehydration: Code(s): E86.0 - Dehydration Status: Acute (6) History of stroke: Code(s): Z86.73 - Personal history of transient ischemic attack (TIA), and cerebral infarction without residual deficits Status: Acute (7) Hypomagnesemia: Code(s): E83.42 - Hypomagnesemia Status: Acute (8) Pressure injury: Code(s): L89.90 - Pressure ulcer of unspecified site, unspecified stage Status: Acute (9) Hyponatremia: Code(s): E87.1 - Hypo-osmolality and hyponatremia Status: Acute (10) Pleural effusion: Code(s): J90 - Pleural effusion, not elsewhere classified Status: Acute DS: Summary Hospital Course Reason for hospitalization: Weakness, N/V/D Hospital Course: Pt admitted via the ED early this AM for generalized weakness and N/V/D x2-3 weeks. 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 Pt denies any falls, she reports being bedbound at her daughters house where she lives currently. Pt has had x3 small BMs this AM, nursing reporting them as liquid stools. Takes K supplement at home. Pt denies abd pain or urinary sx. Per ED MD note, pt has been out of her Eliquis x1 week. ED workup: Head CT - CT scan shows encephalomalacia and gliosis in the right temporoparietal lobe likely from her previous stroke. ED MD spoke to the radiologist who recommended repeat CT in 2 hours to make sure that there is no hemorrhage concerns although this is likely related to the old stroke according to Radiology. Repeat CT shows no interval changes and encephalomalacia with hyperdensities consistent with calcifications per radiology's interpretation. CXR - IMPRESSION: No acute cardiopulmonary pathology K - 2.8, repleted with K 40meqIV, repeat K 3.6 Ma.4, repleted to 2.3 UA: Neg UTI (straight cath) Throughout her hospitalization she suffered diarrhea and low potassium. On 08/20, potassium was 3.2, for which she received 60 mEq potassium IV. Megace was initiated to assist with appetite. Ensure supplements and a trial of Megace 40 mg q.i.d. was started. Stool culture was obtained and was negative. She was started on loperamide with great relief. CT abdomen/pelvis on 08/10 showed colitis. Also showed small bilateral pleural effusions. Patient is asymptomatic, with stable vital signs and labs. Levaquin and Flagyl were initiated. Throughout her visit she endorsed increased appetite and decreased amount of episodes of diarrhea. On 08/13, she endorsed no episodes of diarrhea for the past 2 days and states that she feels as though her appetite is back to her baseline. She did develop an upper gluteal cleft friction ulcer with some excoriation, wound care was consulted and they recommended a fungal cream application and general hygienic care. Patient's electrolytes were monitored for several days and on 08/13, they appeared stable. Patient also present with stable vital signs and a benign physical exam. Patient otherwise clinically stable for discharge with continued antibiotic coverage with Flagyl and Levaquin. Per daughter, patient has not been able to afford Eliquis, so she will be switched to Coumadin with an ambulatory order to monitor INR within 3-4 days. Patient was originally recommended for alf facility as she was originally a maximum assist but progressed to moderate assist the PT/OT, but was denied authorization. As patient lives with daughter, health services would be the next best option. Patient and patient's daughter is amenable to this plan. Plan for discharge home with home health services at this time. Status at Discharge Functional status at discharge: uses cane/walker Overall status at discharge: patient is progressing back to baseline Time Spent with Patient Time attestation: Total time spent providing and/or coordinating discharge services:45 Exam Narrative: Gen - well appearing female in no acute respiratory distress who is nontoxic-appearing lying semi recumbent in bed HEENT - normocephalic. Atraumatic. Pupils equal round and reactive. Extraocular motions intact. Sclera clear and anicteric. Nares patent. Oropharynx was clear. No oral lesions. Moist mucous membranes. Tongue was midline. Palate indy symmetrically. No facial asymmetry. Neck - neck was supple. 2+ carotid upstrokes without bruits. Chest - lungs are clear to auscultation bilaterally. No wheezes or crackles. Breast exam was deferred. CV - heart was regular rate and rhythm. S1-S2. No murmurs gallops or rubs. Abd - abdomen was soft. Nontender. Nondistended. Positive bowel sounds. No organomegaly or masses. Ext - no clubbing, cyanosis or edema. 2+ DP pulses bilaterally. Neuro - patient is alert and oriented x4. decreased in LUE and LLE 4/5 (hx of CVA in 2023). Speech is clear. Psych - normal mood and affect. Patient is pleasant and cooperative. Skin - warm and dry. Blanchable area of granulation excoriation to the top of the gluteal cleft with mild surrounding erythema, approx 2x1cm friction injury. TTP. Cream applied. No rashes noted. DS: Data Data Completed and Pending Labs on day of discharge: Labs from last 24 hours 08/13/24 05:46 WBC 4.8 RBC 2.60 L Hgb 8.1 L Hct 24.8 L MCV 95.4 MCH 31.2 MCHC 32.7 RDW 17.5 H Plt Count 113 L MPV 9.8 Immature Gran % (Auto) 0.2 Neut % (Auto) 44.1 L Lymph % (Auto) 43.2 [place] % (Auto) 10.4 H Eos % (Auto) 1.7 Baso % (Auto) 0.4 Lymph # (Auto) 2.08 [place] # (Auto) 0.5 Eos # (Auto) 0.1 Baso # (Auto) 0.0 Abs Immat Gran (auto) 0.01 Absolute Neuts (auto) 2.1 Absolute Nucleated RBC 0.000 Nucleated RBC % 0.0 % Immature Plt Fraction 1.8 Sodium 137 Potassium 4.4 Chloride 109 H Carbon Dioxide 26 Anion Gap 2 L BUN 3 L Creatinine 0.52 L Estim Creat Clear Calc 78 Estimated GFR > 60 Glucose 74 Calcium 7.8 L Magnesium 1.6 Total Bilirubin 0.4 AST 18 ALT 10 Alkaline Phosphatase 63 Total Protein 5.0 L Albumin 2.3 L Discharge Plan Discharge Attending physician on discharge: Jose Arauz Discharging Clinician: Jose Arauz Anticipated Discharge Date/Time: 08/13/24 09:41 Patient Disposition: Home with Home Health Service Activity: as tolerated Diet: as tolerated Discharge Instructions: Discharge home with [facility]. (Phone number [phone]). Discharge disposition: Stable Take medications as prescribed. You will be prescribed Flagyl and Levaquin. You will try to take Flagyl for 10 days and Levaquin for 7 days. You will also be given a prescription for Megace. Monitor blood pressures Take caution while standing, rising, or moving Change positions slowly taking a break between each position change If you standing feel dizzy sit back down and take a break Encouraged to continue with yearly vaccinations Return to the emergency department if he developed sudden shortness of breath, chest pain, nausea, vomiting, upset stomach or intractable diarrhea Return to the emergency department if you develop fever greater than 101.5 Follow-up with the primary care physician within 1-2 weeks Thank you for choosing [facility] for your healthcare needs Patient Instructions: Antibiotic Form, Apixaban (By mouth) Patient Language: Pashto Stand Alone Forms: General Discharge Information Follow-up/Referrals: Brody,Coco Beckett [Primary Care Provider] - Discharge Medications: New metronidazole [Flagyl] 375 mg capsule 375 mg PO Q12H 2 Days Qty: 4 0RF levofloxacin 500 mg tablet 500 mg PO DAILY 2 Days Qty: 2 0RF megestrol 40 mg tablet 40 mg PO BID Qty: 8 0RF warfarin 2.5 mg tablet 2.5 mg PO DAILY Qty: 30 0RF Continued acetaminophen [Tylenol Arthritis Pain] 650 mg tablet extended release 650 mg PO Q8H PRN (Reason: Pain) Patient Comments: 1 tablet po prn pain multivit with min-folic acid [Adult Multivitamin Gummies] 200 mcg Tablet,Chewable 1 tablet PO DAILY atorvastatin 10 mg tablet 10 mg PO QPM carvedilol 6.25 mg tablet 6.25 mg PO Q12H ezetimibe 10 mg tablet 10 mg PO DAILY hydralazine 25 mg tablet 25 mg PO Q12H mirtazapine 30 mg tablet 30 mg PO DAILY pantoprazole 40 mg tablet,delayed release (DR/EC) 40 mg PO DAILY potassium chloride 10 mEq tablet extended release 20 meq PO BID oxycodone 5 mg tablet 5 mg PO Q8H PRN (Reason: pain) Patient Comments: for 5 days per pharmacy diphenhydramine-acetaminophen [Tylenol PM Extra Strength] 25-500 mg tablet 1 tablet PO HS PRN (Reason: sleep) cranberry 500 mg capsule 500 mg PO DAILY Rx Instructions: administer with a meal calcium phos,dibas-vitamin D3 77-400 mg-unit tablet 1 tablet PO DAILY vitamin K18-joljo acid 500-400 mcg tablet 1 tablet PO DAILY Rx Instructions: administer with a meal tramadol 50 mg tablet 50 mg PO Q8H PRN (Reason: pain) Patient Comments: 1-2 tabs po prn severe pain Discontinued Eliquis 5 mg tablet 5 mg PO BID Patient Comments: Received samples from MD per daughter Other Ambulatory Orders: Prothrombin Time INR (Routine) Timeframe: 3 Days Location: Determined by Patient Ordered By: Jose Arauz Date of admission: 08/05/24 23:43 Primary Care Provider: BrodySohpy Admitting Provider: Bharath Lindsey Attending physician on admission: Jose Arauz Condition: Stable Quality VTE Prophylaxis VTE prophylaxis: pharmacologic ordered
== END 2024-08-13 13:00 | disposition home health service (06) | DRG 392 ==
LOC: ANHED 08-06 00:49 → ANH3MEDSUR 08-06 01:46
PROVIDERS: Physician Assistant; Registered Nurse; Admitting Provider Hospitalist; Emergency Provider Student in an Organized Health Care Education/Training Program; PCP Internal Medicine Infectious Disease; Visit Provider Physician Assistant
DX: K52.9 Noninfective gastroenteritis and colitis, unspecified (principal); I69.354 Hemiplegia and hemiparesis following cerebral infarction affecting left non-dominant side; J90 Pleural effusion, not elsewhere classified; E87.1 Hypo-osmolality and hyponatremia; E87.6 Hypokalemia; E86.0 Dehydration; E83.42 Hypomagnesemia; I10 Essential (primary) hypertension; I25.10 Atherosclerotic heart disease of native coronary artery without angina pectoris; E78.5 Hyperlipidemia, unspecified; L89.301 Pressure ulcer of unspecified buttock, stage 1; R94.31 Abnormal electrocardiogram [ECG] [EKG]; M19.90 Unspecified osteoarthritis, unspecified site; G93.89 Other specified disorders of brain; Z20.822 Contact with and (suspected) exposure to COVID-19; Z95.1 Presence of aortocoronary bypass graft; Z74.01 Bed confinement status; Z79.01 Long term (current) use of anticoagulants
CPT/HCPCS: 36415; 70450; 71046; 74177; 80048; 80053; 81001; 82550; 83735; 84443; 84484; 85025; 85055; 85610; 85730; 87045; 87427; 87449; 87493; 87637; 93005; 96365; 96366; 96375; 97110; 97161; 97166; 97530; 97535; 99285; A9270; J3475; J3480; J7030; J7040; J7120; P9047; Q9967

== ENCOUNTER 2024-09-16 14:10 | Outpatient (CLI) | payer MEDICARE, SELFPAY ==
--- NOTE | ~2024-09-16 | MM_ITS ---
EXAMINATION: MM screening tyron BI w diann HISTORY: Screening TECHNIQUE: Craniocaudal and mediolateral oblique 3-D tomosynthesis images were obtained and synthetic 2-D images were generated. CAD analysis was submitted and interpreted. COMPARISON: No prior mammogram is available for comparison at this institution. BREAST PARENCHYMAL COMPOSITION: There are scattered areas of fibroglandular density. FINDINGS: There is no evidence of suspicious mass, calcification, or architectural distortion to sugg est malignancy in either breast. There has been no suspicious interval change. IMPRESSION: 1. No mammographic evidence of malignancy. 2. Recommend routine screening mammography in one year. BI-RADS Category 1: Negative Reviewed, dictated and finalized at location B.
--- OUTSIDE RECORDS SUMMARY | 2024-09-16 17:01 | XMS_ITS | Encounter Summary ---
Author Organization [facility] Address [address] [place] [address] Care Team Providers Care Fire Control Mechanic Name Role Phone Michele Burger MD Primary Care Provider [phone] Encounter Details Date Type Department Care Team (Late st Contact Info) Description 09/06/2006 Outpatient Historical [facility] [place] [address] [place] [address] Jorge A Alba MD [address] [place] [id number] Social History Tobacco Use Types Packs/Day Years Used Date Smoking Tobacco: Never Assessed Comments Unknown Sex and Gender Information Value Date Recorded Sex Assigned at Not on file Legal Sex Female 3:54 AM [employer] Gender Identity Not on file Sexual Orientation Not on file documented as of this encounter Plan of Treatment Not on file documented as of this encounter Visit Diagnoses Not on filedocumented in this encounter Care Teams Fire Control Mechanic Relationship Specialty Start Date End Date Michele Burger MD PCP - General 10/29/08 documented as of this encounter
--- OUTSIDE RECORDS SUMMARY | 2024-09-16 17:01 | XMS_ITS | Encounter Summary ---
Author Organization [employer] [facility] Address 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 Jorge A Alba MD [address] [facility] [address] [place] [address] Other Chest Pain (Primary Dx) Social History Tobacco Use Types Packs/Day Years Used Date Smoking Tobacco: Never Assessed Comments Unknown Sex and Gender Information Value Date Recorded Sex Assigned at Not on file Legal 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 Gender Identity Not on file Sexual Orientation [...] MD URINE ORDERABLES Edited Performing Organization Address City/[facility]/ZIP Co de Phone Number INTERFACE SYSTEM Refer [...] MD HEMATOLOGY ORDERABLES Edited Performing Organization Address City/[facility] de Phone Number INTERFACE SYSTEM Refer [...] INTERFACE SYSTEM 09/06/2006 5:58 AM CDT Result [facility] Jorge A Alba MD HEMATOLOGY ORDERABLES Edited Performing Organization Address City/[facility] de Phone Number INTERFACE SYSTEM Refer [...] classifications for lipids are available on the [facility] Intranet at: [email or web address] Select: Lab Policies and Procedures Select: Reference Ranges - Lipids 09/06/2006 5:58 AM CDT Result [facility] Jorge A Alba MD CHEMISTRY ORDERABLES Edited Performing Organization Address [facility] de Phone Number INTERFACE SYSTEM Refer [...] patients with mechanical heart valves or post PR. Pediatric (12 years and under): 1.5 - [...] unfractionated heparin 09/06/2006 5:58 AM CDT Result [facility] Jorge A Alba MD HEMATOLOGY ORDERABLES Edited Performing Organization Address City/[facility] de Phone Number INTERFACE SYSTEM Refer [...] and non- Americans is available on the [facility] Intranet at: [email or web address] Select: Lab Policies and Procedures Select: Reference Ranges - GFR 09/06/2006 5:58 AM CDT Result [facility] Jorge A Alba MD CHEMISTRY ORDERABLES Edited Performing Organization Address [facility] Co de Phone Number INTERFACE SYSTEM Refer to clinic/hospital department documented in this encounter Visit Diagnoses Diagnosis Other chest pain- Primary documented in this encounter Care Teams Nurse General Duty Relationship Specialty Start Date End Date Michele Burger MD PCP - General 10/29/08 documented as of this encounter
--- OUTSIDE RECORDS SUMMARY | 2024-09-16 17:01 | XMS_ITS | Data Portability ---
Author Organization [facility]PM[facility]ichelle Address [address] [place] [address] Care Team Providers Care Riveting Machine Operator Automatic Name Role Phone THERESA LAUREANO Sound Engineer Audio Control [phone] HUBER ROJAS Orthopedic Surgeon [phone] SRI RICK Medical Collector Assessment Encounter Date Assessment Date Assessment LastModified [...] healthy diet with the consultation by the evaporator operator, the answer is not just starting her on Megace. oajao Not available 03/31/2024 18:14:54 06/15/2024 06/15/2024 She will benefit from a meal replacement, it is impossible to get an accurate weight but clinically, she appears to have lost weight. oajao Not available 06/15/2024 18:31:33 09/02/2024 09/02/2024 She will benefit from a meal replacement, it is impossible to get an accurate weight but clinically, she appears to have lost weight and she still has a poor appetite. A prescription was previously written for Boost on her March, appointment, another request will be sent. 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 The only issue is her limited mobility and the need for frequent PT/INR monitoring. Xarelto is available on the 340-B program, but I will defer to her beverage specialist who she will be seeing in 1-2 weeks. [email or web address] Not available 09/02/2024 20:04:15 Plan of Treatment Reminders Order Date Submit Date Provider Last Modified By Organization Details Last Modified Time Details Appointments ANY 2024 11:30A M Sophy Skinner MD Not available Not available Not available ANY 2024 11:30A Teri Skinner MD Not available Not available Not available Lab PT panel, coagulati on, platelet poor plasma 2024 025 ERINNDAVIS Edmond, [address], [place], [address], 09/03/2024 08:24:59 CBC 2024 025 [facility] Mayito, [address], [place], [address], 09/03/2024 08:25:00 BMP, serum or plasma 2024 025 ERINNDAVIS Lara, [address], [place], [address], 09/03/2024 08:24:57 CBC 2024 025 ERINNDAVIS Lara, [address], [place], [address], 06/16/2024 07:15:07 CMP, serum or plasma 2024 025 B[facility]INGTON Mayito, [address], [place], [address], 06/16/2024 07:15:06 lipid panel, serum 2024 025 [facility] Jane, [address], [place], [address], 06/16/2024 07:15:04 AST/SGOT (aspartat e aminotran sferase), serum or plasma 2023 024 ERINNDAVIS Lara, [address], [place], [address], 04/01/2024 07:12:31 ALT (alanine aminotran sferase), serum or plasma 2023 024 ERINN Lara, [address], [place], [address], 04/01/2024 07:12:33 HbA1c (hemoglob in A1c), blood 2023 024 ERINN Lara, [address], [place], [address], 04/01/2024 07:12:32 TSH, ultra-sen sitive, serum 2023 024 BURLINGTON Jane, [address], [place], [address], 04/01/2024 07:12:34 hemoglobi n + hematocri t, blood 2023 024 ERINNDAVIS Edmond, [address], [place], [address], 07/13/2023 08:21:25 TSH, ultra-sen sitive, serum 2023 024 ERINNDAVIS Lara, [address], [place], [address], 07/13/2023 08:21:[address] referral - Please call the client to schedule 2023 024 [facility] Care Physician Referral Management, [address], [place], [address], 09/08/2024 16:18:25 nutrition ist/dieti radha referral - Please call the client to schedule 2023 024 [facility] Roofing Foreman Nutrition Dietitian, [address], [place], [address], 09/10/2024 04:21:50 pain managemen t referral - Please call the client to schedule 2023 024 [facility], [address], [facility], [place], [address], 09/08/2024 16:18:25 pain managemen t referral - OA of the left hip 2023 024 [facility], [address], [facility], [place], [address], 09/08/2024 16:18:25 nutrition ist/dieti radha referral - Weight loss for hip replaceme nt 2023 024 [facility] Roofing Foreman Nutrition Dietitian, [address], [place], [address], 05/25/2024 17:02:19 Procedures None recorded. Surgeries None recorded. Imaging MAMMO, screening , digital, bilateral 2023 024 [facility] (Mammography) , [address], [place], [address], 09/16/2024 16:51:58 Medication Orders cyprohept adine 4 mg tablet 2024 025 [facility], [address] [place] [address], [place], [address], 09/02/2024 15:30:09 docusate sodium 100 mg capsule 2024 025 [facility], [address] [facility], [place], [address], 09/02/2024 14:59:52 magnesium citrate oral solution 2024 025 [facility], [address] [place], [address], 06/15/2024 16:23:19 ondansetr on 4 mg disintegr ating tablet 2024 025 [facility], [address] [place] [address], [address], 06/15/2024 18:27:49 Boost Plus 0.06 gram-1.5 kcal/mL oral liquid 2023 024 [facility] [address] [place], [address], 09/07/2024 14:49:29 Victoza 2-Morteza 0.6 mg/0.1 mL (18 mg/3 mL) subcutane ous pen injector 2023 024 [facility], [address] [place] [address], [id number], 01/29/2024 15:35:55 ezetimibe 10 mg tablet 2023 024 [id number] 56[address] [facility], [address] [place] [address], [address], 07/21/2023 11:19:25 Patient TargetsNo targets recorded. Patient Instructions Encounter Date Encounter Id Patient Instructions Last Modified By Organization Details Last Modified Time 07/01/2023 [id number] anemia: care instructions oajao Not available 07/01/2023 15:03:15 aortic valve stenosis: care instructions oajao Not available 07/01/2023 14:56:21 body mass index: care instructions oajao Not available 07/01/2023 15:15:48 learning about healthy weight oajao Not available 07/01/2023 15:15:48 MMG Board Finisher Pain management Cardiology follow up Follow up in 7-8 weeks Addendum Labs oajao Not available 07/01/2023 19:07:04 08/26/2023 [id number] chest pain: care instructions oajao Not available 08/26/2023 15:33:49 aortic valve stenosis: care instructions oajao Not available 08/26/2023 15:55:21 ER/911 with ches t pain Cardiology follow up Start Victoza (340-B) Restart Crestor Follow up in 6 weeks oajao Not available 08/26/2023 15:55:37 03/31/2024 [id number] prediabetes: car e instructions oajao Not available 03/31/2024 15:59:04 chronic pain: care instructions oajao Not available 03/31/2024 15:59:04 anorexia: care instructions oajao Not available 03/31/2024 15:59:04 learning about mood disorders oajao Not available 03/31/2024 15:59:04 abnormal weight loss: care instructions oajao Not available 03/31/2024 15:59:04 Labs (old and ne w orders) Boost Plus Neurology Hospital bed Wheelchair Board Finisher Pain management Follow up in 4 weeks with all your medications oajao Not available 03/31/2024 16:05:04 06/15/2024 [id number] Labs (Old and ne w orders) Neurology as previously referred Boost as previously ordered DSS Mg Citrate PRN Follow up in 4 months and PRN Addendum Zofran oajao Not available 06/15/2024 18:28:09 Detailed visit oajao Not available 0 06/15/2024 18:29:33 09/02/2024 [id number] Labs Cardiology (Scheduled) Follow up on 10/05/2024 with all your medications oajao Not available 09/02/2024 15:31:08 Detailed visit oajao Not available 0 09/02/2024 20:03:31 Reason for Referral Board Finisher/dietitian Refer ral for Body mass index 30+ - obesity Weight loss for hip replacement Referring Physician: Sophy Skinner, Internal Medicine, Encounter Date: 07/01/2023 Pain Management Referral for Osteoarthritis of left hip joint OA of the left hip OA of the left hip Referring Physician: Sophy Skinner Internal Medicine, Encounter Date: 07/01/2023 Neurologist Referral for His tory of cerebrovascular accident 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 Please call the client to schedule Referring Physician: Sophy Skinner Internal Medicine, Encounter Date: 03/31/2024 Board Finisher/dietitian Refer ral for History of cerebrovascular accident Please call the client to schedule Referring Physician: Sophy Skinner Internal Medicine, Encounter Date: 03/31/2024 Pain Management Referral for Chronic pain Chronic pain (Hip and back) Please call the client to schedule Referring Physician: Sophy Skinner Internal Medicine, Encounter Date: 03/31/2024 Results Created Date [...] Flag Units Drug Prese nt Trama dol 67683 ng/mg creat O-Francis methy ltram adol 16874 ng/mg creat N-Francis methy ltram adol 3086 [...] kelsy consu ltati on, pleas e call . ===== ===== ===== ===== ===== ===== ===== ===== ===== ===== ===== ===== ===== === Not Available [facility] ([facility]) [address], [place], [address], 06/11/2023 15:10:54 06/03/19 24 06/11/2023 COMPL IANCE DRUG DAMARIS SIS, UR pdf . Not Available [facility] ([facility]) [address] [place], [address], 06/11/2023 15:10:54 07/12/19 24 07/13/2023 THYRO ID [...] l TSH value s. Not Available [facility] ([facility]) [address] [place], [address], 07/13/2023 08:21:25 07/12/19 24 07/13/20[address] hemoglobin 12.0 g/dL 11.1-1 5.9 Not Available [facility] ([facility]) [address] [place], [address], 07/13/2023 08:21:25 07/12/19 24 07/13/2023 H[address]H [address] hematocrit 34.8 % 34.0-4 6.6 Not Available [facility] ([facility]) [address] [place], [address], 07/13/2023 08:21:25 03/31/20 24 04/01/2024 BASIC METAB OLIC PANEL (7) glucose 84 mg/dL 70-99 Not Available [facility] ([facility]) [address] [place], [address], 04/01/2024 06:13:45 03/31/20 24 04/01/2024 BASIC METAB OLIC PANEL (7) BUN 13 mg/dL 8-27 Not Available [facility] ([facility]) [address] [facility] [place], [address], 04/01/2024 06:13:45 03/31/20 24 04/01/2024 BASIC METAB OLIC PANEL (7) creatinine 0.66 mg/dL 0.57-1 .00 Not Available [facility] ([facility]) [address] [place], [address], 04/01/2024 06:13:45 03/31/2004/01/2024 BASIC METAB OLIC PANEL (7) eGFR 95 mL/mi n/1.7 3 >59 Not Available [facility] ([facility]) [address] [place], [address], 04/01/2024 06:13:45 03/31/2004/01/2024 BASIC METAB OLIC PANEL (7) BUN/creatini ne ratio 04-04 Not Available [facility] ([facility]) [address] [facility], [place], [address], 04/01/2024 06:13:45 03/31/2004/01/2024 BASIC METAB OLIC PANEL (7) sodium 143 mmol/ L 134-14 4 Not Available [facility] ([facility]) [address] [place], [address], 04/01/2024 06:13:45 03/31/2004/01/2024 BASIC METAB OLIC PANEL (7) potassium 3.4 mmol/ L 3.5-5. 2 below low normal Not Available [facility] ([facility]) [address] [place], [address], 04/01/2024 06:13:45 03/31/2004/01/2024 BASIC METAB OLIC PANEL (7) chloride 103 mmol/ L 96-106 Not Available [facility] ([facility]) [address] [place], [address], 04/01/2024 06:13:45 03/31/20 04/01/2024 BASIC METAB OLIC PANEL (7) carbon dioxide, total 24 mmol/ L 20-29 Not Available [facility] ([facility]) [address] [facility], [place], [address], 04/01/2024 06:13:45 03/31/20 24 04/01/2024 CBC WITH DIFFE RENTI AL/PL ATELE T WBC 6.0 x10e3 /uL 3.4-10 .8 Not Available [facility] ([facility]) [address] [facility], [place], [address], 04/01/2024 06:13:47 03/31/2004/01/2024 CBC WITH DIFFE RENTI AL/PL ATELE T RBC 4.21 x10e6 /uL 3.77-5 .28 Not Available [facility] ([facility]) [address] [facility], [place], [address], 04/01/2024 06:13:47 03/31/2004/01/2024 CBC WITH DIFFE RENTI AL/PL ATELE T hemoglobin 12.0 g/dL 11.1-1 5.9 Not Available [facility] ([facility]) [address] [facility], [place], [address], 04/01/2024 06:13:47 03/31/2004/01/2024 CBC WITH DIFFE RENTI AL/PL ATELE T hematocrit 36.6 % 34.0-4 6.6 Not Available [facility] ([facility]) [address] [facility], [place], [address], 04/01/2024 06:13:47 03/31/2004/01/2024 CBC WITH DIFFE RENTI AL/PL ATELE T MCV 87 fL 79-97 Not Available [facility] ([facility]) [address] [place], [address], 04/01/2024 06:13:47 03/31/20 24 04/01/2024 CBC WITH DIFFE RENTI AL/PL ATELE T MCH 28.5 pg 26.6-3 3.0 Not Available [facility] ([facility]) [address] [facility], [place], [address], 04/01/2024 06:13:47 03/31/20 24 04/01/2024 CBC WITH DIFFE RENTI AL/PL ATELE T MCHC 32.8 g/dL 31.5-3 5.7 Not Available [facility] ([facility]) [address] [facility], [place], [address], 04/01/2024 06:13:47 03/31/2004/01/2024 CBC WITH DIFFE RENTI AL/PL ATELE T RDW 16.0 % 11.7-1 5.4 above high normal Not Available [facility] ([facility]) [address] [facility], [place], [address], 04/01/2024 06:13:47 03/31/20 24 04/01/2024 CBC WITH DIFFE RENTI AL/PL ATELE T platelets 257 x10e3 /uL 150-45 0 Not Available [facility] ([facility]) [address] [facility], [place], [address], 04/01/2024 06:13:47 03/31/20 24 04/01/2024 CBC WITH DIFFE RENTI AL/PL ATELE T neutrophils 57 % notest ab. Not Available [facility] ([facility]) [address] [place], [address], 04/01/2024 06:13:47 03/31/20 24 04/01/2024 CBC WITH DIFFE RENTI AL/PL ATELE T lymphs 33 % notest ab. Not Available [facility] ([facility]) [address] [place] [address], [address], 04/01/2024 06:13:47 03/31/20 24 04/01/2024 CBC WITH DIFFE RENTI AL/PL ATELE T monocytes 8 % notest ab. Not Available [facility] ([facility]) [address] [facility], [place], [address], 04/01/2024 06:13:47 03/31/20 24 04/01/2024 CBC WITH DIFFE RENTI AL/PL ATELE T eos 1 % notest ab. Not Available [facility] ([facility]) [address] [facility], [place], [address], 04/01/2024 06:13:47 03/31/20 24 04/01/2024 CBC WITH DIFFE RENTI AL/PL ATELE T basos 1 % notest ab. Not Available [facility] ([facility]) [address] [facility], [place], [address], 04/01/2024 06:13:47 03/31/20 24 04/01/2024 CBC WITH DIFFE RENTI AL/PL ATELE T neutrophils (absolute) 3.4 x10e3 /uL 1.4-7. 0 Not Available [facility] ([facility]) [address] [facility], [place], [address], 04/01/2024 06:13:47 03/31/20 24 04/01/2024 CBC WITH DIFFE RENTI AL/PL ATELE T lymphs (absolute) 2.0 x10e3 /uL 0.7-3. 1 Not Available [facility] ([facility]) [address] [place], [address], 04/01/2024 06:13:47 03/31/20 24 04/01/2024 CBC WITH DIFFE RENTI AL/PL ATELE T monocytes(ab solute) 0.5 x10e3 /uL 0.1-0. 9 Not Available [facility] ([facility]) [address] [place] [address], [place], [address], 04/01/2024 06:13:47 03/31/20 24 04/01/2024 CBC WITH DIFFE RENTI AL/PL ATELE T eos (absolute) 0.1 x10e3 /uL 0.0-0. 4 Not Available [facility] ([facility]) [address] [place], [address], 04/01/2024 06:13:47 03/31/20 24 04/01/2024 CBC WITH DIFFE RENTI AL/PL ATELE T baso (absolute) 0.0 x10e3 /uL 0.0-0. 2 Not Available [facility] ([facility]) [address] [place], [address], 04/01/2024 06:13:47 03/31/20 24 04/01/2024 CBC WITH DIFFE RENTI AL/PL ATELE T immature granulocytes 0 % notest ab. Not Available [facility] ([facility]) [address] [place], [address], 04/01/2024 06:13:47 03/31/20 24 04/01/2024 CBC WITH DIFFE RENTI AL/PL ATELE T immature grans (abs) 0.0 x10e3 /uL 0.0-0. 1 Not Available [facility] ([facility]) [address] [place], [address], 04/01/2024 06:13:47 03/31/20 24 04/01/2024 AST (SGOT ) AST (SGOT) 15 IU/L 0-40 Not Available [facility] ([facility]) [address] [place], [address], 04/01/2024 07:12:31 03/31/2004/01/2024 HEMOG LOBIN A1C hemoglobin A1C 5.2 % 4.8-5. 6 Predi abete s: 5.7 - 6.4 Diabe kris: >6.4 Glyce lyssa contr ol for adult s with diabe kris: <7.0 Not Available [facility] ([facility]) [address] [place], [address], 04/01/2024 07:12:32 03/31/2004/01/2024 ALT (SGPT ) ALT (SGPT) 7 IU/L 0-32 Not Available [facility] ([facility]) [address] [place], [address], 04/01/2024 07:12:33 03/31/2004/01/2024 TSH TSH 2.200 uIU/m L 0.450- 4.500 Not Available [facility] ([facility]) [address] [place], [address], 04/01/2024 07:12:34 06/16/1906/16/2024 LIPID PANEL cholesterol, total 114 mg/dL 100-19 9 Not Available [facility] ([facility]) [address] [place], [address], 06/16/2024 07:15:04 06/16/1906/16/2024 LIPID PANEL triglyceride s 100 mg/dL 0-149 Not Available [facility] ([facility]) [address] [place], [address], 06/16/2024 07:15:04 06/16/1906/16/2024 LIPID PANEL HDL cholesterol 40 mg/dL >39 Not Available [facility] ([facility]) [address] [place], [address], 06/16/2024 07:15:04 06/16/1906/16/2024 LIPID PANEL VLDL cholesterol kelsy 19 mg/dL 5-40 Not Available [facility] ([facility]) [address] [place], [address], 06/16/2024 07:15:04 06/16/1906/16/2024 LIPID PANEL LDL chol calc ([facility]) 55 mg/dL 0-99 Not Available [facility]) [address] [place], [address], 06/16/2024 07:15:04 06/16/19 25 06/16/2024 COMP. METAB OLIC PANEL (14) glucose 95 mg/dL 70-99 Not Available [facility] ([facility]) [address] [place], [address], 06/16/2024 07:15:06 06/16/19 25 06/16/2024 COMP. METAB OLIC PANEL (14) BUN 15 mg/dL 8-27 Not Available [facility] ([facility]) [address] [place], [address], 06/16/2024 07:15:06 06/16/19 25 06/16/2024 COMP. METAB OLIC PANEL (14) creatinine 0.81 mg/dL 0.57-1 .00 Not Available [facility] ([facility]) [address] [place], [address], 06/16/2024 07:15:06 06/16/19 25 06/16/2024 COMP. METAB OLIC PANEL (14) eGFR 79 mL/mi n/1.7 3 >59 Not Available [facility] ([facility]) [address] [place], [address], 06/16/2024 07:15:06 06/16/19 25 06/16/2024 COMP. METAB OLIC PANEL (14) BUN/creatini ne ratio 19 12-28 Not Available [facility] ([facility]) [address] [place], [address], 06/16/2024 07:15:06 06/16/19 25 06/16/2024 COMP. METAB OLIC PANEL (14) sodium 142 mmol/ L 134-14 4 Not Available [facility] ([facility]) [address] [place], [address], 06/16/2024 07:15:06 06/16/19 25 06/16/2024 COMP. METAB OLIC PANEL (14) potassium 3.0 mmol/ L 3.5-5. 2 below low normal Not Available [facility] ([facility]) [address] [place] [place], [address], 06/16/2024 07:15:06 06/16/19 25 06/16/2024 COMP. METAB OLIC PANEL (14) chloride 100 mmol/ L 96-106 Not Available [facility] ([facility]) [address] [place], [address], 06/16/2024 07:15:06 06/16/19 25 06/16/2024 COMP. METAB OLIC PANEL (14) carbon dioxide, total 28 mmol/ L 20-29 Not Available [facility] ([facility]) [address] [facility], [place], [address], 06/16/2024 07:15:06 06/16/19 25 06/16/2024 COMP. METAB OLIC PANEL (14) calcium 8.4 mg/dL 8.7-10 .3 below low normal Not Available [facility] ([facility]) [address] [place], [address], 06/16/2024 07:15:06 06/16/19 25 06/16/2024 COMP. METAB OLIC PANEL (14) protein, total 6.2 g/dL 6.0-8. 5 Not Available [facility] ([facility]) [address] [place], [address], 06/16/2024 07:15:06 06/16/19 25 06/16/2024 COMP. METAB OLIC PANEL (14) albumin 2.7 g/dL 3.9-4. 9 below low normal Not Available [facility] ([facility]) [address] [place], [address], 06/16/2024 07:15:06 06/16/19 25 06/16/2024 COMP. METAB OLIC PANEL (14) globulin, total 3.5 g/dL 1.5-4. 5 Not Available [facility] ([facility]) [address] [place], [address], 06/16/2024 07:15:06 06/16/19 25 06/16/2024 COMP. METAB OLIC PANEL (14) bilirubin, total 0.6 mg/dL 0.0-1. 2 Not Available [facility] ([facility]) [address] [place], [address], 06/16/2024 07:15:06 06/16/19 25 06/16/2024 COMP. METAB OLIC PANEL (14) alkaline phosphatase 106 IU/L 44-121 Not Available [facility] ([facility]) [address] [facility], [place], [address], 06/16/2024 07:15:06 06/16/19 25 06/16/2024 COMP. METAB OLIC PANEL (14) AST (SGOT) 16 IU/L 0-40 Not Available [facility] ([facility]) [address] [facility], [place], [address], 06/16/2024 07:15:06 06/16/19 25 06/16/2024 COMP. METAB OLIC PANEL (14) ALT (SGPT) 10 IU/L 0-32 Not Available [facility] ([facility]) [address] [facility], [place], [address], 06/16/2024 07:15:06 06/16/19 25 06/16/2024 CBC, PLATE LET, NO DIFFE RENTI AL WBC 8.9 x10e3 /uL 3.4-10 .8 Not Available [facility] ([facility]) [address] [facility], [place], [address], 06/16/2024 07:15:07 06/16/19 25 06/16/2024 CBC, PLATE LET, NO DIFFE RENTI AL RBC 3.86 x10e6 /uL 3.77-5 .28 Not Available [facility] ([facility]) [address] [facility], [place], [address], 06/16/2024 07:15:07 06/16/1906/16/2024 CBC, PLATE LET, NO DIFFE RENTI AL hemoglobin 11.6 g/dL 11.1-1 5.9 Not Available [facility] ([facility]) [address] [facility], [place], [address], 06/16/2024 07:15:07 06/16/1906/16/2024 CBC, PLATE LET, NO DIFFE RENTI AL hematocrit 34.3 % 34.0-4 6.6 Not Available [facility] ([facility]) [address] [facility], [place], [address], 06/16/2024 07:15:07 06/16/1906/16/2024 CBC, PLATE LET, NO DIFFE RENTI AL MCV 89 fL 79-97 Not Available [facility] ([facility]) [address] [facility], [place], [address], 06/16/2024 07:15:07 06/16/1906/16/2024 CBC, PLATE LET, NO DIFFE RENTI AL MCH 30.1 pg 26.6-3 3.0 Not Available [facility] ([facility]) [address] [place], [address], 06/16/2024 07:15:07 06/16/1906/16/2024 CBC, PLATE LET, NO DIFFE RENTI AL MCHC 33.8 g/dL 31.5-3 5.7 Not Available [facility] ([facility]) [address] [facility], [place], [address], 06/16/2024 07:15:07 06/16/19 25 06/16/2024 CBC, PLATE LET, NO DIFFE RENTI AL RDW 15.5 % 11.7-1 5.4 above high normal Not Available [facility] ([facility]) [address] [facility], [place], [address], 06/16/2024 07:15:07 06/16/1906/16/2024 CBC, PLATE LET, NO DIFFE RENTI AL platelets 328 x10e3 /uL 150-45 0 Not Available [facility] ([facility]) [address] [facility], [place], [address], 06/16/2024 07:15:07 06/16/19 25 06/25/2024 OPIAT ES,MS ,WB/S P RFX opiate confirmation NEGATI VE Not Available [facility] ([facility]) [address] [facility], [place], [address], 06/25/2024 19:09:34 06/16/19 25 06/25/2024 OPIAT ES,MS ,WB/S P RFX codeine NEGATI VE NG/mL Not Available [facility] ([facility]) [address] [facility], [place], [address], 06/25/2024 19:09:34 06/16/19 25 06/25/2024 OPIAT ES,MS ,WB/S P RFX morphine NEGATI VE NG/mL Not Available [facility] ([facility]) [address] [facility], [place], [address], 06/25/2024 19:09:34 06/16/19 25 06/25/2024 OPIAT ES,MS ,WB/S P RFX 6-acetylmorp loyd NEGATI VE Not Available [facility] ([facility]) [address] [place], [address], 06/25/2024 19:09:34 06/16/19 25 06/25/2024 OPIAT ES,MS ,WB/S P RFX hydrocodone NEGATI VE NG/mL Not Available [facility] ([facility]) [address] [place], [address], 06/25/2024 19:09:34 06/16/19 25 06/25/2024 OPIAT ES,MS ,WB/S P RFX hydromorphon e NEGATI VE NG/mL Not Available [facility] ([facility]) [address] [place], [address], 06/25/2024 19:09:34 06/16/19 25 06/25/2024 OPIAT ES,MS ,WB/S P RFX dihydrocodei ne NEGATI VE NG/mL Confi rmati on thres hold: 1.0 ng/mL Not Available [facility] ([facility]) [address] [place], [address], 06/25/2024 19:09:34 06/16/19 25 06/25/2024 DRUG SCREE N 10 W/CON F, SERUM amphetamines , ia NEGATI VE NG/mL cutoff :50 Not Available [facility] ([facility]) [address] [place], [address], 06/25/2024 19:09:35 06/16/19 25 06/25/2024 DRUG SCREE N 10 W/CON F, SERUM barbiturates , ia NEGATI VE ug/mL cutoff :0.1 Not Available [facility] ([facility]) [address] [place], [address], 06/25/2024 19:09:35 06/16/19 25 06/25/2024 DRUG SCREE N 10 W/CON F, SERUM benzodiazepi griselda, ia NEGATI VE NG/mL cutoff :20 Not Available [facility] ([facility]) [address] [place], [address], 06/25/2024 19:09:35 06/16/19 25 06/25/2024 DRUG SCREE N 10 W/CON F, SERUM cocaine / metabolite, ia NEGATI VE NG/mL cutoff :25 Not Available [facility] ([facility]) [address] [place], [address], 06/25/2024 19:09:35 06/16/19 25 06/25/2024 DRUG SCREE N 10 W/CON F, SERUM phencyclidin e, ia NEGATI VE NG/mL cutoff :8 Not Available [facility] ([facility]) [address] [place], [address], 06/25/2024 19:09:35 06/16/19 25 06/25/2024 DRUG SCREE N 10 W/CON F, SERUM THC(marijuan a) metabolite, ia NEGATI VE NG/mL cutoff :5 Not Available [facility] ([facility]) [address] [place], [address], 06/25/2024 19:09:35 06/16/19 25 06/25/2024 DRUG SCREE N 10 W/CON F, SERUM opiates, ia NEGATI VE NG/mL cutoff :5 Presu mptiv e immun oassa y resul t indic ated need for furth er testi ng; defin itive confi rmati on was negat shelly. Not Available [facility] ([facility]) [address] [place], [address], 06/25/2024 19:09:35 06/16/19 25 06/25/2024 DRUG SCREE N 10 W/CON F, SERUM oxycodones, ia NEGATI VE NG/mL cutoff :5 Not Available [facility] ([facility]) [address] [place], [address], 06/25/2024 19:09:35 06/16/19 25 06/25/2024 DRUG SCREE N 10 W/CON F, SERUM methadone, ia NEGATI VE NG/mL cutoff :25 Not Available [facility] ([facility]) [address] [place], [address], 06/25/2024 19:09:35 06/16/19 25 06/25/2024 DRUG SCREE N 10 W/CON F, SERUM propoxyphene , ia NEGATI VE NG/mL cutoff :50 This test was su perez and its perfo nupur e christiana leyri stics deter mined by [facility]. It has not been clear ed or appro carol by the Food and Drug Admin istra tion. Not Available [facility] ([facility]) [address] [place], [address], 06/25/2024 19:09:35 07/04/19 25 07/04/2024 POTAS SIUM potassium 4.5 mmol/ L 3.5-5. 2 Not Available [facility] ([facility]) [address] [place], [address], 07/04/2024 08:23:21 07/04/19 25 07/04/2024 MAGNE SIUM magnesium 1.8 mg/dL 1.6-2. 3 Not Available [facility] ([facility]) [address] [place], [address], 07/04/2024 08:23:22 09/03/19 25 09/03/2024 BMP7+ EGFR glucose 78 mg/dL 70-99 Not Available [facility] ([facility]) [address] [place], [address], 09/03/2024 08:24:57 09/03/19 25 09/03/2024 BMP7+ EGFR BUN 11 mg/dL 8-27 Not Available [facility] ([facility]) [address] [place], [address], 09/03/2024 08:24:57 09/03/19 25 09/03/2024 BMP7+ EGFR creatinine 0.71 mg/dL 0.57-1 .00 Not Available [facility] ([facility]) [address] [place], [address], 09/03/2024 08:24:57 09/03/19 25 09/03/2024 BMP7+ EGFR eGFR 93 mL/mi n/1.7 3 >59 Not Available [facility] ([facility]) [address] [place], [address], 09/03/2024 08:24:57 09/03/19 25 09/03/2024 BMP7+ EGFR sodium 143 mmol/ L 134-14 4 Not Available [facility] ([facility]) [address] [place], [address], 09/03/2024 08:24:57 09/03/1909/03/2024 BMP7+ EGFR potassium 3.8 mmol/ L 3.5-5. 2 Not Available [facility] ([facility]) [address] [place], [address], 09/03/2024 08:24:57 09/03/1909/03/2024 BMP7+ EGFR chloride 109 mmol/ L 96-106 above high normal Not Available [facility] ([facility]) [address] [place], [address], 09/03/2024 08:24:57 09/03/1909/03/2024 BMP7+ EGFR carbon dioxide, total 20 mmol/ L Not Available [facility] ([facility]) [address] [place], [address], 09/03/2024 08:24:57 09/03/1909/03/2024 PROTH ROMBI N TIME (PT) INR 3.8 0.9-1. 2 above high normal Refer ence inter chandler is for non-a ntico agula hira patie nts. Sugge sted INR thera peuti c range for Vitam in K antag onist thera py: Stand anya Dose (mode rate inten sity thera peuti c range ): 2.0 - 3.0 Highe r inten sity thera peuti c range 2.5 - 3.5 Not Available [facility] ([facility]) [address] [place], [address], 09/03/2024 08:24:59 09/03/1909/03/2024 PROTH ROMBI N TIME (PT) prothrombin time 37.7 sec 9.1-12 .0 above high normal Not Available [facility] ([facility]) [address] [place], [address], 09/03/2024 08:24:59 09/03/1909/03/2024 CBC, PLATE LET, NO DIFFE RENTI AL WBC 4.8 x10e3 /uL 3.4-10 .8 Not Available [facility] ([facility]) [address] [place], [address], 09/03/2024 08:25:00 09/03/1909/03/2024 CBC, PLATE LET, NO DIFFE RENTI AL RBC 3.21 x10e6 /uL 3.77-5 .28 below low normal Not Available [facility] ([facility]) [address] [place], [address], 09/03/2024 08:25:00 09/03/1909/03/2024 CBC, PLATE LET, NO DIFFE RENTI AL hemoglobin 9.7 g/dL 11.1-1 5.9 below low normal Not Available [facility] ([facility]) [address] [place], [address], 09/03/2024 08:25:00 09/03/1909/03/2024 CBC, PLATE LET, NO DIFFE RENTI AL hematocrit 30.3 % 34.0-4 6.6 below low normal Not Available [facility] ([facility]) [address] [place], [address], 09/03/2024 08:25:00 09/03/1909/03/2024 CBC, PLATE LET, NO DIFFE RENTI AL MCV 94 fL 79-97 Not Available [facility] ([facility]) [address] [place], [address], 09/03/2024 08:25:00 09/03/1909/03/2024 CBC, PLATE LET, NO DIFFE RENTI AL MCH 30.2 pg 26.6-3 3.0 Not Available [facility] ([facility]) [address] [place], [address], 09/03/2024 08:25:00 09/03/1909/03/2024 CBC, PLATE LET, NO DIFFE RENTI AL MCHC 32.0 g/dL 31.5-3 5.7 Not Available [facility] ([facility]) [address] [place], [address], 09/03/2024 08:25:00 09/03/1909/03/2024 CBC, PLATE LET, NO DIFFE RENTI AL RDW 13.7 % 11.7-1 5.4 Not Available [facility] ([facility]) [address] [place], [address], 09/03/2024 08:25:00 09/03/1909/03/2024 CBC, PLATE LET, NO DIFFE RENTI AL platelets 237 x10e3 /uL 150-45 0 Not Available [facility] ([facility]) [address] [place], [address], 09/03/2024 08:25:00 09/08/1909/08/2024 PROTH ROMBI N TIME (PT) INR 3.4 0.9-1. 2 above high normal Refer ence inter chandler is for non-a ntico agula hira patie nts. Sugge sted INR thera peuti c range for Vitam in K antag onist thera py: Stand anya Dose (mode rate inten sity thera peuti c range ): 2.0 - 3.0 Highe r inten sity thera peuti c range 2.5 - 3.5 Not Available [facility] ([facility]) [address] [facility] [place], [address], 09/08/2024 08:27:31 09/08/19 25 09/08/2024 PROTH ROMBI N TIME (PT) prothrombin time 34.0 sec 9.1-12 .0 above high normal Not Available [facility] ([facility]) [address] [facility], [place], [address], 09/08/2024 08:27:31 06/21/19 24 06/20/2023 US, duple x, arter ial, lower extre mity No observ ation record ed. [facility] [address], [place], [address], 07/08/2023 14:33:33 06/25/19 24 06/25/2023 trans -thor acic echoc ardio gram (TTE) (PROC ) No observ ation record ed. [facility] [address], [place], [address], 07/01/2023 14:55:45 07/22/19 24 07/22/2023 myoca rdial perfu jimi study w/ eject ion fract ion (PROC ) No observ ation record ed. [facility] [address], [place], [address], 08/26/2023 15:44:03 07/22/19 24 07/22/2023 myoca rdial perfu jimi study w/ eject ion fract ion (PROC ) No observ ation record ed. [facility] [address], [place], [address], 08/26/2023 15:44:03 08/06/19 25 08/05/2024 XR, chest No observ ation record ed. [facility] [address], [place], [address], 09/02/2024 14:38:00 08/06/19 25 08/05/2024 CT, head, w/o contr ast No observ ation record ed. [address] [facility], [place], [address], 09/02/2024 14:38:00 08/06/19 25 08/05/2024 CT, head, w/o contr ast No observ ation record ed. [address], [place], [address], 09/02/2024 14:38:00 08/06/19 25 08/05/2024 CT, head, w/o contr ast No observ ation record ed. [address] [address], [place], [address], 09/02/2024 14:38:00 08/11/19 25 08/10/2024 CT, abdom en + pelvi s, w/ contr ast No observ ation record ed. [address] [facility], [place], [address], 09/02/2024 14:38:00 09/17/19 25 09/16/2024 MAMMO , scree hector, digit al, bilat eral No observ ation record ed. [address] [facility], [place], [address], 09/16/2024 16:51:58 Result Notes None recorded. Problems Name Problem SNOMED Code Status Onset Date Resolution Date Notes Provider Name and Address Organization Details Recorded Time Benign essential hypertensi on 6892693 Active 2017 Not Available [facility] 4 14:04:50 Disorder of lipid metabolism 899489969 Active 2017 Not Available [facility] 4 14:04:50 Osteoarthr itis of left hip joint 6575599265874 08 Active 2017 Not Available [facility] 4 14:04:50 Osteoarthr itis of knee 036044657 Active 2017 Not Available [facility] 4 14:04:50 Colon cancer screening declined 4628533499342 9 Active 2018 Not Available [facility] 4 14:04:50 Lower gastrointe stinal hemorrhage 26801450 Active 2019 Not Available [facility] 4 14:04:51 Aortic valve stenosis 35374331 Active 2019 Not Available [facility] 4 14:04:51 Neuropathy 060166981 Active 2019 Not Available [facility] 4 14:04:50 Disorder of vitamin B12 679738720 Active 2020 Not Available [facility] 4 14:04:50 Influenza vaccinatio n declined 150991483 Active 2020 Not Available [facility] 4 14:04:50 Vaccine declined by patient 931841001328 Active 2020 Not Available [facility] 4 14:04:50 Pneumococc al vaccinatio n declined 278835409 Active 2020 Not Available [facility] 4 14:04:50 Heart murmur 37431042 Active 2021 Not Available [facility] 4 14:04:51 Acute cystitis 70355413 Active Not Available [facility] 4 14:04:51 Localized infection of skin AND/OR subcutaneo us tissue 932850179 Active Not Available [facility] 4 14:04:50 Bilateral carpal tunnel syndrome 8870250082836 9101 Active 2021 Not Available [facility] 4 14:04:50 Synovial cyst of right knee 3059664980056 04 Active 2022 Not Available [facility] 4 14:04:50 Essential hypertensi on 75589573 Active Not Available [facility] 4 14:04:51 Vitamin D deficiency 21920738 Active 2022 Not Available [facility] 4 14:04:50 At increased risk for cardiovasc ular event 897549754 Active 2022 Not Available [facility] 4 14:04:50 Hemiplegia and/or hemiparesi s following stroke 3838320068505 7 Active 2023 Sophy Skinner MD Attn: Accounting ,[address] [place], [address] , [facility] 4 13:54:16 History of cerebrovas cular accident 486383198 Active 2023 Sophy Skinner MD Attn: Accounting ,[address] [place], [address] , [facility] 4 15:50:33 History of coronary artery bypass grafting 393746285 Active 2023 Sophy Skinner MD Attn: Accounting ,[address] [place], [address] , [facility] 4 16:00:32 History of aortic valve replacemen t 8625071190710 Active 2023 Sophy Skinner MD Attn: Accounting ,[address] [place], [address] , [facility] 5 19:22:27 History of pulmonary embolus 719701068 Active 2024 Sophy Skinner MD Attn: Accounting ,[address] [place], [address] , [facility] 5 20:03:10 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 Please review this document and add these problems to the patient's chart manually as needed. Problem Notes None recorded. Procedures Surgical History Date Name Laterality Status Provider Name and Address Organization Details Recorded Time 2023 esophagogastroduodenoscopy completed Micheal Schwartz MD Attn: Jojoin g,[address] [place], [address], [place] [facility] 4 08:46:14 2023 colonoscopy completed Sophy Skinner MD Attn: Jojoilya vasquez,[address] [facility], [place], [address], [place] [facility] 4 08:46:23 2023 CABG completed Sophy Skinner MD Attn: Lindsey christina,[address] [place], [address], [place] [facility] 4 08:45:21 2023 replacement of aortic valve completed Cristi Skinner MD Attn: Lindsey christina,[address] [place], [address], [place] [facility] 4 08:45:42 2023 aortoplasty completed Sophy Skinner MD Attn: Lindsey vasquez,[address] [place], [address], [place] [facility] 4 08:45:59 2023 cardiac catheterization completed Sophy Skinner MD Attn: Lindsey vasquez,[address] [place], [address], [place] [facility] 4 14:18:49 2020 Colonoscopy completed Sophy Skinner MD Attn: Lindsey vasquez,[address] [place], [address], [place] [facility] 1 01:06:52 2020 Anoscopy control bleeding completed Guy Skinner MD Attn: Lindsey vasquez,[address] [place], [address], [place] [facility] 1 11:47:58 2020 rubber band ligation of hemorrhoid(s) completed Sophy Skinner MD Attn: Lindsey vasquez,[address] [place], [address], [place] [facility] 1 11:48:16 2008 colonoscopy completed Sophy Skinner MD Attn: Lindsey vasquez,[address], [place], [address], [facility] 0 15:30:46 Caesarean Section completed Tyesha Cardenas [place] - [facility] 8 14:46:42 Imaging Results None recorded. Procedure Notes None recorded. Medical Equipment None Reported. Allergies Allergen ID Allergen Name Allergen Category Reaction Reaction Severity Criticality Documentation Date Start Date Code Code System Note Provider Name and Address Organization Details Recorded Time 957711 Substance with sulfonami de structure and antibacte rial mechanism of action (substanc e) medicatio n Not available Not available Not available 11/06/20172023 14716 8003 SNOMED Not Available [facility] 4 15:11:08 Medications Name Sig Start Date Stop [...] DIRECTED FOR COLD SYMPTOMS FOR 4 DAYS 09/02 completed Not Available Not Available Not Available clonidine HCl 0.1 mg tablet TAKE [...] days, for Shortnes s of breath/w heezing. 10/23/ 2024 03/10 /2025 completed Not Available Not Available Not Available [...] Available Not Available Not Available metronida zole 250 mg tablet TAKE 1 TABLET BY MOUTH EVERY 12 HOURS 09/02 completed Not Available Not Available Not Available Tylenol Arthritis Pain 650 mg tablet,ex tended release Take 2 tablets every 8 hours by oral route as directed for 10 days. 01/28 completed Not Available Not Available Not Available warfarin 2.5 mg tablet TAKE 1 TABLET BY MOUTH ONCE DAILY 09/10 completed Not Available Not Available Not Available hydralazi ne 25 mg tablet TAKE 1 TABLET BY MOUTH TWICE DAILY active Not Available Not Available No t Available potassium chloride ER 10 mEq tablet,ex tended release TAKE 2 TABLETS BY MOUTH ONCE DAILY active Not Available [...] Available Not Available tramadol 50 mg tablet Take 2 tablets every 8 hours by oral route as needed for 30 days, for Severe pain. 2024 active Not Available Not Available Not Avai lable acetamino phen 500 mg tablet Take 1 tablet every 6 hours by oral route as directed for 30 days, for Pain. 2023 active Not Available Not Available Not Avai lable Macrobid 100 mg capsule Take 1 capsule every 12 hours by oral route as directed for 5 days. 06/30 completed Not Available Not Available Not Available cyprohept adine 4 mg tablet TAKE 1 TABLET BY MOUTH TWICE DAILY NEEDED FOR APPETITE active Not Available Not Available No t Available Tessalon Perles 100 mg capsule Take [...] t Available mirtazapi ne 30 mg tablet TAKE 1 TABLET BY MOUTH ONCE DAILY DIRECTED FOR DEPRESSI ON active Not Available Not Available No t Available nitrofura ntoin macrocrys camilo 100 mg capsule Take 1 capsule every 6 hours by oral route as directed for 5 days. 09/30 completed Not Available Not Available Not Available metoprolo l tartrate 50 mg tablet Take 1 tablet every day by oral route in the morning for 90 days. 01/28 completed Not Available Not Available Not Available megestrol 40 mg tablet TAKE 1 TABLET BY MOUTH TWICE DAILY 09/02 completed Not Available Not Available Not Available docusate sodium 100 mg capsule Take 1 capsule every day by oral route as directed for 90 days. 2024 active PRN Not Available Not Available Not Avai lable [...] BY MOUTH THREE TIMES DAILY DIRECTED FOR 15 DAYS active Not Available Not [...] on Not Available Not Available Not Available levofloxa alyssa 500 mg tablet TAKE 1 TABLET BY MOUTH ONCE DAILY FOR 2 DAYS 09/02 completed Not Available Not Available Not Available Vitamin D2 1,250 mcg (50,000 unit) capsule Take 1 capsule 3 times a week by oral route. 06/[address] Laureano Not Available Not Available Not Available Cipro [...] up Not Available Not Available Not Available megestrol 20 mg tablet TAKE 1 TABLET BY MOUTH TWICE DAILY FOR 10 DAYS DIRECTED FOR APPETITE active Not Available Not Available No t [...] tablets Not Available Not Available Not Available oxycodone 5 mg tablet 04/20 completed Not Available Not Available Not Available ezetimibe 10 mg tablet TAKE 1 TABLET BY MOUTH ONCE DAILY DIRECTED FOR CHOLESTE ROL active Not Available Not Available No t Available cyclobenz aprine 5 mg tablet Take [...] completed Not Available Not Available Not Available multivita min active Not Available Not Available Not Available Xarelto 20 mg tablet TAKE ONE TABLET BY MOUTH EVERY MORNING TO PREVENT BLOOD CLOTS active Not Available Not Available No t Available Banophen 50 mg capsule Take 1 [...] Available Not Available Eliquis 5 mg tablet Take 1 tablet twice a day by oral route as directed for 30 days, for Blood thinner. 09/02 completed Not Available Not Available Not Available potassium chloride ER 20 mEq tablet,ex tended release TAKE 1 TABLET BY MOUTH ONCE DAILY DIRECTED FOR 30 DAYS 09/02 completed Not Available Not Available Not Available cyanocoba jennifer (vit B-12) 2,000 mcg [...] Not Available Vitals Date Recorded Body height Heart rate Oxygen saturation Oxygen saturation in Arterial blood by Pulse oximetry Respiratory rate Systolic blood pressure Diastolic blood pressure Provider Name and Address Organization Details Last Updated DateTime 5 165.1 cm 86 /min 99 % 99 % 16 /min 116 mm[Hg] 64 mm[Hg] Tyesha Cardenas MA [facility] 5 15:43:14 Date Recorded Body height Body mass index (BMI) Body weight Heart rate Oxygen saturation Oxygen saturation in Arterial blood by Pulse oximetry Systolic blood pressure Diastolic blood pressure Provider Name and Address Organization Details Last Updated DateTime 4 165.1 cm 38.5 kg/m2 117151. 27 g 76 /min 97 % 97 % 146 mm[Hg] 68 mm[Hg] Mely Borrego MA [facility] 4 14:49:01 Date Recorded Body height Oxygen saturation Oxygen saturation in Arterial blood by Pulse oximetry Heart rate Systolic blood pressure Diastolic blood pressure Provider Name and Address Organization Details Last Updated DateTime 4 165.1 cm 99 % 99 % 84 /min 140 mm[Hg] 70 mm[Hg] Tyesha Cardenas MA [facility] 4 15:30:56 Date Recorded Body height Heart rate Oxygen saturation Oxygen saturation in Arterial blood by Pulse oximetry Body temperature Respiratory rate Systolic blood pressure Diastolic blood pressure Provider Name and Address Organization Details Last Updated DateTime 5 165.1 cm 92 /min 99 % 99 % 98.5 [degF] 14 /min 134 mm[Hg] 76 mm[Hg] Tyesha Cardenas MA [facility] 5 14:32:36 Date Recorded Body height Respiratory rate Heart rate Oxygen saturation Oxygen saturation in Arterial blood by Pulse oximetry Systolic blood pressure Diastolic blood pressure Provider Name and Address Organization Details Last Updated DateTime 4 165.1 cm 18 /min 84 /min 98 % 98 % 140 mm[Hg] 76 mm[Hg] Tyesha Cardenas MA [facility] 4 14:30:22 Social History Question Answer Notes LastModified by Organizat ion Details LastModified Time Tobacco Smoking Status Never Smoker ARD Sanchez [facility] 11/06/2017 14:45:57 Do You Have An Advance Directive? No Information not available 11/06/2017 What Is Your Level Of Caffeine Consumption? Heavy Information not available 11/06/2017 How Much Tobacco Do You Chew? None Information not available 11/06/2017 Have You Been To An Area Known To Be High Risk For COVID-19? No Information not available 08/25/2019 What Type Of Diet Are You Following? REGULAR Information not available 11/06/2017 Are There Any Guns Present In Your Home? No Information not available 11/06/2017 Hard Of Hearing Or Deaf In One Or Both Ears? 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 09/02/2024 Information not available 09/02/2024 Performs Monthly Self-breast Exam? No Information not available 11/06/2017 Do You Use Your Seat Belt Or Car Seat Routinely? No Information not available 07/21/2020 Seat Belts Used Routinely Yes Information not available 11/06/2017 Smoke Alarm In Home Yes Information not available 11/06/2017 Do You Have Smoke And Carbon Monoxide Detectors In Your Home? Yes Information not available 07/21/2020 How Much Tobacco Do You Smoke? No Information not available 11/06/2017 Do You Use Sunscreen Routinely? No Information not available 11/06/2017 Has Tobacco Cessation Counseling Been Provided? No Information not available 07/21/2020 On What Date Was Tobacco Cessation Counseling Provided? 06/07/2022 [email or web address] Information not available 06/07/2022 How Many Years Have You Smoked Tobacco? 0 Information not available 11/06/2017 Sex: Unknown Functional Status Question Answer Note LastModified by Organizat ion Details LastModified Time Do you use any illicit or recreational drugs? No Information not available 07/21/2020 What is your level of alcohol consumption? None Information not available 03/31/2024 Do you or have you ever used smokeless tobacco? Never used smokeless tobacco Information not available 08/25/2019 Do you or have you ever used e-cigarettes or vape? Never used electronic cigarettes Information not available 08/25/2019 Mental Status None recorded. Family History Relationship [...] History Condition Response Coronary Artery Disease N Other N High Blood Pressure Y Atrial Fibrillation N Kidney or Bladder Problems N Thyroid Problems N GI Problems N Depression N COPD N Blood Clots N Skin Problems N Anemia N Heart Attack (NC) N Anxiety Disorder N Diabetes N Muscle, Joint, or Bone Problems N Seizures/Epilepsy N Acid Reflux (GERD) N Cancer N Stroke N Asthma N Allergies N High Cholesterol Y Hepatitis N Liver Disease N Headaches N Heart Failure N Osteoporosis N Gynecological HistoryNo gynecological history recorded. Obstetrics History GPAL:G 0 P 0 0 0 0 Past Encounters Encounter ID Performer Location Encounter Start Date Encounter Closed Date Diagnosis/Indication Diagnosis SNOMED-CT Code Diagnosis ICD10 Code Diagnosis Note [id number] Sophy Skinner MD [facility] (Adult Med) [address] [place] [address] [phone] 0 11/06/2017 14:24:23 11/06/2017 15:48:21 General examination of patient 522300578 Z00.01 Administra tion of diphtheria, pertussis, and tetanus vaccine 836824032 Z23 Inguinal pain 647599650 R10.2 Swelling of lower leg 44 6344290 R22.41 R22.42 Edema of l ower extremity 762227856 R60.0 Meds? Body mass index 30+ - obesity 411541436 Z68.39 Benign ess ential hypertension 6542933 I10 Myalgia/my ositis - lower leg 335814188 M79.1 Disorder o f lipid metabolism 475874491 E78.9 Osteoarthr itis of knee 999290351 M17.0 [id number] MD [facility] (Adult Med) [address] [place] [address] [phone] 0 12/25/2017 15:35:43 12/26/2017 09:58:39 Screening for malignant neoplasm of breast 170486443 Z12.31 Inguinal pain 855602997 R10.2 [place] 08/21/2017 Benign ess ential hypertension 7286992 I10 Impaired f asting glycemia 112775148 R73.01 Disorder o f lipid metabolism 281571952 E78.9 [id number] MD [facility] (Adult Med) [address] [place] [address] [phone] 0 02/18/2018 15:23:25 02/21/2018 09:07:49 Osteoarthritis of knee 350007236 M17.0 [place] 12/26/2017R epeat UDS as the last was inconsiste nt with her Rx, she is emphatic that she takes it and tries to make it last a whole month. Benign ess ential hypertension 9821010 I10 Influenza vaccination declined 916230265 Z28.21 Urinary tr act infectious disease 21312714 N39.0 Inguinal pain 333878463 R10.2 [id number] MD [facility] (Adult Med) [address] [place] [address] [phone] 0 04/24/2018 16:49:38 04/25/2018 08:37:59 Inguinal pain 438718277 R10.2 Previously referred to PT, she has no transporta tion.Her pain started in August of last year.She needs imaging and I have ordered an MRI Cervical lymphadenopathy 811618342 R59.0 Essential hypertension 07149311 I10 She was taking Losartan in the morning and Amlodipine in the evening, she should take both medication s at the same time Otalgia of left ear 1089 197611 566983 H92.02 Prediabetes 786702719 R7 3.03 [id number] MD [facility] (Adult Med) [address] [place] [address] [phone] 0 05/29/2018 15:45:44 05/30/2018 08:50:05 Osteoarthritis of left hip joint 3537972840 89971 M16.12 The MRI was discussed in detail Benign ess ential hypertension 2794390 I10 Spasm 61520953 R25.2 Pruritic rash 15038475 L 28.2 Impaired f asting glycemia 658670860 R73.01 Trochanter ic bursitis of left hip 9794295079 48283 M70.62 Noted on the MRI Osteoarthr itis of right hip joint 8941234498 72258 M16.11 [id number] Jenni Fan MD [facility] (Adult Med) [address] [place] [address] [phone] 0 09/19/2018 14:12:58 09/19/2018 14:40:37 Essential hypertension 32756938 I10 158/90 BP on 09/19/2018 contuine taking medication as prescribed . Increased frequency of urination 272685770 R35.0 discussed UA results with patient. will send urine culture. antibiotic s. discussed good vaginal hygiene with mom and patient. discussed proper wiping technique. encourage to not hold urine and take time to empty bladder completely . decrease intake of juice and sugary beverages. [id number] Sophy Skinner MD [facility] (Adult Med) [address] [place] [address] [id number] 0 10/03/2018 14:29:12 10/03/2018 15:26:27 Benign essential hypertension 8921060 I10 Restart Amlodipine Continue Losartan Impaired f asting glycemia 146594976 R73.01 Skin lesion 20752135 L98 .9 Medial/dis camilo aspect of the RLL. Venous stasis?I will have her seen by the dermatolog ist Screening for malignant neoplasm of breast 803635988 Z12.31 Arthritis 6822974 M19.90 Tylenol Bladder mu scle dysfunction - overactive 209473711 N32.81 [id number] MD [facility] (Adult Med) [address] [place] [address] 93445-370 0 03/17/2019 15:53:39 03/18/2019 09:14:33 Depression screening 110949203 Z13.31 Benign ess ential hypertension 9223857 I10 Restart Amlodipine Continue Losartan Long-term drug therapy 820994563 Z79.899 Disorder o f lipid metabolism 863109648 E78.9 Osteoarthr itis of left hip joint 4954336346 92433 M16.12 [place] 11/11/2018 UDS 01/17/2018 CDA 6/14/2019U DS needed, third request Osteoarthr itis of knee 062393892 M17.0 . Chest pain on exertion 90819525 R07.89 She apparently had a cardiac cath a few years ago, possibly by Dr Travis. Spasm 50218640 R25.2 Dizziness 892887994 R42 Heart murmur 04359734 R0 1.1 Colon canc er screening declined 6710770837 9109 Z53.20 Colonoscop y 2008 followed by a BAEShe has refused another colonoscop y and apparently had a Cologuard done by her gynecologi st recently Skin lesion 35453636 L98 .9 Medial/dis camilo aspect of the RLL. Venous stasis?She was seen by the dermatolog ist, I will get a copy of the consultati on. [id number] MD [facility] (Adult Med) [address] [place] [address] [phone] 0 08/25/2019 09:37:55 08/26/2019 14:38:35 Screening for malignant neoplasm of breast 548777868 Z12.31 MMG report Lower gastrointestinal hemorrhage 28528260 K92.2 Colonoscop y 11/11/2008, she has been referred to GI and she apparently had a normal Cologuard through her gynecologi st Disorder o f lipid metabolism 955386603 E78.9 Start Rosuvastat in, side effects were discussed Osteoarthr itis of left hip joint 8375065607 31566 M16.12 [place] 04/07/2019 CDA 09/19/2018U DS acceptable I have explained to her that despite the out of pocket cost ~$200+ for the UDS, the UDS is required as part of her treatment with a controlled drug and monitoring for compliance , etc Cramp in lower limb 4499 67277 R25.2 Recent weight loss 03842 7000 R63.4 She feels that it is from her Keto diet, however the recent GI bleed is a cause for concern. Musculoskeletal pain 279 429009 M79.10 Discussed Long-term drug therapy 138552408 Z79.899 Vitamin D deficiency 347 01782 E55.9 [id number] MD [facility] (Adult Med) [address] [place] [address] [phone] 0 10/01/2019 12:39:59 10/01/2019 13:42:08 Cramp 68060471 R25.2 Hold Crestor Screening for malignant neoplasm of colon 988521697 Z12.11 Colonoscop y 2009Cologu anya 12/03/2017 Pain of le ft hip joint 2382806819 02846 M25.552 Inguinal pain 027274358 R10.2 She has been seen by the orthopedic surgeonHer MRI confirms OA L>RVenous studies were previously normalI will repeat an US Myalgia/my ositis - lower leg 138593907 M79.18 Pain of left thigh 23733 64460 09325 M79.601 [id number] [facility] [address] [place] [address] [id number] 0 10/29/2019 12:23:43 10/30/2019 11:27:01 Urinary tract infectious disease 06452580 N39.0 Osteoarthr itis of left hip joint 8504694562 90645 M16.12 [place] 08/25/2019 UDS 04/07/2019 CDA 09/19/2018S he needs a new CDA [id number] Sophy Skinner MD [facility] (Adult Med) [address] [place] [address] [phone] 02/12/2020 08:52:57 02/15/2020 07:45:24 Painless rectal bleeding 082062792 K62.5 Osteoarthr itis of left hip joint 6972155445 13795 M16.12 [place] 08/25/2019 UDS 04/07/2019 CDA 10/30/2019 Otalgia of right ear 534 2062288 599397 H92.01 Aortic valve stenosis 60 356757 I35.0 [id number] Sophy Skinner MD [facility] (Adult Med) [address] [place] [address] 83208-723 0 03/17/2020 15:38:13 03/18/2020 09:18:14 Neuropathy 192154744 G62.9 Screening for malignant neoplasm of breast 895748344 Z12.31 MMG report Influenza vaccination declined 493290276 Z28.21 Disorder o f lipid metabolism 989278165 E78.9 Start Rosuvastat in, side effects were discussed Long-term drug therapy 907329808 Z79.203 [id number] MD [facility] (Adult Med) [address] [place] [address] 69612-183 0 07/21/2020 08:12:12 07/22/2020 09:38:49 Carpal tunnel syndrome 74472025 G56.03 L>R CTS Disorder o f lipid metabolism 502715419 E78.9 On Zetia, I do not believe that she was able to tolerate the statin. Edema of l ower extremity 829056842 R60.0 Meds? Immunization advised 310 719293 Z71.9 Disorder o f vitamin B12 013660034 E53.8 [id number] Sophy Skinner MD [facility] (Adult Med) [address] [place] [address] 58452-107 0 09/30/2020 11:22:23 10/03/2020 06:18:02 Painless rectal bleeding 685971460 K62.5 Immunization advised 310 983333 Z71.9 Disorder o f lipid metabolism 241842218 E78.9 On Zetia, I do not believe that she was able to tolerate the statin. Medication monitoring 39 5222062 Z51.81 Vitamin D deficiency 347 55247 E55.9 [id number] Sophy Skinner MD [facility] (Adult Med) [address] [place] [address] [phone] 0 01/11/2021 15:39:38 01/17/2021 08:28:44 Vitamin D deficiency 97012350 E55.9 Osteoarthr itis of left hip joint 8768462391 46929 M16.12 [place] 06/24/2020 CDA 10/30/2019 Disorder o f lipid metabolism 806652785 E78.9 She should retry the statin. Benign ess ential hypertension 2033822 I10 Increase Nifedipine to 60 MGContinue Losartan Influenza vaccination declined 390358787 Z28.21 Vaccine de clined by patient 4551245332 02 Z28.21 Pneumococc al vaccination declined 971820057 Z28.21 Malodorous urine 2976699 01 R82.998 Apparently treated possibly with Pyridium at the urgent care clinic ~ 2 months ago, unfortunat maría elena she remains symptomati c. [id number] MD [facility] (Adult Med) [address] [place] [address] 26172-069 0 05/19/2021 15:30:54 05/22/2021 11:17:23 Osteoarthritis of left hip joint 8283171024 97541 M16.12 [place] U[place] 06/24/2020 CDA 05/02/2021 ontinue Tramadol as prescribed , she will continue to alternate this with Tylenol Osteoarthr itis of knee 390159013 M17.0 . Benign ess ential hypertension 4374797 I10 Restart Nifedipine 30 MGContinue Losartan and Metoprolol Unwilling to continue HCTZ Vitamin D deficiency 347 39344 E55.9 Disorder o f lipid metabolism 160402929 E78.9 Medication monitoring 39 2030871 Z51.81 [id number] MD [facility] (Adult Med) [address] [place] [address] 18275-314 0 07/11/2021 14:57:39 07/12/2021 07:54:31 Pruritic rash 44519909 L28.2 Allergy, doubt Scabies.Be nadrylStop topical bleach Abnormal urine 098257053 R82.90 Heart murmur 50888254 R0 1.1 TTE report Benign ess ential hypertension 8189172 I10 On Nifedipine 30 MG, Losartan and Metoprolol Unwilling to continue HCTZShlei feels that her pain is the cause of her uncontroll ed HTN [id number] MD [facility] (Adult Med) [address] [place] [address] 52715-932 0 09/20/2021 16:09:18 09/21/2021 09:47:30 Body mass index 40+ - severely obese 276696195 Z68.41 Benign ess ential hypertension 7630034 I10 On Nifedipine 30 MG, Losartan 100 mg and Metoprolol 25 mgUnwillin g to continue HCTZShlei feels that her pain is the cause of her uncontroll ed HTN Vitamin D deficiency 347 79355 E55.9 Restart Vit D Disorder o f lipid metabolism 787885709 E78.9 Carpal tez yuniel syndrome of right wrist 5281583364 48788 G56.01 [id number] MD [facility] (Adult Med) [address] [place] [address] 75000-919 0 02/23/2022 15:32:40 02/27/2022 09:43:47 Benign essential hypertension 0941685 I10 She should be on Nifedipine 30 MG, Losartan 100 mg, HCTZ and Metoprolol 25 mgHer blood pressure is uncontroll ed, I have prescribed all her meds. Bilateral carpal tunnel syndrome 0473513060 9358084 G56.03 Disorder o f lipid metabolism 334455208 E78.9 Skin lesion 61552099 L98 .9 Infected insect bite? Vitamin D deficiency 347 71032 E55.9 On Vit D Neuropathy 482622376 G62 .9 [id number] MD [facility] (Adult Med) [address] [place] [address] 06689-658 0 03/22/2022 15:52:23 03/23/2022 10:11:00 Overweight 733748104 E66.3 Noncomplia nce with medication regimen 475062042 Z91.A4 Open wound of left lower leg 4712732463 6577946 S81.802D Pain in le ft lower limb 403176133 M79.605 Benign ess ential hypertension 4507317 I10 Uncontroll ed in the office, she should continue her Nifedipine 30 MG, Losartan 100 mg, HCTZ and Metoprolol 25 mg BIDHer blood pressure is uncontroll ed, she reports normal readings and I have explained to her that although HCTZ causes diuresis, nifedipine does not. Osteoarthr itis of left hip joint 7982971478 00823 M16.12 [place] reviewed UDS 06/07/2021 CDA 05/02/2021 [id number] MD [facility] (Adult Med) [address] [place] [address] 61504-418 0 06/07/2022 15:37:10 06/08/2022 14:25:01 Synovial cyst of right knee 7405734445 55218 M71.21 Discussed Benign ess ential hypertension 2802707 I10 Uncontroll ed, she is now on Furosemide 40 mg po daily, Hydralazin e BID, Losartan 100 mg po daily and Metoprolol XL once a day.Her HCTZ and Nifedipine were discontinu ed by her cardiologi st. Medication monitoring 39 5480038 Z51.81 Musculoskeletal pain 279 897181 M79.10 Discussed, Tramadol, Tylenol and Diclofenac PRN with food. Side effects of Diclofenac including but not limited to UGIB and CV events were discussed. [id number] MD [facility] (Adult Med) [address] [place] [address] [phone] 0 01/07/2023 15:47:33 01/08/2023 15:07:58 Benign essential hypertension 4878209 I10 Uncontroll ed due to non compliance [...] cardiologi st. Disorder o f lipid metabolism 568787066 E78.9 Weight loss 87364868 R63 .4 Edema of l ower extremity 284699662 R60.0 Influenza vaccination declined 874897678 Z28.21 Impaired f asting glycemia 842776385 R73.01 Medication monitoring 39 2355235 Z51.81 Screening for malignant neoplasm of breast 049308246 Z12.31 Z12.39 Noncomplia nce with medication regimen 828749161 Z91.141 Vitamin D deficiency 347 56277 E55.9 [id number] MD [facility] (Adult Med) [address] [place] [address] 29330-459 0 02/06/2023 15:32:29 02/12/2023 09:47:54 Benign essential hypertension 1020702 I10 Slight improvemen t from her last [...] cardiologi st. Disorder o f lipid metabolism 514544806 E78.9 She cannot tolerate statins and her lipid panel is not at goal on Zetia, her 10year ASCVD risk is 20.6%. She is to continue Zetia and I will add Repatha Impaired f asting glycemia 553795838 R73.01 Discussed Body mass index 30+ - obesity 586915471 Z68.39 She has a BMI of 38, HTN, pre-DM, Osteoarthr itis and would benefit immensely from weight loss. She has no history of Thyroid cancer and the side effects of Semaglutid e including but not limited to nausea, constipati on and diarrhea were discussed. At [facility] ed risk for cardiovascular event 786022499 Z91.89 20.6% [id number] Sophy Skinner MD [facility] (Adult Med) [address] [place] [address] 64947-872 0 05/01/2023 15:33:09 05/02/2023 14:14:39 Benign essential hypertension 2390131 I10 Not compliant with her complete regimen.Melita [...] cardiologi st. Disorder o f lipid metabolism 234706025 E78.9 Repatha or an equivalent OV 3She cannot tolerate statins and her lipid panel is not at goal on Zetia, her 10year ASCVD risk is 20.6%. She is to continue Zetia and I will add Repatha Body mass index 30+ - obesity 371977184 Z68.39 Wegovy was too expensiveS tart Victoza, [...] diarrhea were discussed. Carpal tez yuniel syndrome 88204779 G56.03 Her previous EMG/BCS confirmed L>R CTS Edema of l ower extremity 600710943 R60.0 Noncomplia nce with medication regimen 281158255 Z91.756 [id number] [facility] [address] [place] [address] 71865-795 0 06/03/2023 11:25:55 06/04/2023 08:25:13 Benign essential hypertension 0992469 I10 Uncontroll ed, her cardiologi st added [...] st. Body mass index 30+ - obesity 463057131 Z68.39 She has refused to start Victoza [...] diarrhea were discussed. Carpal tez yuniel syndrome 31547397 G56.03 OV 05/01/2023H er previous EMG/BCS confirmed L>R CTS Noncomplia nce with medication regimen 340889094 Z91.141 Stasis arin matitis of lower limb due to chronic peripheral venous hypertension 524890384 I87.399 Discoloration of skin 32 81912 R23.8 Acute urin maurizio tract infection 067181739 N39.0 [id number] Sophy Skinner MD [facility] (Adult Med) [address] [place] [address] 28496-633 0 07/01/2023 14:33:24 07/03/2023 18:49:35 Aortic valve stenosis 43947021 I35.0 Moderate on the TTE done on 06/25/2023 Disorder o f lipid metabolism 754243998 E78.9 Unable to afford RepathaCon tinue Zetia OV 2/26/2024R epatha or an equivalent OV 3She cannot tolerate statins and her lipid panel is not at goal on Zetia, her 10year ASCVD risk is 20.6%. She is to continue Zetia and I will add Repatha Anemia 830147554 D64.9 Recheck Normal grief reaction 27 5123481 F43.20 Body mass index 30+ - obesity 787052976 Z68.39 She needs to be seen by [...] discussed. Osteoarthr itis of left hip joint 5858719347 41879 M16.12 She will be referred to pain management Tramadol/T ylenolILPM P reviewed, last refill was on 05/07/2023 UDS 06/03/2023 CDA signed 06/14/2023 Thyroid fu nction tests abnormal 626862678 R94.6 B-type kenney riuretic peptide above reference range 1917397268 62568 R89.1 [id number] Sophy Skinner MD [facility] (Adult Med) [facility] [place] [address] 08/26/2023 15:13:41 08/28/2023 13:00:05 Chest pain 91916998 R07.9 Cardiovasc ular stress test abnormal 348161994 R94.39 Body mass index 30+ - obesity 274092597 Z68.39 She needs to lose weight for [...] diarrhea were discussed. Aortic valve stenosis 60 218850 I35.0 Moderate on the TTE done on 06/25/2023 [id number] Sophy Skinner MD [facility] (Adult Med) [address] [place] [address] [phone] 0 03/31/2024 14:11:14 04/03/2024 08:36:34 History of cerebrovascular accident 127813156 Z86.73 Loss of appetite 6426520 6 R63.0 Medication monitoring 39 1755082 Z51.81 Weight loss 76967907 R63 .4 Impaired f asting glycemia 930165460 R73.01 Discussed Chronic pain 28504407 G8 9.29 Depressive disorder 3548 9007 F32.A Follow-up visit 39499675 9 Z09 Screening mammography 24 197133 Z12.31 History of coronary artery bypass grafting 995291900 Z95.1 History of aortic valve replacement 3050336070 100 Z95.4 [id number] Sophy Skinner MD [facility] (Adult Med) [address] [place] [address] 86627-579 0 06/15/2024 14:59:26 06/16/2024 10:25:37 History of cerebrovascular accident 833578026 Z86.73 Loss of appetite 2192155 6 R63.0 Chronic pain 89525763 G8 9.29 Depressive disorder 3548 9007 F32.A On Mirtazapin eDeclined a referral to Follow-up visit 28688319 9 Z09 Nausea 585253665 R11.0 Medication monitoring 39 7432862 Z51.81 Chronic constipation 236 337924 K59.09 Colonoscop y 02/20/2021 NL TSH 03/31/2024 Medication review done by doctor 027527716 Z76.89 [id number] MD [facility] (Adult Med) [address] [place] [address] 09/02/2024 14:23:22 09/03/2024 09:26:59 Post-discharge follow-up 289472980 Z09 Disorder o f electrolytes 815560189 E87.8 Depressive disorder 3548 9007 F32.A On Mirtazapin eShe continues to decline a referral to Loss of appetite 3573432 6 R63.0 Medication monitoring 39 7355952 Z51.81 Medication review done by doctor 983986709 Z76.89 Anticoagulant effect 101 67116 Z79.01 Impaired mobility 360067 05 Z74.09 History of aortic valve replacement 4755912243 100 Z95.3 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 7868793855 63870 I69.954 History of pulmonary embolus 395568612 Z86.711 Health Concerns Section Related Observation LastModified by Organization Detai ls LastModified Time None Recorded Concern Status LastModified by Organization Details LastModified Time None Recorded Advance Directives Directive N: Payers Encounter Date Sequence Insurance Name Policy Number Policy Andre Covered Member ID Nadre Member ID Guarantor Name 07/01/2023 1 [facility] (MEDICARE REPLACEMENT/A DVANTAGE - HMO) [id number] Yumiko Mendez [id number] Yumiko Mendez 08/26/2023 1 [facility] (MEDICARE REPLACEMENT/A DVANTAGE - HMO) [id number] Yumiko Mendez [id number] Yumiko Mendez 03/31/2024 1 [facility] (MEDICARE REPLACEMENT/A DVANTAGE - HMO) [id number] Yumiko Mendez [id number] Yumiko Mendez 06/15/2024 1 [facility] (MEDICARE REPLACEMENT/A DVANTAGE - HMO) [id number] Yumiko Mendez [id number] Yumiko Mendez 09/02/2024 1 [facility] (MEDICARE REPLACEMENT/A DVANTAGE - HMO) [id number] Yumiko Mendez [id number] Yumiko Mendez Notes Date Note Type Note Provider Name and Address Organization Details Recorded Time 07/01/2023 text/html Anxiety/Depressi onRep orted bypatient.Quality:sym ptoms [...] eating and not losing weight like I shouldDo you think pain management would help me?My Goddaughter, just Ms. Mendez returns, she needs to lose weight before she will be considered an ideal candidate for L. THR. Unfortunately, despite cutting her food intake in half, she has gained and not lost any weight. She admits that her pain and grief are worsening her underlying depression, she however does not want therapy or medications. Sophy Skinner MD Attn: [address]ing[address] [place], [address], [facility] 07/02/2023 08:29:17 08/26/2023 text/html She told me to stop it and I still hurtShe told me the insurance had denied both of them:He said it was on back orderWhen it happens it feels like...In the interim, she was seen by the beverage specialist and her Crestor was held because of [...] chest. Sophy Skinner MD Attn: [address]ing[address] [place], [address], [facility] 08/26/2023 16:43:53 03/31/2024 text/html Here with her daughter, Marta Still can't walk, standMy appetiteMy bathroom is not very regularPain management doctor Admitted 12/12/2023-01/17/2024, BP 176/83 with [...] she plans to follow up with her beverage specialist. She admits to feeling depressed about not [...] her hip and back pain from her beverage specialist or CT surgeon and would like a referral to pain management. Sophy Skinner MD Attn: Accounting[address] [place], [address], [facility] 03/31/2024 18:15:24 06/15/2024 text/html Here with her daughter The heart doctor stopped that, she gave her some EliquisI have been having crying spellsSometimes it's a long time ER on 04/19/2024 with, Weakness, Nausea, Dizziness, Blurred vision and a UTI. She was also seen by evaporator operator, cardiology and pain management although she would [...] She denies SI or HI and her beverage specialist just started her on Mirtazapine. Sophy Skinner MD Attn: Accounting[address] [place], [address], [facility] 06/15/2024 18:32:21 09/02/2024 text/html Here with her daughter She wants to know about the electric wheelchairI still have no appetite PSHX. CABG X4 and Aortic valve replacement using 21-millimeter Colindres Inspiris bioprosthetic aortic valve. Ms Mendez was admitted 08/05/2024-08/13/2024 with; acute Hypokalemia, generalized weakness and Diarrhea. She can't afford Eliquis and was switched to Warfarin and also discharged on Megace. Sophy Skinner MD Attn: Accounting[address] [place], [address], [facility] 09/02/2024 20:04:42 OBGyn Episode No OBEpisode recorded.
--- OUTSIDE RECORDS SUMMARY | 2024-09-16 17:01 | XMS_ITS | Continuity of Care Document ---
Author Organization [facility] Address [address] [facility] [address] [place] [address] Phone Care Team Providers Care Format Proofreader Name Role Phone Ady Brothers Unavailable Unavailable Procedures Procedure Date Office/outpatient Visit, Est Eye Exam & Treatment Eye Exam & Treatment Refraction Advance Directives Directive Yes / No Effective Date File Name No Information Encounters Encounter Description Practice Location Reason(s) For Visit Diagnoses Date Provider Providers Copied on Encounter Office/outpat ient Visit, Est [facility], [address] [place] [address] [address], [place], [place], [id number], [place] tel:[phone] [facility] No Information 2-201 0 Krishnasamy Ady. [address], [place], [place], [facility], [place]. tel:[phone] [facility], [address] [place] [address] [address], [place], [place], [id number], [place] tel:[phone] [facility] No Information 8200 [address] Krishnasamy Ady. [address], [place], [address], [place]. tel:[phone] [facility], [address] [place] [address] [address], [place], [place], [id number], [place] tel:[phone] [facility] No Information 1200 7 Umesh Willis. [address] [facility], [address], [place], [place], [id number], [place]. tel:[phone] Family History Family Member Type Diagnosis Age At Onset No Information Payers Payer name Insurance type Covered green party ID Katerine owens(s) [facility] [id number] Social History Type Description Quantity Date Captured [...]
--- OUTSIDE RECORDS SUMMARY | 2024-09-16 17:01 | XMS_ITS | Encounter Summary ---
Author Organization [facility] Address [address] [place] [address] Care Team Providers Care Package Liner Name Role Phone Michele Burger MD Primary Care Provider [phone] Encounter Details Date Type Department Care Team (Late st Contact Info) Description 09/03/2006 Outpatient Historical [facility] [place] 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
--- OUTSIDE RECORDS SUMMARY | 2024-09-16 17:02 | XMS_ITS | Encounter Summary ---
Author Organization [facility] Address [address] [place] [address] Care Team Providers Care Client Service Manager Name Role Phone Michele Burger MD Primary Care Provider [phone] Encounter Details Date Type Department Care Team (Late st Contact Info) Description 11/08/2006 Outpatient Historical [facility] [place] 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
--- OUTSIDE RECORDS SUMMARY | 2024-09-16 17:02 | XMS_ITS | Clinical Summary ---
Author Organization [facility] Address [address] [place] [address] Care Team Providers Care Inpatient Pharmacist Name Role Phone Sophy Skinner MD Unavailable [phone] Richard Salazar MD Unavailable [phone] Veda TREJO MD, Carlos M. Unavailable [phone] Tyshawn Chino MD Unavailable [phone] Veena Cloud MD Unavailable John Mares MD Unavailable Vero Lao MD Unavailable [phone] Sophy Skinner MD Primary Care Provider Allergies Active Allergy Reactions Criticality Noted Date Comments Nnahsvv-Cnw-Vly Reductase Inhibitors Muscle pain Medium 10/29/2008 Sulfa [...] about the UA today and notified nurse ag service manager Johnny who has called and updated daughter. Patient notified as well that a new UA will be done. Precordial pain 01/07/2024 Assessment & Plan (02/24/2024 9:57 PM MUSTANGER): Patient started on tramadol 4 times a [...] 01/07/2024 Assessment & Plan (02/24/2024 9:58 PM MUSTANGER): Patient to continue physical and occupational therapy [...] 12/02/2023 Assessment & Plan (02/24/2024 10:00 PM MUSTANGER): S/p CABG with infection of sternal wound [...] 10/28/2023 Assessment & Plan (02/24/2024 9:57 PM MUSTANGER): Patient to continue Eliquis and aspirin and [...] drink = 0.6 oz pur e alcohol) [facility] Utilities Answer Date Recorded In the past 12 months has [employer], gas, oil, or water [facility] threatened to shut off services in your [...] often do you attend chur ch or anabaptist services? Never 12/04/2023 Do you belong to any clubs o r organizations such as restoration groups, unions, fraternal or athletic groups, or [...] Recorded Patient Health Questionnaire-2 Score 3 12/02/2023 [facility] - Occupational Stress Questionnaire Answer Date Recorded [...] any time in the past 12 m [facility], were you homeless or living in a skilled nursing (including now)? No 12/04/2023 Personal Safety Answer Date Recorded Have you ever been in or are you currently in a harmful physical or emotional relationship or is someone making you feel afraid or unsafe? Denies 04/19/2024 Comments No Sex and Gender Information Value Date Recorded Sex Assigned at Not on file Legal Sex Female 11:27 PM MUSTANGER Gender Identity Not on file Sexual Orientation Not on file Obstetrics History Last Filed Vital Signs Vital Sign Reading Time Taken Comments Blood Pressure 175/96 04/20/2024 2:30 AM MUSTANGER Pulse 89 04/20/2024 2:30 AM MUSTANGER Temperature 36.7 C (98 F) 04/19/2024 6:45 PM MUSTANGER Respiratory Rate 18 04/20/2024 2:30 AM MUSTANGER Oxygen Saturation 99% 04/20/2024 2:30 AM MUSTANGER Inhaled Oxygen Concentration - - Weight 86.2 kg (190 lb) 04/19/2024 6:25 PM MUSTANGER Height 162.6 cm (5' 4) 04/19/2024 6:25 PM MUSTANGER Body Mass Index 32.61 04/19/2024 6:25 PM MUSTANGER Plan of Treatment Health Maintenance Due Date [...] Completed 11/03/2023 Medical Devices Implanted Type Area Lasting Room Machine Operator Device Identifier Shelf Expiration Date Model / Serial / Lot [employer] Plate Bone Low Profile 6 Hole H Shape Sternum Ti 115.102.06 - [id number] Implanted:Qty: 1 on 10/22/2023 by Vero Lao MD at [facility] Plate N/A: Sternum [employer] 115.102. 06 / / [employer] Plate Bone Low Profile 4 Hole Box Sternum Ti 115.103.04 - [id number] Implanted:Qty: 1 on 10/22/2023 by Vero Lao MD at [facility] Plate N/A: Sternum [employer] 115.103. 04 / / [employer] Plate Bone Low Profile 6 Hole O Concave Sternum Ti 115.604.06 - [id number] Implanted:Qty: 1 on 10/22/2023 by Vero Lao MD at [facility] Plate N/A: Sternum [employer] 115.604. 06 / / [employer] Inspiris Resilia Aortic Valve 21mm [id number] - [id number] - [id number] Implanted:Qty: 1 on 10/21/2023 by Vero Lao MD at [facility] Prosthetic Valve N/A: Aortic Valve [employer] 09/16/2026 [id number] / [id number] / Description:Non-clinical kris ting has demonstrated that this device is MR Conditional. A patient with this valve can be scanned safely, immediately after placement of this implant under the following conditions: - Static magnetic field of 3 amanda or less. - Spatial gradient field of less than 3000 gauss/cm. - Maximum MR system-reported ppluy-rvfw-elhjooha specific absorption rate (NOEMI) of 2.0 W/kg for 15 minutes of continuous scanning per sequence in the normal operating mode. [employer] Screw Bone Slf Drl Full Thread Locking 3.5x14mm Ti 100.035.14 - [id number] Implanted:Qty: 6 on 10/22/2023 by Vero Lao MD at [facility] Screw N/A: Sternum [employer] 100.035. 14 / / [employer] Screw Bone Slf Drl Full Thread Locking 3.5x16mm Ti 100.035.16 - [id number] Implanted:Qty: 10 on 10/22/2023 by Vero Lao MD at [facility] Screw N/A: Sternum [employer] 100.035. 16 / / [employer] Patch Straight Collagen Coated Double Velour Tapered Hemashield 2.5x7.5cm Knitted Polyester [id number] - [id number] - [id number] Implanted:Qty: 1 on 10/21/2023 by Vero Lao MD at [facility] N/A: Heart [employer] 02/05/2027 [id number] / [id number] / Procedures Procedure Name Priority Date/Time Associated Diagnosis Comments COLONOSCOPY 11/14/2023 1:40 PM CDT HEPATITIS PANEL, ACUTE Routine 11/03/2023 6:43 AM CDT from Last 3 Months or Most Recently Relevant to Health Maintenance Results * Colonoscopy (11/14/2023 1:40 PM CDT) Anatomical Region Laterality Modality Other Narrative Procedure Note Clif Hernandez MD - 11/14/2023 1:40 PM CDT [facility] Patient Name: Yumiko Mendez Procedure Date: 11/14/2023 1:40 PM Date of : 1955 Admit Type: Inpatient Age: 67 Gender: Female Note Status: Finalized Attending MD: Clif Hernandez M.D. Procedure Date: 11/14/2023 Procedure: Colonoscopy Indications: Hematochezia Providers: Clif Hernandez M.D., MAGALIE Mercer (Anesthesia Staff), Selena Karimi, RN, Yvon Garber, Quality Control Tech Raw Materials Referring MD: Kev Bennett M.D. Medicines: Monitored [...] by the physician, the nurse and the top and seat cover fitter in the procedure room. Mental Status Examination: [...] to checkhealing. Procedure Code(s): --- Professional --- 87492, 52, Colonoscopy, flexible; with biopsy,single or multiple Diagnosis Code(s): --- Professional --- K63.3, Ulcer of intestine K92.1, Melena (includes Hematochezia) CPT copyright 2020 [employer]. All rights reserved. The codes documented in this report are preliminary and upon ice cream dipper reviewmay be revised to meet current compliance [...] on 19. Hep C Ab Nonreactive Nonreactive [facility] Comment: Interpretive Data Nonreactive: Antibodies to HCV [...] last revised on 2019. HepBsAg Nonreactive Nonreactive [facility] Blood 11/03/2023 6:43 AM CDT 11/03/2023 7:02 AM CDT Veena Cloud MD LAB MICROBIOLOGY - GENERAL ORDERABLES Final Result [facility] [address] [facility] Department [place] [address] from Last 3 Months or Most Recently Relevant to Health Maintenance Insurance [facility] MEDICARE ADVANTAGE [facility] Address: [address] [address] [place] [address] [facility]PPO Address: [address] [address] [place] [address] [facility] Address: [address] [address] [place] [address] [facility] Address: [address] [address] [place] [address] [facility] Address: [address] [address] [place] [address] [facility] H[facility]/PPO Address: [address] [address] [place] [address] Advance Directives For more information, please contact: [phone] Documents on File Type Date Recorded Patient Peoplesoft Administrator Expl anation ADVANCE DIRECTIVE 12/06/2023 6:40 PM POWER OF DOWEL MACHINE OPERATOR-MEDICAL ADVANCE DIRECTIVE 11/25/2023 POWER OF DOWEL MACHINE OPERATOR-MEDICAL Advance Directives and Living Will 11/22/2023 4:52 PM Candida Mendez Power of Dispensing And Measuring Optician 11/22/2023 2:03 PM * Full Code (Latest [...] First Alternate Health Care Agent Care Teams Inpatient Pharmacist Relationship Specialty [place] [address] [place] [address] PCP - General Internal Medicine 12/20/23 [place] [address] [place] [address] Internal Medicine 12/18/23 [place] [address] [place] [address] Consulting Physician Internal Medicine 12/12/23 [place] [address] [facility] [address] [place] [address] Consulting Physician Neurology 12/12/23 [place] [address] [facility] [address] [place] [address] Consulting Physician Nephrology 12/12/23 [place] [address] [facility] [address] [place] [address] Gastroenterology 12/12/23 [place] [address] [address] Consulting Physician Cardiology 12/12/23 [place] [address] [address] Surgeon Cardiothoracic Surgery 12/12/23
--- OUTSIDE RECORDS SUMMARY | 2024-09-16 17:02 | XMS_ITS | Clinical Summary ---
Author Organization [facility] Address [address] [place] [address] Phone Care Team Providers Care Section Plotter Operator Name Role Phone Michele Burger MD Primary Care Provider [phone] Allergies Active Allergy Reactions Criticality Noted Date Comments Iesqpig-Yfu-Cve Reductase Inhibitors Muscle Pain Low 10/29/2008 Sulfa [...] on file Legal Sex Female 3:54 AM TICKET WORKER Gender Identity Not on file Sexual Orientation Not on file Last Filed Vital Signs Vital Sign Reading Time Taken Comments Blood Pressure 150/86 10/29/2008 10:14 AM CDT Pulse 80 10/29/2008 10:14 AM CDT Temperature - - Respiratory Rate - - Oxygen Saturation - - Inhaled Oxygen Concentration - - Weight 125.2 kg (276 lb) 10/29/2008 10:14 AM CDT Height 167.6 cm (5' 6) 10/29/2008 10:14 AM CDT Body Mass Index [...] 1-dose 75+ series) 12/23/2030 Insurance Care Teams Section Plotter Operator Relationship Specialty Start Date End Date Michele Burger MD PCP - General 10/29/08
--- OUTSIDE RECORDS SUMMARY | 2024-09-16 17:02 | XMS_ITS | Patient Health Record ---
Author Organization [facility] Address [address] [place], [place] [address] Care Team Providers Care Manager Scientific Name Role Phone Brandt Means Primary Care Provider [phone] ALLERGIES Allergen (clinical drug ingredient) Drug/Non Drug Allergy documented on EMR Reaction Allergy Type Onset Date Status Sulfur (uncoded) Unknown Allergy Act shelly REASON FOR REFERRAL No Information SOCIAL HISTORY Tobacco Use: Social History Observation Description Date Details (start date - stop date) Never Smoker NA - NA Sex Assigned At : Social History Observation Description Sex Assigned At Unknown Tobacco Use/Smoking Question Answer Notes Are you a nonsmoker PROBLEMS Problem Type ICD Code Onset Dates Problem Status W/U Status Risk SNOMED Code Notes Problem Hypertension (I10) Active confirmed Problem Unilateral primary osteoarthritis, left hip (M16.12) Active confirmed 370075202338083 Problem Unilateral primary osteoarthritis, 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) Active confirmed 903671592071806 PLAN OF TREATMENT Pending Test Test Name Order Date X ray : Hip, left, 2 05/05/2020 X ray : Knee, right 3 views 05/05/2020 Aspiration/Injection : Left Hip in Radio logy 05/05/2020 Insurance Providers Payer Name Payer Address Payer Phone Subscriber Number Group Number Insured Name Patient Relationship to Insured Coverage Start Date Coverage End Date [facility] [address] [address] [address] [place] [id number] Yumiko Mendez Self - patient is the insured MEDICATIONS ADMINISTERED Medication Instructions Date of Administration Dosage Notes Betamethasone/ sodium phosphate 6mg 05/05/2020 Betamethasone/ sodium phosphate 6mg 05/05/2020 MEDICAL (GENERAL) HISTORY Medical History History ICD Code Hypertension I10 Arthritis Surgical History Surgery Date(Month/Year)
--- OUTSIDE RECORDS SUMMARY | 2024-09-16 17:02 | XMS_ITS | Referral Summary ---
Author Organization [facility] Address [address] [place] [address] Care Team Providers Care School Psychologist Name Role Phone Sophy Skinner MD Unavailable [phone] Richard Salazar MD Unavailable [phone] Veda TREJO MD, Carlos M. Unavailable [phone] Tyshawn Chino MD Unavailable [phone] Veena Cloud MD Unavailable [phone] John Mares MD Unavailable Vero Lao MD Unavailable [phone] Sophy Skinner MD Primary Care Provider Allergies Active Allergy Reactions Criticality Noted Date Comments Cmbtthp-Arv-Iyz Reductase Inhibitors Muscle pain Medium 10/29/2008 Sulfa [...] about the UA today and notified nurse consulting solution manager Johnny who has called and updated daughter. Patient notified as well that a new UA will be done. Precordial pain 01/07/2024 Assessment & Plan (02/24/2024 9:57 PM [employer]): Patient started on tramadol 4 times a [...] 01/07/2024 Assessment & Plan (02/24/2024 9:58 PM [employer]ARD): Patient to continue physical and occupational therapy [...] 12/02/2023 Assessment & Plan (02/24/2024 10:00 PM RACK[employer]AVE [employer]): S/p CABG with infection of sternal wound [...] 10/28/2023 Assessment & Plan (02/24/2024 9:57 PM RACK[employer]AVE BOARD): Patient to continue Eliquis and aspirin and [...] drink = 0.6 oz pur e alcohol) [facility] Utilities Answer Date Recorded In the past 12 months has Effective Measure, gas, oil, or water [employer] threatened to shut off services in your [...] often do you attend chur ch or restorationism services? Never 12/04/2023 Do you belong to any clubs o r organizations such as congregational groups, unions, fraternal or athletic groups, or [...] 12/02/2023 [facility] - Occupational Stress Questionnaire Answer Date [...] any time in the past 12 m [facility], were you homeless or living in a retirement (including now)? No 12/04/2023 Personal Safety Answer Date Recorded Have you ever been in or are you currently in a harmful physical or emotional relationship or is someone making you feel afraid or unsafe? Denies 04/19/2024 Comments No Sex and Gender Information Value Date Recorded Sex Assigned at Not on file Legal Sex Female 11:27 PM [employer] Gender Identity Not on file Sexual Orientation Not on file Last Filed Vital Signs Vital Sign Reading Time Taken Comments Blood Pressure 175/96 04/20/2024 2:30 AM [employer] Pulse 89 04/20/2024 2:30 AM [employer] Temperature 36.7 C (98 F) 04/19/2024 6:45 PM [employer] Respiratory Rate 18 04/20/2024 2:30 AM [employer] Oxygen Saturation 99% 04/20/2024 2:30 AM [employer] Inhaled Oxygen Concentration - - Weight 86.2 kg (190 lb) 04/19/2024 6:25 PM [employer] Height 162.6 cm (5' 4) 04/19/2024 6:25 PM [employer] Body Mass Index 32.61 04/19/2024 6:25 PM [employer] Plan of Treatment Not on file Medical Devices Implanted Type Area Grape Grower Device Identifier Shelf Expiration Date Model / Serial / Lot [employer] Plate Bone Low Profile 6 Hole H Shape Sternum Ti 115.102.06 - [id number] Implanted:Qty: 1 on 10/22/2023 by Vero Lao MD at [facility] Plate N/A: Sternum [employer] 115.102. 06 / / [employer] Plate Bone Low Profile 4 Hole Box Sternum Ti 115.103.04 - [id number] Implanted:Qty: 1 on 10/22/2023 by Vero Lao MD at [facility] Plate N/A: Sternum [employer] 115.103. 04 / / [employer] Plate Bone Low Profile 6 Hole O Concave Sternum Ti 115.604.06 - [id number] Implanted:Qty: 1 on 10/22/2023 by Vero Lao MD at [facility] Plate N/A: Sternum [employer] 115.604. 06 / / [employer] Inspiris Resilia Aortic Valve 21mm [id number] - [id number] - [id number] Implanted:Qty: 1 on 10/21/2023 by Vero Lao MD at [facility] Prosthetic Valve N/A: Aortic Valve [employer] 09/16/2026 [id number] / [id number] / Description:Non-clinical kris ting has demonstrated that this device is MR Conditional. A patient with this valve can be scanned safely, immediately after placement of this implant under the following conditions: - Static magnetic field of 3 amanda or less. - Spatial gradient field of less than 3000 gauss/cm. - Maximum MR system-reported fnmmc-eoia-ecldfrfc specific absorption rate (NOEMI) of 2.0 W/kg for 15 minutes of continuous scanning per sequence in the normal operating mode. [employer] Screw Bone Slf Drl Full Thread Locking 3.5x14mm Ti 100.035.14 - [id number] Implanted:Qty: 6 on 10/22/2023 by Vero Lao MD at [facility] Screw N/A: Sternum [employer] 100.035. 14 / / [employer] Screw Bone Slf Drl Full Thread Locking 3.5x16mm Ti 100.035.16 - [id number] Implanted:Qty: 10 on 10/22/2023 by Vero Lao MD at [facility] Screw N/A: Sternum [employer] 100.035. 16 / / [employer] Patch Straight Collagen Coated Double Velour Tapered Hemashield 2.5x7.5cm Knitted Polyester [id number] - [id number] - [id number] Implanted:Qty: 1 on 10/21/2023 by Vero Lao MD at [facility] N/A: Heart [employer] 02/05/2027 [id number] / [id number] / Procedures Procedure Name Priority Date/Time Associated Diagnosis Comments COLONOSCOPY 11/14/2023 1:40 PM CDT HEPATITIS PANEL, ACUTE Routine 11/03/2023 6:43 AM CDT from Last 3 Months or Most Recently Relevant to Health Maintenance Results * Colonoscopy (11/14/2023 1:40 PM CDT) Anatomical Region Laterality Modality Other Narrative Procedure Note Olagbegi, Olayiwola C., MD - 11/14/2023 1:40 PM CDT [facility] Endoscopy Lab Patient Name: Yumiko Mendez Procedure Date: 11/14/2023 1:40 PM Date of : 1955 Admit Type: Inpatient Age: 67 Gender: Female Note Status: Finalized Attending MD: Clif Hernandez M.D. Procedure Date: 11/14/2023 Procedure: Colonoscopy Indications: Hematochezia Providers: Clif Hernandez M.D., MAGALIE Mercer (Anesthesia Staff), Selena Karimi RN, Yvon Garber, Infant Toddler Lead Teacher Referring MD: Kev Bennett M.D. Medicines: Monitored [...] by the physician, the nurse and the csr retail in the procedure room. Mental Status Examination: [...] to checkhealing. Procedure Code(s): --- Professional --- 81599, 52, Colonoscopy, flexible; with biopsy,single or multiple Diagnosis Code(s): --- Professional --- K63.3, Ulcer of intestine K92.1, Melena (includes Hematochezia) CPT copyright 2020 [employer]. All rights reserved. The codes documented in this report are preliminary and upon cardroom manager reviewmay be revised to meet current compliance [...] Hep B core IgM Nonreactive Nonreactive [facility] Comment: Interpretive Data If HepB Core IgM Ab is reported as Equivocal, a new sample should be drawn in two weeks for testing. Current interpretive data was last revised on 19. Hep C Ab Nonreactive Nonreactive [facility] Comment: Interpretive Data Nonreactive: Antibodies to [...] revised on 2019. HepBsAg Nonreactive Nonreactive [facility] Blood 11/03/2023 6:43 AM CDT 11/03/2023 7:02 AM CDT Veena Cloud MD LAB MICROBIOLOGY - GENERAL ORDERABLES Final Result [facility] [id number] [facility] Department [place] [address] from Last 3 Months or Most Recently Relevant to Health Maintenance Insurance [facility] MEDICARE ADVANTAGE [facility] MEDICARE ADVANTAGE [place] [id number] Advance Directives For more information, please contact: [phone] Documents on File Type Date Recorded Patient Production Control Coordinating Clerk Expl anation ADVANCE DIRECTIVE 12/06/2023 6:40 PM POWER OF COMMISSIONER OF RELOCATION SERVICES-MEDICAL ADVANCE DIRECTIVE 11/25/2023 POWER OF COMMISSIONER OF RELOCATION SERVICES-MEDICAL Advance Directives and Living Will 11/22/2023 4:52 PM Candida Mendez Power of Music Worker 11/22/2023 2:03 PM * Full Code (Latest [...] First Alternate Health Care Agent Care Teams School Psychologist Relationship Specialty Start Date End Date Sophy Skinner MD [address] [address] PCP - General Internal Medicine 12/20/23 Sophy Skinner MD [address] [address] Internal Medicine 12/18/23 [place] [address] [facility] [place] [address] Consulting Physician Internal Medicine 12/12/23 [place] [address] [facility] [address] [place] [address] Consulting Physician Neurology 12/12/23 [place] [address] [facility] [address] [place] [address] Consulting Physician Nephrology 12/12/23 [place] [address] [facility] [address] [place] [address] Gastroenterology 12/12/23 [place] [address] [facility] [address] [place] [address] Consulting Physician Cardiology 12/12/23 [place] [address] [facility] [address] [place] [address] Surgeon Cardiothoracic Surgery 12/12/23
--- OUTSIDE RECORDS SUMMARY | 2024-09-16 17:02 | XMS_ITS | CONTINUITY OF CARE DOCUMENT ---
Author Name david hernandez Address Unknown Organization [facility] Address [address] [place] [address] Phone [phone] Care Team Providers Care Medical Director/Head Team Physician Name Role Phone Vishnu OCHOA, John Unavailable REMINGTON SIDDIQI MD Unavailable REMINGTON SIDDIQI MD Unavailable PROBLEMS Condition Status Date Provider Notes Anemia active John Mares MD Hyperlipidemia active Adia Gandhi RN Chest pain completed - John Mares MD Chest pain atypical completed - John Mares MD Abnormal cardiovascular stre ss test completed - John Mares MD Cardiology examination active Jluis Henderson 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 active Dane Escobar CVA active Dane Escobar Aortic stenosis, moderate av a 1.0 cm 2on echo 06/29 completed - John Mares MD Elevated blood glucose completed 2 - John Mares MD Chest pain completed - John Mares MD ZACH--severe, 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 John Mares MD Leg edema, bilateral completed - John Mares MD ARTHRITIS active John Mares MD Obesity completed - Jluis Pereztong CAD cath 04/10/16 showed 80% small distal RCA, 70% Apical LAD, 30% D1 , stres 07/30 - inferoapical ischemia , Nl lv function active John Mares MD Diastolic dysfunction active John Thomas Leg pain active Bibiana Travis MD Snoring completed - John Mares MD Shortness of breath active Bibiana Travis MD HTN essential--echo ef nl, m od , 06/2023 active John Mares MD Hypertension completed - John Mares MD Family History of Hypertension: completed - John Mares MD Family History of Hypertension: completed - John Mares MD ENCOUNTERS Date Type Provider Location Encounter Diag nosis - In-person encounter Office Visit John Mares MD [facility] ObesityCardiology examination - In-person encounter Office Visit John Mares MD [facility] Leg edema, bilateralChest painElevated blood glucoseAortic stenosis, moderate nicole 1.0 cm 2on echo 06/29CVA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 - In-person encounter Office Visit John Mares MD [facility] - In-person encounter Office Visit John Mares MD [facility] HTN essential--echo ef nl, mod , AD cath 04/10/16 showed 80% small distal RCA, 70% Apical LAD, 30% D1 , stres 07/30 - inferoapical ischemia , Nl lv function - In-person encounter Office Visit John Mares MD [facility] ZACH--severe, no cpap - In-person encounter Office Visit John Mares MD [facility] HTN essential--echo ef nl, mod , 06/2023SnoringOSA--sever e, no cpap - In-person encounter Office Visit John Mares MD [facility] ZACH--severe, no cpap - In-person encounter Office Visit John Mares MD [facility] - In-person encounter Office Visit John Mares MD [facility] - In-person encounter Office Visit John Mares MD [facility] HTN essential--echo ef nl, mod , 06/2023 - In-person encounter Office Visit John Mares MD [facility] - In-person encounter Office Visit John Mares MD [facility] - In-person encounter Office Visit John Mares MD [facility] Family History of Hypertension:Family History of Hypertension:Hypertensio n - In-person encounter Office Visit John Mares MD [facility] Chest painChest pain atypicalAbnormal cardiovascular stress testDiastolic dysfunctionCAD cath 04/10/16 showed 80% small distal RCA, 70% Apical LAD, 30% D1 , stres 07/30 - inferoapical ischemia , Nl lv functionARTHRITIS - In-person encounter Office Visit John Mares MD [facility] - In-person encounter Office Visit Bibiana Travis MD [facility] - In-person encounter Office Visit Bibiana Travis MD [facility] HTN essential--echo ef nl, mod , 06/2023Shortness of breathLeg pain VITAL SIGNS Date Observation Value Provider Body Mass Index (Ratio) 23.46 kg/m2 Lev Mares MD blood pressure, diastolic 85 mm[Hg] Armond Islas blood pressure, systolic 128 mm[Hg] Sury Canchola oxygen saturation, oximetry 94 % Lyla Ruple pulse rate 80 /min Lyla Ruple weight E&M 141 [lb_av] Lyla Ruple blood pressure, cuff size regular Presley ram Carrollayenicki height E&M 65 [in_i] Windy Bjelevac Body Mass Index (Ratio) 29.62 kg/m2 Lev Mares MD blood pressure, diastolic 78 mm[Hg] Ti zenia Rodríguez blood pressure, systolic 127 mm[Hg] Natalia rice Rodríguez pulse rate 74 /min Candida Saunder s oxygen saturation, oximetry 93 % Candida Rodríguez blood pressure, cuff size regular Ti zenia Rodríguez weight E&M 178 [lb_av] Candida Saunder s height E&M 65 [in_i] Candida Saunder s pulse rate 97 /min Nydia Irvin blood pressure, diastolic 88 mm[Hg] An ariel Irvin blood pressure, systolic 190 mm[Hg] Kimberli Irvin oxygen saturation, oximetry 98 % Nydia Irvin blood pressure, cuff size large An ariel Irvin height E&M 65 [in_i] Nydia Irvin blood pressure, cuff size regular Andriy rret blood pressure, diastolic 89 mm[Hg] Ja rret blood pressure, systolic 179 mm[Hg] Jar ret pulse rate 78 /min Jatin y oxygen saturation, oximetry 98 % Jatin respiratory rate E&M 16 /min Jatin height E&M 65 [in_i] Jatin y Body Mass Index (Ratio) 39.43 kg/m2 Lev Mares MD weight E&M 237 [lb_av] [facility] blood pressure, cuff size regular Fa [facility] blood pressure, diastolic 94 mm[Hg] Fa [facility] blood pressure, systolic 178 mm[Hg] [facility] pulse rate 80 /min [facility] oxygen saturation, oximetry 99 % [facility] respiratory rate E&M 18 /min [facility] ille height E&M 65 [in_i] [facility] Body Mass Index (Ratio) 39.43 kg/m2 Lev Mares MD blood pressure, diastolic 95 mm[Hg] [facility], systolic 194 mm[Hg] Valerie tatyana [facility] weight E&M 237 [lb_av] [facility] oxygen saturation, oximetry 98 % [facility] pulse rate 63 /min [facility] respiratory rate E&M 16 /min [facility] height E&M 65 [in_i] [facility] Body Mass Index (Ratio) 39.43 kg/m2 Lev Mares MD blood pressure, diastolic 96 mm[Hg] Keyona Irvin blood pressure, systolic 190 mm[Hg] Any lindsay Irvin oxygen saturation, oximetry 98 % Nydia Irvin pulse rate 112 /min Nydialindsay Irvin weight E&M 237 [lb_av] Nydialindsay Irvin blood pressure, cuff size large An ariel Irvin height E&M 65 [in_i] Nydialindsay Irvin Body Mass Index (Ratio) 39.43 kg/m2 Lev Mares MD blood pressure, diastolic 84 mm[Hg] [facility] acy Brooks blood pressure, systolic 176 mm[Hg] Sta cy Brooks oxygen saturation, oximetry 97 % Pavithra Boroks pulse rate 99 /min Pavithra Guy respiratory rate E&M 16 /min Pavithra valerios weight E&M 237 [lb_av] Pavithra Brooks height E&M 65 [in_i] Pavithra Guy Body Mass Index (Ratio) 39.23 kg/m2 Lev Mares MD blood pressure, diastolic 87 mm[Hg] [facility] hazel Brooks blood pressure, systolic 180 mm[Hg] Lorena mcmillan Brooks respiratory rate E&M 16 /min Pavithra Thomas dax oxygen saturation, oximetry 100 % Pavithra Brooks pulse rate 98 /min Pavithra Brooks weight E&M 235.8 [lb_av] Pavithra Brooks height E&M 65 [in_i] Pavithra Brooks Body Mass Index (Ratio) 38.94 kg/m2 Lev Mares MD blood pressure, cuff size large Sd akshat Estill blood pressure, diastolic 86 mm[Hg] Sd akshat Estill blood pressure, systolic 150 mm[Hg] [facility] Est[facility] oxygen saturation, oximetry 98 % Samantha Schmitz pulse rate 82 /min Samantha thomas respiratory rate E&M 16 /min Amber Schmitz weight E&M 234 [lb_av] Samantha thomas height E&M 65 [in_i] Samantha thomas Body Mass Index (Ratio) 40.77 kg/m2 Lev Mares MD blood pressure, resting Yes Nimesh Campbell blood pressure, diastolic 84 mm[Hg] sarah Campbell blood pressure, systolic 160 mm[Hg] Jackelyn Campbell oxygen saturation, oximetry 98 % Broderick Campbell respiratory rate E&M 18 /min Isela Campbell pulse rate 87 /min Broderick hanson weight E&M 245 [lb_av] Broderick peñad height E&M 65 [in_i] Broderick hanson Body Mass Index (Ratio) 41.76 kg/m2 Lev Mares MD blood pressure, cuff size large Ke rri Gruenenfeldamanda blood pressure, diastolic 90 mm[Hg] Ke rri Gruenenfelder blood pressure, systolic 210 mm[Hg] Ker ri Gruenenfelder oxygen saturation, oximetry 97 % Sandrita Gruenenfelder respiratory rate E&M 16 /min Sandrita G ruenenfelder pulse rate 91 /min Sandrita Gruenenfe lder weight E&M 251 [lb_av] Sandrita Gruenenfe lder height E&M 65 [in_i] Sandrita Gruenenfe lder Body Mass Index (Ratio) 41.60 kg/m2 Lev Mares MD pulse rate 98 /min Edwige Block blood pressure, diastolic 80 mm[Hg] Br ittany Block blood pressure, systolic 152 mm[Hg] Monica ttajuvenal Block oxygen saturation, oximetry 98 % Edwige Block weight E&M 250 [lb_av] Edwige Block respiratory rate E&M 16 /min Brittan y Block height E&M 65 [in_i] Edwige Block Body Mass Index (Ratio) 40.77 kg/m2 Lev Mares MD blood pressure, diastolic 78 mm[Hg] Corona Fernandez blood pressure, systolic 179 mm[Hg] Tia Fernandez blood pressure, cuff size regular Cy jacob Fernandez pulse rate 76 /min Celia herrera respiratory rate E&M 16 /min Celia Fernandez oxygen saturation, oximetry 99 % Celia Fernandez weight E&M 245 [lb_av] Celia herrera height E&M 65 [in_i] Celia herrera Body Mass Index (Ratio) 40.43 kg/m2 Lev Mares MD blood pressure, cuff size large Ke rri Gruenenfelder blood pressure, diastolic 100 mm[Hg] Ke rri Gruenenfelder blood pressure, systolic 190 mm[Hg] Ker ri Gruenenfelder oxygen saturation, oximetry 98 % Sandrita Gruenenfelder respiratory rate E&M 16 /min Sandrita G ruenenfelder pulse rate 90 /min Sandrita Gruenenfe lder weight E&M 243 [lb_av] Sandrita Gruenenfe lder height E&M 65 [in_i] Sandrita Gruenemohindere lder Body Mass Index (Ratio) 44.43 kg/m2 Chris Travis MD blood pressure, cuff size regular Ke rri Gruenenfelder blood pressure, diastolic 83 mm[Hg] Ke rri Gruenenfelder blood pressure, systolic 180 mm[Hg] Ker ri Gruenenfelder oxygen saturation, oximetry 98 % Sandrita Gruenenfelder respiratory rate E&M 16 /min Sandrita G ruenenfelder pulse rate 89 /min Sandrita Gruenenfe lder weight E&M 267 [lb_av] Sandrita Gruenenfe lder height E&M 65 [in_i] Sandrita Gruenenfe lder Body Mass Index (Ratio) 44.93 kg/m2 Chris [...] Normal Absolute Neutrophil count 4994 cells/mcL [employer] [id number] Normal mean platelet volume 8.1 fL [employer] [...] ine ratio, serum NOT APPLICABLE (calc) [employer] 6-22 Estimated Glomerular Filtration Rate (calc) 84 mL/min/{1.73_ [...] Status Instructions Dates Provider Indications Com ments hydroxyzine HCl 25 mg tablet active Jluis Henderson Xarelto 20 mg tablet active TAKE ONE TABLET BY MOUTH EVERY MORNING TO PREVENT BLOOD CLOTS Jluis Henderson mirtazapine 30 mg tablet active Jluis Henderson cyproheptadine 4 mg tablet active Jluis Henderson potassium chloride 10 mEq tablet extended release active Take 2 tablet by mouth once a day 06/17 Dane Escobar mirtazapine 7.5 mg tablet active Take 1 tablet by mouth every night 06/09 Dane Escobar aspirin 81 mg tablet,chewable completed - 06/09 [...] three times a day 05/08 - 06/09 Daen Escobar Vitamin D3 125 mcg (5,000 unit) tablet active Edwige Mcdowell furosemide 40 mg tablet completed Take 1 tablet by mouth twice a day 04/11 - 06/09 Dane Escobar hydralazine 25 mg tablet active Take 1 tablet by mouth three times a day 04/11 Candiad Rodríguez cyclobenzaprine 10 mg tablet completed Take 1 tablet by mouth every night as needed 04/11 - [facility] - 10[facility]17 [facility] tartrate 50 mg tablet completed - 10/17 [facility] metoprolol succinate 100 mg tablet extended release 24 hr completed Take 1 tablet by mouth once a day 10/17 - 06/09 [facility] rosu[facility] 5 mg tablet completed Take 1 tablet by mouth once a day TAKE 1 TABLET BY MOUTH EVERY DAY - 06/09 [facility] hydrochlor[facility]iazide 25 mg tablet completed TAKE 1 TABLET DAILY 08/30 - 04/11 [facility] gab[facility] 300 mg capsule completed 1 capsule by mouth every night 08/30 - 06/09 [facility] OXYBUTYNIN CHLORIDE 5 MG ORAL TABLET completed one tab daily 05/10 - 06/13 Ramiro Spenceberg Zetia 10 mg tablet completed TAKE 1 TABLET BY MOUTH EVERY DAY 05/10 - 06/09 [facility] nifedipine 30 mg tablet extended release completed 1 tablet by mouth once a day 05/10 - 04/11 [facility] Toprol XL 100 mg tablet extended release 24 hr completed 1 tablet by mouth once a day 05/01 - 10[facility]17 [facility] M[facility] 15 mg tablet completed 1 tablet once a day 05/01 - 10/17 [facility] Tylenol Arthritis Pain 650 mg tablet extended release active tablet by mouth as needed 05/01 Sandrita Morales ergocalciferol (vitamin D2) 1,250 mcg (50,000 unit) capsule completed Take 1 capsule by mouth three times a week - 05/22 Edwige Mcdowell #12, 28 days supply, Prescribed by THERESA LAUREANO, Filled 02/17/2020 HYDROCHLOROTHIAZIDE 25 MG ORAL TABLET completed ONE TAB DAILY 05/23 - 11/09 Sandrita Carmen PROCARDIA XL 30 MG ORAL TABLET EXTENDED RELEASE 24 HOUR completed one per day 05/15 - 11/09 Sandrita Yatesdavidamanda IBUPROFEN PM TABLET completed as needed - 11/09 Sandrita Carmen tramadol 50 mg tablet active tablet by mouth as needed Tayler Aguero losartan 100 mg tablet completed Take 1 tablet by mouth once a day - 06/09 Dane Escobar SOCIAL HISTORY Date Observation Value Provider smoking status Never smoker Jluis Henderson smoking status Never smoker Dane Escobar smoking status Never smoker Homar Omer smoking status Never smoker Dane Escobar smoking status Never smoker Marily Mondragon smoking status Never smoker Dane Escobar social history E&M S moking History: Guerrero lucio has never smoked. Edwige Mcdowell social history reviewed E&M revi ewed - no changes required Edwige Mcdowell smoking status Never smoker Nydia Irvin social history E&M S moking History: Guerrero [...] Dane Escobar smoking status Never smoker Samantha Dean and social history reviewed E&M revi ewed - no changes required Dane Escobar social history E&M S moking History: Guerrero lucio has never smoked. John Mares MD social history reviewed E&M revi ewed - no changes required John Mares MD smoking status Never smoker Broderick Naranjo goldie number of grandchildren John Henderson social history E&M S moking History: Guerrero lucio has never smoked. Jluis Henderson social history reviewed E&M revi ewed - no changes required Jluis Henderson smoking status Never smoker Sandrita marlow social history E&M Smoking Histo ry: P naveed has never smoked. Ramiro Dorsey social history reviewed E&M revi ewed - no changes required Ramiro Dorsey smoking status Never smoker Edwige Hernandez dick social history reviewed E&M revi ewed - no changes required John Mares MD social history E&M S moking History: Guerrero lucio has never smoked. John Mares MD smoking status Never smoker Celia Kane arellano social history E&M S moking History: Guerrero lucio has never smoked. John Mares MD social history reviewed E&M revi ewed - no changes required John Mares MD smoking status Never smoker Sandrita Stapletoneugene marlow social history reviewed E&M revi ewed - no changes required Bibiana Travis MD smoking status Never smoker Sandrita navarroer social history reviewed E&M revi ewed - no changes required Bibiana Travis MD smoking status Never smoker Tayler Prabhakar FUNCTIONAL STATUS Date Observation Value Provider HRA, CV Assess/Plan, Angina (inactive) Management Plan continue current therapy Jluis Henderson HRA, CV Assess/Plan, Angina (inactive) Management Plan continue current therapy Dane Escobar HRA, CV Assess/Plan, Angina (inactive) Management Plan continue current therapy Dane Ahmedzai HRA, CV Assess/Plan, Angina (inactive) Management Plan continue current therapy Dane Marazasebastián HRA, CV Assess/Plan, Angina (inactive) Management Plan continue current therapy Edwige Mcdowell HRA, CV Assess/Plan, Angina (inactive) Management Plan continue current therapy Dane Marazai HRA, CV Assess/Plan, Angina (inactive) Management Plan continue current therapy Dane Marazai HRA, CV Assess/Plan, Angina (inactive) Management Plan [...] Payer name Policy type / Coverage type [place] [employer] party ID [employer] MEDICARE ADVANTAGE ST 0 003 (HMO POS) Medicare [id number] ADVANCE DIRECTIVES Name Date DISCUSSED - NO DECISION MADE TREATMENT PLAN Date Name Performer [id number],SEdwige [id number],WEdwige [id number],SEdwige [id number],SEdwigemskenny [id number],S, Dane Haynes i [id number],S, Dane Terryza i [id number],S, Dane Lopezmedza i [id number],S, Dane Lopezmedza i [id number],S, Dane Terryza i [id number],S, Dane Ahmedza i [id number],S, Dane Ahmedza i [id number],S, Dane Ahmedza i [id number],S, Dane Ahmedza i [id number],S, Dane Ahmedza i [id number],S, Dane Ahmedza i [id number],S, Dane Ahmedza i [id number],S, Dane Ahmedza i [id number],S, Dane Ahmedza i [id number],S, Dane Ahmedza i [id number],S, Dane Ahmedza i [id number],S, Dane Ahmedza i [id number],S, Dane Ahmedza i [id number],S, Dane Ahmedza i [id number],S, Dane Ahmedza i [id number],S, Dane Ahmedza i [id number],S, Dane Ahmedza i [id number],S, John Mares MD [id number],S, John Mares MD [id number],S, John Mares MD [id number],SJohn MD Cardiology Jluis Henderson Cardiology Jluis Henderson Cardiology Jluis Henderson Cardiology:This visi t has been a part of the consistent, comprehensive, and ongoing management of the chronic medical condition(s) listed above for the patient. Jluis Henderson Cardiology Jluis Henderson Cardiology Jluis Henderson Cardiology John Mares MD Cardiology: T he [...] Mares MD Cardiology John Mares MD Cardiology:Galdino prescribed T livia Mares MD Cardiology:LDL 100 P [...] 1 tablet by mouth once a day Danetatyana Haynes Cardiology: O rders: C BC (INCLUDES DIFF/PLT) (6399) F ERRITIN (457) I SYD AND TOTAL IRON BINDING CAPACITY (7573) C OMPREHENSIVE METABOLIC PANEL, W/EGFR (39006) P ROBNP, N TERMINAL (20337) H EMOGLOBIN A1c (496) L IPID PANEL (7600) T SH, free T4, total T3 (7444) V itamin D, 25-Hydroxy (308005) [facility]: O rders: C BC (INCLUDES DIFF/PLT) (6399) F ERRITIN (457) I SYD AND TOTAL IRON BINDING CAPACITY (7573) C OMPREHENSIVE METABOLIC PANEL, W/EGFR (95635) P ROBNP, N TERMINAL (99914) H EMOGLOBIN A1c (496) L IPID PANEL (7600) T SH, free T4, total T3 (7444) V itamin D, 25-Hydroxy (725655) C omplete Echo (04757) S tress Regadenoson (CPT-95090) [facility] Cardiology:will follow up on Aut opap [facility] Cardiology: O rders: C BC (INCLUDES DIFF/PLT) (6399) F ERRITIN (457) I SYD AND TOTAL IRON BINDING CAPACITY (7573) C OMPREHENSIVE METABOLIC PANEL, W/EGFR (38829) P ROBNP, N TERMINAL (10998) H EMOGLOBIN A1c (496) L IPID PANEL (7600) T SH, free T4, total T3 (7444) V itamin D, 25-Hydroxy (836207) C omplete Echo (70739) S tress Regadenoson (CPT-70742) Dane Ahmedzai Cardiology: B P today: 178/94 P rior [...] a day Orders: C BC (INCLUDES DIFF/PLT) (1199) F ERRITIN (457) I SYD AND TOTAL IRON BINDING CAPACITY (0173) C OMPREHENSIVE METABOLIC PANEL, W/EGFR (54653) P ROBNP, N TERMINAL (95037) H EMOGLOBIN A1c (496) L IPID PANEL (3920) T SH, free T4, total T3 (7044) V itamin D, 25-Hydroxy (548247) [facility] Ahmedzai Telehealth Dane Ahmedzai Telehealth Dane Ahmedzai [...] Dane Ahmedzai Cardiology Dane Ahmedzai Cardiology Edwige Palafox eyer Cardiology Edwige [place] eyer Cardiology Edwige Palaf[place] eyer Cardiology Edwige Palaf[place] eyer Telehealth Dane Ahmedzai Telehealth Dane Ahmedzai [...] Cardiology Dane Ahmedzai Cardiology Dane Ahmedzai Cardiology John Mares MD Cardiology John Mares [...] up John cleaning MD Cardiology New Patient Levariel guerra MD Cardiology New Patient Deshaunmaryana guerra MD Cardiology New Patient Deshaunmaryana guerra MD Cardiology New Patient John guerra MD Cardiology Hospital Follow up : H er updated medication list for this problem includes: Hydrochlorothiazide 25 Mg Tabs (Hydrochlorothiazide) ..... One tab daily Procardia Xl 30 Mg Tb24 (Nifedipine) ..... One per day Losartan Potassium 100 Mg Oral Tabs (Losartan potassium) ..... Take one tablet daily Orders: E CP Commercial (CPT-07885) L IPID PANEL (7498) C OMPREHENSIVE METABOLIC PANEL W/EGFR (11190) 9 6615 HIGH Complex (CPT-06228) Bibiana Travis MD Cardiology Hospital Follow up : H er updated medication list for this problem includes: Hydrochlorothiazide 25 Mg Tabs (Hydrochlorothiazide) ..... One tab daily Procardia Xl 30 Mg Tb24 (Nifedipine) ..... One per day Losartan Potassium 100 Mg Oral Tabs (Losartan potassium) ..... Take one tablet daily Bibiana Travis MD Cardiology Hospital Follow up Sa rafael Travis MD Cardiology Hospital Follow up [...] One per day Orders: E CP Commercial (CPT-41387) L IPID PANEL (6090) C OMPREHENSIVE METABOLIC PANEL W/EGFR (65707) 9 9215 HIGH Complex (CPT-89718) Bibiana Travis MD Cardiology: O rders: S NOMED-CT: [id number] Current Medications Documented (SCT-[id number]) E KG (CPT-24522) 9 9245 HIGH Complex (CPT-31639) C omplete Echo (CPT-15516) C arotid Duplex Bilateral (CPT-71228) C ardiac Cath - L/R - GC (*) Bibiana Travis MD Cardiology: O rders: 9 9245 HIGH Complex (CPT-93226) C omplete Echo (CPT-23529) C arotid Duplex Bilateral (CPT-63679) C ardiac Cath - L/R - GC [...] given out. Bibiana Travis MD Date Name Complete Echo PROTHROMBIN TIME WIT H INR HEMOGLOBIN A1c [...] MD completed EKG John Mares MD completed Complex e/m visit add on John Mares MD completed EKG John Mares MD completed EKG John Mares MD completed EKG John Mares MD completed EKG Bibiana Travis MD completed SNOMED-CT: [id number] Current Medications Documented Bibiana Travis MD completed EKG Bibiana Travis MD completed SNOMED-CT: [id number] Current Medications Documented Bibiana Travis MD completed
--- OUTSIDE RECORDS SUMMARY | 2024-09-16 17:02 | XMS_ITS | Clinical Summary ---
Author Organization [facility] [employer] Address [address] [place] [address] Care Team Providers Care Product Line Manager Name Role Phone Sophy Skinner MD Primary Care Provider Source Comments [facility] [employer],non-owned Affiliates and Associated Physician Practices is amultiple site organization consisting of ambulatory clinics and hospital sitesin [place], [place], [place] and [place]. This disclosure is being madepursuant to the Care Everywhere program and may not contain all information available regarding this patient. 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 Gender Identity Not on file Sexual Orientation Not on file Last Filed Vital Signs Vital Sign Reading Time Taken Comments Blood Pressure 131/73 05/04/2024 11:34 AM BELT BACK OPERATOR Pulse 78 05/04/2024 11:34 AM BELT BACK OPERATOR Temperature 37.2 C (98.9 F) 05/14/2020 8:59 PM BELT BACK OPERATOR Respiratory Rate 20 05/14/2020 8:59 PM BELT BACK OPERATOR Oxygen Saturation 98% 05/14/2020 8:59 PM BELT BACK OPERATOR Inhaled Oxygen Concentration - - Weight 111.1 kg (245 lb) 05/14/2020 2:21 PM BELT BACK OPERATOR Height 165.1 cm (5' 5) 05/04/2024 11:34 AM BELT BACK OPERATOR Body Mass Index 40.77 05/14/2020 2:21 PM BELT BACK OPERATOR Plan of Treatment Upcoming Encounters Date Type Department Care Team (Late st Contact Info) Description 09/23/2024 11:00 AM CDT Office Visit [facility] - Neurology [address] [place] [id number] Shira Barnes PA-C [address] [place] [address] Health Maintenance Due Date Last Done Comments BONE DENSITY TESTING 1955 COLOGUARD (AGES 45-75) - COL ON CA SCREENING 1955 CT COLONOGRAPHY - COLON CA SCREENING [...] YEAR 2024 INFLUENZA VACCINE (Season Ended) 2024 COLON MONITORING 11/13/2033 11/14/2023 COLONOSCOPY - COLON CA SCREENING 11/13/2033 11/14/19 Colorectal Cancer Screening 11/13/2033 HEPATITIS B VACCINE [...] complete this topic Insurance [facility] MANAGED MEDICARE ADV Care Teams Product Line Manager Relationship Specialty [place] [address] [place] [address] [phone] PCP - General Internal Medicine 08/18/24
== END 2024-09-16 14:11 | disposition home or self-care (01) ==
LOC: ANHIMG 14:12
PROVIDERS: PCP Internal Medicine Infectious Disease; Visit Provider Internal Medicine Infectious Disease
DX: Z12.31 Encounter for screening mammogram for malignant neoplasm of breast (principal)
CPT/HCPCS: 77063; 77067

== ENCOUNTER 2024-09-28 16:15 | Inpatient (IN) | payer MEDICARE, SELFPAY ==
[2024-09-28] VITALS (7 sets, daily range): BP systolic 98–150; BP diastolic 61–91; PULSE 88–95; RESP 14–18; TEMP 36.3–36.7; O2SAT 97–100
--- NOTE | ~2024-09-28 | CT_ITS ---
CLINICAL INDICATION: Generalized weakness COMPARISON: 08/10/2024. TECHNIQUE: Multiple contiguous axial images of the abdomen and pelvis were performed following the ad ministration of with 100 mL Omnipaque-350 intravenous contrast The dose-length product (DLP) was 507.28 mGy-cm. Automated exposure control and iterative reconstruction technique were employed. FINDINGS/OBSERVATIONS: Visualized lower thorax: The bilateral lung bases are clear. The heart is of normal size, without pericardial effusion. Liver: The liver demonstrates homogeneous enhancement and is not enlarged. Gallbladder and biliary system: The gallbladder is distended, and otherwise unremarkable. Pancreas: The pancreas enhances homogeneously without ductal dilatation. Spleen: The spleen enhances homogeneously and is not enlarged. Kidneys: The bilateral kidneys enhance symmetrically without hydronephrosis or renal calculi. Adrenal glands: Unremarkable. Gastrointestinal tract: Colonic diverticulosis without surrounding inflammatory change. Appendix: The air-filled appendix is of normal caliber (axial series, images 86 through 93) Vasculature: Densely calcified atherosclerotic disease. Lymph nodes: No pathologically enlarged or morphologically suspicious lymph nodes within the retroperitoneum or at the root of the mesentery. Pelvic structures: The bladder is only minimally distended, and otherwise unremarkable. The uterus is anteverted and anteflexed with bulky calcifications suggesting fibroid disease. Body wall and musculoskeletal: Moderate anasarca. Atrophy of the paraspinous and gluteus musculature Age-appropriate degenerative disease within the lower thoracic and lumbar spine. IMPRESSION: No acute findings within the abdomen or pelvis, as detailed above. Reviewed, dictated and finalized at location A.
--- NOTE | ~2024-09-28 | XR_ITS ---
CHEST RADIOGRAPH CLINICAL HISTORY: weakness . COMPARISON: 08/05/2024 TECHNIQUE: Single portable view of the chest. FINDINGS Sternal fixation wires and hardware as well as mediastinal clips are identified, the wires are midlin e and intact. 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 The remainder of the cardiomediastinal silhouette is otherwise unremarkable. The lungs are clear. IMPRESSION: No focal infiltrate or effusion. Reviewed, dictated and finalized at location A.
--- NOTE | 2024-09-28 17:42 | ECG_ITS ---
Test Date: 2024-09-28 18:21:34 Measurements Intervals [place] Rate: 95 P: 67 MA: 168 QRS: 88 QRSD: 107 T: 40 QT: 379 QTc: 478 Interpretive Statements SINUS RHYTHM RIGHT BUNDLE BRANCH BLOCK CONSIDER INFERIOR INFARCT, AGE INDETERMINATE BASELINE ARTIFACT- I, III, AVR, AVL ABNORMAL ECG Compared to ECG 08/05/2024 20:25:00 NO SIGNIFICANT CHANGE Electronically Signed On 09-28-2024 20:14:18 CDT by Rosendo Carpenter D.O.
--- NOTE | 2024-09-28 18:05 | ED_ITS ---
HPI - Weakness General Chief complaint: Weakness <Angélica Low PA-C - Last Filed: 09/29/24 00:47> Stated complaint: weakness, n/v <Angélica Low PA-C - Last Filed: 09/29/24 00:47> Time Seen by Provider: 09/28/24 17:42 <Angélica Low PA-C - Last Filed: 09/29/24 00:47> Source: patient and family <Angélica Low PA-C - Last Filed: 09/29/24 00:47> Mode of arrival: EMS <JUANJO Maxwell Last Filed: 09/29/24 00:47> Limitations: no limitations <JUANJO Maxwell Last Filed: 09/29/24 00:47> History of Present Illness HPI Narrative: This is a 68-year-old female that presents to the emergency department for generalized weakness. Reports nausea, decreased appetite. Reports this has been worsening over the last several months. Also reports she has a wound on her sacrum. Reports she feels like her face is swollen today. Denies fevers, chest pain, shortness of breath, abdominal pain, vomiting, urinary symptoms, new numbness or weakness. <Angélica Low PA-C - Last Filed: 09/29/24 00:47> Related Data Home medications: Home Medications ?Medication ?Instructions ?Recorded ?Confirmed ?Last Taken ?Type acetaminophen 650 mg 650 mg PO Q8H PRN Pain 04/30/19 08/06/24 Unknown History tablet,extended release (Tylenol Arthritis Pain) multivitamin with minerals-folic 1 tablet PO DAILY 12/01/20 08/06/24 Unknown History acid 200 mcg chewable tablet (Adult Multivitamin Gummies) atorvastatin 10 mg tablet 10 mg PO QPM 08/06/24 08/06/24 Unknown History calcium phosphate,dibasic 77 1 tablet PO DAILY 08/06/24 08/06/24 Unknown History mg-vitamin D3 400 unit tablet carvedilol 6.25 mg tablet 6.25 mg PO Q12H 08/06/24 08/06/24 Unknown History cranberry 500 mg capsule 500 mg PO DAILY 08/06/24 08/06/24 Unknown History diphenhydramine 25 1 tablet PO HS PRN sleep 08/06/24 08/06/24 Unknown History mg-acetaminophen 500 mg tablet (Tylenol PM Extra Strength) ezetimibe 10 mg tablet 10 mg PO DAILY 08/06/24 08/06/24 Unknown History hydralazine 25 mg tablet 25 mg PO Q12H 08/06/24 08/06/24 Unknown History mirtazapine 30 mg tablet 30 mg PO DAILY 08/06/24 08/06/24 Unknown History oxycodone 5 mg tablet 5 mg PO Q8H PRN pain 08/06/24 08/06/24 Unknown History pantoprazole 40 mg tablet,delayed 40 mg PO DAILY 08/06/24 08/06/24 Unknown History release potassium chloride 10 mEq 20 meq PO BID 08/06/24 08/06/24 Unknown History tablet,extended release tramadol 50 mg tablet 50 mg PO Q8H PRN pain 08/06/24 08/06/24 Unknown History vitamin B12 500 mcg-folic acid 400 1 tablet PO DAILY 08/06/24 08/06/24 Unknown History mcg tablet <Angélica Low PA-C - Last Filed: 09/29/24 00:47> Allergies/Adverse reactions: Allergies Allergy/AdvReac Type Severity Reaction Status Date / Time Sulfa (Sulfonamide Allergy Mild RASH Verified 09/28/24 17:01 Antibiotics) <Angélica Low PA-C - Last Filed: 09/29/24 00:47> Review of Systems 2 Review of Systems: All systems reviewed & are unremarkable except as noted in HPI and below <JUANJO Maxwell Last Filed: 09/29/24 00:47> [facility] Past Medical History Medical History: Medical History Osteoarthritis Disorder of lipid metabolism Hypertension Chest pain <JUANJO Maxwell Last Filed: 09/29/24 00:47> Surgical History Surgical History: Surgical History History of <JUANJO Maxwell Last Filed: 09/29/24 00:47> Family History Family History: Family History Father Heart disease Hypertension Mother Hypertension Breast cancer <Angélica Low PA-C - Last Filed: 09/29/24 00:47> Social History Social History: Social History Smoking status: Never smoker Alcohol intake: never Substance use: never Do You Feel Safe in your Home?: Yes Lack of Transportation: No Lack of Food: Never True Current Housing: I Have Housing Concerned About Future Housing: No Difficulty Paying Gas/Electric Bills: No Difficulty Paying for Meds: No Currently Unemployed: No Education: High School Diploma/GED Difficulty w/ Childcare or Family Care: No Living arrangements: with family Spiritual care concerns: No <Angélica Low PA-C - Last Filed: 09/29/24 00:47> Exam 2 Narrative: GENERAL: Elderly, well-nourished, and in no acute distress. HEAD: Normocephalic, atraumatic. EYES: PERRLA and EOMI. ENT: Nares clear, no rhinorrhea or epistaxis. Mucous membranes moist. Oropharynx without tonsillar hypertrophy exudate or other lesions. Bilateral TMs pearly alonzo non-bulging NECK: Supple. No adenopathy or masses. CHEST: Clear to auscultation. No respiratory distress. No wheezes rales or rhonchi HEART: Regular rate and rhythm. No murmur heard. Normal peripheral pulses. ABDOMEN: Soft, nontender, nondistended, normal active bowel sounds. BACK: Stage 1 sacral decubitus ulcer without erythema or abnormal drainage EXTREMITIES: No edema. SKIN: Warm, dry, no rash. NEURO: Left sided weakness. Alert and oriented x3. PSYCH: Normal mood and affect <JUANJO Maxwell Last Filed: 09/29/24 00:47> Course Course Emergency Course: patient and family updated on workup and recommendation for admission < Angélica Low PA-C - Last Filed: 09/29/24 00:47> [employer]/PA Physician Supervision For this patient encounter, I reviewed the [employer] or PA documentation, treatment plan, and medical decision making; and I had payv-[id number] time with this patient. <Chapincito Ortega MD - Last Filed: 09/29/24 01:35> Consultations Consultation #1: Spoke with hospitalist about patient and workup who accepts admission < Angélica Low PA-C - Last Filed: 09/29/24 00:47> Date: 09/28/24 <Angélica Low PA-C - Last Filed: 09/29/24 00:47> Vital Signs Vital signs: Vital Signs Temperature 97.4 F L 09/28/24 16:50 Pulse Rate 88 09/28/24 16:50 Respiratory Rate 14 09/28/24 16:50 Blood Pressure 98/61 L 09/28/24 16:50 Pulse Oximetry 97 09/28/24 16:50 Oxygen Delivery Room Air 09/28/24 16:50 Temperature 96.2 F L 09/29/24 01:26 Pulse Rate 92 09/29/24 01:26 Respiratory Rate 16 09/29/24 01:26 Blood Pressure 141/66 H 09/29/24 01:26 Pulse Oximetry 100 09/29/24 01:26 Oxygen Delivery Room Air 09/29/24 00:07 <Angélica Low PA-C - Last Filed: 09/29/24 00:47> Vital Signs Temperature 97.4 F L 09/28/24 16:50 Pulse Rate 88 09/28/24 16:50 Respiratory Rate 14 09/28/24 16:50 Blood Pressure 98/61 L 09/28/24 16:50 Pulse Oximetry 97 09/28/24 16:50 Oxygen Delivery Room Air 09/28/24 16:50 Temperature 96.2 F L 09/29/24 01:26 Pulse Rate 92 09/29/24 01:26 Respiratory Rate 16 09/29/24 01:26 Blood Pressure 141/66 H 09/29/24 01:26 Pulse Oximetry 100 09/29/24 01:26 Oxygen Delivery Room Air 09/29/24 00:07 <Chapincito Ortega MD - Last Filed: 09/29/24 01:35> MDM - Weakness MDM Narrative Medical decision making narrative: Patient presents to the emergency department for generalized weakness, nausea, decreased appetite. Worsening over the last several weeks. Patient is afebrile nontoxic appearing. CBC without leukocytosis. Hemoglobin appears stable. Metabolic panel with evidence of dehydration. Urine with evidence of infection. This was sent for culture. Patient started on IV antibiotics. Chest x-ray without acute cardiopulmonary abnormality. CT abdomen pelvis without acute findings. INR is elevated at 5.8. No signs of bleeding. Warfarin will be held. Patient and family updated on workup and recommendation for admission. Spoke with hospitalist about patient and workup who accepts admission <Angélica Low PA-C - Last Filed: 09/29/24 00:47> Differential Diagnosis Differential diagnosis: Likely anemia, sepsis, dehydration and other (UTI, pneumonia, GERD, pancreatitis) <Angélica Low PA-C - Last Filed: 09/29/24 00:47> Lab Data Attestation: I reviewed the patient's lab results. <Angélica Low PA-C - Last Filed: 09/29/24 00:47> Result diagrams: 09/28/24 18:17 09/28/24 18:17 <Angélica Low PA-C - Last Filed: 09/29/24 00:47> Labs: Lab Results 09/28/24 09/28/24 09/28/24 Range/Units 18:17 18:17 18:17 WBC 7.4 (4.5-10.0) K/mm3 RBC 3.35 L (4.2-5.4) M/mm3 Hgb 10.0 L (12.0-15.0) g/dL Hct 29.9 L (37.0-47.0) % MCV 89.3 (80-100) fl MCH 29.9 (26-34) pg MCHC 33.4 (32-36) g/dl RDW 21.2 H (11.5-14.5) % Plt Count 172 D (150-375) k/mm3 MPV 10.2 (7.4-10.4) fl Immature Gran % (Auto) 0.7 H (0-0.5) % Neut % (Auto) 66.9 (45.5-73.1) % Lymph % (Auto) 26.9 (18.3-44.2) % [place] % (Auto) 5.3 (2.6-8.5) % Eos % (Auto) 0.1 (0-4.4) % Baso % (Auto) 0.1 L (0.2-1.2) % Lymph # (Auto) 1.98 (0.9-3.2) K/mm3 [place] # (Auto) 0.4 (0.1-0.6) K/mm3 Eos # (Auto) 0.0 (0-0.3) K/mm3 Baso # (Auto) 0.0 (0.0-0.1) K/mm3 Abs Immat Gran (auto) 0.05 H (0.00-0.031) K/mm3 Absolute Neuts (auto) 4.9 (1.3-6.7) K/mm3 Absolute Nucleated RBC 0.000 (0.0-0.012) K/mm3 Nucleated RBC % 0.0 (0.0-0.2) % PT 48.7 H (11.1-14.7) Seconds INR 5.8 H* APTT 36.1 (22.3-36.8) Seconds Sodium Cancelled 139 Potassium Cancelled 4.5 Chloride Cancelled Carbon Dioxide Anion Gap BUN Creatinine Estim Creat Clear Calc Estimated GFR Glucose Lactic Acid (0.7-2.0) mmol/L Calcium Total Bilirubin AST ALT Alkaline Phosphatase Total Creatine Kinase (30-135) U/L C-Reactive Protein (<1.0) mg/dL Total Protein Albumin Lipase Urine Color (Yellow) Urine Appearance (Clear) Urine pH (5.0-9.0) Ur Specific [place] (1.001-1.035) Urine Protein (Negative) mg/dL Urine Glucose (UA) (Negative) mg/dL Urine Ketones (Negative) mg/dL Ur Blood (Man) (Negative) Urine Nitrate (Negative) Urine Bilirubin (Negative) Urine Urobilinogen (<2.0) mg/dL Add Ur Microanalysis Leukocyte Esterase Rfl (Negative) B[place]AM[place]N/UL Urine RBC (0-2) /hpf Urine WBC (0-3) /hpf Ur Squamous Epith Cells (Few) /hpf Urine Bacteria /hpf Urine Casts Urine Mucus /lpf 09/28/24 09/28/24 09/28/24 Range/Units 18:17 18:17 18:17 WBC (4.5-10.0) K/mm3 RBC (4.2-5.4) M/mm3 Hgb (12.0-15.0) g/dL Hct (37.0-47.0) % MCV (80-100) fl MCH (26-34) pg MCHC (32-36) g/dl RDW (11.5-14.5) % Plt Count (150-375) k/mm3 MPV (7.4-10.4) fl Immature Gran % (Auto) (0-0.5) % Neut % (Auto) (45.5-73.1) % Lymph % (Auto) (18.3-44.2) % [place] % (Auto) (2.6-8.5) % Eos % (Auto) (0-4.4) % Baso % (Auto) (0.2-1.2) % Lymph # (Auto) (0.9-3.2) K/mm3 [place] # (Auto) (0.1-0.6) K/mm3 Eos # (Auto) (0-0.3) K/mm3 Baso # (Auto) (0.0-0.1) K/mm3 Abs Immat Gran (auto) (0.00-0.031) K/mm3 Absolute Neuts (auto) (1.3-6.7) K/mm3 Absolute Nucleated RBC (0.0-0.012) K/mm3 Nucleated RBC % (0.0-0.2) % PT (11.1-14.7) Seconds INR APTT (22.3-36.8) Seconds Sodium Potassium Chloride 112 H Carbon Dioxide Cancelled 16 L Anion Gap Cancelled 11 BUN Cancelled Creatinine Estim Creat Clear Calc Estimated GFR Glucose Lactic Acid (0.7-2.0) mmol/L Calcium Total Bilirubin AST ALT Alkaline Phosphatase Total Creatine Kinase (30-135) U/L C-Reactive Protein (<1.0) mg/dL Total Protein Albumin Lipase Urine Color (Yellow) Urine Appearance (Clear) Urine pH (5.0-9.0) Ur Specific [place] (1.001-1.035) Urine Protein (Negative) mg/dL Urine Glucose (UA) (Negative) mg/dL Urine Ketones (Negative) mg/dL Ur Blood (Man) (Negative) Urine Nitrate (Negative) Urine Bilirubin (Negative) Urine Urobilinogen (<2.0) mg/dL Add Ur Microanalysis Leukocyte Esterase Rfl (Negative) [place]/UL Urine RBC (0-2) /hpf Urine WBC (0-3) /hpf Ur Squamous Epith Cells (Few) /hpf Urine Bacteria /hpf Urine Casts Urine Mucus /lpf 09/28/24 09/28/24 09/28/24 Range/Units 18:17 18:17 18:17 WBC (4.5-10.0) K/mm3 RBC (4.2-5.4) M/mm3 Hgb (12.0-15.0) g/dL Hct (37.0-47.0) % MCV (80-100) fl MCH (26-34) pg MCHC (32-36) g/dl RDW (11.5-14.5) % Plt Count (150-375) k/mm3 MPV (7.4-10.4) fl Immature Gran % (Auto) (0-0.5) % Neut % (Auto) (45.5-73.1) % Lymph % (Auto) (18.3-44.2) % [place] % (Auto) (2.6-8.5) % Eos % (Auto) (0-4.4) % Baso % (Auto) (0.2-1.2) % Lymph # (Auto) (0.9-3.2) K/mm3 [place] # (Auto) (0.1-0.6) K/mm3 Eos # (Auto) (0-0.3) K/mm3 Baso # (Auto) (0.0-0.1) K/mm3 Abs Immat Gran (auto) (0.00-0.031) K/mm3 Absolute Neuts (auto) (1.3-6.7) K/mm3 Absolute Nucleated RBC (0.0-0.012) K/mm3 Nucleated RBC % (0.0-0.2) % PT (11.1-14.7) Seconds INR APTT (22.3-36.8) Seconds Sodium Potassium Chloride Carbon Dioxide Anion Gap BUN 15 D Creatinine Cancelled 0.89 Estim Creat Clear Calc Cancelled Not Reportable Estimated GFR Cancelled Glucose Lactic Acid (0.7-2.0) mmol/L Calcium Total Bilirubin AST ALT Alkaline Phosphatase Total Creatine Kinase (30-135) U/L C-Reactive Protein (<1.0) mg/dL Total Protein Albumin Lipase Urine Color (Yellow) Urine Appearance (Clear) Urine pH (5.0-9.0) Ur Specific [place] (1.001-1.035) Urine Protein (Negative) mg/dL Urine Glucose (UA) (Negative) mg/dL Urine Ketones (Negative) mg/dL Ur Blood (Man) (Negative) Urine Nitrate (Negative) Urine Bilirubin (Negative) Urine Urobilinogen (<2.0) mg/dL Add Ur Microanalysis Leukocyte Esterase Rfl (Negative) [place]N/UL Urine RBC (0-2) /hpf Urine WBC (0-3) /hpf Ur Squamous Epith Cells (Few) /hpf Urine Bacteria /hpf Urine Casts Urine Mucus /lpf 09/28/24 09/28/24 09/28/24 Range/Units 18:17 18:17 18:17 WBC (4.5-10.0) K/mm3 RBC (4.2-5.4) M/mm3 Hgb (12.0-15.0) g/dL Hct (37.0-47.0) % MCV (80-100) fl MCH (26-34) pg MCHC (32-36) g/dl RDW (11.5-14.5) % Plt Count (150-375) k/mm3 MPV (7.4-10.4) fl Immature Gran % (Auto) (0-0.5) % Neut % (Auto) (45.5-73.1) % Lymph % (Auto) (18.3-44.2) % [place] % (Auto) (2.6-8.5) % Eos % (Auto) (0-4.4) % Baso % (Auto) (0.2-1.2) % Lymph # (Auto) (0.9-3.2) K/mm3 [place] # (Auto) (0.1-0.6) K/mm3 Eos # (Auto) (0-0.3) K/mm3 Baso # (Auto) (0.0-0.1) K/mm3 Abs Immat Gran (auto) (0.00-0.031) K/mm3 Absolute Neuts (auto) (1.3-6.7) K/mm3 Absolute Nucleated RBC (0.0-0.012) K/mm3 Nucleated RBC % (0.0-0.2) % PT (11.1-14.7) Seconds INR APTT (22.3-36.8) Seconds Sodium Potassium Chloride Carbon Dioxide Anion Gap BUN Creatinine Estim Creat Clear Calc Estimated GFR > 60 Glucose Cancelled 110 Lactic Acid 2.4 H (0.7-2.0) mmol/L Calcium Cancelled 8.8 Total Bilirubin Cancelled AST ALT Alkaline Phosphatase Total Creatine Kinase (30-135) U/L C-Reactive Protein (<1.0) mg/dL Total Protein Albumin Lipase Urine Color (Yellow) Urine Appearance (Clear) Urine pH (5.0-9.0) Ur Specific [place] (1.001-1.035) Urine Protein (Negative) mg/dL Urine Glucose (UA) (Negative) mg/dL Urine Ketones (Negative) mg/dL Ur Blood (Man) (Negative) Urine Nitrate (Negative) Urine Bilirubin (Negative) Urine Urobilinogen (<2.0) mg/dL Add Ur Microanalysis Leukocyte Esterase Rfl (Negative) [place]N/UL Urine RBC (0-2) /hpf Urine WBC (0-3) /hpf Ur Squamous Epith Cells (Few) /hpf Urine Bacteria /hpf Urine Casts Urine Mucus /lpf 09/28/24 09/28/24 09/28/24 Range/Units 18:17 18:17 18:17 WBC (4.5-10.0) K/mm3 RBC (4.2-5.4) M/mm3 Hgb (12.0-15.0) g/dL Hct (37.0-47.0) % MCV (80-100) fl MCH (26-34) pg MCHC (32-36) g/dl RDW (11.5-14.5) % Plt Count (150-375) k/mm3 MPV (7.4-10.4) fl Immature Gran % (Auto) (0-0.5) % Neut % (Auto) (45.5-73.1) % Lymph % (Auto) (18.3-44.2) % [place] % (Auto) (2.6-8.5) % Eos % (Auto) (0-4.4) % Baso % (Auto) (0.2-1.2) % Lymph # (Auto) (0.9-3.2) K/mm3 [place] # (Auto) (0.1-0.6) K/mm3 Eos # (Auto) (0-0.3) K/mm3 Baso # (Auto) (0.0-0.1) K/mm3 Abs Immat Gran (auto) (0.00-0.031) K/mm3 Absolute Neuts (auto) (1.3-6.7) K/mm3 Absolute Nucleated RBC (0.0-0.012) K/mm3 Nucleated RBC % (0.0-0.2) % PT (11.1-14.7) Seconds INR APTT (22.3-36.8) Seconds Sodium Potassium Chloride Carbon Dioxide Anion Gap BUN Creatinine Estim Creat Clear Calc Estimated GFR Glucose Lactic Acid (0.7-2.0) mmol/L Calcium Total Bilirubin 1.6 H AST Cancelled 66 H ALT Cancelled 30 Alkaline Phosphatase Cancelled Total Creatine Kinase (30-135) U/L C-Reactive Protein (<1.0) mg/dL Total Protein Albumin Lipase Urine Color (Yellow) Urine Appearance (Clear) Urine pH (5.0-9.0) Ur Specific [place] (1.001-1.035) Urine Protein (Negative) mg/dL Urine Glucose (UA) (Negative) mg/dL Urine Ketones (Negative) mg/dL Ur Blood (Man) (Negative) Urine Nitrate (Negative) Urine Bilirubin (Negative) Urine Urobilinogen (<2.0) mg/dL Add Ur Microanalysis Leukocyte Esterase Rfl (Negative) [place]N/UL Urine RBC (0-2) /hpf Urine WBC (0-3) /hpf Ur Squamous Epith Cells (Few) /hpf Urine Bacteria /hpf Urine Casts Urine Mucus /lpf 09/28/24 09/28/24 09/28/24 Range/Units 18:17 18:17 18:17 WBC (4.5-10.0) K/mm3 RBC (4.2-5.4) M/mm3 Hgb (12.0-15.0) g/dL Hct (37.0-47.0) % MCV (80-100) fl MCH (26-34) pg MCHC (32-36) g/dl RDW (11.5-14.5) % Plt Count (150-375) k/mm3 MPV (7.4-10.4) fl Immature Gran % (Auto) (0-0.5) % Neut % (Auto) (45.5-73.1) % Lymph % (Auto) (18.3-44.2) % [place] % (Auto) (2.6-8.5) % Eos % (Auto) (0-4.4) % Baso % (Auto) (0.2-1.2) % Lymph # (Auto) (0.9-3.2) K/mm3 [place] # (Auto) (0.1-0.6) K/mm3 Eos # (Auto) (0-0.3) K/mm3 Baso # (Auto) (0.0-0.1) K/mm3 Abs Immat Gran (auto) (0.00-0.031) K/mm3 Absolute Neuts (auto) (1.3-6.7) K/mm3 Absolute Nucleated RBC (0.0-0.012) K/mm3 Nucleated RBC % (0.0-0.2) % PT (11.1-14.7) Seconds INR APTT (22.3-36.8) Seconds Sodium Potassium Chloride Carbon Dioxide Anion Gap BUN Creatinine Estim Creat Clear Calc Estimated GFR Glucose Lactic Acid (0.7-2.0) mmol/L Calcium Total Bilirubin AST ALT Alkaline Phosphatase 77 Total Creatine Kinase 79 (30-135) U/L C-Reactive Protein < 0.5 (<1.0) mg/dL Total Protein Cancelled 5.8 L Albumin Cancelled 2.5 L Lipase Cancelled Urine Color (Yellow) Urine Appearance (Clear) Urine pH (5.0-9.0) Ur Specific [place] (1.001-1.035) Urine Protein (Negative) mg/dL Urine Glucose (UA) (Negative) mg/dL Urine Ketones (Negative) mg/dL Ur Blood (Man) (Negative) Urine Nitrate (Negative) Urine Bilirubin (Negative) Urine Urobilinogen (<2.0) mg/dL Add Ur Microanalysis Leukocyte Esterase Rfl (Negative) [place]/UL Urine RBC (0-2) /hpf Urine WBC (0-3) /hpf Ur Squamous Epith Cells (Few) /hpf Urine Bacteria /hpf Urine Casts Urine Mucus /lpf 09/28/24 09/28/24 09/28/24 Range/Units 18:17 18:42 20:27 WBC (4.5-10.0) K/mm3 RBC (4.2-5.4) M/mm3 Hgb (12.0-15.0) g/dL Hct (37.0-47.0) % MCV (80-100) fl MCH (26-34) pg MCHC (32-36) g/dl RDW (11.5-14.5) % Plt Count (150-375) k/mm3 MPV (7.4-10.4) fl Immature Gran % (Auto) (0-0.5) % Neut % (Auto) (45.5-73.1) % Lymph % (Auto) (18.3-44.2) % [place] % (Auto) (2.6-8.5) % Eos % (Auto) (0-4.4) % Baso % (Auto) (0.2-1.2) % Lymph # (Auto) (0.9-3.2) K/mm3 [place] # (Auto) (0.1-0.6) K/mm3 Eos # (Auto) (0-0.3) K/mm3 Baso # (Auto) (0.0-0.1) K/mm3 Abs Immat Gran (auto) (0.00-0.031) K/mm3 Absolute Neuts (auto) (1.3-6.7) K/mm3 Absolute Nucleated RBC (0.0-0.012) K/mm3 Nucleated RBC % (0.0-0.2) % PT (11.1-14.7) Seconds INR APTT (22.3-36.8) Seconds Sodium Potassium Chloride Carbon Dioxide Anion Gap BUN Creatinine Estim Creat Clear Calc Estimated GFR Glucose Lactic Acid 2.7 H (0.7-2.0) mmol/L Calcium Total Bilirubin AST ALT Alkaline Phosphatase Total Creatine Kinase (30-135) U/L C-Reactive Protein (<1.0) mg/dL Total Protein Albumin Lipase 79 Urine Color Dark yellow (Yellow) Urine Appearance Cloudy H (Clear) Urine pH 7.5 (5.0-9.0) Ur Specific [place] 1.028 (1.001-1.035) Urine Protein 1+ H (Negative) mg/dL Urine Glucose (UA) Negative (Negative) mg/dL Urine Ketones 1+ H (Negative) mg/dL Ur Blood (Man) Negative (Negative) Urine Nitrate Negative (Negative) Urine Bilirubin 1+ H (Negative) Urine Urobilinogen 1.0 (<2.0) mg/dL Add Ur Microanalysis Reviewed Leukocyte Esterase Rfl 3+ H (Negative) B[place]AM[place]N/UL Urine RBC 0-2 (0-2) /hpf Urine WBC 11-20 H (0-3) /hpf Ur Squamous Epith Cells Occasional (Few) /hpf Urine Bacteria 4+ /hpf Urine Casts 11-20 Urine Mucus Present /lpf <Angélica Low PA-C - Last Filed: 09/29/24 00:47> Lab Results 09/28/24 09/28/24 09/28/24 Range/Units 18:17 18:17 18:17 WBC 7.4 (4.5-10.0) K/mm3 RBC 3.35 L (4.2-5.4) M/mm3 Hgb 10.0 L (12.0-15.0) g/dL Hct 29.9 L (37.0-47.0) % MCV 89.3 (80-100) fl MCH 29.9 (26-34) pg MCHC 33.4 (32-36) g/dl RDW 21.2 H (11.5-14.5) % Plt Count 172 D (150-375) k/mm3 MPV 10.2 (7.4-10.4) fl Immature Gran % (Auto) 0.7 H (0-0.5) % Neut % (Auto) 66.9 (45.5-73.1) % Lymph % (Auto) 26.9 (18.3-44.2) % [place] % (Auto) 5.3 (2.6-8.5) % Eos % (Auto) 0.1 (0-4.4) % Baso % (Auto) 0.1 L (0.2-1.2) % Lymph # (Auto) 1.98 (0.9-3.2) K/mm3 [place] # (Auto) 0.4 (0.1-0.6) K/mm3 Eos # (Auto) 0.0 (0-0.3) K/mm3 Baso # (Auto) 0.0 (0.0-0.1) K/mm3 Abs Immat Gran (auto) 0.05 H (0.00-0.031) K/mm3 Absolute Neuts (auto) 4.9 (1.3-6.7) K/mm3 Absolute Nucleated RBC 0.000 (0.0-0.012) K/mm3 Nucleated RBC % 0.0 (0.0-0.2) % PT 48.7 H (11.1-14.7) Seconds INR 5.8 H* APTT 36.1 (22.3-36.8) Seconds Sodium Cancelled 139 Potassium Cancelled 4.5 Chloride Cancelled Carbon Dioxide Anion Gap BUN Creatinine Estim Creat Clear Calc Estimated GFR Glucose Lactic Acid (0.7-2.0) mmol/L Calcium Total Bilirubin AST ALT Alkaline Phosphatase Total Creatine Kinase (30-135) U/L C-Reactive Protein (<1.0) mg/dL Total Protein Albumin Lipase Urine Color (Yellow) Urine Appearance (Clear) Urine pH (5.0-9.0) Ur Specific [place] (1.001-1.035) Urine Protein (Negative) mg/dL Urine Glucose (UA) (Negative) mg/dL Urine Ketones (Negative) mg/dL Ur Blood (Man) (Negative) Urine Nitrate (Negative) Urine Bilirubin (Negative) Urine Urobilinogen (<2.0) mg/dL Add Ur Microanalysis Leukocyte Esterase Rfl (Negative) BENJAMÍN/UL Urine RBC (0-2) /hpf Urine WBC (0-3) /hpf Ur Squamous Epith Cells (Few) /hpf Urine Bacteria /hpf Urine Casts Urine Mucus /lpf 09/28/24 09/28/24 09/28/24 Range/Units 18:17 18:17 18:17 WBC (4.5-10.0) K/mm3 RBC (4.2-5.4) M/mm3 Hgb (12.0-15.0) g/dL Hct (37.0-47.0) % MCV (80-100) fl MCH (26-34) pg MCHC (32-36) g/dl RDW (11.5-14.5) % Plt Count (150-375) k/mm3 MPV (7.4-10.4) fl Immature Gran % (Auto) (0-0.5) % Neut % (Auto) (45.5-73.1) % Lymph % (Auto) (18.3-44.2) % [place] % (Auto) (2.6-8.5) % Eos % (Auto) (0-4.4) % Baso % (Auto) (0.2-1.2) % Lymph # (Auto) (0.9-3.2) K/mm3 [place] # (Auto) (0.1-0.6) K/mm3 Eos # (Auto) (0-0.3) K/mm3 Baso # (Auto) (0.0-0.1) K/mm3 Abs Immat Gran (auto) (0.00-0.031) K/mm3 Absolute Neuts (auto) (1.3-6.7) K/mm3 Absolute Nucleated RBC (0.0-0.012) K/mm3 Nucleated RBC % (0.0-0.2) % PT (11.1-14.7) Seconds INR APTT (22.3-36.8) Seconds Sodium Potassium Chloride 112 H Carbon Dioxide Cancelled 16 L Anion Gap Cancelled 11 BUN Cancelled Creatinine Estim Creat Clear Calc Estimated GFR Glucose Lactic Acid (0.7-2.0) mmol/L Calcium Total Bilirubin AST ALT Alkaline Phosphatase Total Creatine Kinase (30-135) U/L C-Reactive Protein (<1.0) mg/dL Total Protein Albumin Lipase Urine Color (Yellow) Urine Appearance (Clear) Urine pH (5.0-9.0) Ur Specific [place] (1.001-1.035) Urine Protein (Negative) mg/dL Urine Glucose (UA) (Negative) mg/dL Urine Ketones (Negative) mg/dL Ur Blood (Man) (Negative) Urine Nitrate (Negative) Urine Bilirubin (Negative) Urine Urobilinogen (<2.0) mg/dL Add Ur Microanalysis Leukocyte Esterase Rfl (Negative) BENJAMÍN/UL Urine RBC (0-2) /hpf Urine WBC (0-3) /hpf Ur Squamous Epith Cells (Few) /hpf Urine Bacteria /hpf Urine Casts Urine Mucus /lpf 09/28/24 09/28/24 09/28/24 Range/Units 18:17 18:17 18:17 WBC (4.5-10.0) K/mm3 RBC (4.2-5.4) M/mm3 Hgb (12.0-15.0) g/dL Hct (37.0-47.0) % MCV (80-100) fl MCH (26-34) pg MCHC (32-36) g/dl RDW (11.5-14.5) % Plt Count (150-375) k/mm3 MPV (7.4-10.4) fl Immature Gran % (Auto) (0-0.5) % Neut % (Auto) (45.5-73.1) % Lymph % (Auto) (18.3-44.2) % [place] % (Auto) (2.6-8.5) % Eos % (Auto) (0-4.4) % Baso % (Auto) (0.2-1.2) % Lymph # (Auto) (0.9-3.2) K/mm3 [place] # (Auto) (0.1-0.6) K/mm3 Eos # (Auto) (0-0.3) K/mm3 Baso # (Auto) (0.0-0.1) K/mm3 Abs Immat Gran (auto) (0.00-0.031) K/mm3 Absolute Neuts (auto) (1.3-6.7) K/mm3 Absolute Nucleated RBC (0.0-0.012) K/mm3 Nucleated RBC % (0.0-0.2) % PT (11.1-14.7) Seconds INR APTT (22.3-36.8) Seconds Sodium Potassium Chloride Carbon Dioxide Anion Gap BUN 15 D Creatinine Cancelled 0.89 Estim Creat Clear Calc Cancelled Not Reportable Estimated GFR Cancelled Glucose Lactic Acid (0.7-2.0) mmol/L Calcium Total Bilirubin AST ALT Alkaline Phosphatase Total Creatine Kinase (30-135) U/L C-Reactive Protein (<1.0) mg/dL Total Protein Albumin Lipase Urine Color (Yellow) Urine Appearance (Clear) Urine pH (5.0-9.0) Ur Specific [place] (1.001-1.035) Urine Protein (Negative) mg/dL Urine Glucose (UA) (Negative) mg/dL Urine Ketones (Negative) mg/dL Ur Blood (Man) (Negative) Urine Nitrate (Negative) Urine Bilirubin (Negative) Urine Urobilinogen (<2.0) mg/dL Add Ur Microanalysis Leukocyte Esterase Rfl (Negative) BENJAMÍN/UL Urine RBC (0-2) /hpf Urine WBC (0-3) /hpf Ur Squamous Epith Cells (Few) /hpf Urine Bacteria /hpf Urine Casts Urine Mucus /lpf 09/28/24 09/28/24 09/28/24 Range/Units 18:17 18:17 18:17 WBC (4.5-10.0) K/mm3 RBC (4.2-5.4) M/mm3 Hgb (12.0-15.0) g/dL Hct (37.0-47.0) % MCV (80-100) fl MCH (26-34) pg MCHC (32-36) g/dl RDW (11.5-14.5) % Plt Count (150-375) k/mm3 MPV (7.4-10.4) fl Immature Gran % (Auto) (0-0.5) % Neut % (Auto) (45.5-73.1) % Lymph % (Auto) (18.3-44.2) % [place] % (Auto) (2.6-8.5) % Eos % (Auto) (0-4.4) % Baso % (Auto) (0.2-1.2) % Lymph # (Auto) (0.9-3.2) K/mm3 [place] # (Auto) (0.1-0.6) K/mm3 Eos # (Auto) (0-0.3) K/mm3 Baso # (Auto) (0.0-0.1) K/mm3 Abs Immat Gran (auto) (0.00-0.031) K/mm3 Absolute Neuts (auto) (1.3-6.7) K/mm3 Absolute Nucleated RBC (0.0-0.012) K/mm3 Nucleated RBC % (0.0-0.2) % PT (11.1-14.7) Seconds INR APTT (22.3-36.8) Seconds Sodium Potassium Chloride Carbon Dioxide Anion Gap BUN Creatinine Estim Creat Clear Calc Estimated GFR > 60 Glucose Cancelled 110 Lactic Acid 2.4 H (0.7-2.0) mmol/L Calcium Cancelled 8.8 Total Bilirubin Cancelled AST ALT Alkaline Phosphatase Total Creatine Kinase (30-135) U/L C-Reactive Protein (<1.0) mg/dL Total Protein Albumin Lipase Urine Color (Yellow) Urine Appearance (Clear) Urine pH (5.0-9.0) Ur Specific [place] (1.001-1.035) Urine Protein (Negative) mg/dL Urine Glucose (UA) (Negative) mg/dL Urine Ketones (Negative) mg/dL Ur Blood (Man) (Negative) Urine Nitrate (Negative) Urine Bilirubin (Negative) Urine Urobilinogen (<2.0) mg/dL Add Ur Microanalysis Leukocyte Esterase Rfl (Negative) BENJAMÍN/UL Urine RBC (0-2) /hpf Urine WBC (0-3) /hpf Ur Squamous Epith Cells (Few) /hpf Urine Bacteria /hpf Urine Casts Urine Mucus /lpf 09/28/24 09/28/24 09/28/24 Range/Units 18:17 18:17 18:17 WBC (4.5-10.0) K/mm3 RBC (4.2-5.4) M/mm3 Hgb (12.0-15.0) g/dL Hct (37.0-47.0) % MCV (80-100) fl MCH (26-34) pg MCHC (32-36) g/dl RDW (11.5-14.5) % Plt Count (150-375) k/mm3 MPV (7.4-10.4) fl Immature Gran % (Auto) (0-0.5) % Neut % (Auto) (45.5-73.1) % Lymph % (Auto) (18.3-44.2) % [place] % (Auto) (2.6-8.5) % Eos % (Auto) (0-4.4) % Baso % (Auto) (0.2-1.2) % Lymph # (Auto) (0.9-3.2) K/mm3 [place] # (Auto) (0.1-0.6) K/mm3 Eos # (Auto) (0-0.3) K/mm3 Baso # (Auto) (0.0-0.1) K/mm3 Abs Immat Gran (auto) (0.00-0.031) K/mm3 Absolute Neuts (auto) (1.3-6.7) K/mm3 Absolute Nucleated RBC (0.0-0.012) K/mm3 Nucleated RBC % (0.0-0.2) % PT (11.1-14.7) Seconds INR APTT (22.3-36.8) Seconds Sodium Potassium Chloride Carbon Dioxide Anion Gap BUN Creatinine Estim Creat Clear Calc Estimated GFR Glucose Lactic Acid (0.7-2.0) mmol/L Calcium Total Bilirubin 1.6 H AST Cancelled 66 H ALT Cancelled 30 Alkaline Phosphatase Cancelled Total Creatine Kinase (30-135) U/L C-Reactive Protein (<1.0) mg/dL Total Protein Albumin Lipase Urine Color (Yellow) Urine Appearance (Clear) Urine pH (5.0-9.0) Ur Specific [place] (1.001-1.035) Urine Protein (Negative) mg/dL Urine Glucose (UA) (Negative) mg/dL Urine Ketones (Negative) mg/dL Ur Blood (Man) (Negative) Urine Nitrate (Negative) Urine Bilirubin (Negative) Urine Urobilinogen (<2.0) mg/dL Add Ur Microanalysis Leukocyte Esterase Rfl (Negative) BENJAMÍN/UL Urine RBC (0-2) /hpf Urine WBC (0-3) /hpf Ur Squamous Epith Cells (Few) /hpf Urine Bacteria /hpf Urine Casts Urine Mucus /lpf 09/28/24 09/28/24 09/28/24 Range/Units 18:17 18:17 18:17 WBC (4.5-10.0) K/mm3 RBC (4.2-5.4) M/mm3 Hgb (12.0-15.0) g/dL Hct (37.0-47.0) % MCV (80-100) fl MCH (26-34) pg MCHC (32-36) g/dl RDW (11.5-14.5) % Plt Count (150-375) k/mm3 MPV (7.4-10.4) fl Immature Gran % (Auto) (0-0.5) % Neut % (Auto) (45.5-73.1) % Lymph % (Auto) (18.3-44.2) % [place] % (Auto) (2.6-8.5) % Eos % (Auto) (0-4.4) % Baso % (Auto) (0.2-1.2) % Lymph # (Auto) (0.9-3.2) K/mm3 [place] # (Auto) (0.1-0.6) K/mm3 Eos # (Auto) (0-0.3) K/mm3 Baso # (Auto) (0.0-0.1) K/mm3 Abs Immat Gran (auto) (0.00-0.031) K/mm3 Absolute Neuts (auto) (1.3-6.7) K/mm3 Absolute Nucleated RBC (0.0-0.012) K/mm3 Nucleated RBC % (0.0-0.2) % PT (11.1-14.7) Seconds INR APTT (22.3-36.8) Seconds Sodium Potassium Chloride Carbon Dioxide Anion Gap BUN Creatinine Estim Creat Clear Calc Estimated GFR Glucose Lactic Acid (0.7-2.0) mmol/L Calcium Total Bilirubin AST ALT Alkaline Phosphatase 77 Total Creatine Kinase 79 (30-135) U/L C-Reactive Protein < 0.5 (<1.0) mg/dL Total Protein Cancelled 5.8 L Albumin Cancelled 2.5 L Lipase Cancelled Urine Color (Yellow) Urine Appearance (Clear) Urine pH (5.0-9.0) Ur Specific [place] (1.001-1.035) Urine Protein (Negative) mg/dL Urine Glucose (UA) (Negative) mg/dL Urine Ketones (Negative) mg/dL Ur Blood (Man) (Negative) Urine Nitrate (Negative) Urine Bilirubin (Negative) Urine Urobilinogen (<2.0) mg/dL Add Ur Microanalysis Leukocyte Esterase Rfl (Negative) BNEJAMÍN/UL Urine RBC (0-2) /hpf Urine WBC (0-3) /hpf Ur Squamous Epith Cells (Few) /hpf Urine Bacteria /hpf Urine Casts Urine Mucus /lpf 09/28/24 09/28/24 09/28/24 Range/Units 18:17 18:42 20:27 WBC (4.5-10.0) K/mm3 RBC (4.2-5.4) M/mm3 Hgb (12.0-15.0) g/dL Hct (37.0-47.0) % MCV (80-100) fl MCH (26-34) pg MCHC (32-36) g/dl RDW (11.5-14.5) % Plt Count (150-375) k/mm3 MPV (7.4-10.4) fl Immature Gran % (Auto) (0-0.5) % Neut % (Auto) (45.5-73.1) % Lymph % (Auto) (18.3-44.2) % [place] % (Auto) (2.6-8.5) % Eos % (Auto) (0-4.4) % Baso % (Auto) (0.2-1.2) % Lymph # (Auto) (0.9-3.2) K/mm3 [place] # (Auto) (0.1-0.6) K/mm3 Eos # (Auto) (0-0.3) K/mm3 Baso # (Auto) (0.0-0.1) K/mm3 Abs Immat Gran (auto) (0.00-0.031) K/mm3 Absolute Neuts (auto) (1.3-6.7) K/mm3 Absolute Nucleated RBC (0.0-0.012) K/mm3 Nucleated RBC % (0.0-0.2) % PT (11.1-14.7) Seconds INR APTT (22.3-36.8) Seconds Sodium Potassium Chloride Carbon Dioxide Anion Gap BUN Creatinine Estim Creat Clear Calc Estimated GFR Glucose Lactic Acid 2.7 H (0.7-2.0) mmol/L Calcium Total Bilirubin AST ALT Alkaline Phosphatase Total Creatine Kinase (30-135) U/L C-Reactive Protein (<1.0) mg/dL Total Protein Albumin Lipase 79 Urine Color Dark yellow (Yellow) Urine Appearance Cloudy H (Clear) Urine pH 7.5 (5.0-9.0) Ur Specific [place] 1.028 (1.001-1.035) Urine Protein 1+ H (Negative) mg/dL Urine Glucose (UA) Negative (Negative) mg/dL Urine Ketones 1+ H (Negative) mg/dL Ur Blood (Man) Negative (Negative) Urine Nitrate Negative (Negative) Urine Bilirubin 1+ H (Negative) Urine Urobilinogen 1.0 (<2.0) mg/dL Add Ur Microanalysis Reviewed Leukocyte Esterase Rfl 3+ H (Negative) BENJAMÍN/UL Urine RBC 0-2 (0-2) /hpf Urine WBC 11-20 H (0-3) /hpf Ur Squamous Epith Cells Occasional (Few) /hpf Urine Bacteria 4+ /hpf Urine Casts 11-20 Urine Mucus Present /lpf <Chapincito Ortega MD - Last Filed: 09/29/24 01:35> Imaging Data Radiologist's impression: ITS Impressions Chest X-Ray 09/28/24 18:21 IMPRESSION: No focal infiltrate or effusion. Abdomen/Pelvis CT 09/28/24 22:03 IMPRESSION: No acute findings within the abdomen or pelvis, as detailed above. <Angélica Low PA-C - Last Filed: 09/29/24 00:47> ECG Data EKG #1: ECG completion date: 09/28/24 <Angélica Low PA-C - Last Filed: 09/29/24 00:47> EKG Interpretation: normal rate, sinus rhythm, RBBB, normal QT and no acute changes (compared to EKG 07/31) <Angélica Low PA-C - Last Filed: 09/29/24 00:47> Critical Care Time Critical Care Time Critical Care Time: No <Angélica Low PA-C - Last Filed: 09/29/24 00:47> Discharge Plan Discharge Clinical Impression: Acute UTI, Dehydration, Supratherapeutic INR <Angélica Low PA-C - Last Filed: 09/29/24 00:47> Patient Disposition: Still a Patient <Angélica Low PA-C - Last Filed: 09/29/24 00:47> Condition: Stable <JUANJO Maxwell Last Filed: 09/29/24 00:47>
[2024-09-28 18:25] LABS: Basophils Percent Auto 0.1 % (0.2-1.2); Eosinophils Percent Auto 0.1 % (0-4.4); Hematocrit 29.9 % (37.0-47.0); Immature Granulocyte Absolute 0.05 K/mm3 (0.00-0.031); Immature Granulocyte Percent A 0.7 % (0-0.5); Lymphocytes Absolute Auto 1.98 K/mm3 (0.9-3.2); Lymphocytes Percent Auto 26.9 % (18.3-44.2); Mean Corpuscular HGB Conc 33.4 g/dl (32-36); Mean Corpuscular Hemoglobin 29.9 pg (26-34); Mean Corpuscular Volume 89.3 fl (80-100); Mean Platelet Volume 10.2 fl (7.4-10.4); Monocytes Absolute Auto 0.4 K/mm3 (0.1-0.6); Monocytes Percent Auto 5.3 % (2.6-8.5); Neutrophils Absolute Auto 4.9 K/mm3 (1.3-6.7); Neutrophils Percent Auto 66.9 % (45.5-73.1); Platelet Count Result 172 k/mm3 (150-375); Red Blood Count 3.35 M/mm3 (4.2-5.4); Red Cell Distribution Width 21.2 % (11.5-14.5); White Blood Count 7.4 K/mm3 (4.5-10.0)
[2024-09-28 18:37] LABS: Lactic Acid Reflex 2.4 mmol/L (0.7-2.0)
[2024-09-28 18:39] LABS: Alanine Aminotransferase 30 U/L (6-35); Albumin Level 2.5 g/dL (3.5-5.1); Alkaline Phosphatase 77 U/L (38-126); Anion Gap 11 mmol/L (4-12); Aspartate Amino Transferase 66 U/L (14-36); Bilirubin,Total 1.6 mg/dL (0.2-1.3); Blood Urea Nitrogen 15 mg/dL (7-17); CRP < 0.5 mg/dL (<1.0); Calcium 8.8 mg/dL (8.4-10.2); Carbon Dioxide 16 mmol/L (22-30); Chloride 112 mmol/L (98-107); Estimated Glomerular Filt Rate > 60; Glucose 110 mg/dL (65-110); Lipase 79 U/L (23-300); Potassium 4.5 mmol/L (3.4-5.0); Sodium 139 mmol/L (137-145); Total Protein 5.8 g/dL (6.3-8.2)
[2024-09-28 18:40] LABS: Prothrombin Time 48.7 Seconds (11.1-14.7)
[2024-09-28 18:41] LABS: Partial Thromboplastin Time 36.1 Seconds (22.3-36.8)
[2024-09-28] MEDS: SODIUM CHLORIDE 0.9% IV 500 ML 999 ML IV CONT ×2 (18:46→23:25)
[2024-09-28 18:57] LABS: Creatine Kinase 79 U/L (30-135)
[2024-09-28 19:27] LABS: INR 5.8
[2024-09-28 19:57] LABS: Add Urine Microscopic? YES; Appearance Urine Cloudy (Clear); Bacteria Urine 4+ /hpf; Bilirubin Urine 1+ (Negative); Blood Urine Negative (Negative); Color Urine Dark Yellow (Yellow); Glucose Urine UA Negative (Negative); Ketones Urine 1+ mg/dL (Negative); Leukocyte Esterase Ur 3+ LEU/UL (Negative); Mucus Urine Present /lpf; Need Manual Microscopic Reviewed; Nitrate Urine Negative (Negative); Protein Urine 1+ mg/dL (Negative); RBC Urine 0-2 /hpf (0-2); Specific Grav Ur 1.028 (1.001-1.035); Squamous Epithelial Cell Urine Occasional /hpf (Few); pH Urine 7.5 (5.0-9.0)
[2024-09-28 20:21] LABS: Reflex Lactic Acid Yes or No Add Lactic
[2024-09-28 20:47] LABS: Lactic Acid 2.7 mmol/L (0.7-2.0)
--- NOTE | 2024-09-28 20:57 | PC.NURSE ---
attempted to get patient's second set of cultures. attempt was unsuccessful, TED Workman aware.
[2024-09-28] MEDS: SODIUM CHLORIDE 0.9% IV 1,000 ML 999 ML IV CONT (21:45)
[2024-09-29] VITALS (7 sets, daily range): BP systolic 105–145; BP diastolic 45–88; PULSE 80–98; RESP 16–20; TEMP 35.7–37.1; O2SAT 95–100; BMI 22.2; BMI 22.9
--- NOTE | 2024-09-29 01:38 | ADMGEN ---
This patient, Yumiko Mendez, was admitted to 3 [facility] Surg Room 304-01. Patient/family oriented to hospital policies and general routines including ID bracelet, bed and alarms, visiting hours, pain management, procedures, bathroom and other care routines, personal items, smoking policy, room service/diet, and visiting hours. Information on how to activate the Rapid Response Team has been discussed. Patient/Family are encouraged to report perceived risks to care and to ask questions if they do not understand what they are told or what they should do.
[2024-09-29] MEDS: ACETAMINOPHEN 325 MG TABLET 650 MG PO ×2 (01:58→06:22)
[2024-09-29] MEDS: SODIUM CHLORIDE 0.9% IV 1,000 ML 125 ML IV CONT ×2 (01:59→21:47)
--- NOTE | 2024-09-29 02:09 | PC.NURSE ---
Pt does not know what medications she takes as her daughter takes care of that for her. Daughter is to bring up list during visiting hours.
[2024-09-29 06:27] LABS: Basophils Percent Auto 0.1 % (0.2-1.2); Hematocrit 25.7 % (37.0-47.0); Hemoglobin 8.6 g/dL (12.0-15.0); Immature Granulocyte Absolute 0.02 K/mm3 (0.00-0.031); Immature Granulocyte Percent A 0.3 % (0-0.5); Immature Platelet Fraction Pct 1.7 % (0.9-11.2); Lymphocytes Absolute Auto 1.95 K/mm3 (0.9-3.2); Lymphocytes Percent Auto 28.8 % (18.3-44.2); Mean Corpuscular HGB Conc 33.5 g/dl (32-36); Mean Corpuscular Hemoglobin 30.3 pg (26-34); Mean Corpuscular Volume 90.5 fl (80-100); Mean Platelet Volume 9.8 fl (7.4-10.4); Monocytes Absolute Auto 0.5 K/mm3 (0.1-0.6); Monocytes Percent Auto 7.2 % (2.6-8.5); Neutrophils Absolute Auto 4.3 K/mm3 (1.3-6.7); Neutrophils Percent Auto 63.6 % (45.5-73.1); Platelet Count Result 136 k/mm3 (150-375); Red Blood Count 2.84 M/mm3 (4.2-5.4); Red Cell Distribution Width 21.5 % (11.5-14.5); White Blood Count 6.8 K/mm3 (4.5-10.0)
[2024-09-29 06:40] LABS: Prothrombin Time 46.9 Seconds (11.1-14.7)
[2024-09-29 06:51] LABS: Alanine Aminotransferase 26 U/L (6-35); Albumin Level 2.1 g/dL (3.5-5.1); Alkaline Phosphatase 67 U/L (38-126); Anion Gap 7 mmol/L (4-12); Aspartate Amino Transferase 46 U/L (14-36); Blood Urea Nitrogen 13 mg/dL (7-17); Calcium 7.8 mg/dL (8.4-10.2); Carbon Dioxide 17 mmol/L (22-30); Chloride 114 mmol/L (98-107); Estimated CRCL calculation 55 ml/min; Estimated Glomerular Filt Rate > 60; Glucose 90 mg/dL (65-110); Potassium 3.7 mmol/L (3.4-5.0); Sodium 138 mmol/L (137-145); Total Protein 5.1 g/dL (6.3-8.2)
[2024-09-29 06:58] LABS: INR 5.5
[2024-09-29 09:04] LABS: Magnesium 1.4 mg/dL (1.6-2.3)
[2024-09-29] MEDS: MAGNESIUM SULF 2 GM/WATER 50ML 2 GM/50 ML BAG IVPB (13:24)
[2024-09-29 13:39] LABS: Lactic Acid Reflex 2.5 mmol/L (0.7-2.0)
--- NOTE | 2024-09-29 15:04 | P.HP_ITS ---
H&P: HPI History of Present Illness Date/Time: 09/29/24 15:04 Chief Complaint: Weakness, N/V/D Narrative: Patient is a 68-year-old female presented to the emergency department with worsening generalized reports loss of appetite since July but has persistently got worse even with supplemental medication. Patient states she attempts to eat small meals but immediately will get nauseous and and periodically vomits. patient states she had a previous CVA CABG back in July of 2024 and ever since then her appetite has not returned. Patient recently hospitalized 08/2024 for same symptoms which time she was started on Megace but reports she has had no improvement since discharge. patient denied any chest pain, shortness a breath, abdominal pain but continues to endorse loss of appetite, see a in chil ls with worsening weakness. Patient states prior to arrival she was able to pivot from bed to wheelchair but no longer has the strength. patient is not the best historian due to previous stroke post information was taken from previous medical records. In the ED: patient's labs showing anemia stable at 10.0 however INR was 5.8 is reported patient was previously on Coumadin and recently switched to Xarelto no current evidence of bleeding denied any blood in stool or sputum. patient with lactic acidosis 2.4 in UA suspicious for UTI. CT abdomen no acute findings, CXR with no focal infiltrate or effusions. Patient was admitted to the medical unit for further evaluation for generalized weakness, lactic acidosis, UTI, hyper coag ability state, and N/V/D. Review of Systems Review of Systems: All systems reviewed & are unremarkable except as noted in HPI and below Gastrointestinal: Gastrointestinal: Reports diarrhea, Reports nausea and Reports vomiting [facility] Past Medical History Medical History (Updated 09/29/24 @ 15:49 by Guadalupe Winter APRN) Pressure injury History of stroke Osteoarthritis Disorder of lipid metabolism Hypertension Chest pain Surgical History Surgical History History of Family History Family History Father Heart disease Hypertension Mother Hypertension Breast cancer Social History Social History Smoking status: Never smoker Second hand tobacco smoke exposure: No Alcohol intake: never Substance use: never Substance use type: does not use Do You Feel Safe in your Home?: Yes Lack of Transportation: No Lack of Food: Never True Current Housing: I Have Housing Concerned About Future Housing: No Difficulty Paying Gas/Electric Bills: No Difficulty Paying for Meds: No Currently Unemployed: No Education: High School Diploma/GED Difficulty w/ Childcare or Family Care: No Living arrangements: with family Spiritual care concerns: No Meds Home Medications and Allergies Home Medications ?Medication ?Instructions ?Recorded ?Confirmed ?Type acetaminophen 650 mg 500 mg PO Q6H PRN Pain 04/30/19 09/29/24 History tablet,extended release (Tylenol Arthritis Pain) multivitamin with minerals-folic 1 tablet PO DAILY 12/01/20 09/29/24 History acid 200 mcg chewable tablet (Adult Multivitamin Gummies) atorvastatin 10 mg tablet 10 mg PO QPM 08/06/24 09/29/24 History carvedilol 6.25 mg tablet 6.25 mg PO Q12H 08/06/24 09/29/24 History ezetimibe 10 mg tablet 10 mg PO DAILY 08/06/24 09/29/24 History hydralazine 25 mg tablet 25 mg PO Q12H 08/06/24 09/29/24 History mirtazapine 30 mg tablet 30 mg PO DAILY 08/06/24 09/29/24 History pantoprazole 40 mg tablet,delayed 40 mg PO DAILY 08/06/24 09/29/24 History release potassium chloride 10 mEq 20 meq PO DAILY 08/06/24 09/29/24 History tablet,extended release tramadol 50 mg tablet 50 mg PO Q8H PRN pain 08/06/24 09/29/24 History cyproheptadine 4 mg tablet 4 mg PO BID PRN appetite 09/29/24 09/29/24 History docusate sodium 100 mg capsule 100 mg PO DAILY 09/29/24 09/29/24 History (Col-Rite) hydroxyzine HCl 25 mg tablet 25 mg PO TID 09/29/24 09/29/24 History magnesium citrate (Citrate of 150 ml PO DAILY 09/29/24 09/29/24 History Magnesia oral) megestrol 40 mg tablet 20 mg PO BID 09/29/24 09/29/24 History ondansetron 4 mg disintegrating 4 mg PO BID PRN nausea and vomiting 09/29/24 09/29/24 History tablet rivaroxaban 20 mg tablet (Xarelto) 20 mg PO DAILY 09/29/24 09/29/24 History Allergies Allergy/AdvReac Type Severity Reaction Status Date / Time Sulfa (Sulfonamide Allergy Mild RASH Verified 09/28/24 17:01 Antibiotics) Vital Signs Vital Signs - 24 hr 09/28/24 16:50 09/28/24 18:00 09/28/24 18:23 Temperature 97.4 F L 98.0 F 98.0 F Pulse Rate 88 92 95 Respiratory Rate 14 17 18 Blood Pressure 98/61 L 142/89 H 149/91 H Pulse Oximetry 97 100 99 Oxygen Delivery Room Air Room Air 09/28/24 19:00 09/28/24 20:00 09/28/24 21:00 Temperature 98.0 F 97.8 F 97.8 F Pulse Rate 93 93 90 Respiratory Rate 17 17 16 Blood Pressure 150/83 H 146/86 H 130/77 Pulse Oximetry 100 100 100 Oxygen Delivery 09/28/24 22:49 09/29/24 00:06 09/29/24 00:07 Temperature 98 F Pulse Rate 94 96 Respiratory Rate 18 18 Blood Pressure 139/76 110/84 Pulse Oximetry 95 95 Oxygen Delivery Room Air 09/29/24 01:26 09/29/24 05:30 09/29/24 08:00 Temperature 96.2 F L 96.3 F L Pulse Rate 92 80 Respiratory Rate 16 20 Blood Pressure 141/66 H 136/66 Pulse Oximetry 100 100 Oxygen Delivery Room Air 09/29/24 10:00 09/29/24 10:16 09/29/24 14:00 Temperature 98.1 F Pulse Rate 98 Respiratory Rate 16 Blood Pressure 145/88 H Pulse Oximetry 100 Oxygen Delivery Room Air Room Air Exam Const: General: comfortable and no acute distress Other: elderly female looks older than stated age chronically ill HENMT: Face/Nose/Sinus: Normal nares present Mouth: Yes dry mucous membranes Eyes: General: appearance normal, both eyes and all related structures Sclera: sclerae normal Pupils: Equal, round and reactive pupils present EOM: EOMs intact bilaterally Neck: Neck: supple and no JVD Carotids: no bruits Resp: Effort & Inspection: normal respiratory effort Auscultation: clear to auscultation bilaterally Cardio: Rate: regular rate Rhythm: regular rhythm GI: GI Palp: Yes Soft to palpation and No Tenderness to palpation present (GI) Auscultation: abnormal bowel sounds (hyperactive) : General: Yes bladder normal to palpation Skin: General skin exam: normal color and no rashes or lesions noted Wounds: wounds noted Other: Coccyx pressure wound Neuro: Speech: normal speech Sensory Exam: normal sensation Other: A&O x4. LUE & LLE motor deficits due to prior CVA, limited strength, 4/5 Extrem: General: normal to inspection Psych: Mental Status: mental status grossly normal Affect: normal affect Other: the patient does report intermittent memory loss since CVA H&P: Results Labs Labs: Short CBC 09/28/24 09/29/24 Range/Units 18:17 06:20 WBC 7.4 6.8 (4.5-10.0) K/mm3 Hgb 10.0 L 8.6 L (12.0-15.0) g/dL Hct 29.9 L 25.7 L (37.0-47.0) % Plt Count 172 D 136 L (150-375) k/mm3 BMP 09/28/24 09/28/24 09/28/24 18:17 18:17 18:17 Sodium Cancelled 139 Potassium Cancelled 4.5 Chloride Cancelled Carbon Dioxide BUN Creatinine Glucose Calcium 09/28/24 09/28/24 09/28/24 18:17 18:17 18:17 Sodium Potassium Chloride 112 H Carbon Dioxide Cancelled 16 L BUN Cancelled 15 D Creatinine Cancelled Glucose Calcium 09/28/24 09/28/24 09/28/24 18:17 18:17 18:17 Sodium Potassium Chloride Carbon Dioxide BUN Creatinine 0.89 Glucose Cancelled 110 Calcium Cancelled 8.8 09/29/24 06:20 Sodium 138 Potassium 3.7 Chloride 114 H Carbon Dioxide 17 L BUN 13 Creatinine 0.76 Glucose 90 Calcium 7.8 L Cardiac Enzymes 09/28/24 Range/Units 18:17 Total Creatine Kinase 79 (30-135) U/L Liver Function 09/28/24 09/28/24 09/28/24 Range/Units 18:17 18:17 18:17 Total Bilirubin Cancelled 1.6 H AST Cancelled 66 H ALT Cancelled Alkaline Phosphatase Albumin 0609/28/24 09/28/24 Range/Units 18:17 18:17 18:17 Total Bilirubin AST ALT 30 Alkaline Phosphatase Cancelled 77 Albumin Cancelled 2.5 L 09/29/24 Range/Units 06:20 Total Bilirubin 1.0 AST 46 H ALT 26 Alkaline Phosphatase 67 Albumin 2.1 L Urine 09/28/24 Range/Units 18:42 Urine Color Dark yellow (Yellow) Urine Appearance Cloudy H (Clear) Urine pH 7.5 (5.0-9.0) Ur Specific [place] 1.028 (1.001-1.035) Urine Protein 1+ H (Negative) mg/dL Urine Glucose (UA) Negative (Negative) mg/dL Imaging CT scan - abdomen: Radiologist's impression: CLINICAL INDICATION: Generalized weakness COMPARISON: 08/10/2024. TECHNIQUE: Multiple contiguous axial images of the abdomen and pelvis were performed following the administration of with 100 mL Omnipaque-350 intravenous contrast The dose-length product (DLP) was 507.28 mGy-cm. Automated exposure control and iterative reconstruction technique were employed. FINDINGS/OBSERVATIONS: Visualized lower thorax: The bilateral lung bases are clear. The heart is of normal size, without pericardial effusion. Liver: The liver demonstrates homogeneous enhancement and is not enlarged. Gallbladder and biliary system: The gallbladder is distended, and otherwise unremarkable. Pancreas: The pancreas enhances homogeneously without ductal dilatation. Spleen: The spleen enhances homogeneously and is not enlarged. Kidneys: The bilateral kidneys enhance symmetrically without hydronephrosis or renal calculi. Adrenal glands: Unremarkable. Gastrointestinal tract: Colonic diverticulosis without surrounding inflammatory change. Appendix: The air-filled appendix is of normal caliber (axial series, images 86 through 93) Vasculature: Densely calcified atherosclerotic disease. Lymph nodes: No pathologically enlarged or morphologically suspicious lymph nodes within the retroperitoneum or at the root of the mesentery. Pelvic structures: The bladder is only minimally distended, and otherwise unremarkable. The uterus is anteverted and anteflexed with bulky calcifications suggesting fibroid disease. Body wall and musculoskeletal: Moderate anasarca. Atrophy of the paraspinous and gluteus musculature Age-appropriate degenerative disease within the lower thoracic and lumbar spine. IMPRESSION: No acute findings within the abdomen or pelvis, as detailed above. Assessment and Plan Assessment and plan (1) Generalized weakness: Code(s): R53.1 - Weakness Status: Acute Assessment and Plan: patient with recent hospitalization August of 2024 for generalized weakness including nausea vomiting diarrhea patient reports poor appetite since previous CVA and CABG. Patient states baseline she can pivot from wheelchair to bed currently unable to do so and is require mahesh lift. Could also be secondary to possible UTI. * continued appetite stimulants * PT/OT (2) Nauseous: Code(s): R11.0 - Nausea Status: Acute Assessment and Plan: patient reports she has not had appetite since her CVA CABG continues to have nausea vomiting whenever she attempts to eat with here about 2 months prior states it has not improved. CT abdomen showing no acute findings * consult GI for possible EGD in further evaluation * antiemetics * added Carafate and PPI will for possible PUD/gastritis * IV fluids for gentle hydration (3) Supratherapeutic INR: Code(s): R79.1 - Abnormal coagulation profile Status: Acute Assessment and Plan: patient's INR was 5.8 POA per records patient was previously on Coumadin but had transition to Xarelto 09/06 * will hold patient's Xarelto at this time until INR <3.0 then may resume * daily INR/PT * monitor for any signs acute bleeding (4) Lactic acidosis: Code(s): E87.20 - Acidosis, unspecified Status: Acute Assessment and Plan: lactic 2.4 peaked at 2.7 and turning back to 2.5 could be secondary to dehydration or acute infection for UTI bicarb 17 * continue to trend * IV fluids * may need to add bicarb tablets does not improve (5) Dehydration: Code(s): E86.0 - Dehydration Status: Acute Assessment and Plan: Decreased PO intake for 2-3 weeks, potentially longer. Pt reporting decreased appetite since CABG/CVA in October 2023 * IV NS * Ensure supple ordered (6) Pressure injury: Code(s): L89.90 - Pressure ulcer of unspecified site, unspecified stage Status: Acute Assessment and Plan: patient with shear pressure was to decubitus, no open area to culture * wound consulted * foam dressing daily or when soiled * Q2hr turns * off load (7) History of stroke: Code(s): Z86.73 - Personal history of transient ischemic attack (TIA), and cerebral infa rction without residual deficits Status: Acute Assessment and Plan: S/p CABG October 2023. Was in rehab until January 2024, now lives with daughter. JIMMY & LUNatacha deficit weakness, 07/11. * previously on Coumadin now on Xarelto started 09/06 but currently holding due to super therapeutic * continue statin (8) Hypomagnesemia: Code(s): E83.42 - Hypomagnesemia Status: Acute Assessment and Plan: 1.4 in the ED, repleted with 2g * Trend mag with AM labs * will add magnesium oxide daily (9) Hypertension: Code(s): I10 - Essential (primary) hypertension Status: Acute Assessment and Plan: * continued patient's hydralazine and carvedilol * BP per unit protocol (10) Acute UTI: Code(s): N39.0 - Urinary tract infection, site not specified Status: Acute Assessment and Plan: UA suspicious for urinary tract infection * IV ceftriaxone pending cultures and sensitivities * Blood cultures NGTD (11) Anemia: Code(s): D64.9 - Anemia, unspecified Status: Acute Assessment and Plan: Patient Hgb 10.0 POA down to 8.6 could be some from dilution IV fluids no evidence of current acute GIB but patient INR is supertheraputic. * Iron panel * Folic/B12/folate/ferritin * PPI * GI consulted * Trend H&H transfuse PRBC if Hgb <7.0 Plan Code status: Full code per patient DVT prophylaxis: SCD's holding Xarelto Stress ulcer prophylaxis: Protonix 40 daily PT/OT notes: PT/OT evaluation Disposition: patient admitted for further evaluation of generalized weakness medical, nausea and vomiting with eating and weight loss, supratherapeutic INR, and UTI. GI consulted for further evaluation and possible EGD monitor H&H. PT/OT evaluation for discharge planning needs. Quality VTE Prophylaxis VTE prophylaxis: mechanical ordered -Patient's previous records reviewed on admission -ER notes reviewed in detail on admission -discussed all findings and current treatment plan with patient/Family/POA -Consultations reviewed for recommendations -Patient's disposition for safe discharge discussed with disability case manager Dictation performed by [employer] direct speech recognition software, therefore rough and truing machine operator variants and typographical errors may occur. Hospitalist [facility] Advance Care Plan I have confirmed that the patient's Advanced Care Plan is present, code status is documented, or surrogate decision maker is listed in patient medical record.: Yes Medication Reconciliation I have utilized all available resources to obtain, update and review the patients current medications (includes all prescriptions, OTC, herbals, cannabis, and nutritional supplements).: Yes The patient is not eligible for med reconciliation; the patient is in a emergent medical situation where delaying treatment would jeopardize the patients health.: No
[2024-09-29 15:27] LABS: Reflex Lactic Acid Yes or No Add Lactic
[2024-09-29 16:37] LABS: Lactic Acid 1.9 mmol/L (0.7-2.0)
[2024-09-29] MEDS: traMADol HCL (*CRX) 50 MG TABLET PO (17:12)
[2024-09-29] MEDS: ATORVASTATIN 10 MG TABLET PO (17:13)
[2024-09-29] MEDS: hydrOXYzine HCL 25 MG TABLET PO (17:13)
[2024-09-29] MEDS: SUCRALFATE 1 GM TABLET PO ×2 (17:13→21:42)
[2024-09-29] MEDS: MEGESTROL ACETATE (*CHEMO) 20 MG TABLET PO (17:13)
--- NOTE | 2024-09-29 18:18 | P.CONGI_ITS ---
Assessment and Plan Assessment and plan (1) Anorexia: Code(s): R63.0 - Anorexia Status: Acute Assessment and Plan: the patient does not have acute gastrointestinal problems, i.e., diarrhea, dehydration, rectal bleeding, or persistent vomiting. It is possible that her symptoms are more related to emotional origin. In any case, a consultation with the nutrition department is advised for better management. Please feel free to contact us if there are any acute GI problems that arise during this hospitalization. GI Consult Note Consult date/time: 09/29/24 18:18 Reason for consult: Lack of appetite-weakness HPI: Yumiko Mendez is a 68 year old female admitted today complaining of generalized weakness and severe anorexia. Her medical history is significant for a CABG in July this year and sequela of CVA. She reports that her appetite significantly decreased with occasional nausea after her bypass surgery. She denies current diarrhea but notes an episode a few weeks ago. She was found to have a urinary tract infection. On admission, her laboratory data showed a white count of 6.8, hemoglobin 8.6, hematocrit 25.7, platelets 136, INR 5.5 (related to warfarin that was recently switched to Xarelto), sodium 138, potassium 3.7, creatinine 0.76, AST 46, ALT 86, and albumin 2.1. Review of Systems 2 Review of Systems: All systems reviewed & are unremarkable except as noted in HPI and below PMFSH Past Medical History Medical History (Updated 09/29/24 @ 18:22 by Davonte Koch MD) Pressure injury History of stroke Osteoarthritis Disorder of lipid metabolism Hypertension Chest pain Surgical History Surgical History History of Family History Family History Father Heart disease Hypertension Mother Hypertension Breast cancer Social History Social History Smoking status: Never smoker Second hand tobacco smoke exposure: No Alcohol intake: never Substance use: never Substance use type: does not use Do You Feel Safe in your Home?: Yes Lack of Transportation: No Lack of Food: Never True Current Housing: I Have Housing Concerned About Future Housing: No Difficulty Paying Gas/Electric Bills: No Difficulty Paying for Meds: No Currently Unemployed: No Education: High School Diploma/GED Difficulty w/ Childcare or Family Care: No Living arrangements: with family Spiritual care concerns: No Meds Home Medications and Allergies Home Medications ?Medication ?Instructions ?Recorded ?Confirmed ?Type acetaminophen 650 mg 500 mg PO Q6H PRN Pain 04/30/19 09/29/24 History tablet,extended release (Tylenol Arthritis Pain) multivitamin with minerals-folic 1 tablet PO DAILY 12/01/20 09/29/24 History acid 200 mcg chewable tablet (Adult Multivitamin Gummies) atorvastatin 10 mg tablet 10 mg PO QPM 08/06/24 09/29/24 History carvedilol 6.25 mg tablet 6.25 mg PO Q12H 08/06/24 09/29/24 History ezetimibe 10 mg tablet 10 mg PO DAILY 08/06/24 09/29/24 History hydralazine 25 mg tablet 25 mg PO Q12H 08/06/24 09/29/24 History mirtazapine 30 mg tablet 30 mg PO DAILY 08/06/24 09/29/24 History pantoprazole 40 mg tablet,delayed 40 mg PO DAILY 08/06/24 09/29/24 History release potassium chloride 10 mEq 20 meq PO DAILY 08/06/24 09/29/24 History tablet,extended release tramadol 50 mg tablet 50 mg PO Q8H PRN pain 08/06/24 09/29/24 History cyproheptadine 4 mg tablet 4 mg PO BID PRN appetite 09/29/24 09/29/24 History docusate sodium 100 mg capsule 100 mg PO DAILY 09/29/24 09/29/24 History (Col-Rite) hydroxyzine HCl 25 mg tablet 25 mg PO TID 09/29/24 09/29/24 History magnesium citrate (Citrate of 150 ml PO DAILY 09/29/24 09/29/24 History Magnesia oral) megestrol 40 mg tablet 20 mg PO BID 09/29/24 09/29/24 History ondansetron 4 mg disintegrating 4 mg PO BID PRN nausea and vomiting 09/29/24 09/29/24 History tablet rivaroxaban 20 mg tablet (Xarelto) 20 mg PO DAILY 09/29/24 09/29/24 History Allergies Allergy/AdvReac Type Severity Reaction Status Date / Time Sulfa (Sulfonamide Allergy Mild RASH Verified 09/28/24 17:01 Antibiotics) Vital Signs Vital Signs - 24 hr 09/28/24 18:23 09/28/24 19:00 09/28/24 20:00 Temperature 98.0 F 98.0 F 97.8 F Pulse Rate 95 93 93 Respiratory Rate 18 17 17 Blood Pressure 149/91 H 150/83 H 146/86 H Pulse Oximetry 99 100 100 Oxygen Delivery 09/28/24 21:00 09/28/24 22:49 09/29/24 00:06 Temperature 97.8 F 98 F Pulse Rate 90 94 96 Respiratory Rate 16 18 18 Blood Pressure 130/77 139/76 110/84 Pulse Oximetry 100 95 Oxygen Delivery 09/29/24 00:07 09/29/24 01:26 09/29/24 05:30 Temperature 96.2 F L 96.3 F L Pulse Rate 92 80 Respiratory Rate 16 20 Blood Pressure 141/66 H 136/66 Pulse Oximetry 95 100 100 Oxygen Delivery Room Air 09/29/24 08:00 09/29/24 10:00 09/29/24 10:16 Temperature Pulse Rate Respiratory Rate Blood Pressure Pulse Oximetry Oxygen Delivery Room Air Room Air Room Air 09/29/24 14:00 Temperature 98.1 F Pulse Rate 98 Respiratory Rate 16 Blood Pressure 145/88 H Pulse Oximetry 100 Oxygen Delivery Exam 2 Const: General: comfortable and no acute distress Other: elderly female looks older than stated age chronically ill HENMT: Face/Nose/Sinus: Normal nares present Mouth: Yes dry mucous membranes Eyes: General: appearance normal, both eyes and all related structures S clera: sclerae normal Pupils: Equal, round and reactive pupils present E OM: EOMs intact bilaterally Neck: Neck: supple and no JVD Carotids: no bruits Resp: Effort & Inspection: normal respiratory effort Auscultation: clear to auscultation bilaterally Cardio: Rate: regular rate Rhythm: regular rhythm GI: GI Palp: Yes Soft to palpation and No Tenderness to palpation present (GI) Auscultation: abnormal bowel sounds (hyperactive) : General: Yes bladder normal to palpation Skin: General skin exam: normal color and no rashes or lesions noted W ounds: wounds noted Other: Coccyx pressure wound Neuro: Speech: normal speech Sensory Exam: normal sensation Other: A&O x4. LUE & LLE motor deficits due to prior CVA, limited strength, 4/ Extrem: General: normal to inspection Psych: Mental Status: mental status grossly normal Affect: normal affect Other: the patient does report intermittent memory loss since CVA Results Labs 09/29/24 06:20 09/29/24 06:20 Labs: Short CBC 09/28/24 09/29/24 Range/Units 18:17 06:20 WBC 7.4 6.8 (4.5-10.0) K/mm3 Hgb 10.0 L 8.6 L (12.0-15.0) g/dL Hct 29.9 L 25.7 L (37.0-47.0) % Plt Count 172 D 136 L (150-375) k/mm3 BMP 09/28/24 09/28/24 09/28/24 18:17 18:17 18:17 Sodium Cancelled 139 Potassium Cancelled 4.5 Chloride Cancelled Carbon Dioxide BUN Creatinine Glucose Calcium 09/28/24 09/28/24 09/28/24 18:17 18:17 18:17 Sodium Potassium Chloride 112 H Carbon Dioxide Cancelled 16 L BUN Cancelled 15 D Creatinine Cancelled Glucose Calcium 09/28/24 09/28/24 09/28/24 18:17 18:17 18:17 Sodium Potassium Chloride Carbon Dioxide BUN Creatinine 0.89 Glucose Cancelled 110 Calcium Cancelled 8.8 09/29/24 06:20 Sodium 138 Potassium 3.7 Chloride 114 H Carbon Dioxide 17 L BUN 13 Creatinine 0.76 Glucose 90 Calcium 7.8 L Cardiac Enzymes 09/28/24 Range/Units 18:17 Total Creatine Kinase 79 (30-135) U/L Liver Function 09/28/24 09/28/24 09/28/24 Range/Units 18:17 18:17 18:17 Total Bilirubin Cancelled 1.6 H AST Cancelled 66 H ALT Cancelled Alkaline Phosphatase Albumin 09/28/24 09/28/24 09/28/24 Range/Units 18:17 18:17 18:17 Total Bilirubin AST ALT 30 Alkaline Phosphatase Cancelled 77 Albumin Cancelled 2.5 L 09/29/24 Range/Units 06:20 Total Bilirubin 1.0 AST 46 H ALT 26 Alkaline Phosphatase 67 Albumin 2.1 L Urine 09/28/24 Range/Units 18:42 Urine Color Dark yellow (Yellow) Urine Appearance Cloudy H (Clear) Urine pH 7.5 (5.0-9.0) Ur Specific [place] 1.028 (1.001-1.035) Urine Protein 1+ H (Negative) mg/dL Urine Glucose (UA) Negative (Negative) mg/dL
[2024-09-29] MEDS: hydrALAZINE HCL 25 MG TABLET PO (21:42)
[2024-09-29] MEDS: carvediloL 6.25 MG TABLET PO (21:42)
[2024-09-30 05:42] LABS: Basophils Percent Auto 0.2 % (0.2-1.2); Eosinophils Absolute Auto 0.1 K/mm3 (0-0.3); Hemoglobin 7.3 g/dL (12.0-15.0); Immature Granulocyte Absolute 0.03 K/mm3 (0.00-0.031); Immature Granulocyte Percent A 0.5 % (0-0.5); Lymphocytes Absolute Auto 2.39 K/mm3 (0.9-3.2); Lymphocytes Percent Auto 40.1 % (18.3-44.2); Mean Corpuscular HGB Conc 34.8 g/dl (32-36); Mean Corpuscular Hemoglobin 30.3 pg (26-34); Mean Corpuscular Volume 87.1 fl (80-100); Mean Platelet Volume 9.3 fl (7.4-10.4); Monocytes Absolute Auto 0.4 K/mm3 (0.1-0.6); Monocytes Percent Auto 6.9 % (2.6-8.5); Neutrophils Absolute Auto 3.1 K/mm3 (1.3-6.7); Neutrophils Percent Auto 51.3 % (45.5-73.1); Platelet Count Result 116 k/mm3 (150-375); Red Blood Count 2.41 M/mm3 (4.2-5.4); Red Cell Distribution Width 21.3 % (11.5-14.5)
[2024-09-30 05:48] VITALS: BP 141/69; PULSE 88; RESP 18; TEMP 36.7; O2SAT 100
[2024-09-30 05:55] LABS: INR 2.4; Prothrombin Time 25.5 Seconds (11.1-14.7)
[2024-09-30] MEDS: MEGESTROL ACETATE (*CHEMO) 20 MG TABLET PO ×2 (06:08→16:42)
[2024-09-30] MEDS: SUCRALFATE 1 GM TABLET PO ×3 (06:08→20:35)
[2024-09-30 06:10] LABS: Iron 54 ug/dL (37-170)
[2024-09-30] MEDS: SODIUM CHLORIDE 0.9% IV 1,000 ML 125 ML IV CONT (06:11)
[2024-09-30 06:18] LABS: Percent Iron Saturation 69 % (20-50)
[2024-09-30 06:36] LABS: Alanine Aminotransferase 21 U/L (6-35); Albumin Level 1.6 g/dL (3.5-5.1); Alkaline Phosphatase 55 U/L (38-126); Anion Gap 3 mmol/L (4-12); Aspartate Amino Transferase 33 U/L (14-36); Bilirubin,Total 0.8 mg/dL (0.2-1.3); Blood Urea Nitrogen 10 mg/dL (7-17); Calcium 7.4 mg/dL (8.4-10.2); Carbon Dioxide 17 mmol/L (22-30); Chloride 117 mmol/L (98-107); Estimated CRCL calculation 67 ml/min; Estimated Glomerular Filt Rate > 60; Glucose 85 mg/dL (65-110); Magnesium 1.7 mg/dL (1.6-2.3); Sodium 137 mmol/L (137-145); Total Protein 4.4 g/dL (6.3-8.2)
[2024-09-30 07:21] LABS: Folic Acid 3.6 ng/mL (2.76->20)
--- NOTE | 2024-09-30 08:45 | P.PNIM_ITS ---
Progress Note: A&P Assessment and Plan (1) Generalized weakness: Code(s): R53.1 - Weakness Status: Acute Assessment and Plan: patient with recent hospitalization August of 2024 for generalized weakness including nausea vomiting diarrhea patient reports poor appetite since previous CVA and CABG. Patient states baseline she can pivot from wheelchair to bed currently unable to do so and is require mahesh lift. Could also be secondary to possible UTI. * continued appetite stimulants * PT/OT (2) Nauseous: Code(s): R11.0 - Nausea Status: Acute Assessment and Plan: patient reports she has not had appetite since her CVA CABG continues to have nausea vomiting whenever she attempts to eat with here about 2 months prior states it has not improved. CT abdomen showing no acute findings * consult GI for possible EGD in further evaluation. * antiemetics * added Carafate and PPI will for possible PUD/gastritis * IV fluids for gentle hydration Drop in H&H noted (3) Supratherapeutic INR: Code(s): R79.1 - Abnormal coagulation profile Status: Acute Assessment and Plan: patient's INR was 5.8 POA per records patient was previously on Coumadin but had transition to Xarelto 09/06 Xarelto on hold. Since H&H dropped will continue to hold Xarelto * daily INR/PT * monitor for any signs acute bleeding (4) Lactic acidosis: Code(s): E87.20 - Acidosis, unspecified Status: Acute Assessment and Plan: lactic 2.4 peaked at 2.7 and turning back to 2.5 could be secondary to dehydration or acute infection for UTI bicarb 17 * continue to trend * IV fluids * may need to add bicarb tablets does not improve (5) Dehydration: Code(s): E86.0 - Dehydration Status: Acute Assessment and Plan: Decreased PO intake for 2-3 weeks, potentially longer. Pt reporting decreased appetite since CABG/CVA in October 2023 * IV NS * Ensure supple ordered (6) Pressure injury: Code(s): L89.90 - Pressure ulcer of unspecified site, unspecified stage Status: Acute Assessment and Plan: patient with shear pressure was to decubitus, no open area to culture * wound consulted * foam dressing daily or when soiled * Q2hr turns * off load (7) History of stroke: Code(s): Z86.73 - Personal history of transient ischemic attack (TIA), and cerebral infarction without residual deficits Status: Acute Assessment and Plan: S/p CABG October 2023. Was in rehab until January 2024, now lives with daughter. LLE & LUE deficit weakness, 07/11. * previously on Coumadin now on Xarelto started 09/06 but currently holding due to super therapeutic * continue statin (8) Hypomagnesemia: Code(s): E83.42 - Hypomagnesemia Status: Acute Assessment and Plan: 1.4 in the ED, repleted with 2g * Trend mag with AM labs Added magnesium oxide daily (9) Hypertension: Code(s): I10 - Essential (primary) hypertension Status: Acute Assessment and Plan: * continued patient's hydralazine and carvedilol * BP per unit protocol (10) Acute UTI: Code(s): N39.0 - Urinary tract infection, site not specified Status: Acute Assessment and Plan: UA suspicious for urinary tract infection * IV ceftriaxone pending cultures and sensitivities * Blood cultures NGTD (11) Anemia: Code(s): D64.9 - Anemia, unspecified Status: Acute Assessment and Plan: Patient Hgb 10.0 POA down to 8.6 could be some from dilution IV fluids no evidence of current acute GIB but patient INR is supertheraputic. * Iron panel * Folic/B12/folate/ferritin * PPI * GI consulted * Trend H&H transfuse PRBC if Hgb <7.0 Will fluid recheck and monitor if you BT pending Plan Code status: Full code per patient DVT prophylaxis: SCD's holding Xarelto Stress ulcer prophylaxis: Protonix 40 daily PT/OT notes: PT/OT evaluation Disposition: patient admitted for further evaluation of generalized weakness medical, nausea and vomiting with eating and weight loss, supratherapeutic INR , and UTI. GI consulted for further evaluation and possible EGD monitor H&H. PT/OT evaluation for discharge planning needs. Subjective Date/time seen: 09/30/24 08:45 Interval history: No overnight events. Reports generalized weakness nausea and decreased appetite. Chart reviewed. UTI noted. CT abdomen pelvis without acute findings. Review of Systems Review of Systems: All systems reviewed & are unremarkable except as noted in HPI and below Exam Narrative: GENERAL: Elderly, well-nourished, and in no acute distress. HEAD: Normocephalic, atraumatic. EYES: PERRLA and EOMI. ENT: Nares clear, no rhinorrhea or epistaxis. Mucous membranes moist. NECK: Supple. No adenopathy or masses. CHEST: Clear to auscultation. No respiratory distress. No wheezes rales or rhonchi HEART: Regular rate and rhythm. No murmur heard. Normal peripheral pulses. ABDOMEN: Soft, nontender, nondistended, normal active bowel sounds. BACK: Stage 1 sacral decubitus ulcer without erythema or abnormal drainage EXTREMITIES: No edema. SKIN: Warm, dry, no rash. NEURO: Left sided weakness. Alert and oriented x3. PSYCH: Normal mood and affect Objective Data Vital Signs Vital Signs: Vital Signs - 24 hr 09/29/24 10:00 09/29/24 10:16 09/29/24 14:00 Temperature 98.1 F Pulse Rate 98 Respiratory Rate 16 Blood Pressure 145/88 H Pulse Oximetry 100 Oxygen Delivery Room Air Room Air 09/29/24 20:00 09/29/24 20:20 09/29/24 21:42 Temperature 98.7 F Pulse Rate 82 82 Respiratory Rate 16 Blood Pressure 105/45 L Pulse Oximetry 100 Oxygen Delivery Room Air 09/30/24 05:48 Temperature 98.1 F Pulse Rate 88 Respiratory Rate 18 Blood Pressure 141/69 H Pulse Oximetry 100 Oxygen Delivery Intake/Output Intake/Output: Intake & Output 09/27/24 09/28/24 09/29/24 09/30/24 23:59 23:59 23:59 23:59 Intake Total 550 2080 1050 Balance 550 2080 1050 Meds/Results Medications: Active Medications Generic Name Dose Route Start Last Admin Trade Name Freq PRN Reason Stop Dose Admin Acetaminophen 650 mg 09/28/24 23:11 09/29/24 06:22 Acetaminophen 325 Mg Tablet PO 650 mg Q4H PRN Administration Mild Pain (1-3) or Fever Hydrocodone Bitart/Acetaminophen 1 tab 09/29/24 08:52 Hydrocodone/Acetaminophen (*Crx) 5-325 Mg Tablet PO Q4H PRN Moderate Pain (4-6) Atorvastatin Calcium 10 mg 09/29/24 18:00 09/29/24 17:13 Atorvastatin 10 Mg Tablet PO 10 mg QPM RAJINDER Administration Carvedilol 6.25 mg 09/29/24 21:00 09/29/24 21:42 Carvedilol 6.25 Mg Tablet PO 6.25 mg Q12H RAJINDER Administration Cyproheptadine HCl 4 mg 09/29/24 14:55 Cyproheptadine Hcl 4 Mg Tablet PO BID PRN appetite Docusate Sodium 100 mg 09/30/24 09:00 Docusate Sodium 100 Mg Capsule PO DAILY RAJINDER Ezetimibe 10 mg 09/30/24 09:00 Ezetimibe 10 Mg Tablet PO DAILY RAJINDER Hydralazine HCl 25 mg 09/29/24 21:00 09/29/24 21:42 Hydralazine Hcl 25 Mg Tablet PO 25 mg Q12H RAJINDER Administration Hydroxyzine HCl 25 mg 09/29/24 17:00 09/29/24 17:13 Hydroxyzine Hcl 25 Mg Tablet PO 25 mg TID RAJINDER Administration Sodium Chloride 1,000 mls @ 125 mls/hr 09/28/24 23:15 09/30/24 06:11 Normal Saline Iv IV CONT 125 mls/hr .Q8H RAJINDER Administration Ceftriaxone Sodium 1 gm in 50 mls @ 100 mls/hr 09/29/24 21:00 09/29/24 22:17 Rocephin 1 Gm/Ns 50 Ml IVPB Infused Q24H RAJINDER Infusion Magnesium Citrate 150 ml 09/30/24 09:00 Magnesium Citrate 300 Ml Btl PO DAILY RAJINDER Magnesium Oxide 400 mg 09/30/24 09:00 Magnesium Oxide 400 Mg Tablet PO DAILY RAJINDER Megestrol Acetate 20 mg 09/29/24 16:30 09/30/24 06:08 Megestrol Acetate (*Chemo) 20 Mg Tablet PO 20 mg BIDAC RAJINDER Administration Mirtazapine 30 mg 09/30/24 09:00 Mirtazapine 30 Mg Tablet PO DAILY [facility] Multivitamins/Minerals 1 tablet 09/30/24 09:00 Multivits W-Fe,Min Chewable Tablet PO DAILY RAJINDER Ondansetron HCl 4 mg 09/29/24 08:52 Ondansetron Inj 4 Mg/2 Ml Vial IV PUSH Q6H PRN Nausea And Vomiting Pantoprazole Sodium 40 mg 09/30/24 09:00 Pantoprazole 40 Mg Tablet PO DAILY [facility] Potassium Chloride 20 meq 09/30/24 09:00 Potassium Chloride 20 Meq Er Tablet PO DAILY RAJINDER Sucralfate 1 gm 09/29/24 16:30 09/30/24 06:08 Sucralfate 1 Gm Tablet PO 1 gm ACHS RAJINDER Administration Tramadol HCl 50 mg 09/29/24 14:55 09/29/24 17:12 Tramadol Hcl (*Crx) 50 Mg Tablet PO 50 mg Q8H PRN Administration pain 7-10 Radiology Results: ITS Impressions Chest X-Ray 09/28/24 18:21 IMPRESSION: No focal infiltrate or effusion. Abdomen/Pelvis CT 09/28/24 22:03 IMPRESSION: No acute findings within the abdomen or pelvis, as detailed above. Labs Labs: Laboratory Results - last 24 hr 09/29/24 09/29/24 09/29/24 06:07 13:21 16:08 WBC RBC Hgb Hct MCV MCH MCHC RDW Plt Count MPV Immature Gran % (Auto) Neut % (Auto) Lymph % (Auto) [place] % (Auto) Eos % (Auto) Baso % (Auto) Lymph # (Auto) [place] # (Auto) Eos # (Auto) Baso # (Auto) Abs Immat Gran (auto) Absolute Neuts (auto) Absolute Nucleated RBC Nucleated RBC % PT INR Sodium Potassium Chloride Carbon Dioxide Anion Gap BUN Creatinine Estim Creat Clear Calc Estimated GFR Glucose Lactic Acid 2.5 H 1.9 Calcium Magnesium 1.4 L Iron TIBC % Saturation Ferritin Total Bilirubin AST ALT Alkaline Phosphatase Total Protein Albumin Vitamin B12 Folate 09/30/24 05:25 WBC 6.0 RBC 2.41 L Hgb 7.3 L Hct 21.0 L MCV 87.1 MCH 30.3 MCHC 34.8 RDW 21.3 H Plt Count 116 L MPV 9.3 Immature Gran % (Auto) 0.5 Neut % (Auto) 51.3 Lymph % (Auto) 40.1 [place] % (Auto) 6.9 Eos % (Auto) 1.0 Baso % (Auto) 0.2 Lymph # (Auto) 2.39 [place] # (Auto) 0.4 Eos # (Auto) 0.1 Baso # (Auto) 0.0 Abs Immat Gran (auto) 0.03 Absolute Neuts (auto) 3.1 Absolute Nucleated RBC 0.000 Nucleated RBC % 0.0 PT 25.5 H D INR 2.4 Sodium 137 Potassium 3.0 L Chloride 117 H Carbon Dioxide 17 L Anion Gap 3 L BUN 10 Creatinine 0.62 L Estim Creat Clear Calc 67 Estimated GFR > 60 Glucose 85 Lactic Acid Calcium 7.4 L Magnesium 1.7 Iron 54 TIBC 78 L % Saturation 69 H Ferritin 912.00 H Total Bilirubin 0.8 AST 33 ALT 21 Alkaline Phosphatase 55 Total Protein 4.4 L Albumin 1.6 L Vitamin B12 919.0 Folate 3.6
[2024-09-30] MEDS: POTASSIUM CHLORIDE 20 MEQ ER TABLET 40 MEQ PO (09:30)
[2024-09-30] MEDS: MULTIVITS W-FE,MIN CHEWABLE TABLET 1 TABLET PO (09:30)
[2024-09-30] MEDS: MAGNESIUM OXIDE 400 MG TABLET PO (09:30)
[2024-09-30] MEDS: PANTOPRAZOLE 40 MG TABLET PO (09:30)
[2024-09-30 09:31] VITALS: PULSE 90
[2024-09-30] MEDS: carvediloL 6.25 MG TABLET PO ×2 (09:31→20:34)
[2024-09-30] MEDS: hydrALAZINE HCL 25 MG TABLET PO ×2 (09:31→20:34)
[2024-09-30] MEDS: EZETIMIBE 10 MG TABLET PO (09:31)
[2024-09-30] MEDS: DOCUSATE SODIUM 100 MG CAPSULE PO (09:31)
[2024-09-30] MEDS: MIRTAZAPINE 30 MG TABLET PO (09:32)
[2024-09-30] MEDS: POTASSIUM CHLORIDE 20 MEQ ER TABLET PO (09:36)
[2024-09-30] MEDS: hydrOXYzine HCL 25 MG TABLET PO ×2 (09:36→14:02)
[2024-09-30] MEDS: MAGNESIUM CITRATE 300 ML BTL 150 ML PO (09:37)
[2024-09-30 14:00] VITALS: BP 110/56; PULSE 90; RESP 14; TEMP 36.5; O2SAT 100
[2024-09-30 20:18] VITALS: BP 120/55; PULSE 88; RESP 16; TEMP 36.4; O2SAT 100
[2024-09-30 20:34] VITALS: PULSE 85
[2024-09-30] MEDS: CEPHALEXIN 500 MG CAPSULE PO (20:34)
[2024-09-30] MEDS: traMADol HCL (*CRX) 50 MG TABLET PO (20:35)
[2024-10-01 05:38] VITALS: BP 121/57; PULSE 89; RESP 16; TEMP 36.1; O2SAT 100
[2024-10-01] MEDS: MEGESTROL ACETATE (*CHEMO) 20 MG TABLET PO ×2 (06:32→17:54)
[2024-10-01] MEDS: SUCRALFATE 1 GM TABLET PO ×4 (06:32→21:27)
[2024-10-01 07:04] LABS: Basophils Percent Auto 0.2 % (0.2-1.2); Eosinophils Percent Auto 0.5 % (0-4.4); Hemoglobin 7.2 g/dL (12.0-15.0); Immature Granulocyte Absolute 0.01 K/mm3 (0.00-0.031); Immature Granulocyte Percent A 0.2 % (0-0.5); Lymphocytes Absolute Auto 2.37 K/mm3 (0.9-3.2); Lymphocytes Percent Auto 43.4 % (18.3-44.2); Mean Corpuscular HGB Conc 35.1 g/dl (32-36); Mean Corpuscular Hemoglobin 30.5 pg (26-34); Mean Corpuscular Volume 86.9 fl (80-100); Mean Platelet Volume 9.6 fl (7.4-10.4); Monocytes Absolute Auto 0.4 K/mm3 (0.1-0.6); Monocytes Percent Auto 7.1 % (2.6-8.5); Neutrophils Absolute Auto 2.7 K/mm3 (1.3-6.7); Neutrophils Percent Auto 48.6 % (45.5-73.1); Platelet Count Result 101 k/mm3 (150-375); Red Blood Count 2.36 M/mm3 (4.2-5.4); Red Cell Distribution Width 21.4 % (11.5-14.5); White Blood Count 5.5 K/mm3 (4.5-10.0)
[2024-10-01 07:16] LABS: INR 1.6
[2024-10-01 07:17] LABS: Hematocrit 20.5 % (37.0-47.0)
[2024-10-01 07:22] LABS: Alanine Aminotransferase 18 U/L (6-35); Albumin Level 1.5 g/dL (3.5-5.1); Alkaline Phosphatase 56 U/L (38-126); Anion Gap 3 mmol/L (4-12); Aspartate Amino Transferase 26 U/L (14-36); Bilirubin,Total 0.8 mg/dL (0.2-1.3); Blood Urea Nitrogen 7 mg/dL (7-17); Calcium 7.4 mg/dL (8.4-10.2); Carbon Dioxide 18 mmol/L (22-30); Chloride 114 mmol/L (98-107); Estimated CRCL calculation 73 ml/min; Estimated Glomerular Filt Rate > 60; Glucose 73 mg/dL (65-110); Magnesium 1.6 mg/dL (1.6-2.3); Potassium 2.6 mmol/L (3.4-5.0); Sodium 135 mmol/L (137-145); Total Protein 4.1 g/dL (6.3-8.2)
[2024-10-01 08:00] VITALS: PULSE 89; RESP 16; O2SAT 100
--- NOTE | 2024-10-01 08:56 | P.PNIM_ITS ---
Progress Note: A&P Assessment and Plan (1) Generalized weakness: Code(s): R53.1 - Weakness Status: Acute Assessment and Plan: patient with recent hospitalization August of 2024 for generalized weakness including nausea vomiting diarrhea patient reports poor appetite since previous CVA and CABG. Patient states baseline she can pivot from wheelchair to bed currently unable to do so and is require mahesh lift. Could also be secondary to possible UTI. * continued appetite stimulants * PT/OT nutritional/dietitian consult ordered continue to work with PT/OT (2) Nauseous: Code(s): R11.0 - Nausea Status: Acute Assessment and Plan: patient reports she has not had appetite since her CVA CABG continues to have nausea vomiting whenever she attempts to eat with here about 2 months prior states it has not improved. CT abdomen showing no acute findings * consult GI for possible EGD in further evaluation. * antiemetics * added Carafate and PPI will for possible PUD/gastritis * IV fluids for gentle hydration Drop in H&H noted stable this am (3) Supratherapeutic INR: Code(s): R79.1 - Abnormal coagulation profile Status: Acute Assessment and Plan: patient's INR was 5.8 POA per records patient was previously on Coumadin but had transition to Xarelto 09/06 Xarelto on hold. Since H&H dropped will continue to hold Xarelto * daily INR/PT * monitor for any signs acute bleeding (4) Lactic acidosis: Code(s): E87.20 - Acidosis, unspecified Status: Acute Assessment and Plan: lactic 2.4 peaked at 2.7 and turning back to 2.5 could be secondary to dehydration or acute infection for UTI bicarb 17 * continue to trend * IV fluids * may need to add bicarb tablets does not improve trend daily labs bicarb 18 this am (5) Dehydration: Code(s): E86.0 - Dehydration Status: Acute Assessment and Plan: Decreased PO intake for 2-3 weeks, potentially longer. Pt reporting decreased appetite since CABG/CVA in October 2023 * IV NS * Ensure supple ordered diet./nutrit consult ordered (6) Pressure injury: Code(s): L89.90 - Pressure ulcer of unspecified site, unspecified stage Status: Acute Assessment and Plan: patient with shear pressure was to decubitus, no open area to culture * wound consulted * foam dressing daily or when soiled * Q2hr turns * off load (7) History of stroke: Code(s): Z86.73 - Personal history of transient ischemic attack (TIA), and cerebral infarction without residual deficits Status: Acute Assessment and Plan: S/p CABG October 2023. Was in rehab until January 2024, now lives with daughter. JIMYM & LUE deficit weakness, 07/11. * previously on Coumadin now on Xarelto started 09/06 but currently holding due to super therapeutic * continue statin (8) Hypomagnesemia: Code(s): E83.42 - Hypomagnesemia Status: Acute Assessment and Plan: 1.4 in the ED, repleted with 2g * Trend mag with AM labs Added magnesium oxide daily (9) Hypertension: Code(s): I10 - Essential (primary) hypertension Status: Acute Assessment and Plan: * continued patient's hydralazine and carvedilol * BP per unit protocol (10) Acute UTI: Code(s): N39.0 - Urinary tract infection, site not specified Status: Acute Assessment and Plan: UA suspicious for urinary tract infection * IV ceftriaxone pending cultures and sensitivities * Blood cultures NGTD (11) Anemia: Code(s): D64.9 - Anemia, unspecified Status: Acute Assessment and Plan: Patient Hgb 10.0 POA down to 8.6 could be some from dilution IV fluids no evidence of current acute GIB but patient INR is supertheraputic. * Iron panel * Folic/B12/folate/ferritin * PPI * GI consulted * Trend H&H transfuse PRBC if Hgb <7.0 Will fluid recheck and monitor if you BT pending hg/hct 7.2/20.5 gi is following no s/s of acute bleeding continue protonix Plan Code status: Full code per patient DVT prophylaxis: SCD's holding Xarelto Stress ulcer prophylaxis: Protonix 40 daily PT/OT notes: PT/OT evaluation Disposition: patient admitted for further evaluation of generalized weakness medical, nausea and vomiting with eating and weight loss, supratherapeutic INR, and UTI. GI consulted for further evaluation and possible EGD monitor H&H. PT/OT evaluation for discharge planning needs. Time Spent With Patient Time with patient: 25 - 35 minutes Subjective Date/time seen: 10/01/24 08:56 Interval history: Patient is a 68-year-old female admitted for loss of appetite, n/v. She had a previous CVA CABG back in July of 2024 and ever since then her appetite has not returned. Patient recently hospitalized 08/2024 for the same reason, was started on Megace but reports she has had no improvement since discharge. In the ED: patient's labs showing anemia stable at 10.0 however INR was 5.8 is reported patient was previously on Coumadin and recently switched to Xarelto no current evidence of bleeding denied any blood in stool or sputum. patient with lactic acidosis 2.4 in UA suspicious for UTI. CT abdomen no acute findings, CXR with no focal infiltrate or effusions. Patient was admitted to the medical unit for further evaluation for generalized weakness, lactic acidosis, UTI, hyper coag ability state, and N/V/D. Assuming care today. Noted that hg/hct dropped. GI is following with pt. She is c/o generalized weakness, still nauseated, decreased appetite. Pt is being treated for UTI CT abdomen pelvis without acute findings. Nutritional consult ordered. pt is alert, pleasant, reports no nausea this morning. Review of Systems Review of Systems: All systems reviewed & are unremarkable except as noted in HPI and below Exam Narrative: GENERAL: Elderly, well-nourished, and in no acute distress. HEAD: Normocephalic, atraumatic. EYES: PERRLA and EOMI. ENT: Nares clear, no rhinorrhea or epistaxis. Mucous membranes moist. NECK: Supple. No adenopathy or masses. CHEST: Clear to auscultation. No respiratory distress. No wheezes rales or rhonchi HEART: Regular rate and rhythm. No murmur heard. Normal peripheral pulses. ABDOMEN: Soft, nontender, nondistended, normal active bowel sounds. BACK: Stage 1 sacral decubitus ulcer without erythema or abnormal drainage EXTREMITIES: No edema. SKIN: Warm, dry, no rash. NEURO: Left sided weakness. Alert and oriented x3. PSYCH: Normal mood and affect Const: General: comfortable and no acute distress HENMT: Face/Nose/Sinus: Normal nares present Mouth: Yes dry mucous membranes Eyes: General: appearance normal, both eyes and all related structures Sclera: sclerae normal Pupils: Equal, round and reactive pupils present EOM: EOMs intact bilaterally Neck: Neck: supple and no JVD Carotids: no bruits Resp: Effort & Inspection: normal respiratory effort Auscultation: clear to auscultation bilaterally Cardio: Rate: regular rate Rhythm: regular rhythm GI: Auscultation: abnormal bowel sounds (hyperactive) : General: Yes bladder normal to palpation Bimanual exam- vagina & uterus: bladder normal to palpation Skin: General skin exam: normal color, no rashes or lesions noted and wounds noted Wounds: wounds noted Other: Coccyx pressure wound Neuro: Cranial nerves: Yes Equal, round and reactive pupils present Speech: normal speech Sensory Exam: normal sensation Other: A&O x4. LUE & LLE motor deficits due to prior CVA, limited strength, 4/5 Extrem: General: normal to inspection Psych: Mental Status: mental status grossly normal Affect: normal affect Other: the patient does report intermittent memory loss since CVA Objective Data Vital Signs Vital Signs: Vital Signs - 24 hr 09/30/24 09:31 09/30/24 14:00 09/30/24 20:00 Temperature 97.7 F Pulse Rate 90 90 Respiratory Rate 14 Blood Pressure 110/56 L Pulse Oximetry 100 Oxygen Delivery Room Air 09/30/24 20:18 09/30/24 20:34 10/01/24 05:38 Temperature 97.6 F 96.9 F L Pulse Rate 88 85 89 Respiratory Rate 16 16 Blood Pressure 120/55 L 121/57 L Pulse Oximetry 100 100 Oxygen Delivery Intake/Output Intake/Output: Intake & Output 09/28/24 09/29/24 09/30/24 10/01/24 23:59 23:59 23:59 23:59 Intake Total 550 2080 1050 Output Total 250 Balance 550 2080 1050 -250 Meds/Results Medications: Active Medications Generic Name Dose Route Start Last Admin Trade Name Freq PRN Reason Stop Dose Admin Acetaminophen 650 mg 09/28/24 23:11 09/29/24 06:22 Acetaminophen 325 Mg Tablet PO 650 mg Q4H PRN Administration Mild Pain (1-3) or Fever Hydrocodone Bitart/Acetaminophen 1 tab 09/29/24 08:52 Hydrocodone/Acetaminophen (*Crx) 5-325 Mg Tablet PO Q4H PRN Moderate Pain (4-6) Atorvastatin Calcium 10 mg 09/29/24 18:00 09/30/24 18:24 Atorvastatin 10 Mg Tablet PO Not Given QPM RAJINDER Carvedilol 6.25 mg 09/29/24 21:00 09/30/24 20:34 Carvedilol 6.25 Mg Tablet PO 6.25 mg Q12H RAJINDER Administration Cephalexin HCl 500 mg 09/30/24 21:00 09/30/24 20:34 Cephalexin 500 Mg Capsule PO 10/05/24 09:01 500 mg Q12HR RAJINDER Administration Cyproheptadine HCl 4 mg 09/29/24 14:55 Cyproheptadine Hcl 4 Mg Tablet PO BID PRN appetite Docusate Sodium 100 mg 09/30/24 09:00 09/30/24 09:31 Docusate Sodium 100 Mg Capsule PO 100 mg DAILY RAJINDER Administration Ezetimibe 10 mg 09/30/24 09:00 09/30/24 09:31 Ezetimibe 10 Mg Tablet PO 10 mg DAILY RAJINDER Administration Hydralazine HCl 25 mg 09/29/24 21:00 09/30/24 20:34 Hydralazine Hcl 25 Mg Tablet PO 25 mg Q12H RAJINDER Administration Hydroxyzine HCl 25 mg 09/29/24 17:00 09/30/24 18:23 Hydroxyzine Hcl 25 Mg Tablet PO Not Given TID RAJINDER Magnesium Citrate 150 ml 09/30/24 09:00 09/30/24 09:37 Magnesium Citrate 300 Ml Btl PO 150 ml DAILY RAJINDER Administration Magnesium Oxide 400 mg 09/30/24 09:00 09/30/24 09:30 Magnesium Oxide 400 Mg Tablet PO 400 mg DAILY RAJINDER Administration Megestrol Acetate 20 mg 09/29/24 16:30 10/01/24 06:32 Megestrol Acetate (*Chemo) 20 Mg Tablet PO 20 mg BIDAC RAJINDER Administration Mirtazapine 30 mg 09/30/24 09:00 09/30/24 09:32 Mirtazapine 30 Mg Tablet PO 30 mg DAILY RAJINDER Administration Multivitamins/Minerals 1 tablet 09/30/24 09:00 09/30/24 09:30 Multivits W-Fe,Min Chewable Tablet PO 1 tablet DAILY RAJINDER Administration Ondansetron HCl 4 mg 09/29/24 08:52 Ondansetron Inj 4 Mg/2 Ml Vial IV PUSH Q6H PRN Nausea And Vomiting Pantoprazole Sodium 40 mg 09/30/24 09:00 09/30/24 09:30 Pantoprazole 40 Mg Tablet PO 40 mg DAILY [facility] Administration Potassium Chloride 20 meq 09/30/24 09:00 09/30/24 09:36 Potassium Chloride 20 Meq Er Tablet PO 20 meq DAILY RAJINDER Administration Sucralfate 1 gm 09/29/24 16:30 10/01/24 06:32 Sucralfate 1 Gm Tablet PO 1 gm ACHS RAJINDER Administration Tramadol HCl 50 mg 09/29/24 14:55 09/30/24 20:35 Tramadol Hcl (*Crx) 50 Mg Tablet PO 50 mg Q8H PRN Administration pain 7-10 Radiology Results: ITS Impressions Chest X-Ray 09/28/24 18:21 IMPRESSION: No focal infiltrate or effusion. Abdomen/Pelvis CT 09/28/24 22:03 IMPRESSION: No acute findings within the abdomen or pelvis, as detailed above. Labs Labs: Laboratory Results - last 24 hr 10/01/24 05:57 WBC 5.5 RBC 2.36 L Hgb 7.2 L Hct 20.5 L* MCV 86.9 MCH 30.5 MCHC 35.1 RDW 21.4 H Plt Count 101 L MPV 9.6 Immature Gran % (Auto) 0.2 Neut % (Auto) 48.6 Lymph % (Auto) 43.4 [place] % (Auto) 7.1 Eos % (Auto) 0.5 Baso % (Auto) 0.2 Lymph # (Auto) 2.37 [place] # (Auto) 0.4 Eos # (Auto) 0.0 Baso # (Auto) 0.0 Abs Immat Gran (auto) 0.01 Absolute Neuts (auto) 2.7 Absolute Nucleated RBC 0.000 Nucleated RBC % 0.0 PT 19.0 H D INR 1.6 Sodium 135 L Potassium 2.6 L* Chloride 114 H Carbon Dioxide 18 L Anion Gap 3 L BUN 7 Creatinine 0.56 L Estim Creat Clear Calc 73 Estimated GFR > 60 Glucose 73 Calcium 7.4 L Magnesium 1.6 Total Bilirubin 0.8 AST 26 ALT 18 Alkaline Phosphatase 56 Total Protein 4.1 L Albumin 1.5 L
[2024-10-01] MEDS: EZETIMIBE 10 MG TABLET PO (09:28)
[2024-10-01] MEDS: carvediloL 6.25 MG TABLET PO ×2 (09:28→21:27)
[2024-10-01] MEDS: MULTIVITS W-FE,MIN CHEWABLE TABLET 1 TABLET PO (09:28)
[2024-10-01] MEDS: CEPHALEXIN 500 MG CAPSULE PO ×2 (09:28→21:27)
[2024-10-01] MEDS: POTASSIUM CHLORIDE 20 MEQ ER TABLET PO (09:28)
[2024-10-01] MEDS: MIRTAZAPINE 30 MG TABLET PO (09:28)
[2024-10-01] MEDS: PANTOPRAZOLE 40 MG TABLET PO (09:29)
[2024-10-01] MEDS: MAGNESIUM OXIDE 400 MG TABLET PO (09:29)
[2024-10-01] MEDS: DOCUSATE SODIUM 100 MG CAPSULE PO (09:29)
[2024-10-01] MEDS: hydrALAZINE HCL 25 MG TABLET PO ×2 (09:29→21:27)
[2024-10-01] MEDS: hydrOXYzine HCL 25 MG TABLET PO ×3 (09:33→17:54)
[2024-10-01] MEDS: POTASSIUM CHLORIDE INJ 40 MEQ in SODIUM CHLORIDE 0.9% IV 500 ML 130 MEQ IVPB (11:17)
[2024-10-01 11:28] VITALS: O2SAT 100
[2024-10-01 11:53] VITALS: BMI 22.9
[2024-10-01 13:19] LABS: Red Blood Cell Folate 790 ng/mL RBC (>280)
[2024-10-01 14:00] VITALS: BP 108/65; PULSE 85; RESP 16; TEMP 36.2; O2SAT 100
[2024-10-01] MEDS: ATORVASTATIN 10 MG TABLET PO (17:54)
[2024-10-01] MEDS: traMADol HCL (*CRX) 50 MG TABLET PO (17:56)
[2024-10-01 20:55] VITALS: BP 120/69; PULSE 95; RESP 16; TEMP 36.2; O2SAT 100
[2024-10-01 21:06] VITALS: O2SAT 100
[2024-10-01 22:19] LABS: Potassium 3.2 mmol/L (3.4-5.0)
[2024-10-02] MEDS: MEGESTROL ACETATE (*CHEMO) 20 MG TABLET PO ×2 (05:39→16:35)
[2024-10-02] MEDS: SUCRALFATE 1 GM TABLET PO ×4 (05:39→21:31)
[2024-10-02 05:54] VITALS: BP 125/66; PULSE 92; RESP 16; TEMP 37.7; O2SAT 99
--- NOTE | 2024-10-02 07:02 | P.PNIM_ITS ---
Progress Note: A&P Assessment and Plan (1) Generalized weakness: Code(s): R53.1 - Weakness Status: Acute Assessment and Plan: Patient with recent hospitalization August of 2024 for generalized weakness including nausea vomiting diarrhea patient reports poor appetite since previous CVA and CABG. Patient states baseline she can pivot from wheelchair to bed currently unable to do so and is require mahesh lift. Could also be secondary to possible UTI. * continued appetite stimulants * nutritional/dietitian consult ordered * continue to work with PT/OT * PT does not qualify for SNF, but is already on home health so will d/c to home w/ home health once appropriate (2) Nauseous: Code(s): R11.0 - Nausea Status: Acute Assessment and Plan: Patient reports she has not had appetite since her CVA CABG continues to have nausea vomiting whenever she attempts to eat with here about 2 months prior states it has not improved. CT abdomen showing no acute findings * consult GI for possible EGD in further evaluation. * antiemetics * added Carafate and PPI will for possible PUD/gastritis * IV fluids for gentle hydration * Stable (3) Supratherapeutic INR: Code(s): R79.1 - Abnormal coagulation profile Status: Acute Assessment and Plan: patient's INR was 5.8 POA per records patient was previously on Coumadin but had transition to Xarelto 09/06 Xarelto on hold. Since H&H dropped will continue to hold Xarelto * daily INR/PT * monitor for any signs acute bleeding (4) Lactic acidosis: Code(s): E87.20 - Acidosis, unspecified Status: Acute Assessment and Plan: lactic 2.4 peaked at 2.7 and turning back to 2.5 could be secondary to dehydration or acute infection for UTI bicarb 17 * Continue to trend * IV fluids * May need to add bicarb tablets does not improve * trend daily labs * Lactic Acid on 09/29 * Bicarb 13 - Will obtain ABG (5) Dehydration: Code(s): E86.0 - Dehydration Status: Acute Assessment and Plan: Decreased PO intake for 2-3 weeks, potentially longer. Pt reporting decreased appetite since CABG/CVA in October 2023 * IV NS * Ensure supple ordered * Nutrional consult ordered (6) Pressure injury: Code(s): L89.90 - Pressure ulcer of unspecified site, unspecified stage Status: Acute Assessment and Plan: patient with shear pressure was to decubitus, no open area to culture * Wound consulted * Foam dressing daily or when soiled * Q2hr turns * Off load - regular turns (7) History of stroke: Code(s): Z86.73 - Personal history of transient ischemic attack (TIA), and cerebral infarction without residual deficits Status: Acute Assessment and Plan: S/p CABG October 2023. Was in rehab until January 2024, now lives with daughter. LLE & LUE deficit weakness, 07/11. * previously on Coumadin now on Xarelto started 09/06 but currently holding due to super therapeutic * continue statin (8) Hypomagnesemia: Code(s): E83.42 - Hypomagnesemia Status: Acute Assessment and Plan: 1.4 in the ED, repleted with 2g * Trend mag with AM labs * Added magnesium oxide daily * 10/02: 1.8 (9) Hypertension: Code(s): I10 - Essential (primary) hypertension Status: Acute Assessment and Plan: * continued patient's hydralazine and carvedilol * BP per unit protocol (10) Acute UTI: Code(s): N39.0 - Urinary tract infection, site not specified Status: Acute Assessment and Plan: UA suspicious for urinary tract infection * IV ceftriaxone pending cultures and sensitivities * Blood cultures NGTD (11) Anemia: Code(s): D64.9 - Anemia, unspecified Status: Acute Assessment and Plan: Patient Hgb 10.0 POA down to 8.6 could be some from dilution IV fluids no evidence of current acute GIB but patient INR is supertheraputic. * Iron panel * Folic/B12/folate/ferritin * PPI * GI consulted * Trend H&H transfuse PRBC if Hgb <7.0 * 10/02: Hgb 8.4 * no s/s of acute bleeding * continue protonix Plan Code status: Full code per patient DVT prophylaxis: SCD's holding Xarelto Stress ulcer prophylaxis: Protonix 40 daily PT/OT notes: PT/OT evaluation Disposition: patient admitted for further evaluation of generalized weakness medical, nausea and vomiting with eating and weight loss, supratherapeutic INR, and UTI. GI consulted for further evaluation and possible EGD monitor H&H. PT/OT evaluation for discharge planning needs. Subjective Date/time seen: 10/02/24 07:02 Interval history: Patient is a 68-year-old female admitted for loss of appetite, n/v. She had a previous CVA CABG back in July of 2024 and ever since then her appetite has not returned. Patient recently hospitalized 08/2024 for the same reason, was started on Megace but reports she has had no improvement since discharge. In the ED: patient's labs showing anemia stable at 10.0 however INR was 5.8 is reported patient was previously on Coumadin and recently switched to Xarelto no current evidence of bleeding denied any blood in stool or sputum. patient with lactic acidosis 2.4 in UA suspicious for UTI. CT abdomen no acute findings, CXR with no focal infiltrate or effusions. Patient was admitted to the medical unit for further evaluation for generalized weakness, lactic acidosis, UTI, hyper coag ability state, and N/V/D. 10/02/2024 Assuming care today. Pt denies any chest pain, shortness of breath, n/v or abdominal pain today. Still endorses some generalized weakness but states she feels better today than previous days. Albumin remains very low, 1.6. Fairly consistent with previous measurements, likely secondary to extended calorie deficit. Will give Albumin 25 infusion. CO2 also low, 13 today, down from 18 yesterday. Normal anion gap. Will obtain ABG to assess for met acidosis, low likelihood of PE given lack of sob, tachypnea, CP. Will continue to monitor, give infusion, check ABG will hopeful discharge tomorrow. Review of Systems Review of Systems: All systems reviewed & are unremarkable except as noted in HPI and below Gastrointestinal: Gastrointestinal: Reports diarrhea, Reports nausea and Reports vomiting Exam Narrative: GENERAL: Elderly, well-nourished, and in no acute distress. HEAD: Normocephalic, atraumatic. EYES: PERRLA and EOMI. ENT: Nares clear, no rhinorrhea or epistaxis. Mucous membranes moist. NECK: Supple. No adenopathy or masses. CHEST: Clear to auscultation. No respiratory distress. No wheezes rales or rhonchi HEART: Regular rate and rhythm. No murmur heard. Normal peripheral pulses. ABDOMEN: Soft, nontender, nondistended, normal active bowel sounds. BACK: Stage 1 sacral decubitus ulcer without erythema or abnormal drainage EXTREMITIES: No edema. SKIN: Warm, dry, no rash. NEURO: Left sided weakness. Alert and oriented x3. PSYCH: Normal mood and affect Const: General: comfortable and no acute distress Other: elderly female looks older than stated age chronically ill HENMT: Face/Nose/Sinus: Normal nares present Mouth: Yes dry mucous membranes Eyes: General: appearance normal, both eyes and all related structures Sclera: sclerae normal Pupils: Equal, round and reactive pupils present EOM: EOMs intact bilaterally Neck: Neck: supple and no JVD Carotids: no bruits Resp: Effort & Inspection: normal respiratory effort Auscultation: clear to auscultation bilaterally Cardio: Rate: regular rate Rhythm: regular rhythm GI: Auscultation: abnormal bowel sounds (hyperactive) : General: Yes bladder normal to palpation Bimanual exam- vagina & uterus: bladder normal to palpation Skin: General skin exam: normal color, no rashes or lesions noted and wounds noted Wounds: wounds noted Other: Coccyx pressure wound Neuro: Cranial nerves: Yes Equal, round and reactive pupils present Speech: normal speech Sensory Exam: normal sensation Other: A&O x4. LUE & LLE motor deficits due to prior CVA, limited strength, 4/5 Extrem: General: normal to inspection Psych: Mental Status: mental status grossly normal Affect: normal affect Other: the patient does report intermittent memory loss since CVA Objective Data Vital Signs Vital Signs: Vital Signs - 24 hr 10/01/24 08:00 10/01/24 11:28 10/01/24 14:00 Temperature 97.1 F L Pulse Rate 89 85 Respiratory Rate 16 16 Blood Pressure 108/65 Pulse Oximetry 100 100 100 Oxygen Delivery Room Air Room Air 10/01/24 20:55 10/01/24 21:06 10/02/24 05:54 Temperature 97.1 F L 99.8 F H Pulse Rate 95 92 Respiratory Rate 16 16 Blood Pressure 120/69 125/66 Pulse Oximetry 100 100 99 Oxygen Delivery Room Air Intake/Output Intake/Output: Intake & Output 09/29/24 09/30/24 10/01/24 10/02/24 23:59 23:59 23:59 23:59 Intake Total 2079 1050 333 Output Total 350 200 Balance 2079 1050 -17 -200 Meds/Results Medications: Active Medications Generic Name Dose Route Start Last Admin Trade Name Freq PRN Reason Stop Dose Admin Acetaminophen 650 mg 09/28/24 23:11 09/29/24 06:22 Acetaminophen 325 Mg Tablet PO 650 mg Q4H PRN Administration Mild Pain (1-3) or Fever Hydrocodone Bitart/Acetaminophen 1 tab 09/29/24 08:52 Hydrocodone/Acetaminophen (*Crx) 5-325 Mg Tablet PO Q4H PRN Moderate Pain (4-6) Atorvastatin Calcium 10 mg 09/29/24 18:00 10/01/24 17:54 Atorvastatin 10 Mg Tablet PO 10 mg QPM RAJINDER Administration Carvedilol 6.25 mg 09/29/24 21:00 10/01/24 21:27 Carvedilol 6.25 Mg Tablet PO 6.25 mg Q12H RAJINDER Administration Cephalexin HCl 500 mg 09/30/24 21:00 10/01/24 21:27 Cephalexin 500 Mg Capsule PO 10/05/24 09:01 500 mg Q12HR RAJINDER Administration Cyproheptadine HCl 4 mg 09/29/24 14:55 Cyproheptadine Hcl 4 Mg Tablet PO BID PRN appetite Docusate Sodium 100 mg 09/30/24 09:00 10/01/24 09:29 Docusate Sodium 100 Mg Capsule PO 100 mg DAILY RAJINDER Administration Ezetimibe 10 mg 09/30/24 09:00 10/01/24 09:28 Ezetimibe 10 Mg Tablet PO 10 mg DAILY RAJINEDR Administration Hydralazine HCl 25 mg 09/29/24 21:00 10/01/24 21:27 Hydralazine Hcl 25 Mg Tablet PO 25 mg Q12H RAJINDER Administration Hydroxyzine HCl 25 mg 09/29/24 17:00 10/01/24 17:54 Hydroxyzine Hcl 25 Mg Tablet PO 25 mg TID RAJINDER Administration Magnesium Citrate 150 ml 09/30/24 09:00 10/01/24 09:35 Magnesium Citrate 300 Ml Btl PO Not Given DAILY RAJINDER Magnesium Oxide 400 mg 09/30/24 09:00 10/01/24 09:29 Magnesium Oxide 400 Mg Tablet PO 400 mg DAILY RAJINDER Administration Megestrol Acetate 20 mg 09/29/24 16:30 10/02/24 05:39 Megestrol Acetate (*Chemo) 20 Mg Tablet PO 20 mg BIDAC RAJINDER Administration Mirtazapine 30 mg 09/30/24 09:00 10/01/24 09:28 Mirtazapine 30 Mg Tablet PO 30 mg DAILY RAJINDER Administration Multivitamins/Minerals 1 tablet 09/30/24 09:00 10/01/24 09:28 Multivits W-Fe,Min Chewable Tablet PO 1 tablet DAILY RAJINDER Administration Ondansetron HCl 4 mg 09/29/24 08:52 Ondansetron Inj 4 Mg/2 Ml Vial IV PUSH Q6H PRN Nausea And Vomiting Pantoprazole Sodium 40 mg 09/30/24 09:00 10/01/24 09:29 Pantoprazole 40 Mg Tablet PO 40 mg DAILY RAJINDER Administration Potassium Chloride 20 meq 09/30/24 09:00 10/01/24 09:28 Potassium Chloride 20 Meq Er Tablet PO 20 meq DAILY RAJINDER Administration Sucralfate 1 gm 09/29/24 16:30 10/02/24 05:39 Sucralfate 1 Gm Tablet PO 1 gm ACHS RAJINDER Administration Tramadol HCl 50 mg 09/29/24 14:55 10/01/24 17:56 Tramadol Hcl (*Crx) 50 Mg Tablet PO 50 mg Q8H PRN Administration pain 7-10 Radiology Results: ITS Impressions Chest X-Ray 09/28/24 18:21 IMPRESSION: No focal infiltrate or effusion. Abdomen/Pelvis CT 09/28/24 22:03 IMPRESSION: No acute findings within the abdomen or pelvis, as detailed above. Labs Labs: Laboratory Results - last 24 hr 09/29/24 10/01/24 10/01/24 16:20 05:57 21:45 WBC 5.5 RBC 2.36 L Hgb 7.2 L Hct 20.5 L* MCV 86.9 MCH 30.5 MCHC 35.1 RDW 21.4 H Plt Count 101 L MPV 9.6 Immature Gran % (Auto) 0.2 Neut % (Auto) 48.6 Lymph % (Auto) 43.4 [place] % (Auto) 7.1 Eos % (Auto) 0.5 Baso % (Auto) 0.2 Lymph # (Auto) 2.37 [place] # (Auto) 0.4 Eos # (Auto) 0.0 Baso # (Auto) 0.0 Abs Immat Gran (auto) 0.01 Absolute Neuts (auto) 2.7 Absolute Nucleated RBC 0.000 Nucleated RBC % 0.0 PT 19.0 H D INR 1.6 Sodium 135 L Potassium 2.6 L* 3.2 L Chloride 114 H Carbon Dioxide 18 L Anion Gap 3 L BUN 7 Creatinine 0.56 L Estim Creat Clear Calc 73 Estimated GFR > 60 Glucose 73 Calcium 7.4 L Magnesium 1.6 Total Bilirubin 0.8 AST 26 ALT 18 Alkaline Phosphatase 56 Total Protein 4.1 L Albumin 1.5 L RBC Folate 790 Quality VTE Prophylaxis VTE prophylaxis: mechanical ordered
[2024-10-02 07:43] LABS: INR 1.3; Prothrombin Time 16.3 Seconds (11.1-14.7)
[2024-10-02 08:00] VITALS: O2SAT 99
[2024-10-02 08:16] LABS: Alanine Aminotransferase 18 U/L (6-35); Albumin Level 1.6 g/dL (3.5-5.1); Alkaline Phosphatase 78 U/L (38-126); Anion Gap 5 mmol/L (4-12); Aspartate Amino Transferase 38 U/L (14-36); Bilirubin,Total 1.1 mg/dL (0.2-1.3); Blood Urea Nitrogen 6 mg/dL (7-17); Calcium 7.8 mg/dL (8.4-10.2); Carbon Dioxide 13 mmol/L (22-30); Chloride 117 mmol/L (98-107); Estimated CRCL calculation 78 ml/min; Estimated Glomerular Filt Rate > 60; Glucose 71 mg/dL (65-110); Magnesium 1.8 mg/dL (1.6-2.3); Potassium 3.7 mmol/L (3.4-5.0); Sodium 135 mmol/L (137-145); Total Protein 4.4 g/dL (6.3-8.2)
[2024-10-02 08:22] VITALS: PULSE 76
[2024-10-02] MEDS: EZETIMIBE 10 MG TABLET PO (08:22)
[2024-10-02] MEDS: DOCUSATE SODIUM 100 MG CAPSULE PO (08:22)
[2024-10-02] MEDS: CEPHALEXIN 500 MG CAPSULE PO ×2 (08:22→21:30)
[2024-10-02] MEDS: carvediloL 6.25 MG TABLET PO ×2 (08:22→21:30)
[2024-10-02] MEDS: hydrALAZINE HCL 25 MG TABLET PO ×2 (08:22→21:31)
[2024-10-02] MEDS: MAGNESIUM OXIDE 400 MG TABLET PO (08:23)
[2024-10-02] MEDS: MULTIVITS W-FE,MIN CHEWABLE TABLET 1 TABLET PO (08:23)
[2024-10-02] MEDS: MIRTAZAPINE 30 MG TABLET PO (08:23)
[2024-10-02] MEDS: PANTOPRAZOLE 40 MG TABLET PO (08:23)
[2024-10-02] MEDS: POTASSIUM CHLORIDE 20 MEQ ER TABLET PO (08:23)
[2024-10-02] MEDS: hydrOXYzine HCL 25 MG TABLET PO ×3 (08:25→16:35)
[2024-10-02 09:10] VITALS: BMI 10.0
[2024-10-02] MEDS: traMADol HCL (*CRX) 50 MG TABLET PO (09:18)
[2024-10-02 09:38] LABS: Basophils Percent Auto 0.3 % (0.2-1.2); Eosinophils Percent Auto 0.3 % (0-4.4); Hematocrit 25.2 % (37.0-47.0); Hemoglobin 8.4 g/dL (12.0-15.0); Immature Granulocyte Absolute 0.03 K/mm3 (0.00-0.031); Immature Granulocyte Percent A 0.4 % (0-0.5); Immature Platelet Fraction Pct 2.5 % (0.9-11.2); Lymphocytes Absolute Auto 1.89 K/mm3 (0.9-3.2); Lymphocytes Percent Auto 28.3 % (18.3-44.2); Mean Corpuscular HGB Conc 33.3 g/dl (32-36); Mean Corpuscular Hemoglobin 30.4 pg (26-34); Mean Corpuscular Volume 91.3 fl (80-100); Mean Platelet Volume 9.9 fl (7.4-10.4); Monocytes Absolute Auto 0.4 K/mm3 (0.1-0.6); Monocytes Percent Auto 6.6 % (2.6-8.5); Neutrophils Absolute Auto 4.3 K/mm3 (1.3-6.7); Neutrophils Percent Auto 64.1 % (45.5-73.1); Platelet Count Result 96 k/mm3 (150-375); Red Blood Count 2.76 M/mm3 (4.2-5.4); Red Cell Distribution Width 23.1 % (11.5-14.5); White Blood Count 6.7 K/mm3 (4.5-10.0)
[2024-10-02 10:05] LABS: Acanthocytes 1+; Anisocytosis 1+; Burr Cells 2+; Helmet Cells 1+; Hypochromasia 1+; Platelet Estimate Decreased (Adequate); Schistocytes None Seen; Target Cells 1+
[2024-10-02 12:22] LABS: Alveolar/Arterial O2 Gradient 27.4 mmHg; Base Excess ABG -6.3 mEq/l (+/-2.0); Fractional Inspired Oxygen 21 %; HCO3 ABG 16.5 mEq/l (22.0-26.0); Oxygen Content ABG 12.2 %vol (16.0-22.0); Oxygen Saturation ABG 97.6 % (95.0-100.0); Oxyhemoglobin 96.5 % THb (90.0-100.0); PCO2 ABG 24.1 mmHg (35.0-45.0); PO2 ABG 93.5 mmHg (80.0-100.0); PO2 FiO2 Ratio Arterial Blood 4.45 %; Total Hemoglobin 8.9 g/dL (12.0-18.0); pH ABG 7.453 (7.350-7.450)
[2024-10-02 12:24] LABS: Device ROOM AIR; Modified Allen's Test Pass; Site Drawn LEFT RADIAL
[2024-10-02] MEDS: ALBUMIN HUMAN 25% 25 GM/100 ML 100 ML IVPB (13:11)
[2024-10-02 14:00] VITALS: BP 134/76; PULSE 93; RESP 16; TEMP 36.7; O2SAT 100
[2024-10-02] MEDS: ATORVASTATIN 10 MG TABLET PO (16:35)
[2024-10-02 21:27] VITALS: BP 133/76; PULSE 104; RESP 16; TEMP 36.6; O2SAT 100
[2024-10-03 06:00] VITALS: BP 132/67; PULSE 93; RESP 12; TEMP 36.3; O2SAT 100
[2024-10-03] MEDS: MEGESTROL ACETATE (*CHEMO) 20 MG TABLET PO (06:12)
[2024-10-03] MEDS: SUCRALFATE 1 GM TABLET PO ×2 (06:12→12:34)
[2024-10-03 06:35] LABS: Basophils Percent Auto 0.3 % (0.2-1.2); Eosinophils Absolute Auto 0.1 K/mm3 (0-0.3); Eosinophils Percent Auto 1.1 % (0-4.4); Hematocrit 23.8 % (37.0-47.0); Hemoglobin 8.2 g/dL (12.0-15.0); Immature Granulocyte Absolute 0.03 K/mm3 (0.00-0.031); Immature Granulocyte Percent A 0.5 % (0-0.5); Immature Platelet Fraction Pct 2.6 % (0.9-11.2); Lymphocytes Absolute Auto 2.45 K/mm3 (0.9-3.2); Lymphocytes Percent Auto 38.6 % (18.3-44.2); Mean Corpuscular HGB Conc 34.5 g/dl (32-36); Mean Corpuscular Hemoglobin 30.5 pg (26-34); Mean Corpuscular Volume 88.5 fl (80-100); Mean Platelet Volume 10.6 fl (7.4-10.4); Monocytes Absolute Auto 0.4 K/mm3 (0.1-0.6); Monocytes Percent Auto 6.5 % (2.6-8.5); Neutrophils Absolute Auto 3.4 K/mm3 (1.3-6.7); Platelet Count Result 104 k/mm3 (150-375); Red Blood Count 2.69 M/mm3 (4.2-5.4); Red Cell Distribution Width 22.9 % (11.5-14.5); White Blood Count 6.4 K/mm3 (4.5-10.0)
[2024-10-03 07:03] LABS: Alanine Aminotransferase 20 U/L (6-35); Albumin Level 2.1 g/dL (3.5-5.1); Alkaline Phosphatase 63 U/L (38-126); Anion Gap 7 mmol/L (4-12); Aspartate Amino Transferase 24 U/L (14-36); Bilirubin,Total 1.1 mg/dL (0.2-1.3); Blood Urea Nitrogen 4 mg/dL (7-17); Calcium 8.1 mg/dL (8.4-10.2); Carbon Dioxide 17 mmol/L (22-30); Chloride 113 mmol/L (98-107); Estimated CRCL calculation 84 ml/min; Estimated Glomerular Filt Rate > 60; Glucose 80 mg/dL (65-110); Magnesium 1.7 mg/dL (1.6-2.3); Potassium 3.3 mmol/L (3.4-5.0); Sodium 137 mmol/L (137-145); Total Protein 4.9 g/dL (6.3-8.2)
[2024-10-03 07:10] LABS: INR 1.4; Prothrombin Time 16.7 Seconds (11.1-14.7)
--- NOTE | 2024-10-03 07:14 | PM.IMPN ---
Subjective Date/time seen: 10/03/24 07:14 Objective Data Vital Signs Vital Signs: Vital Signs - 24 hr 10/02/24 08:00 10/02/24 08:22 10/02/24 14:00 Temperature 98.0 F Pulse Rate 76 93 Respiratory Rate 16 Blood Pressure 134/76 Pulse Oximetry 99 100 Oxygen Delivery Room Air 10/02/24 20:00 10/02/24 21:27 10/03/24 06:00 Temperature 97.8 F 97.3 F L Pulse Rate 104 H 93 Respiratory Rate 16 12 Blood Pressure 133/76 132/67 Pulse Oximetry 100 100 Oxygen Delivery Room Air Intake/Output Intake/Output: Intake & Output 09/30/24 10/01/24 10/02/24 10/03/24 23:59 23:59 23:59 23:59 Intake Total 1050 333 170 0 Output Total 350 400 800 Balance 1050 -17 -230 -800 Meds/Results Medications: Active Medications Generic Name Dose Route Start Last Admin Trade Name Freq PRN Reason Stop Dose Admin Acetaminophen 650 mg 09/28/24 23:11 09/29/24 06:22 Acetaminophen 325 Mg Tablet PO 650 mg Q4H PRN Administration Mild Pain (1-3) or Fever Hydrocodone Bitart/Acetaminophen 1 tab 09/29/24 08:52 Hydrocodone/Acetaminophen (*Crx) 5-325 Mg Tablet PO Q4H PRN Moderate Pain (4-6) Atorvastatin Calcium 10 mg 09/29/24 18:00 10/02/24 16:35 Atorvastatin 10 Mg Tablet PO 10 mg QPM RAJINDER Administration Carvedilol 6.25 mg 09/29/24 21:00 10/02/24 21:30 Carvedilol 6.25 Mg Tablet PO 6.25 mg Q12H RAJINDER Administration Cephalexin HCl 500 mg 09/30/24 21:00 10/02/24 21:30 Cephalexin 500 Mg Capsule PO 10/05/24 09:01 500 mg Q12HR RAJINDER Administration Cyproheptadine HCl 4 mg 09/29/24 14:55 Cyproheptadine Hcl 4 Mg Tablet PO BID PRN appetite Docusate Sodium 100 mg 09/30/24 09:00 10/02/24 08:22 Docusate Sodium 100 Mg Capsule PO 100 mg DAILY RAJINDER Administration Ezetimibe 10 mg 09/30/24 09:00 10/02/24 08:22 Ezetimibe 10 Mg Tablet PO 10 mg DAILY RAJINDER Administration Hydralazine HCl 25 mg 09/29/24 21:00 10/02/24 21:31 Hydralazine Hcl 25 Mg Tablet PO 25 mg Q12H RAJINDER Administration Hydroxyzine HCl 25 mg 09/29/24 17:00 10/02/24 16:35 Hydroxyzine Hcl 25 Mg Tablet PO 25 mg TID RAJINDER Administration Magnesium Citrate 150 ml 09/30/24 09:00 10/02/24 08:23 Magnesium Citrate 300 Ml Btl PO Not Given DAILY RAJINDER Magnesium Oxide 400 mg 09/30/24 09:00 10/02/24 08:23 Magnesium Oxide 400 Mg Tablet PO 400 mg DAILY RAJINDER Administration Megestrol Acetate 20 mg 09/29/24 16:30 10/03/24 06:12 Megestrol Acetate (*Chemo) 20 Mg Tablet PO 20 mg BIDAC RAJINDER Administration Mirtazapine 30 mg 09/30/24 09:00 10/02/24 08:23 Mirtazapine 30 Mg Tablet PO 30 mg DAILY RAJINDER Administration Multivitamins/Minerals 1 tablet 09/30/24 09:00 10/02/24 08:23 Multivits W-Fe,Min Chewable Tablet PO 1 tablet DAILY RAJINDER Administration Ondansetron HCl 4 mg 09/29/24 08:52 Ondansetron Inj 4 Mg/2 Ml Vial IV PUSH Q6H PRN Nausea And Vomiting Pantoprazole Sodium 40 mg 09/30/24 09:00 10/02/24 08:23 Pantoprazole 40 Mg Tablet PO 40 mg DAILY RAJINDER Administration Potassium Chloride 20 meq 09/30/24 09:00 10/02/24 08:23 Potassium Chloride 20 Meq Er Tablet PO 20 meq DAILY RAJINDER Administration Potassium Chloride 40 meq 10/03/24 14:08 Potassium Chloride 20 Meq Packet (For Liquid) PO 10/03/24 14:09 ONCE ONE Sodium Bicarbonate 650 mg 10/03/24 09:00 Sodium Bicarbonate Tab 650 Mg Tablet PO BID RAJINDER Sucralfate 1 gm 09/29/24 16:30 10/03/24 06:12 Sucralfate 1 Gm Tablet PO 1 gm ACHS RAJINDER Administration Tramadol HCl 50 mg 09/29/24 14:55 10/02/24 09:18 Tramadol Hcl (*Crx) 50 Mg Tablet PO 50 mg Q8H PRN Administration pain 7-10 Radiology Results: ITS Impressions Chest X-Ray 09/28/24 18:21 IMPRESSION: No focal infiltrate or effusion. Abdomen/Pelvis CT 09/28/24 22:03 IMPRESSION: No acute findings within the abdomen or pelvis, as detailed above. Labs Labs: Laboratory Results - last 24 hr 10/02/24 10/02/24 10/02/24 06:52 09:29 12:16 WBC 6.7 RBC 2.76 L Hgb 8.4 L Hct 25.2 L MCV 91.3 D MCH 30.4 MCHC 33.3 RDW 23.1 H Plt Count 96 L MPV 9.9 Immature Gran % (Auto) 0.4 Neut % (Auto) 64.1 Lymph % (Auto) 28.3 [place] % (Auto) 6.6 Eos % (Auto) 0.3 Baso % (Auto) 0.3 Lymph # (Auto) 1.89 [place] # (Auto) 0.4 Eos # (Auto) 0.0 Baso # (Auto) 0.0 Abs Immat Gran (auto) 0.03 Absolute Neuts (auto) 4.3 Absolute Nucleated RBC 0.000 Band Neutrophils % Not Reportable Nucleated RBC % 0.0 Platelet Estimate Decreased % Immature Plt Fraction 2.5 Hypochromasia 1+ Anisocytosis 1+ Target Cells 1+ Helmet Cells 1+ Uday Cells 2+ Acanthocytes (Spur) 1+ Schistocytes None seen PT 16.3 H INR 1.3 Puncture Site Left radial ABG pH 7.453 H ABG pCO2 24.1 L ABG pO2 93.5 ABG PO2/FiO2 Ratio 4.45 ABG HCO3 16.5 L ABG O2 Saturation 97.6 ABG O2 Content 12.2 L ABG Base Excess -6.3 A-a Gradient 27.4 Oxyhemoglobin 96.5 Total Hemoglobin 8.9 L O2 Delivery Device Room air O2 Liters/Min Not Reportable FiO2 21 Sodium 135 L Potassium 3.7 Chloride 117 H Carbon Dioxide 13 L Anion Gap 5 BUN 6 L Creatinine 0.52 L Estim Creat Clear Calc 78 Estimated GFR > 60 Glucose 71 Calcium 7.8 L Magnesium 1.8 Total Bilirubin 1.1 AST 38 H ALT 18 Alkaline Phosphatase 78 Total Protein 4.4 L Albumin 1.6 L 10/03/24 05:58 WBC RBC Hgb Hct MCV MCH MCHC RDW Plt Count MPV Immature Gran % (Auto) Neut % (Auto) Lymph % (Auto) [place] % (Auto) Eos % (Auto) Baso % (Auto) Lymph # (Auto) [place] # (Auto) Eos # (Auto) Baso # (Auto) Abs Immat Gran (auto) Absolute Neuts (auto) Absolute Nucleated RBC Band Neutrophils % Nucleated RBC % Platelet Estimate % Immature Plt Fraction Hypochromasia Anisocytosis Target Cells Helmet Cells Uday Cells Acanthocytes (Spur) Schistocytes PT 16.7 H INR 1.4 Puncture Site ABG pH ABG pCO2 ABG pO2 ABG PO2/FiO2 Ratio ABG HCO3 ABG O2 Saturation ABG O2 Content ABG Base Excess A-a Gradient Oxyhemoglobin Total Hemoglobin O2 Delivery Device O2 Liters/Min FiO2 Sodium 137 Potassium 3.3 L Chloride 113 H Carbon Dioxide 17 L Anion Gap 7 BUN 4 L Creatinine 0.48 L Estim Creat Clear Calc 84 Estimated GFR > 60 Glucose 80 Calcium 8.1 L Magnesium 1.7 Total Bilirubin 1.1 AST 24 ALT 20 Alkaline Phosphatase 63 Total Protein 4.9 L Albumin 2.1 L
[2024-10-03 07:18] LABS: Hypochromasia 1+; Platelet Estimate Decreased (Adequate)
[2024-10-03 07:19] LABS: Acanthocytes 1+; Anisocytosis 1+; Burr Cells 1+; Schistocytes None Seen; Target Cells 1+
[2024-10-03 08:00] VITALS: PULSE 90; RESP 12; O2SAT 100
--- NOTE | 2024-10-03 08:44 | P.DS_ITS ---
DS: Admitting Diagnosis Discharge Date 10/03/24 Admitting Diagnosis Weakness, Nausea, Supratherapeutic INR, poor appetite, lactic acidosis, dehydration, pressure injury, hypomagnesemia, htn, UTI, CVA history, anemia DS: Discharge Diagnosis Discharge Diagnosis (1) Acute hypokalemia: Code(s): E87.6 - Hypokalemia Status: Acute Assessment and Plan: Repleted. Trending lower, daily potassium to 30meq on dc. (2) Generalized weakness: Code(s): R53.1 - Weakness Status: Acute Assessment and Plan: Improved, did not qualify for SNF plans to return to home with daughter. Likely chronic in nature acutely worsened from acute illness. Stable. (3) Nauseous: Code(s): R11.0 - Nausea Status: Acute Assessment and Plan: Nausea with poor appetite, GI consultation no acute findings. Plan to continue remeron and megace. She states plans to eat smaller meals feels that she is improving somewhat. (4) Diarrhea: Code(s): R19.7 - Diarrhea, unspecified Status: Acute Assessment and Plan: Improved. (5) Dehydration: Code(s): E86.0 - Dehydration Status: Acute Assessment and Plan: Resolved. BUN/Cr at 4/0.48. (6) History of stroke: Code(s): Z86.73 - Personal history of transient ischemic attack (TIA), and cerebral infarction without residual deficits Status: Acute Assessment and Plan: Warfarin changed to Xarelto. (7) Hypomagnesemia: Code(s): E83.42 - Hypomagnesemia Status: Acute Assessment and Plan: Resolved. Plan Patient will discharge to family care, at approximate baseline. Doing well on day of discharge. DS: Summary Hospital Course Reason for hospitalization: Nausea, poor intake, acute uti, supratherapeutic INR. Hospital Course: Yumiko Mendez presented with acute UTI with 2-3 weeks of nausea and poor intake. She was treated with ceftriaxone and cx resulted mixed aubrey, she will complete a course of abx orally at this time. GI was consulted in light of chronic nausea without acute findings. Mrs. Mendez has had some improvement in her appetite. INR was supratherapeutic no signs of bleeding, cont. xarelto. On day of discharge she states she feels capable of returning to home with her family. She has family present and she notes her care needs are always met. Status at Discharge Overall status at discharge: patient is back to baseline Time Spent with Patient Time attestation: Total time spent providing and/or coordinating discharge services: Time spent: Greater than 30 minutes Exam Narrative: GENERAL APPEARANCE: Appears to be in no acute distress. HEAD: normocephalic atraumatic EYES: Vision grossly intact. ENT: Hearing grossly intact, no nasal discharge NECK: Neck supple, trachea midline. CARDIAC: Rhythm is grossly regular. No murmurs, rubs, or gallops. No cyanosis or pallor. Extremities are warm and well perfused. LUNGS: Clear to auscultation without rales, rhonchi, wheezing or diminished breath sounds. Respirations even and unlabored. ABDOMEN: BS positive x 4 quadrants. Soft, nondistended, nontender. No guarding or rebound. MSK: No joint tenderness/swelling. PERIPHERAL VASCULAR: Normal perfusion, cap refill <2 seconds. No edema. NEURO: Follows commands. SKIN: [place] without lesions or eruptions. PSYCH: Stable, no paranoia or delusional thinking. DS: Data Data Completed and Pending Labs on day of discharge: Labs from last 24 hours 10/03/24 10/02/24 10/02/24 05:58 12:16 09:29 WBC 6.4 6.7 RBC 2.69 L 2.76 L Hgb 8.2 L 8.4 L Hct 23.8 L 25.2 L MCV 88.5 91.3 D MCH 30.5 30.4 MCHC 34.5 33.3 RDW 22.9 H 23.1 H Plt Count 104 L 96 L MPV 10.6 H 9.9 Immature Gran % (Auto) 0.5 0.4 Neut % (Auto) 53.0 64.1 Lymph % (Auto) 38.6 28.3 [place] % (Auto) 6.5 6.6 Eos % (Auto) 1.1 0.3 Baso % (Auto) 0.3 0.3 Lymph # (Auto) 2.45 1.89 [place] # (Auto) 0.4 0.4 Eos # (Auto) 0.1 0.0 Baso # (Auto) 0.0 0.0 Abs Immat Gran (auto) 0.03 0.03 Absolute Neuts (auto) 3.4 4.3 Absolute Nucleated RBC 0.000 0.000 Band Neutrophils % Not Reportable Not Reportable Nucleated RBC % 0.0 0.0 Platelet Estimate Decreased Decreased % Immature Plt Fraction 2.6 2.5 Hypochromasia 1+ 1+ Anisocytosis 1+ 1+ Target Cells 1+ 1+ Helmet Cells 1+ Uday Cells 1+ 2+ Acanthocytes (Spur) 1+ 1+ Schistocytes None seen None seen PT 16.7 H INR 1.4 Puncture Site Left radial ABG pH 7.453 H ABG pCO2 24.1 L ABG pO2 93.5 ABG PO2/FiO2 Ratio 4.45 ABG HCO3 16.5 L ABG O2 Saturation 97.6 ABG O2 Content 12.2 L ABG Base Excess -6.3 A-a Gradient 27.4 Oxyhemoglobin 96.5 Total Hemoglobin 8.9 L O2 Delivery Device Room air O2 Liters/Min Not Reportable FiO2 21 Sodium 137 Potassium 3.3 L Chloride 113 H Carbon Dioxide 17 L Anion Gap 7 BUN 4 L Creatinine 0.48 L Estim Creat Clear Calc 84 Estimated GFR > 60 Glucose 80 Calcium 8.1 L Magnesium 1.7 Total Bilirubin 1.1 AST 24 ALT 20 Alkaline Phosphatase 63 Total Protein 4.9 L Albumin 2.1 L Preliminary micro results at discharge 09/28/24 20:27 Blood Culture - Preliminary Blood Staphylococcus haemolytics 09/29/24 00:25 Blood Culture - Preliminary Blood Discharge Plan Discharge Attending physician on discharge: Buck Reed Consulting providers: Guadalupe Winter; Jose Arauz Discharging Clinician: Teja Lewis Anticipated Discharge Date/Time: 10/02/24 10:51 Patient Disposition: Home with Home Health Service Activity: as tolerated Diet: as tolerated Discharge Instructions: Per Care Coordination: [facility] ([phone]) will resume services at discharge. RN please fax discharge paperwork to [phone] Discharge disposition: Stable Take medications as prescribed Monitor blood pressures Take caution while standing, rising, or moving Change positions slowly taking a break between each position change If you standing feel dizzy sit back down and take a break Encouraged to continue with yearly vaccinations Return to the emergency department if he developed sudden shortness of breath, chest pain, nausea, vomiting, upset stomach or intractable diarrhea Return to the emergency department if you develop fever greater than 101.5 Follow-up with the primary care physician within 1-2 weeks Thank you for [facility] for your healthcare needs Patient Instructions: Antibiotic Form Patient Language: [place] Stand Alone Forms: General Discharge Information Follow-up/Referrals: Ryan*Sophy Preciado M.D. [Primary Care Provider] - Discharge Medications: New cephalexin 500 mg Capsule 500 mg PO Q12HR Qty: 7 0RF Continued acetaminophen [Tylenol Arthritis Pain] 650 mg tablet extended release 500 mg PO Q6H PRN (Reason: Pain) Patient Comments: 1 tablet po prn pain multivit with min-folic acid [Adult Multivitamin Gummies] 200 mcg Tablet,Chewable 1 tablet PO DAILY atorvastatin 10 mg tablet 10 mg PO QPM carvedilol 6.25 mg tablet 6.25 mg PO Q12H ezetimibe 10 mg tablet 10 mg PO DAILY hydralazine 25 mg tablet 25 mg PO Q12H mirtazapine 30 mg tablet 30 mg PO DAILY pantoprazole 40 mg tablet,delayed release (DR/EC) 40 mg PO DAILY tramadol 50 mg tablet 50 mg PO Q8H PRN (Reason: pain) Patient Comments: 1-2 tabs po prn severe pain cyproheptadine 4 mg tablet 4 mg PO BID PRN (Reason: appetite) docusate sodium [Col-Rite] 100 mg capsule 100 mg PO DAILY hydroxyzine HCl 25 mg tablet 25 mg PO TID magnesium citrate [Citrate of Magnesia] Solution 150 ml PO DAILY ondansetron 4 mg tablet,disintegrating 4 mg PO BID PRN (Reason: nausea and vomiting) Xarelto 20 mg tablet 20 mg PO DAILY megestrol 40 mg tablet 20 mg PO BID Changed potassium chloride 10 mEq tablet extended release 30 meq PO DAILY Qty: 21 0RF Date of admission: 09/29/24 10:21 Primary Care Provider: BrodySophy Admitting Provider: Caro Gutierrez Attending physician on admission: Caro Gutierrez Condition: Stable Quality VTE Prophylaxis VTE prophylaxis: pharmacologic ordered
[2024-10-03] MEDS: MAGNESIUM CITRATE 300 ML BTL 150 ML PO (09:09)
[2024-10-03 09:10] VITALS: PULSE 90
[2024-10-03] MEDS: CEPHALEXIN 500 MG CAPSULE PO (09:10)
[2024-10-03] MEDS: PANTOPRAZOLE 40 MG TABLET PO (09:10)
[2024-10-03] MEDS: EZETIMIBE 10 MG TABLET PO (09:10)
[2024-10-03] MEDS: DOCUSATE SODIUM 100 MG CAPSULE PO (09:10)
[2024-10-03] MEDS: carvediloL 6.25 MG TABLET PO (09:10)
[2024-10-03] MEDS: MAGNESIUM OXIDE 400 MG TABLET PO (09:10)
[2024-10-03] MEDS: MIRTAZAPINE 30 MG TABLET PO (09:10)
[2024-10-03] MEDS: POTASSIUM CHLORIDE 20 MEQ ER TABLET PO (09:10)
[2024-10-03] MEDS: SODIUM BICARBONATE TAB 650 MG TABLET PO (09:11)
[2024-10-03] MEDS: MULTIVITS W-FE,MIN CHEWABLE TABLET 1 TABLET PO (09:11)
[2024-10-03] MEDS: hydrALAZINE HCL 25 MG TABLET PO (09:11)
[2024-10-03] MEDS: traMADol HCL (*CRX) 50 MG TABLET PO (09:16)
[2024-10-03] MEDS: hydrOXYzine HCL 25 MG TABLET PO ×2 (09:17→12:34)
[2024-10-03] MEDS: POTASSIUM CHLORIDE 20 MEQ PACKET (FOR LIQUID) 40 MEQ PO (12:35)
== END 2024-10-03 14:15 | disposition home health service (06) | DRG 690 ==
LOC: ANHED 23:15 → ANH3MEDSUR 09-29 00:03
PROVIDERS: Nurse Practitioner; Nurse Practitioner Family; Physician Assistant; Admitting Provider Internal Medicine; Emergency Provider Physician Assistant; PCP Internal Medicine Infectious Disease; Visit Provider Nurse Practitioner Family
DX: N39.0 Urinary tract infection, site not specified (principal); E87.20 Acidosis, unspecified; I69.354 Hemiplegia and hemiparesis following cerebral infarction affecting left non-dominant side; E83.42 Hypomagnesemia; I10 Essential (primary) hypertension; D64.9 Anemia, unspecified; L89.159 Pressure ulcer of sacral region, unspecified stage; E86.0 Dehydration; R63.0 Anorexia; R79.1 Abnormal coagulation profile; Z95.1 Presence of aortocoronary bypass graft; Z79.01 Long term (current) use of anticoagulants; E87.6 Hypokalemia; R19.7 Diarrhea, unspecified; M19.90 Unspecified osteoarthritis, unspecified site
CPT/HCPCS: 36415; 36600; 71045; 74177; 80053; 81001; 82550; 82607; 82728; 82746; 82747; 82805; 83540; 83550; 83605; 83690; 83735; 84132; 85018; 85025; 85055; 85610; 85730; 86140; 87040; 87086; 87181; 93005; 96361; 96365; 97110; 97162; 97165; 97530; 99212; 99285; A9270; G0378; G0463; J0696; J3475; J3480; J7030; J7040; P9047; Q9967